=== PATIENT | male | born 1935 | race Caucasian/White ===

== ENCOUNTER 2016-04-15 13:05 | Emergency (ER) | payer MEDICARE ==
[~2016-04-15] VITALS: Ht 193 cm; Wt 97.5 kg
[~2016-04-15 13:05] MED LIST: ALBU8.5H2 INH; AMIO200T2 PO; AMIO400T5 PO; AML5T PO; AMLO10TA4 PO; APIX5TAB PO; APIX5TAB2 PO; ASP325T PO; ASPI-808 PO; ASPI-983 PO; ATEN50TA PO; ATN50T PO; BUDE10.2 IH; BUDE6HFA IH; CARV12.53 PO; CLOP75TA PO; DIGO250T15 PO; DILT120C PO; DILT180C54 PO; DILT240C86 PO; Diltiazem Hcl PO; ECOTRIN PO; EZET10TA5 PO; FENO145T PO; FENO145T20 PO; FLINTSTONE1 TAB.CHE4 PO; FLUT1DIS26 IH; IPR14IN IH; IPR14IN INH; ISM30TCR PO; ISM60TCR PO; ISOS30TA3 PO; KCL20TCR PO; LEVA1.2516 INH; LEVO750T24 PO; LISI10TA2 PO; MNTL10T PO; MONT10TA24 PO; NFAMINITAB PO; NITR0.4T PO; NITR0.4T3 SL; RT-ALBUINH IH; UMEC62.5 IH
--- OUTSIDE RECORDS SUMMARY | 2016-04-15 13:10 | XMS REPORT | Continuity of Care Document ---
Author Author [facility] Organization [facility] Address Unknown Phone Unavailable Care Team Providers Care Insights Analyst Name Role Phone ANNAMARIA RODGERS MD PCP Insurance Providers Payer Name Policy Number Subscriber Name Relationship Wps Medicare [id number] Peak,Reji V 18 Self / Same As Patient Blue Cross Mc[employer] Supp [id number] Peak,Reji V 18 Self / Same As Patient Advance Directives Directive Response Recorded Date/Time Advance Directives No 03/19/16 11:03am Health Care Power of Automatic Lump Making Machine Tender No 03/19/16 11:03am Organ Donor Yes 03/19/16 11:03am Resuscitation Status Full Code 03/19/16 11:03am Chief Complaint and Reason for Visit Chief Complaint Cardiac/General Problems Reason for Visit Labile blood pressure Problems Active Problems Medical Problem Onset Date Status Acute exacerbation of chronic obstructive airways disease Unknown Acute Acute exacerbation of chronic obstructive pulmonary disease (COPD) Unknown Acute Acute on chronic respiratory failure Unknown Acute Acute renal failure syndrome Unknown Acute Atrial fibrillation with RVR Unknown Acute Atrial fibrillation with RVR Unknown Acute Chest pain Unknown Acute Hypertension Unknown Acute Hypoxia Unknown Acute Labile blood pressure Unknown Acute New onset atrial flutter Unknown Acute New onset atrial flutter Unknown Acute Pneumonia Unknown Acute Sepsis Unknown Acute Sinus bradycardia Unknown Acute Medications Current Home Medications Medication Dose Units Route Directions Days/Qty Instructions Start Date Vitamin C/Vitamin E 1 Tab 1 Tab Oral Daily 04/29/13 Multivitamins W-Iron 1 Tab.chew 1 Tab.chew Oral Twice A Day 04/29/13 Lisinopril 10 Mg 10 Mg Oral Twice A Day 02/27/16 Ipratropium [place] 12.9 Gm 1 Puff Inhalation Twice A Day 02/27/16 Montelukast Sodium 10 Mg 10 Mg Oral Bedtime 02/27/16 Ezetimibe 10 Mg 10 Mg Oral Bedtime 02/27/16 Fenofibrate Nanocrystallized 145 Mg 145 Mg Oral Bedtime 02/27/16 Apixaban 5 Mg 5 Mg Oral Twice A Day 02/27/16 Nitroglycerin 0.4 Mg 0.4 Mg Oral As Directed as needed for Chest Pain DISSOLVE 1 TAB UNDER TONGUE EVERY 5 MINUTES NEEDED; NOT TO EXCEED 3 DOSES IN 15 MINUTES 02/27/16 Albuterol Sulfate 8.5 Gm 1 Puff Inhalation Twice A Day 02/27/16 Budesonide/Formoterol Fumarate 10.2 Gm 2 Puff Inhalation Twice A Day 02/27/16 Levalbuterol Hcl 1.25 Mg/3 Ml 1.25 Mg Inhalation Four Times Daily as needed for Dyspnea 100 02/28/16 Isosorbide Mononitrate (Imdur) 60 Mg 60 Mg Oral Daily 30 02/28/16 Carvedilol 12.5 Mg 12.5 Mg Oral Twice A Day 60 02/28/16 Aspirin 81 Mg 0 Mg Oral Daily 90 02/28/16 Amlodipine Besylate 10 Mg 10 Mg Oral Daily 30 02/28/16 Past Home Medications Medication Directions Ordered Status Atenolol 50 Mg Tablet, 50 Mg Oral Bedtime 11/22/07 Discontinued Amlodipine Besylate 5 Mg Tablet, 5 Mg Oral Bedtime 11/22/07 Discontinued Fenofibrate 145 Mg Tablet, 145 Mg Oral Bedtime 11/22/07 Discontinued Ezetimibe 10 Mg Tablet, 10 Mg Oral Bedtime 11/22/07 Discontinued [Ecotrin] , 325 Mg Oral Bedtime 11/22/07 Discontinued Aspirin 325 Mg Tab, 325 Mg Oral Bedtime 10/16/10 Discontinued Isosorbide Mononitrate 30 Mg Tab, 30 Mg Oral Daily@0630 10/16/10 Discontinued Clopidogrel Bisulfate 75 Mg Tablet, 1 Each Oral Daily 10/24/10 Discontinued Lisinopril 10 Mg Tablet, 10 Mg Oral Twice A Day 04/29/13 Discontinued Montelukast Sodium 10 Mg Tablet, 10 Mg Oral Bedtime 04/29/13 Discontinued Albuterol 8.5 Gm Hfa.aer.ad, 1 Puff Inhalation Twice A Day 04/29/13 Discontinued Ipratropium [place] 12.9 Gm Aers, 1 Puff Inhalation Twice A Day 04/29/13 Discontinued Salmeterol Xinafoate/Fluticasone 1 Disk Inhp, 1 Puff Inhalation Twice A Day 03/22/14 Discontinued Apixaban 5 Mg Tablet, 5 Mg Oral Twice A Day 03/22/14 Discontinued Diltiazem Hcl (Cardizem Cd) 120 Mg Cap.sr.24h, 120 Mg Oral Daily 04/15/14 Discontinued Budesonide/Formoterol Fumarate 1 Inhaler Aero, 1 Puff Inhalation Twice A Day 04/15/14 Discontinued Ipratropium [place] 12.9 Gm Aers, 1 Puff Inhalation Twice A Day 04/15/14 Discontinued Apixaban 5 Mg Tablet, 5 Mg Oral Twice A Day 04/15/14 Discontinued [Diltiazem Hcl] 240 Mg Cap, 240 Mg Oral Daily 04/21/14 Discontinued Diltiazem Hcl 240 Mg Cap.er.24h, 240 Mg Oral Daily 05/10/14 Discontinued Digoxin 0.25 Mg Tab, 0.25 Mg Oral Daily 05/21/14 Discontinued Potassium Chloride 20 Meq Tab, 20 Meq Oral Daily@0700 05/21/14 Discontinued Amiodarone Hcl 400 Mg Tablet, 400 Mg Oral Daily 05/21/14 Discontinued Nitroglycerin 0.4 Mg Tab.subl, 0.4 Mg Sublingual As Needed as needed for Chest Pain 09/02/14 Discontinued Isosorbide Mononitrate (Imdur) 30 Mg Tab.sr.24h, 1 Each Oral Daily 10/24/14 Discontinued Umeclidinium [place] 62.5 Mcg Blst.w.dev, 62.5 Mcg Inhalation 08/24/15 Discontinued Umeclidinium [place] 62.5 Mcg Blst.w.dev, 62.5 Mcg Inhalation Daily 02/27/16 Discontinued Isosorbide Mononitrate (Imdur) 30 Mg Tab.er.24h, 30 Mg Oral Daily 02/27/16 Discontinued Aspirin 81 Mg Tablet.dr, 81 Mg Oral Daily 02/27/16 Discontinued Amiodarone Hcl 200 Mg Tablet, 200 Mg Oral Daily 02/27/16 Discontinued Atenolol 50 Mg Tablet, 50 Mg Oral Daily 02/27/16 Discontinued Aspirin 325 Mg Tablet, 325 Mg Oral Bedtime 02/27/16 Discontinued Social History Social History Problem Response Recorded Date/Time Alcohol Use Past History 08/24/2015 3:53pm Recreational Drug Use No 08/24/2015 3:53pm Recent Foreign Travel No 03/19/2016 11:00am Recent Infectious Disease Exposure No 03/19/2016 11:00am Sexually Transmitted Disease No 03/19/2016 11:03am HIV/AIDS No 03/19/2016 11:03am Smoking Status Former Smoker 03/19/2016 11:23am Recent Hopitalizations Y 2 wks ago, chest pain, hypertension 03/19/2016 11: 03am Sexually Transmitted Disease No 03/19/2016 11:03am Query Response Start Date Stop Date Smoking Status Former Smoker 04/08/1983 Hospital Discharge Instructions No hospital discharge instructions. Plan of Care Discharge Date 03/19/16 1:55pm Disposition 01 HOME, SELF-CARE Condition at Discharge Improved Instructions/Education Provided High Blood Pressure in Adults Prescriptions See Medication Section Referrals ANNAMARIA RODGERS MD - Primary Care Physician Additional Instructions/Education All discharge instructions reviewed with patient and/or family. Voiced understanding. Monitor your blood pressure daily or twice daily for the next week and follow up with Dr. Fong next week to discuss your blood pressure control. Change your amlodipine to nighttime dosing only. You may start this tomorrow. Return for chest pain, breathing problems, weakness, vision or balance problems, difficulty with speech or talking or other concerns as needed. Take other medications as directed. Functional Status No functional status results. Allergies, Adverse Reactions, Alerts Allergen Type Severity Reaction Status Last Updated iodine ([id number]) Allergy Unknown Active 11/21/07 Immunizations No immunization records. Vital Signs Acute Vital Signs Vital Response Date/Time Temperature (Fahrenheit) 98.3 degrees F (97.6 - 99.5) 03/19/2016 11:00am Temperature (Calculated Celsius) 36.48654 degrees C (36.4 - 37.5) 03/19/2016 11:00am Temperature Source Tympanic 02/28/2016 4:05pm Pulse Rate (adult) 56 bpm (60 - 90) 03/19/2016 11:00am Respiratory Rate 16 bpm (12 - 24) 03/19/2016 11:00am O2 Sat by Pulse Oximetry 98 % (88 - 100) 02/28/2016 4:05pm Blood Pressure 119/49 mm Hg 03/19/2016 11:00am Blood Pressure Mean 72 mm Hg 03/19/2016 11:00am Pain Numeric Pain Scale 0-No Pain 03/19/2016 11:00am Pain Intensity 0 02/26/2016 8:46pm Height (Feet) 6 feet 03/19/2016 11:00am Height (Inches) 4 inches 03/19/2016 11:00am Height (Calculated Centimeters) 193.004059 cm 03/19/2016 11:00am Weight (Pounds) 215 pounds 03/19/2016 11:00am Weight (Ounces) 0.0 oz 02/26/2016 8:47pm Weight (Calculated Grams) 52439.36 gm 02/26/2016 8:47pm Weight (Calculated Kilograms) 97.601502 kilograms 03/19/2016 11:00am Calculated BMI 26.2 02/26/2016 8:47pm Capillary Refill Capillary Refill Less Than 3 Seconds 03/19/2016 11:00am Results Laboratory Results Test Name Result Units Flags Reference Collection Date/Time Result Date/ Time Comments White Blood Count 2.3 10^3/uL L 4.3-11.0 02/28/2016 4:10am 02/28/2016 4: 52am Red Blood Count 3.44 10^6/uL L 4.35-5.85 02/28/2016 4:10am 02/28/2016 4: 52am Hemoglobin 10.5 G/DL L 13.3-17.7 02/28/2016 4:10am 02/28/2016 4:52am Hematocrit 33 % L 40-54 02/28/2016 4:10am 02/28/2016 4:52am Mean Corpuscular Volume 96 FL 80-99 02/28/2016 4:10am 02/28/2016 4: 52am Mean Corpuscular Hemoglobin 31 PG 25-34 02/28/2016 4:10am 02/28/2016 4: 52am Mean Corpuscular Hemoglobin Concent 32 G/DL 32-36 02/28/2016 4:10am 4:52am Red Cell Distribution Width 13.8 % 10.0-14.5 02/28/2016 4:10am 2015 4:52am Platelet Count 163 10^3/uL 130-400 02/28/2016 4:10am 02/28/2016 4:52am Mean Platelet Volume 10.6 FL H 7.4-10.4 02/28/2016 4:10am 02/28/2016 4: 52am Neutrophils (%) (Auto) 47 % 42-75 02/27/2016 4:05am 02/27/2016 5:06am Lymphocytes (%) (Auto) 24 % 12-44 02/27/2016 4:05am 02/27/2016 5:06am Monocytes (%) (Auto) 24 % H 0-12 02/27/2016 4:05am 02/27/2016 5:06am Eosinophils (%) (Auto) 5 % 0-10 02/27/2016 4:05am 02/27/2016 5:06am Basophils (%) (Auto) 1 % 0-10 02/27/2016 4:05am 02/27/2016 5:06am Neutrophils # (Auto) 1.2 X 10^3 L 1.8-7.8 02/27/2016 4:05am 02/27/2016 5: 06am Lymphocytes # (Auto) 0.6 X 10^3 L 1.0-4.0 02/27/2016 4:05am 02/27/2016 5: 06am Monocytes # (Auto) 0.6 X 10^3 0.0-1.0 02/27/2016 4:05am 02/27/2016 5: 06am Eosinophils # (Auto) 0.1 10^3/uL 0.0-0.3 02/27/2016 4:05am 02/27/2016 5 :06am Basophils # (Auto) 0.0 10^3/uL 0.0-0.1 02/27/2016 4:05am 02/27/2016 5: 06am Neutrophils % (Manual) 58 % 02/26/2016 2:33pm 02/26/2016 3:43pm Lymphocytes % (Manual) 23 % 02/26/2016 2:33pm 02/26/2016 3:43pm Monocytes % (Manual) 16 % 02/26/2016 2:33pm 02/26/2016 3:43pm Eosinophils % (Manual) 3 % 02/26/2016 2:33pm 02/26/2016 3:43pm Blood Morphology Comment NORMAL 02/26/2016 2:33pm 02/26/2016 3: 43pm Prothrombin Time 14.0 SEC 12.2-14.7 02/26/2016 2:33pm 02/26/2016 3: 27pm INR Comment 1.1 0.8-1.4 02/26/2016 2:33pm 02/26/2016 3:27pm INTERPRETIVE DATA SUGGESTED THERAPEUTIC RANGE FOR INR'S: VENOUS THROMBOSIS, PULMONARY EMBOLISM, OR PREVENTION OF SYSTEMIC EMBOLISM (EG. IN ATRIAL FIBRILLATION): 2.0 - 3.0 MECHANICAL PROSTHETIC HEART VALVES: 2.5 - 3.5* *NOTE: INR'S UP TO 4.5 MAY BE NECESSARY IN SELECTED GROUPS OF HIGH RISK PATIENTS. [employer] [place] CONSENSUS CONFERENCE ON ANTITHROMBOTIC THERAPY (2000). Activated Partial Thromboplast Time 28 SEC 24-35 02/26/2016 2:33pm 3:27pm Sodium Level 141 MMOL/L 135-145 02/28/2016 4:10am 02/28/2016 5:09am Potassium Level 4.2 MMOL/L 3.6-5.0 02/28/2016 4:10a02/28/2016 5:09am Chloride Level 102 MMOL/L 98-107 02/28/2016 4:10am 02/28/2016 5:09am Carbon Dioxide Level 30 MMOL/L 21-32 02/28/2016 4:10am 02/28/2016 5: 09am Anion Gap 9 MMOL/L 5-14 02/28/2016 4:10am 02/28/2016 5:09am Blood Urea Nitrogen 27 MG/DL H 7-18 02/28/2016 4:10a02/28/2016 5:09am Creatinine 1.01 MG/DL 0.60-1.30 02/28/2016 4:10am 02/28/2016 5:09am BUN/Creatinine Ratio 27 02/28/2016 4:10am 02/28/2016 5:09am Estimat Glomerular Filtration Rate > 60 02/28/2016 4:10am 2015 5:09am GFR INTERPRETIVE DATA UNITS FOR ESTIMATED GFR (eGFR): mL/min/1.73 M2 REFERENCE RANGE FOR ESTIMATED GFR (eGFR) eGFR NORMAL eGFR >60 MODERATELY DECREASED eGFR 30-59 SEVERLY DECREASED eGFR 15-29 KIDNEY FAILURE <15 (OR DIALYSIS) Glucose Level 81 MG/DL 70-105 02/28/2016 4:02/28/2016 5:09am Calcium Level 9.2 MG/DL 8.5-10.1 02/28/2016 4:02/28/2016 5:09am Magnesium Level 2.2 MG/DL 1.8-2.4 02/26/2016 2:33pm 02/26/2016 3:32pm Total Bilirubin 0.4 MG/DL 0.1-1.0 02/28/2016 4:02/28/2016 5:09am Alkaline Phosphatase 38 U/L L 40-136 02/28/2016 4:02/28/2016 5:09am Aspartate Amino Transf (AST/SGOT) 26 U/L 5-34 02/28/2016 4:2015 5:09am Alanine Aminotransferase (ALT/SGPT) 21 U/L 0-55 02/28/2016 4:02/27 5:09am Troponin I < 0.30 NG/ML <0.30 02/27/2016 4:05am 02/27/2016 5:30am Troponin I < 0.30 NG/ML <0.30 02/26/2016 2:33pm 02/26/2016 3:32pm Myoglobin 45.5 NG/ML 10.0-92.0 02/26/2016 2:33pm 02/26/2016 3:32pm Total Protein 5.4 G/DL L 6.4-8.2 02/28/2016 4:02/28/2016 5:09am Albumin 3.2 G/DL 3.2-4.5 02/28/2016 4:02/28/2016 5:09am Triglycerides Level 121 MG/DL <150 02/28/2016 4:02/28/2016 5:09am Cholesterol Level 146 MG/DL < 200 02/28/2016 4:02/28/2016 5:09am HDL Cholesterol 37 MG/DL L 40-60 02/28/2016 4:02/28/2016 5:09am LDL Cholesterol Direct 84 MG/DL 1-129 02/28/2016 4:02/28/2016 5: 09am VLDL Cholesterol 24 MG/DL 5-40 02/28/2016 4:10am 02/28/2016 5:09am Pending Laboratory Results Test Name Collection Date/Time Procedures Procedure Status Date Provider(s) Tracing only of electrocardiogram Completed 02/26/16 MONIKA MACK MD Color Doppler echocardiography Active 02/27/16 JESSICA FONG MD Tracing only of electrocardiogram Active 03/19/16 MEKHI DASILVA MD Encounters Encounter Location Arrival/Admit Date Discharge/Depart Date Attending Provider Departed Emergency Room [facility] 03/19/16 10:41am 03/23 1:55pm MEKHI DASILVA MD Discharged Inpatient (obs) [facility] 02/26/16 8:07pm 8:33am JALEEL NIEVES MD Recent Diagnosis
--- NOTE | 2016-04-15 14:29 | ED Hip Pain/Injury ---
General Chief Complaint: Hip/Pelvic Problems Stated Complaint: R HIP AND R SHOULDER PAIN Nursing Triage Note: PT C/O R HIP PAIN AND R SHOULDER PAIN. HE DENIES ANY INJURY. HE REPORTS HE HAS BEEN TAKING 1G OF TYLENOL Q6H SINCE SATURDAY AND WAS INITIALLY GETTING RELIEF, BUT IS NOT NOW. Source: patient, family Exam Limitations: no limitations History of Present Illness Time seen by provider: 14:24 Initial Comments This 80-year-old white male presents complaining of severe right hip pain that occurred shortly prior to presentation to emergency department. The patient had no remote or recent trauma to the area. Upon arrival to emergency department patient's right hip pain and essentially spontaneously abated. The pain which was described as sharp in nature was located over the right hip joint. It was made worse with weightbearing. At this time patient has no pain in the right hip and has no difficulty weightbearing. Patient states over the last several days he has felt that he has a flulike illness and has had pain in the right shoulder and right hip. Pertinent past medical history includes cardiac disease, hypertension, and COPD. The patient denies fever, chills, dysuria, frequency, change in his chronic dyspnea, productive cough, or other remarkable complaint. Allergies and Home Medications Allergies Coded Allergies: iodine (Verified Allergy, Unknown, 11/21/07) Home Medications Albuterol Sulfate 8.5 Gm Hfa.aer.ad 1 PUFF IH BID (Reported) Amlodipine Besylate 10 Mg Tablet #30 10 MG PO DAILY Prescribed by: [facility] EUCEDA on 02/28/16 1252 Apixaban 5 Mg Tablet 5 MG PO BID (Reported) Aspirin 81 Mg Tablet.dr #90 0 MG PO DAILY Prescribed by: JALEEL SILVER on 02/28/16 0831 Budesonide/Formoterol Fumarate 10.2 Gm Hfa.aer.ad 2 PUFF IH BID (Reported) Carvedilol 12.5 Mg Tablet #60 12.5 MG PO BID Prescribed by: JALEEL SILVER on 02/28/16 0831 Ezetimibe 10 Mg Tablet 10 MG PO HS (Reported) Fenofibrate Nanocrystallized 145 Mg Tablet 145 MG PO HS (Reported) Ipratropium [place] 12.9 Gm Aers 1 PUFF IH BID (Reported) Isosorbide Mononitrate 60 Mg Tab #30 60 MG PO DAILY Prescribed by: JALEEL SILVER on 02/28/16830 Levalbuterol HCl 1.25 Mg/3 Ml Vial.neb #100 1.25 MG INH QID PRN PRN DYSPNEA Prescribed by: JALEEL SILVER on 02/28/16830 Lisinopril 10 Mg Tablet 10 MG PO BID (Reported) Montelukast Sodium 10 Mg Tablet 10 MG PO HS (Reported) Multivitamins W-Iron 1 Tab.chew Tab.chew 1 TAB.CHEW PO BID (Reported) Nitroglycerin 0.4 Mg Tab.subl 0.4 MG PO UD PRN PRN CHEST PAIN (Reported) DISSOLVE 1 TAB UNDER TONGUE EVERY 5 MINUTES NEEDED; NOT TO EXCEED 3 DOSES IN 15 MINUTES Vitamin C/Vitamin E 1 Tab Tab 1 TAB PO DAILY (Reported) Constitutional: No chills, No fever EENTM: No ear pain, No vision loss Respiratory: No cough, No hemoptysis Cardiovascular: No chest pain, Hx of Intervention Gastrointestinal: No abdominal pain, No diarrhea, No nausea, No vomiting Genitourinary: No dysuria, No frequency Musculoskeletal: joint pain (right hip and right shoulder.) Skin: No rash Psychiatric/Neurological: No Symptoms Reported Past Eaboxoh-Uahmiw-Zvzaqe Hx Patient Social History Alcohol Use: Denies Use Recreational Drug Use: No Smoking Status: Never a Smoker Former Smoker/When Quit: Apr 08, 1983 2nd Hand Smoke Exposure: No Recent Foreign Travel: No Contact w/Someone Who Travel: No Recent Infectious Disease Expo: No Recent Hopitalizations: No Physical Abuse Screen: No Sexual Abuse: No Immunizations Up To Date Tetanus Booster (TDap): Unknown Date of Pneumonia Vaccine: Mar 04, 2013 Date of Influenza Vaccine: Dec 08, 2015 Seasonal Allergies Seasonal Allergies: No Surgeries HX Surgeries: Yes (lap choley, 2 hernia repairs, aortal/femerol bypass) Surgeries: CABG, Coronary Stent, Gallbladder Respiratory Hx Respiratory Disorders: Yes (HOME OXYGEN) Respiratory Disorders: Pneumonia, COPD Cardiovascular Hx Cardiac Disorders: Yes (BYPASS SURGERY, TENZIN WITH CARDIOVERSION) Cardiac Disorders: Coronary Artery Disease, Hypertension Neurological Hx Neurological Disorders: No Reproductive System Hx Reproductive Disorders: No Sexually Transmitted Disease: No HIV/AIDS: No Genitourinary Hx Genitourinary Disorders: No Gastrointestinal Hx Gastrointestinal Disorders: No Musculoskeletal Hx Musculoskeletal Disorders: Yes Musculoskeletal Disorders: Arthritis Endocrine Hx Endocrine Disorders: No HEENT HX ENT Disorders: Yes (dentures) Loss of Vision: Denies Hearing Impairment: Hard of Hearing Cancer Hx Cancer: Yes Cancer: Prostate Psychosocial Hx Psychiatric Problems: No Integumentary HX Skin/Integumentary Disorder: No Blood Transfusions Hx Blood Disorders: No Adverse Reaction to a Blood Tr: No Reviewed Nursing Assessment Reviewed/Agree w Nursing PMH: Yes Family Medical History Significant Family History: Heart Disease, Cancer Family Medial History: Cancer 09 BROTHER 09 BROTHER 09 BROTHER Cancer of colon 09 BROTHER Stroke Physical Exam Vital Signs Vital Sign - Last 12Hours 04/15/16 13:37 Temp 97.1 Pulse 62 Resp 20 B/P 136/63 Pulse Ox 97 O2 Delivery Nasal Cannula O2 Flow Rate 4 Capillary Refill : Less Than 3 Seconds General Appearance: No Apparent Distress WD/WN HEENT: PERRL/EOMI Normal ENT Inspection Neck: Full Range of Motion Normal Inspection Non Tender Supple Cardiovascular: Regular Rate, Rhythm Respiratory: Lungs Clear Gastrointestinal: Normal Bowel Sounds Non Tender Back: Normal Inspection Extremity: Normal Range of Motion Non Tender Neurologic/Psychiatric: Oriented x3 No Motor/Sensory Deficits Skin: Normal Color Warm/Dry Progress/Results/Core Measures Results/Orders Lab Results Laboratory Tests Test 04/15/16 14:40 Range/Units Basophils # (Auto) 0.0 0.0-0.1 10^3/uL Basophils (%) (Auto) 0 0-10 % Eosinophils # (Auto) 0.0 0.0-0.3 10^3/uL Eosinophils (%) (Auto) 1 0-10 % Erythrocyte Sedimentation Rate 33 H 0-30 MM/HR Hematocrit 34 L 40-54 % Hemoglobin 11.2 L 13.3-17.7 G/DL Lymphocytes # (Auto) 0.7 L 1.0-4.0 X 10^3 Lymphocytes (%) (Auto) 11 L 12-44 % Mean Corpuscular Hemoglobin 31 25-34 PG Mean Corpuscular Hemoglobin Concent 33 32-36 G/DL Mean Corpuscular Volume 96 80-99 FL Mean Platelet Volume 10.2 7.4-10.4 FL Monocytes # (Auto) 0.7 0.0-1.0 X 10^3 Monocytes (%) (Auto) 11 0-12 % Neutrophils # (Auto) 5.1 1.8-7.8 X 10^3 Neutrophils (%) (Auto) 78 H 42-75 % Platelet Count 183 130-400 10^3/uL Red Blood Count 3.59 L 4.35-5.85 10^6/uL Red Cell Distribution Width 13.6 10.0-14.5 % White Blood Count 6.6 4.3-11.0 10^3/uL My Orders Orders-MAAME WILSON MD Hip, Right, 2 Views (04/15/16 14:23) Shoulder, Right, 2 Views (04/15/16 14:23) Erythrocyte Sedimentation Rate (04/15/16 14:23) Cbc With Automated Diff (04/15/16 14:23) Vital Signs/I&O Vital Sign - Last 12Hours 04/15/16 13:37 Temp 97.1 Pulse 62 Resp 20 B/P 136/63 Pulse Ox 97 O2 Delivery Nasal Cannula O2 Flow Rate 4 Blood Pressure Mean: 87 Progress Note : Time: 15:52 Progress Note The patient's x-rays demonstrated the degenerative changes of the hip and shoulder. The patient's sedimentation rate was mildly elevated at 33. His CBC was unremarkable. I discussed findings with patient and family. We'll place patient on tramadol on a trial basis for the pain of his degenerative arthritis. I asked that he follow-up with his doctor tomorrow and return if any problems. Departure Impression Impression: Primary Impression: Degenerative arthritis Qualified Code: M16.11 - Unilateral primary osteoarthritis, right hip Disposition: 01 HOME, SELF-CARE Condition: Unchanged Departure-Patient Inst. Decision time for Depature: 15:54 Referrals: JALEEL SILVER MD (PCP/Family) Primary Care Physician Patient Instructions: Hip Pain (DC) Add. Discharge Instructions: Tramadol as prescribed. Close follow-up with Dr. Silver. Return if any problems. All discharge instructions reviewed with patient and/or family. Voiced understanding. MAAME WILSON MD Apr 15, 2016 14:29
[2016-04-15 14:46] LABS: BASOPHILS % (AUTO) 0 % (0-10); EOSINOPHILS % (AUTO) 1 % (0-10); LYMPHOCYTES # (AUTO) 0.7 X 10^3 (1.0-4.0); LYMPHOCYTES % (AUTO) 11 % (12-44); MEAN CORPUSCULAR HEMOGLOBIN 31 PG (25-34); MEAN CORPUSCULAR HGB CONC 33 G/DL (32-36); MEAN CORPUSCULAR VOLUME 96 FL (80-99); MEAN PLATELET VOLUME 10.2 FL (7.4-10.4); MONOCYTES # (AUTO) 0.7 X 10^3 (0.0-1.0); MONOCYTES % (AUTO) 11 % (0-12); NEUTROPHILS # (AUTO) 5.1 X 10^3 (1.8-7.8); NEUTROPHILS % (AUTO) 78 % (42-75); PLATELET COUNT 183 10^3/uL (130-400); RED BLOOD COUNT 3.59 10^6/uL (4.35-5.85); RED CELL DISTRIBUTION WIDTH 13.6 % (10.0-14.5); WHITE BLOOD COUNT 6.6 10^3/uL (4.3-11.0)
[2016-04-15 15:17] LABS: ERYTHROCYTE SEDIMENTATION RATE 33 MM/HR (0-30)
--- NOTE | 2016-04-15 15:22 | Diagnostic Imaging Report ---
INDICATION: Hip pain. COMPARISON: None. EXAMINATION: Two views of the right hip were obtained. FINDINGS: Moderate degenerative joint disease. There is no fracture or dislocation. No osseous lesion. Atherosclerosis is noted. IMPRESSION: Degenerative joint disease. Dictated by: Dictated on workstation # [id number]
--- NOTE | 2016-04-15 15:23 | Diagnostic Imaging Report ---
INDICATION: Right shoulder pain. COMPARISON: None. FINDINGS: Two views of the right shoulder demonstrate mild degenerative change of the AC and glenohumeral joint. There is no fracture or dislocation. No osseous lesion. IMPRESSION: Degenerative joint disease. Dictated by: Dictated on workstation # [id number]
[2016-04-15 16:05] VITALS: BP 136/63
[2016-07-10] MEDS ORDERED: AZIT250T5 PO (15:12)
[2016-08-04] MEDS ORDERED: POTA20TA8 PO (09:18)
[2016-08-04] MEDS ORDERED: FURO40TA4 PO (09:18)
[2016-08-04] MEDS ORDERED: LOSA25TA21 PO (09:18)
== END 2016-04-15 16:05 | disposition home or self-care (01) ==
LOC: EDUNIT# 13:05 → ER 13:06
DX: M16.11 Unilateral primary osteoarthritis, right hip (principal); M19.011 Primary osteoarthritis, right shoulder; I10 Essential (primary) hypertension; J44.9 Chronic obstructive pulmonary disease, unspecified; I25.10 Atherosclerotic heart disease of native coronary artery without angina pectoris; Z79.82 Long term (current) use of aspirin; Z79.899 Other long term (current) drug therapy; Z95.1 Presence of aortocoronary bypass graft; Z95.5 Presence of coronary angioplasty implant and graft
CPT/HCPCS: 36415; 73030; 73502; 85025; 85652

== ENCOUNTER 2016-07-10 09:12 | Inpatient (IN) | payer MEDICARE ==
[~2016-07-10] VITALS: Ht 193 cm; Wt 89.4 kg
[2016-07-10] VITALS (16 sets, daily range): BP systolic 135–182; BP diastolic 60–80
[2016-07-10] MEDS ORDERED: RT-IPRATROPIUM (ATROVENT) 0.5MG/2.5ML AMP IH ONE (09:19)
[2016-07-10] MEDS ORDERED: RT-ALBUTEROL SULF 2.5 MG/3 ML PRE-MIX VIAL ONE (09:19)
[2016-07-10] MEDS ORDERED: RT-ALBUTEROL SULF 2.5 MG/3 ML PRE-MIX VIAL INH STA (09:20)
[2016-07-10] MEDS ORDERED: RT-ALBUTEROL/IPRATROPIUM 3 ML (DUONEB) VIAL INH ONE (09:30)
[2016-07-10 09:37] LABS: BASOPHILS % (AUTO) 1 % (0-10); EOSINOPHILS % (AUTO) 1 % (0-10); LYMPHOCYTES # (AUTO) 0.7 X 10^3 (1.0-4.0); LYMPHOCYTES % (AUTO) 13 % (12-44); MEAN CORPUSCULAR HEMOGLOBIN 31 PG (25-34); MEAN CORPUSCULAR HGB CONC 32 G/DL (32-36); MEAN CORPUSCULAR VOLUME 97 FL (80-99); MONOCYTES # (AUTO) 0.6 X 10^3 (0.0-1.0); MONOCYTES % (AUTO) 12 % (0-12); NEUTROPHILS # (AUTO) 3.9 X 10^3 (1.8-7.8); NEUTROPHILS % (AUTO) 73 % (42-75); PLATELET COUNT 184 10^3/uL (130-400); RED BLOOD COUNT 3.66 10^6/uL (4.35-5.85); WHITE BLOOD COUNT 5.3 10^3/uL (4.3-11.0)
[2016-07-10] MEDS ORDERED: AZIT250T PO (09:46)
[2016-07-10 09:51] LABS: INR 1.2 (0.8-1.4); PROTHROMBIN TIME PATIENT 14.7 SEC (12.2-14.7)
[2016-07-10 09:58] LABS: ABG BASE EXCESS 8.8 MMOL/L (-2.5-2.5); ABG HCO3 34 MMOL/L (23-27); ABG OXYGEN SATURATION 100 % (94-100); ABG PCO2 56 MMHG (35-45); ABG PO2 237 MMHG (79-93); ABG TCO2 35.4 MMOL/L (21.0-31.0)
[2016-07-10 09:59] LABS: ALANINE AMINOTRANSFERASE 11 U/L (0-55); ANION GAP 7 MMOL/L (5-14); ASPARTATE AMINO TRANSFERASE 20 U/L (5-34); BILIRUBIN,TOTAL 0.5 MG/DL (0.1-1.0); BLOOD UREA NITROGEN 27 MG/DL (7-18); BUN/CREATININE RATIO 26; CALCIUM 9.7 MG/DL (8.5-10.1); CARBON DIOXIDE 37 MMOL/L (21-32); CHLORIDE 100 MMOL/L (98-107); CREATININE SERUM 1.04 MG/DL (0.60-1.30); GFR ESTIMATED > 60; GLUCOSE 93 MG/DL (70-105); POTASSIUM 4.3 MMOL/L (3.6-5.0); SODIUM 144 MMOL/L (135-145); TOTAL PROTEIN 6.9 G/DL (6.4-8.2)
[2016-07-10 10:00] LABS: ALLENS TEST POS; PATIENT TEMP 98.6
[2016-07-10 10:05] LABS: TROPONIN I < 0.30 NG/ML (<0.30)
--- NOTE | 2016-07-10 10:10 | Diagnostic Imaging Report ---
INDICATION: Dyspnea 0954 hours Comparison is made to study of 03/19/2016. There is bilateral air trapping. Prominent interstitial markings are seen throughout the lungs. There is mild basilar atelectasis, bilaterally. IMPRESSION: Emphysema and basilar atelectasis. Otherwise, no acute abnormality is detected. Dictated by: Dictated on workstation # [id number]
[2016-07-10] MEDS ORDERED: LORazepam INJ 2 MG/ML (ATIVAN) VIAL IVP ONE (10:15)
[2016-07-10] MEDS ORDERED: methylPREDNISolone 125 MG (Solu-MEDROL) VIAL IV STA (10:16)
--- NOTE | 2016-07-10 10:22 | ED Respiratory ---
General Chief Complaint: Respiratory Problems Stated Complaint: SOA Nursing Triage Note: PT TO ED 5 PER EMS ON CPAP FOR INCREASED SOB ONSET THIS AM. PER EMS, PT REPORTED COUGH X2 DAYS, WORSE THIS AM. REPORTS USING HIS INHALER BUT DENIES IMPROVEMENT Source: patient Exam Limitations: no limitations History of Present Illness Time seen by provider: 09:15 Initial Comments Here with report of increasing shortness of breath this morning. This worsened despite using his inhaler and increased oxygen. His doctor was called who wanted him evaluated in the ER. Family was unable to get him to the car because he was in such respiratory distress and EMS was summoned. Despite 5 L O2 via nasal cannula his oxygen was in the low 80 percent range. CPAP was initiated by EMS which did improve his O2 saturation. He apparently has had cough and shortness of breath for a few days and is currently on azithromycin 5 day pack with 1 dose left. Does have a long history of COPD and heart failure. Denies fevers. Patient unable to give much information due to IPAP currently in place. Timing/Duration: getting worse Severity: moderate, severe Prior Episodes/Possible Cause: occasional episodes Modifying Factors: Improves With Albuterol Inhaler, Improves With Oxygen Associated Symptoms: cough, shortness of breath, wheezing Allergies and Home Medications Allergies Coded Allergies: iodine (Verified Allergy, Unknown, 11/21/07) Home Medications Albuterol Sulfate 8.5 Gm Hfa.aer.ad, 1 PUFF IH BID, (Reported) Amlodipine Besylate 10 Mg Tablet, 10 MG PO DAILY, #30 Ref 5 Prescribed by: KAISER EUCEDA on 02/28/16 1252 Apixaban 5 Mg Tablet, 5 MG PO BID, (Reported) Aspirin 81 Mg Tablet.dr, 0 MG PO DAILY, #90 Ref 6 Prescribed by: JALEEL NIEVES on 02/28/16 0831 Azithromycin 250 Mg Tablet, 250 MG PO DAILY, (Reported) Budesonide/Formoterol Fumarate 10.2 Gm Hfa.aer.ad, 2 PUFF IH BID, (Reported) Carvedilol 12.5 Mg Tablet, 12.5 MG PO BID, #60 Ref 6 Prescribed by: JALEEL NIEVES on 02/28/16 0831 Ezetimibe 10 Mg Tablet, 10 MG PO HS, (Reported) Fenofibrate Nanocrystallized 145 Mg Tablet, 145 MG PO HS, (Reported) Ipratropium Cordova 12.9 Gm Aers, 1 PUFF IH BID, (Reported) Isosorbide Mononitrate 60 Mg Tab, 60 MG PO DAILY, #30 Ref 6 Prescribed by: JALEEL NIEEVS on 02/28/1631 Levalbuterol HCl 1.25 Mg/3 Ml Vial.neb, 1.25 MG INH QID PRN for DYSPNEA, #100 Ref 1 Prescribed by: JALEEL NIEVES on 02/28/1631 Lisinopril 10 Mg Tablet, 10 MG PO BID, (Reported) Montelukast Sodium 10 Mg Tablet, 10 MG PO HS, (Reported) Multivitamins W-Iron 1 Tab.chew Tab.chew, 1 TAB.CHEW PO BID, (Reported) Nitroglycerin 0.4 Mg Tab.subl, 0.4 MG PO UD PRN for CHEST PAIN, (Reported) DISSOLVE 1 TAB UNDER TONGUE EVERY 5 MINUTES NEEDED; NOT TO EXCEED 3 DOSES IN 15 MINUTES Vitamin C/Vitamin E 1 Tab Tab, 1 TAB PO DAILY, (Reported) Constitutional: see HPI, No chills, No fever Respiratory: see HPI, cough, short of breath, wheezing Gastrointestinal: No nausea, No vomiting Psychiatric/Neurological: Anxiety Other Unable to complete review of systems due to clinical condition. All Other Systems Reviewed Negative Unless Noted: No Past Wpiuwgi-Fmyupe-Tiwvkm Hx Patient Social History Alcohol Use: Denies Use Recreational Drug Use: No Smoking Status: Former Smoker Type Used: Cigarettes Former Smoker/When Quit: Apr 08, 1983 2nd Hand Smoke Exposure: No Recent Foreign Travel: No Contact w/Someone Who Travel: No Recent Infectious Disease Expo: No Recent Hopitalizations: No Immunizations Up To Date Tetanus Booster (TDap): Unknown Date of Pneumonia Vaccine: Mar 04, 2013 Date of Influenza Vaccine: Dec 08, 2015 Seasonal Allergies Seasonal Allergies: No Surgeries HX Surgeries: Yes (lap choley, 2 hernia repairs, aortal/femerol bypass) Surgeries: CABG, Coronary Stent, Gallbladder Respiratory Hx Respiratory Disorders: Yes (HOME OXYGEN) Respiratory Disorders: Pneumonia, COPD Cardiovascular Hx Cardiac Disorders: Yes (BYPASS SURGERY, TENZIN WITH CARDIOVERSION) Cardiac Disorders: Coronary Artery Disease, Hypertension Neurological Hx Neurological Disorders: No Reproductive System Hx Reproductive Disorders: No Sexually Transmitted Disease: No HIV/AIDS: No Genitourinary Hx Genitourinary Disorders: No Gastrointestinal Hx Gastrointestinal Disorders: No Musculoskeletal Hx Musculoskeletal Disorders: Yes Musculoskeletal Disorders: Arthritis Endocrine Hx Endocrine Disorders: No HEENT HX ENT Disorders: Yes (dentures) Loss of Vision: Denies Hearing Impairment: Hard of Hearing Cancer Hx Cancer: Yes Cancer: Prostate Psychosocial Hx Psychiatric Problems: No Integumentary HX Skin/Integumentary Disorder: No Blood Transfusions Hx Blood Disorders: No Adverse Reaction to a Blood Tr: No Reviewed Nursing Assessment Reviewed/Agree w Nursing PMH: Yes Family Medical History Significant Family History: Heart Disease, Cancer Family Medial History: Cancer 09 BROTHER 09 BROTHER 09 BROTHER Cancer of colon 09 BROTHER Stroke Physical Exam Vital Signs Vital Sign - Last 12Hours 07/10/16 07/10/16 07/10/16 09:20 09:30 09:31 Temp 98.6 Pulse 74 Resp 19 B/P (MAP) 178/103 Pulse Ox 100 O2 Delivery NIV/CPAP O2 Flow Rate 100.00 FiO2 60 Capillary Refill : Less Than 3 Seconds General Appearance: WD/WN, no apparent distress HEENT: PERRL/EOMI, pharynx normal Neck: full range of motion, supple Respiratory: respiratory distress, decreased breath sounds, accessory muscle use, wheezing, expiration, other (overall decreased with a few trace wheezes) Cardiovascular: regular rate, rhythm, no murmur Gastrointestinal: non tender, soft Extremities: non-tender, normal inspection Neurologic/Psychiatric: alert, oriented x 3 Skin: normal color, warm/dry Focused Exam Lactic Acid Level Laboratory Tests Test 07/10/16 09:25 Lactic Acid Level 0.91 MMOL/L (0.50-2.00) Progress/Results/Core Measures Results/Orders Lab Results Laboratory Tests Test 07/10/16 09:25 07/10/16 09:38 Range/Units White Blood Count 5.3 4.3-11.0 10^3/uL Red Blood Count 3.66 L 4.35-5.85 10^6/uL Hemoglobin 11.4 L 13.3-17.7 G/DL Hematocrit 36 L 40-54 % Mean Corpuscular Volume 97 80-99 FL Mean Corpuscular Hemoglobin 31 25-34 PG Mean Corpuscular Hemoglobin Concent 32 32-36 G/DL Red Cell Distribution Width 13.0 10.0-14.5 % Platelet Count 184 130-400 10^3/uL Mean Platelet Volume 10.0 7.4-10.4 FL Neutrophils (%) (Auto) 73 42-75 % Lymphocytes (%) (Auto) 13 12-44 % Monocytes (%) (Auto) 12 0-12 % Eosinophils (%) (Auto) 1 0-10 % Basophils (%) (Auto) 1 0-10 % Neutrophils # (Auto) 3.9 1.8-7.8 X 10^3 Lymphocytes # (Auto) 0.7 L 1.0-4.0 X 10^3 Monocytes # (Auto) 0.6 0.0-1.0 X 10^3 Eosinophils # (Auto) 0.0 0.0-0.3 10^3/uL Basophils # (Auto) 0.0 0.0-0.1 10^3/uL Prothrombin Time 14.7 12.2-14.7 SEC INR Comment 1.2 0.8-1.4 Activated Partial Thromboplast Time 26 24-35 SEC Sodium Level 144 135-145 MMOL/L Potassium Level 4.3 3.6-5.0 MMOL/L Chloride Level 100 98-107 MMOL/L Carbon Dioxide Level 37 H 21-32 MMOL/L Anion Gap 7 5-14 MMOL/L Blood Urea Nitrogen 27 H 7-18 MG/DL Creatinine 1.04 0.60-1.30 MG/DL Estimat Glomerular Filtration Rate > 60 BUN/Creatinine Ratio 26 Glucose Level 93 70-105 MG/DL Lactic Acid Level 0.91 0.50-2.00 MMOL/L Calcium Level 9.7 8.5-10.1 MG/DL Total Bilirubin 0.5 0.1-1.0 MG/DL Aspartate Amino Transf (AST/SGOT) 20 5-34 U/L Alanine Aminotransferase (ALT/SGPT) 11 0-55 U/L Alkaline Phosphatase 37 L 40-136 U/L Troponin I < 0.30 <0.30 NG/ML B-Type Natriuretic Peptide 393.2 H <100.0 PG/ML Total Protein 6.9 6.4-8.2 G/DL Albumin 4.0 3.2-4.5 G/DL Blood Gas Puncture Site L RADIAL Blood Gas Patient Temperature 98.6 Arterial Blood pH 7.40 7.37-7.43 Arterial Blood Partial Pressure CO2 56 H 35-45 MMHG Arterial Blood Partial Pressure O2 237 H 79-93 MMHG Arterial Blood HCO3 34 H 23-27 MMOL/L Arterial Blood Total CO2 35.4 H 21.0-31.0 MMOL/L Arterial Blood Oxygen Saturation 100 94-100 % Arterial Blood Base Excess 8.8 H -2.5-2.5 MMOL/L Nicholas Test POS Blood Gas Ventilator Setting NO Blood Gas Inspired Oxygen 60% My Orders Orders - MEKHI DASILVA MD Cbc With Automated Diff (07/10/16 09:20) Comprehensive Metabolic Panel (07/10/16:20) Lactic Acid Analyzer (07/10/16:20) Blood Culture (07/10/16:20) Sputum Culture (07/10/16:20) Ua Culture If Indicated (07/10/16:20) Protime With Inr (07/10/16:20) Partial Thromboplastin Time (07/10/16:20) Chest 1 View, Ap/Pa Only (07/10/16:20) O2 (07/10/16:20) Saline Lock/Iv-Start (07/10/16:20) Saline Lock/Iv-Start (07/10/16:20) Ekg Tracing (07/10/16:20) Troponin I (07/10/16 09:20) Vital Signs Adult Sepsis Patie Q1HR (07/10/16 09:20) Remove Rings In Anticipation O (07/10/16 09:20) BNP (07/10/16 09:20) Albuterol Pre-Mix Nebs (Rt) (Proventil P (07/10/16 09:20) Albuterol/Ipra Inhalation Soln (Duoneb I (07/10/16 09:30) Svn Sm Volume Nebulizer Rt-Rfs (07/10/16 09:20) Svn Sm Volume Nebulizer Rt-Rfs (07/10/16 09:20) Ipratropium 0.02% Neb Solution (Atrovent (07/10/16 09:19) Albuterol Pre-Mix Nebs (Rt) (Proventil P (07/10/16 09:19) Arterial Blood Gas (07/10/16 09:39) Lorazepam Injection (Ativan Injection) (07/10/16 10:15) Methylprednisolone Sod Succ (Solu-Medrol (07/10/16 10:16) Medications Given in ED Current Medications Medications Dose Ordered Sig/Lee Route Start Time Stop Time Status Last Admin Dose Admin Ipratropium Cordova 0.5 mg STK-MED ONCE IH 07/10/16 09:19 07/10/16 09:23 DC 07/10/16 09:26 0.5 MG Lorazepam 0.5 mg ONCE ONCE IVP 07/10/16 10:15 07/10/16 10:16 DC 07/10/16 10:12 0.5 MG Vital Signs/I&O Vital Sign - Last 12Hours 07/10/16 07/10/16 07/10/16 09:20 09:30 09:31 Temp 98.6 Pulse 74 82 Resp 19 24 B/P (MAP) 178/103 Pulse Ox 100 100 89 O2 Delivery NIV/CPAP O2 Flow Rate 100.00 FiO2 60 Blood Pressure Mean: 128 Progress Note : Progress Note Seen and evaluated. IV by EMS. Labs, EKG, chest x-ray, blood cultures and lactic acid ordered. Patient converted from CPAP to BiPAP initially at 20/8 here with her percent O2. Initiated DuoNeb and 5 albuterol treatments and continuous hour-long fashion due to severe distress. 1010: Improving overall and O2 titrated down to 21 percent and BiPAP changed to 16/8. 1020: FiO2 increased to 35 percent. Patient given 0.5 mg of Ativan IV due to anxiety. O2 saturations improved to 94 percent. No findings of pneumonia on chest x-ray. This appears to be acute exacerbation of chronic COPD. He is responding to BiPAP and nebulized therapy. I did discuss the case with Dr. Nieves who is out today. She has had a speak with Dr. Flores for admission. 1035: I did discuss the case with Dr. Flores and he accepts patient for admission and agrees with current plan. He did receive Solu-Medrol 125 mg IV and we will continue that. We will continue BiPAP currently. Currently no evidence of pneumonia so we will not pursue that but he does have 1 more dose of antibiotics which I will defer to the primary team to decide if he should take or not. He has had 4 days worth of azithromycin. Admit, inpatient status. Patient and family agree with plan. Patient to go to ICU. ECG Initial ECG Impression Date: Jul 10, 2016 Initial ECG Impression Time: 09:21 Initial ECG Rate: 73 Initial ECG Rhythm: Normal Sinus Comment Sinus rhythm with RBBB and normal axis. No evidence of STEMI. Interpreted by me. Diagnostic Imaging Diagonstic Imaging: Xray Plain Films/CT/US/NM/MRI: chest Comments VIA [facility], [facility]. [place], [place] NAME: DAMARIS PINEDA REC#: [id number] PT STATUS: REG ER : 1935 PHYSICIAN: MEKHI DASILVA MD ADMIT DATE: 07/10/16/ER Draft Date of Exam:07/10/16 CHEST 1 VIEW, AP/PA ONLY INDICATION: Dyspnea 0954 hours Comparison is made to study of 03/19/2016. There is bilateral air trapping. Prominent interstitial markings are seen throughout the lungs. There is mild basilar atelectasis, bilaterally. IMPRESSION: Emphysema and basilar atelectasis. Otherwise, no acute abnormality is detected. Dictated on workstation # [id number] Dict: 07/10/16 1007 Trans: 07/10/16 [facility] [id number] Interpreted by: MO SANZ MD Electronically signed by: Departure Communication Time/Spoke to Admitting Phy: 10:35 Impression Impression: Primary Impression: COPD with acute exacerbation Additional Impression: Hypercapnic respiratory failure Qualified Codes: J96.02 - Acute respiratory failure with hypercapnia Disposition: 09 ADMITTED INPATIENT Condition: Stable Decision to Admit Reason: Admit from ER (General) Decision to Admit/Date: Jul 10, 2016 Time/Decision to Admit Time: 10:35 Departure-Patient Inst. Referrals: JALEEL NIEVES MD (PCP/Family) Primary Care Physician MEKHI DASILVA MD Jul 10, 2016 10:22
[2016-07-10] MEDS ORDERED: NS IV 1000 ML 1,000 ML IV SCH (13:00)
[2016-07-10] MEDS: LORazepam INJ 2 MG/ML (ATIVAN) VIAL IV PRN ×2 (14:08→19:47)
[2016-07-10] MEDS ORDERED: TRAM50TA2 PO (15:12)
[2016-07-10] MEDS ORDERED: AMLO5TAB2 PO (15:12)
[2016-07-10] MEDS ORDERED: ASPI-983 PO (15:12)
[2016-07-10] MEDS ORDERED: CARV12.53 PO (15:12)
[2016-07-10] MEDS ORDERED: CARB15DR91 OU (15:12)
[2016-07-10] MEDS ORDERED: [UNRECOGNIZED DRUG - OTHER] IH (15:12)
[2016-07-10] MEDS ORDERED: VIT1TABL26 PO (15:12)
[2016-07-10] MEDS ORDERED: ISM60TCR PO (15:12)
[2016-07-10] MEDS ORDERED: CETI10TA17 PO (15:12)
[2016-07-10] MEDS ORDERED: AZIT250T5 PO ×2 (15:12)
[2016-07-10] MEDS ORDERED: LEVA1.2516 IH (15:16)
[2016-07-10] MEDS ORDERED: RT-ALBUTEROL/IPRATROPIUM 3 ML (DUONEB) VIAL INH PRN (15:45)
--- NOTE | 2016-07-10 15:48 | History & Physicial ---
History of Present Illness History of Present Illness Reason for visit/HPI Pt is an 80 yo male who went to ER this morning d/t increasing shortness of breath that did not improve despite home oxygen use and home breathing tx and INH. On 5L oxygen via NC pt was running in 80's and pap therapy was initiated and pt currently on this and tolerating. Pt states he started getting congested and had a cold on Saturday and his pcp prescribed him a zpak and he has taken that but today he woke up and was more short of breath. Date of Admission Jul 10, 2016 at 10:50 I consulted on this patient on 07/10/16 15:40 Attending Physician Fermin Flores DO Admitting Physician Frannie Silver MD Consult Allergies and Home Medications Allergies Coded Allergies: iodine (Verified Allergy, Unknown, 11/21/07) Home Medications Albuterol Sulfate 8.5 Gm Hfa.aer.ad, 1 PUFF IH BID, (Reported) Amlodipine Besylate 5 Mg Tablet, 5 MG PO DAILY, (Reported) Apixaban 5 Mg Tablet, 5 MG PO BID, (Reported) Aspirin 81 Mg Tablet.dr, 81 MG PO HS, (Reported) Azithromycin 250 Mg Tablet, 250 MG PO DAILY, (Reported) FILLED 07/06/16 #6 FOR A 5 DAY THERAPY Budesonide/Formoterol Fumarate 10.2 Gm Hfa.aer.ad, 2 PUFF IH BID, (Reported) Carboxymethylcellulose Sodium 15 Ml Drops, 1 DROP OU DAILY PRN PRN for DRY EYES, (Reported) Carvedilol 12.5 Mg Tablet, 12.5 MG PO BID, (Reported) Cetirizine HCl 10 Mg Tablet, 10 MG PO DAILY, (Reported) Ezetimibe 10 Mg Tablet, 10 MG PO HS, (Reported) Fenofibrate Nanocrystallized 145 Mg Tablet, 145 MG PO HS, (Reported) Isosorbide Mononitrate 60 Mg Tab, 60 MG PO DAILY, (Reported) Levalbuterol HCl 1.25 Mg/3 Ml Vial.neb, 1.25 MG IH QID PRN for DYSPNEA, ( Reported) Lisinopril 10 Mg Tablet, 10 MG PO BID, (Reported) Montelukast Sodium 10 Mg Tablet, 10 MG PO HS, (Reported) Multivitamins W-Iron 1 Tab.chew Tab.chew, 1 TAB.CHEW PO BID, (Reported) Nitroglycerin 0.4 Mg Tab.subl, 0.4 MG PO UD PRN for CHEST PAIN, (Reported) DISSOLVE 1 TAB UNDER TONGUE EVERY 5 MINUTES NEEDED; NOT TO EXCEED 3 DOSES IN 15 MINUTES Tramadol HCl 50 Mg Tablet, 50-100 MG PO EVERY 4-6 HOURS PRN for PAIN, (Reported ) Vit A,C & E/Lutein/Minerals 1 Each Tablet, 1 TAB PO DAILY, (Reported) [Duolin 100MCG/20MCG] , 1 PUFF IH DAILY PRN, (Reported) Past Pbucjqz-Hizuyy-Mesvhj Hx Patient Social History Alcohol Use: Denies Use Recreational Drug Use: No Smoking Status: Former Smoker Former smoker/When Quit: Apr 08, 1983 Type Used: Cigarettes 2nd Hand Smoke Exposure: No Recent Foreign Travel: No Contact w/other who traveled: No Recent Hopitalizations: No Recent Infectious Disease Expo: No Immunizations Up To Date Tetanus Booster (TDap): Unknown Date of Pneumonia Vaccine: Mar 04, 2013 Date of Influenza Vaccine: Dec 08, 2015 Seasonal Allergies Seasonal Allergies: No Surgeries HX Surgeries: Yes (lap choley, 2 hernia repairs, aortal/femerol bypass) Surgeries: CABG, Coronary Stent, Gallbladder Respiratory Hx Respiratory Disorders: Yes (HOME OXYGEN) Cardiovascular Hx Cardiovascular Disorders: Yes (BYPASS SURGERY, TENZIN WITH CARDIOVERSION) Cardiac Disorders: Coronary Artery Disease, Hypertension Neurological Hx Neurological Disorders: No Reproductive System Hx Reproductive Disorders: No Sexually Transmitted Disease: No HIV/AIDS: No Genitourinary Hx Genitourinary Disorders: No Gastrointestinal Hx Gastrointestinal Disorders: No Musculoskeletal Hx Musculoskeletal Disorders: Yes Musculoskeletal Disorders: Arthritis Endocrine Hx Endocrine Disorders: No HEENT HX ENT Disorders: Yes (dentures) Loss of Vision: Denies Hearing Impairment: Hard of Hearing Cancer Hx Cancer: Yes Cancer: Prostate Psychosocial Hx Psychiatric Problems: No Integumentary HX Skin/Integumentary Disorder: No Blood Transfusions Hx Blood Disorders: No Adverse Reaction to a Blood Tr: No Reviewed Nursing Assessment Reviewed/Agree w Nursing PMH: Yes Family Medical History Significant Family History: Heart Disease, Cancer Family Hx: Cancer 09 BROTHER 09 BROTHER 09 BROTHER Cancer of colon 09 BROTHER Stroke Constitutional: see HPI EENTM: nose congestion Respiratory: cough, dyspnea on exertion, short of breath, wheezing Cardiovascular: no symptoms reported Gastrointestinal: no symptoms reported Genitourinary: no symptoms reported Musculoskeletal: no symptoms reported Skin: no symptoms reported Psychiatric/Neurological: No Symptoms Reported Physical Exam Vital Signs Vital Sign - Last 12Hours 07/10/16 07/10/16 07/10/16 09:20 09:30 09:31 Temp 98.6 Pulse 74 Resp 19 B/P (MAP) 178/103 Pulse Ox 100 O2 Delivery NIV/CPAP O2 Flow Rate 100.00 FiO2 60 Capillary Refill : Less Than 3 Seconds General Appearance: No Apparent Distress, WD/WN Eyes: Bilateral Eye PERRL HEENT: PERRL/EOMI Neck: Full Range of Motion, Normal Inspection, Non Tender, Supple, JVD Respiratory: Chest Non Tender, No Accessory Muscle Use, No Respiratory Distress , Rhonci Cardiovascular: Regular Rate, Rhythm, No Edema, No Gallop, No Murmur, Normal Peripheral Pulses Gastrointestinal: Normal Bowel Sounds, Non Tender, Soft Back: Normal Inspection Extremity: Normal Capillary Refill, Normal Inspection, Normal Range of Motion, Non Tender, No Calf Tenderness, No Pedal Edema Neurologic/Psychiatric: Alert, Oriented x3, No Motor/Sensory Deficits, 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 Flores. Problems: REYNOLD MENDEZ APRN Jul 10, 2016 15:48
[2016-07-10] MEDS: methylPREDNISolone 125 MG (Solu-MEDROL) VIAL IV SCH (16:24)
[2016-07-10] MEDS ORDERED: RT-ADVAIR HFA 115/21 MCG PER PUFF IH ONE (18:22)
[2016-07-10] MEDS: RT-ALBUTEROL/IPRATROPIUM 3 ML (DUONEB) VIAL INH SCH ×2 (18:31→22:28)
[2016-07-10] MEDS: ASPIRIN E.C. 81 MG (ECOTRIN) TAB PO SCH (19:46)
[2016-07-10] MEDS: MONTELUKAST 10 MG (SINGULAIR) TAB PO SCH (19:46)
[2016-07-10] MEDS: APIXABAN 5 MG (ELIQUIS) TABLET PO SCH (19:46)
[2016-07-10] MEDS: lisINopril 10 MG (PRINIVIL) TAB PO SCH (19:46)
[2016-07-10] MEDS: eZETimibe 10 MG (ZETIA) TABLET PO SCH (19:46)
[2016-07-10] MEDS: CARVEDILOL 12.5 MG (COREG) TABLET PO SCH (19:46)
[2016-07-10] MEDS ORDERED: RT-ADVAIR HFA 115/21 MCG PER PUFF IH SCH (20:00)
[2016-07-11] VITALS (15 sets, daily range): BP systolic 139–177; BP diastolic 54–88
[2016-07-11] MEDS: methylPREDNISolone 125 MG (Solu-MEDROL) VIAL IV SCH ×5 (00:25→21:23)
[2016-07-11] MEDS: RT-ALBUTEROL/IPRATROPIUM 3 ML (DUONEB) VIAL INH SCH ×6 (02:11→21:52)
[2016-07-11 04:05] LABS: BASOPHILS % (AUTO) 0 % (0-10); EOSINOPHILS % (AUTO) 0 % (0-10); LYMPHOCYTES # (AUTO) 0.3 X 10^3 (1.0-4.0); LYMPHOCYTES % (AUTO) 9 % (12-44); MEAN CORPUSCULAR HEMOGLOBIN 31 PG (25-34); MEAN CORPUSCULAR HGB CONC 32 G/DL (32-36); MEAN CORPUSCULAR VOLUME 97 FL (80-99); MEAN PLATELET VOLUME 10.2 FL (7.4-10.4); MONOCYTES # (AUTO) 0.1 X 10^3 (0.0-1.0); MONOCYTES % (AUTO) 3 % (0-12); NEUTROPHILS # (AUTO) 3.2 X 10^3 (1.8-7.8); NEUTROPHILS % (AUTO) 88 % (42-75); PLATELET COUNT 170 10^3/uL (130-400); WHITE BLOOD COUNT 3.6 10^3/uL (4.3-11.0)
[2016-07-11 04:36] LABS: ANION GAP 12 MMOL/L (5-14); BLOOD UREA NITROGEN 36 MG/DL (7-18); BUN/CREATININE RATIO 33; CALCIUM 9.2 MG/DL (8.5-10.1); CARBON DIOXIDE 28 MMOL/L (21-32); CHLORIDE 103 MMOL/L (98-107); CREATININE SERUM 1.09 MG/DL (0.60-1.30); GFR ESTIMATED > 60; GLUCOSE 181 MG/DL (70-105); MAGNESIUM 1.8 MG/DL (1.8-2.4); PHOSPHORUS 2.1 MG/DL (2.3-4.7); POTASSIUM 4.2 MMOL/L (3.6-5.0); SODIUM 143 MMOL/L (135-145)
[2016-07-11 04:46] LABS: ABG BASE EXCESS 9.6 MMOL/L (-2.5-2.5); ABG HCO3 35 MMOL/L (23-27); ABG OXYGEN SATURATION 97 % (94-100); ABG PCO2 56 MMHG (35-45); ABG PH 7.41 (7.37-7.43); ABG PO2 81 MMHG (79-93); ABG TCO2 36.3 MMOL/L (21.0-31.0); ALLENS TEST YES-POS; PATIENT TEMP 98.4
[2016-07-11 04:52] LABS: BAND NEUTROPHILS 0 %; BASOPHILS % (MANUAL) 0 %; EOSINOPHILS % (MANUAL) 1 %; LYMPHOCYTES % (MANUAL) 9 %; NEUTROPHILS % (MANUAL) 88 %
--- NOTE | 2016-07-11 06:26 | Pulmonary Progress Note ---
Subjective Subjective/Events-last exam PT feels improved. No complications noted. Exam Exam Vital Signs Date Time Temp Pulse Resp B/P (MAP) Pulse Ox O2 Delivery O2 Flow Rate FiO2 07/11/16 06:00 73 19 170/81 95 High Flow N/C 8.00 07/11/16 05:37 High Flow N/C 8.00 07/11/16 05:00 62 19 165/87 94 NIV Bilevel 35.00 07/11/16 04:31 62 21 94 35.00 07/11/16 04:00 98.6 NIV Bilevel 35.00 07/11/16 04:00 64 20 150/75 93 NIV Bilevel 35.00 07/11/16 04:00 96 35.00 07/11/16 03:00 68 18 160/74 97 NIV Bilevel 35.00 07/11/16 02:11 67 22 97 35.00 07/11/16 02:00 82 18 177/88 90 NIV Bilevel 35.00 07/11/16 01:00 64 07/11/16 01:00 64 19 154/70 93 NIV Bilevel 35.00 07/11/16 00:05 64 22 95 35.00 07/11/16 00:00 64 19 149/67 95 NIV Bilevel 35.00 07/11/16 00:00 95 35.00 07/11/16 00:00 98.4 NIV Bilevel 35.00 07/10/16 23:58 97.9 NIV Bilevel 35.00 07/10/16 23:00 66 20 145/68 93 NIV Bilevel 35.00 07/10/16 22:33 98.6 07/10/16 22:28 64 21 98 35.00 07/10/16 22:00 64 21 144/64 97 NIV Bilevel 35.00 07/10/16 21:00 65 22 135/62 94 NIV Bilevel 35.00 07/10/16 20:46 66 21 89 35.00 07/10/16 20:00 95 35.00 07/10/16 20:00 75 24 143/60 93 NIV Bilevel 35.00 07/10/16 19:48 98.1 NIV Bilevel 35.00 07/10/16 19:00 84 23 182/70 94 NIV Bilevel 35.00 07/10/16 19:00 84 07/10/16 18:32 98 8.00 07/10/16 18:00 67 16 153/72 97 NIV Bilevel 35.00 07/10/16 17:28 96.7 07/10/16 17:00 65 13 158/78 98 NIV Bilevel 35.00 07/10/16 16:00 66 20 163/72 98 NIV Bilevel 35.00 07/10/16 15:33 69 18 95 35.00 07/10/16 15:30 98 07/10/16 15:00 68 11 154/70 95 NIV Bilevel 35.00 07/10/16 14:00 81 22 175/76 88 NIV Bilevel 35.00 07/10/16 12:45 95 35 07/10/16 12:40 66 07/10/16 12:37 68 19 98 35.00 07/10/16 12:30 97.2 68 15 180/75 98 Room Air 07/10/16 12:30 97.2 68 15 160/75 98 NIV Bilevel 35.00 07/10/16 12:30 63 20 96 5.00 07/10/16 09:31 98.6 82 24 178/103 89 NIV/CPAP 07/10/16 09:30 100 60 07/10/16 09:20 74 19 100 100.00 I & O 07/11/16 07:00 Intake Total 340 ml Output Total 650 ml Balance -310 ml General Appearance: No Apparent Distress, WD/WN HEENT: PERRL/EOMI Neck: Full Range of Motion, Normal Inspection, Non Tender, Supple, JVD Respiratory: Chest Non Tender, No Accessory Muscle Use, No Respiratory Distress , Rhonci Cardiovascular: Regular Rate, Rhythm, No Edema, No Gallop, No Murmur, Normal Peripheral Pulses Capillary Refill: Less Than 3 Seconds Gastrointestinal: non tender, soft Extremity: Normal Capillary Refill, Normal Inspection, Normal Range of Motion, Non Tender, No Calf Tenderness, No Pedal Edema Neurologic/Psychiatric: Alert, Oriented x3, No Motor/Sensory Deficits, 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, 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 Norm as Tested Skin: Normal Color, Warm/Dry Lymphatic: No Adenopathy Results Lab Laboratory Tests 07/10/16 09:25 07/11/16 03:30 Assessment/Plan Assessment/Plan COPDAE -svns -solumedrol 40mg every 6hr -Pt feels improved with noninvasive ventilation -Pt would benefit from home vent to mask -cxr reviewed Volume Overload -Hep lock IVF -daily labs Hypoxemia -oxygen to maintain sats >92% Hypertension -continue home BP meds and monitor Acute on Chronic Resp Distress Clinical Quality Measures DVT/VTE Risk/Contraindication: Risk Factor Score Per Nursin RFS Level Per Nursing on Admit: 3=High NATALIE GALDAMEZ DO Jul 11, 2016 06:26
[2016-07-11] MEDS ORDERED: RT-ADVAIR HFA 115/21 MCG PER PUFF IH ONE (06:34)
[2016-07-11] MEDS: RT-ADVAIR HFA 115/21 MCG PER PUFF IH SCH ×2 (07:29→18:37)
--- NOTE | 2016-07-11 07:53 | Diagnostic Imaging Report ---
INDICATION: COPD exacerbation. TECHNIQUE: Single view chest 500 a.m. CORRELATION STUDY: 07/10/2016 FINDINGS: Poststernotomy changes. Heart size unchanged. Vasculature within normal limits. Lung martino again noted to be hyperinflated with changes of COPD. Fibrotic-type changes noted without evidence for infiltrate. IMPRESSION: 1. COPD. No superimposed infiltrate. Dictated by: Dictated on workstation # [id number]
--- NOTE | 2016-07-11 07:56 | Consultation ---
History of Present Illness History of Present Illness Patient Consulted On(gareth/time) 07/11/16 07:52 Date of Admission 07/10/16 Reason for Visit: DYSPNEA, ACUTE HYPOXIA History of Present Illness PT IS AN 80 Y/O MALE WHO IS A PATIENT IN MY CLINIC. HE WAS ADMITTED YESTERDAY BY DR. GALDAMEZ FOR ACUTE DYSPNEA, NEED FOR BIPAP FOR VENTILATION AND RESPIRATORY REST DUE TO RESPIRATORY FATIGUE FROM SEVERAL DAYS OF INCREASED WORK OF BREATHING. TODAY THE PATIENT STATES THAT HE FEELS CONTINUED SHORTNESS OF BREATH, BUT IT IS IMPROVED FROM ADMISSION. Allergies and Home Medications Allergies Coded Allergies: iodine (Verified Allergy, Unknown, 11/21/07) Home Medications Albuterol Sulfate 8.5 Gm Hfa.aer.ad, 1 PUFF IH BID, (Reported) Amlodipine Besylate 5 Mg Tablet, 5 MG PO DAILY, (Reported) Apixaban 5 Mg Tablet, 5 MG PO BID, (Reported) Aspirin 81 Mg Tablet.dr, 81 MG PO HS, (Reported) Azithromycin 250 Mg Tablet, 250 MG PO DAILY, (Reported) FILLED 07/06/16 #6 FOR A 5 DAY THERAPY Budesonide/Formoterol Fumarate 10.2 Gm Hfa.aer.ad, 2 PUFF IH BID, (Reported) Carboxymethylcellulose Sodium 15 Ml Drops, 1 DROP OU DAILY PRN PRN for DRY EYES, (Reported) Carvedilol 12.5 Mg Tablet, 12.5 MG PO BID, (Reported) Cetirizine HCl 10 Mg Tablet, 10 MG PO DAILY, (Reported) Ezetimibe 10 Mg Tablet, 10 MG PO HS, (Reported) Fenofibrate Nanocrystallized 145 Mg Tablet, 145 MG PO HS, (Reported) Isosorbide Mononitrate 60 Mg Tab, 60 MG PO DAILY, (Reported) Levalbuterol HCl 1.25 Mg/3 Ml Vial.neb, 1.25 MG IH QID PRN for DYSPNEA, ( Reported) Lisinopril 10 Mg Tablet, 10 MG PO BID, (Reported) Montelukast Sodium 10 Mg Tablet, 10 MG PO HS, (Reported) Multivitamins W-Iron 1 Tab.chew Tab.chew, 1 TAB.CHEW PO BID, (Reported) Nitroglycerin 0.4 Mg Tab.subl, 0.4 MG PO UD PRN for CHEST PAIN, (Reported) DISSOLVE 1 TAB UNDER TONGUE EVERY 5 MINUTES NEEDED; NOT TO EXCEED 3 DOSES IN 15 MINUTES Tramadol HCl 50 Mg Tablet, 50-100 MG PO EVERY 4-6 HOURS PRN for PAIN, (Reported ) Vit A,C & E/Lutein/Minerals 1 Each Tablet, 1 TAB PO DAILY, (Reported) [Duolin 100MCG/20MCG] , 1 PUFF IH DAILY PRN, (Reported) Past Qbxhxqe-Epciau-Wilisb Hx Patient Social History Alcohol Use: Denies Use Recreational Drug Use: No Smoking Status: Former Smoker Type Used: Cigarettes Former Smoker/When Quit: Apr 08, 1983 2nd Hand Smoke Exposure: No Recent Foreign Travel: No Contact w/Someone Who Travel: Yes Recent Infectious Disease Expo: No Recent Hopitalizations: No Ebola Symptoms: Denies Symptoms Listed Physical Abuse Screen: No Sexual Abuse: No Immunizations Up To Date Tetanus Booster (TDap): Unknown Date of Pneumonia Vaccine: Mar 04, 2013 Date of Influenza Vaccine: Dec 08, 2015 Seasonal Allergies Seasonal Allergies: No Surgeries HX Surgeries: Yes (lap choley, 2 hernia repairs, aortal/femerol bypass) Surgeries: CABG, Coronary Stent, Gallbladder Respiratory Hx Respiratory Disorders: Yes (HOME OXYGEN) Respiratory Disorders: Pneumonia, COPD Cardiovascular Hx Cardiac Disorders: Yes (BYPASS SURGERY, TENZIN WITH CARDIOVERSION) Cardiac Disorders: Coronary Artery Disease, Hypertension Neurological Hx Neurological Disorders: No Reproductive System Hx Reproductive Disorders: No Sexually Transmitted Disease: No HIV/AIDS: No Genitourinary Hx Genitourinary Disorders: No Gastrointestinal Hx Gastrointestinal Disorders: No Musculoskeletal Hx Musculoskeletal Disorders: Yes Musculoskeletal Disorders: Arthritis Endocrine Hx Endocrine Disorders: No HEENT HX ENT Disorders: Yes (dentures) Loss of Vision: Denies Hearing Impairment: Hard of Hearing Cancer Hx Cancer: Yes Cancer: Prostate Psychosocial Hx Psychiatric Problems: No Integumentary HX Skin/Integumentary Disorder: No Blood Transfusions Hx Blood Disorders: No Adverse Reaction to a Blood Tr: No Reviewed Nursing Assessment Reviewed/Agree w Nursing PMH: Yes Family Medical History Significant Family History: Heart Disease, Cancer Family Medial History: Cancer 09 BROTHER 09 BROTHER 09 BROTHER Cancer of colon 09 BROTHER Stroke Review of Systems-General Constitutional: No chills, No diaphoresis, No fever, malaise, weakness EENTM: No hoarseness, No mouth pain, No throat pain Respiratory: cough, dyspnea on exertion, short of breath, wheezing Gastrointestinal: No abdominal pain, No constipation, No diarrhea Genitourinary: No incontinence Musculoskeletal: No back pain, muscle weakness Skin: No change in color, No lesions Psychiatric/Neurological: Denies Anxiety, Denies Depressed All Other Systems Reviewed Negative Unless Noted: Yes Physical Exam-General Problems Physical Exam Vital Signs Vital Sign - Last 12Hours 07/10/16 07/10/16 07/10/16 09:20 09:30 09:31 Temp 98.6 Pulse 74 Resp 19 B/P (MAP) 178/103 Pulse Ox 100 O2 Delivery NIV/CPAP O2 Flow Rate 100.00 FiO2 60 Capillary Refill : Less Than 3 Seconds General Appearance: WD/WN, moderate distress Eyes: Bilateral Eye EOMI, Bilateral Eye Normal Inspection, Bilateral Eye PERRL HEENT: PERRL/EOMI, pharynx normal Neck: non-tender, supple, normal inspection Respiratory: chest non-tender, decreased breath sounds, No crackles, wheezing Cardiovascular: regular rate, rhythm, no edema Gastrointestinal: normal bowel sounds, non tender, soft, no organomegaly, no pulsatile mass Rectal: deferred Extremities: normal range of motion, non-tender, normal inspection, pedal edema Neurologic/Psychiatric: 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 COPD EXACERBATION - CONTINUE WITH IV STEROIDS, MONITOR SYMPTOMS, WEAN OFF OF BIPAP, DOWN TO HOME OXYGEN USUAL RATE ABLE. AFIB - RATE CONTROLLED - CONTINUE WITH ELIQUIS AND BETA CAITLIN. HTN - ON LISINOPRIL, BETA CAITLIN HYPERLIPIDEMIA - ZETIA RESTARTED Clinical Quality Measures DVT/VTE Risk/Contraindication: Risk Factor Score Per Nursin RFS Level Per Nursing on Admit: 3=High JALEEL NIEVES MD Jul 11, 2016 07:56
[2016-07-11] MEDS: ISOSORBIDE MONONITRATE 60 MG (IMDUR) TAB PO SCH (08:37)
[2016-07-11] MEDS: CARVEDILOL 12.5 MG (COREG) TABLET PO SCH ×2 (08:37→20:37)
[2016-07-11] MEDS: amLODIPine 5 MG (NORVASC) TAB PO SCH (08:37)
[2016-07-11] MEDS: APIXABAN 5 MG (ELIQUIS) TABLET PO SCH ×2 (08:37→20:37)
[2016-07-11] MEDS: lisINopril 10 MG (PRINIVIL) TAB PO SCH ×2 (08:37→20:38)
[2016-07-11] MEDS ORDERED: AZITHROMYCIN 250 MG TAB (ZITHROMAX) PO SCH (09:00)
--- NOTE | 2016-07-11 10:57 | Consultation-Cardiology ---
HPI-Cardiology Cardiology Consultation Date of Consultation 07/11/16 Date of Admission Indication: PAF, DYSPNEA HPI Patient is a very pleasant 80 y/o male with history of CAD, PAF, COPD. Presented to the ER yesterday with complaints of increased dyspnea. Patient reports he was started on a Zpak last week for a cold and became progressively more short of breath over the last week. Was admitted to ICU yesterday and started on MAT protocol. Upon evaluation today, he reports he feels much improved. Denies any dyspnea. Currently on O2 via NC. Denies any CP, palpitations, dizziness or syncope. C/o nonproductive cough and some peripheral edema. No other complaint at this time. Patient is an 80-year-old gentleman with history of paroxysmal atrial fibrillation, coronary artery disease and COPD, started having increasing shortness of breath after having a cold and starting Z-Elías. His dyspnea became worse where he came into the emergency room. Upon my evaluation today was feeling better, still having some wheezing and shortness of breath but reporting overall significant improvement. He denied any chest pain but admitted having some tightness in the upper retrosternal area. Home Medications & Allergies Allergies: Coded Allergies: iodine (Verified Allergy, Unknown, 11/21/07) Home Medication List Reviewed: Yes ZOW-Ytmeiq-Ppkpvx Hx Patient Social History Alcohol Use: Denies Use Recreational Drug Use: No Smoking Status: Former Smoker Former smoker/When Quit: Apr 08, 1983 Type Used: Cigarettes 2nd Hand Smoke Exposure: No Recent Foreign Travel: No Recent Infectious Disease Expo: No Recent Hopitalizations: No Physical Abuse Screen: No Sexual Abuse: No Immunizations Up To Date Tetanus Booster (TDap): Unknown Date of Pneumonia Vaccine: Mar 04, 2013 Date of Influenza Vaccine: Dec 08, 2015 Past Medical History CAD, PAF, COPD, HTN,HLP Family Medical History Significant Family History: Heart Disease, Cancer Family History: Cancer 09 BROTHER 09 BROTHER 09 BROTHER Cancer of colon 09 BROTHER Stroke Constitutional: No chills, No diaphoresis, No dizziness, malaise EENTM: No blurred vision, No double vision, No ear pain, No throat pain, No throat swelling, No vision loss Respiratory: cough, dyspnea on exertion, No orthopnea, short of breath Cardiovascular: No chest pain, No edema, Hx of Intervention, No palpitations, vascular heart diseas Gastrointestinal: No abdominal pain, No constipation, No diarrhea Genitourinary: No decreased output, No dysuria, No frequency, No hematuria Musculoskeletal: No back pain, No joint pain Skin: No lesions, No rash Psychiatric/Neurological: Denies Anxiety, Denies Depressed Reviewed Test Results Reviewed Test Results Lab Laboratory Tests 07/11/16 03:30: White Blood Count 3.6L, Red Blood Count 3.40L, Hemoglobin 10.5L, Hematocrit 33L , Mean Corpuscular Volume 97, Mean Corpuscular Hemoglobin 31, Mean Corpuscular Hemoglobin Concent 32, Red Cell Distribution Width 13.0, Platelet Count 170, Mean Platelet Volume 10.2, Neutrophils (%) (Auto) 88H, Lymphocytes (%) (Auto) 9L , Monocytes (%) (Auto) 3, Eosinophils (%) (Auto) 0, Basophils (%) (Auto) 0, Neutrophils # (Auto) 3.2, Lymphocytes # (Auto) 0.3L, Monocytes # (Auto) 0.1, Eosinophils # (Auto) 0.0, Basophils # (Auto) 0.0, Neutrophils % (Manual) 88, Lymphocytes % (Manual) 9, Monocytes % (Manual) 2, Eosinophils % (Manual) 1, Basophils % (Manual) 0, Band Neutrophils 0, Elliptocytes SLIGHT, Sodium Level 143, Potassium Level 4.2, Chloride Level 103, Carbon Dioxide Level 28, Anion Gap 12, Blood Urea Nitrogen 36H, Creatinine 1.09, Estimat Glomerular Filtration Rate > 60, BUN/Creatinine Ratio 33, Glucose Level 181H, Calcium Level 9.2, Phosphorus Level 2.1L, Magnesium Level 1.8 07/11/16 04:40: Blood Gas Puncture Site L RAD, Blood Gas Patient Temperature 98.4, Arterial Blood pH 7.41, Arterial Blood Partial Pressure CO2 56H, Arterial Blood Partial Pressure O2 81, Arterial Blood HCO3 35H, Arterial Blood Total CO2 36.3H, Arterial Blood Oxygen Saturation 97, Arterial Blood Base Excess 9.6H, Nicholas Test YES-POS, Blood Gas Ventilator Setting NO, Blood Gas Inspired Oxygen 35% BIPAP ECG Impression ECG Initial ECG Rhythm: Normal Sinus Physical Exam Vital Signs Vital Sign - Last 12Hours 07/10/16 07/10/16 07/10/16 09:20 09:30 09:31 Temp 98.6 Pulse 74 Resp 19 B/P (MAP) 178/103 Pulse Ox 100 O2 Delivery NIV/CPAP O2 Flow Rate 100.00 FiO2 60 Capillary Refill : Less Than 3 Seconds General Appearance: No Apparent Distress, WD/WN HEENT: PERRL/EOMI, Normal ENT Inspection Neck: Non Tender, Supple Respiratory: Chest Non Tender, No Accessory Muscle Use, No Respiratory Distress , Wheezing Cardiovascular: Regular Rate, Rhythm, No Edema, No Gallop, No JVD, No Murmur Gastrointestinal: Non Tender, Soft Rectal: Deferred Back: No CVA Tenderness Extremity: Non Tender, No Calf Tenderness, Pedal Edema Neurologic/Psychiatric: Alert, Oriented x3, systems support specialist II-XII Norm as Tested Skin: Normal Color, Warm/Dry Lymphatic: No Adenopathy A/P-Cardiology Admission Diagnosis AE COPD CAD PAF HTN Assessment/Plan AE COPD- started on MAT protocol. Improving. Continue to monitor. Management by Dr. Silver and Dr. Flores Coronary artery disease history of multiple intervention the past, history of CABG 1 done 5 years ago. Most recent stress test and 2D Echo done 2015 revealed no ischemia or infarct with normal EF. EKG reveals SR with no acute changes. Denies any CP, continue to monitor. History of bradycardia,likely secondary to medication. Improved after discontinuing cardizem and amiodarone. Continue to monitor. Paroxysmal atrial fibrillation and atrial flutter alternating with sick sinus syndrome, had multiple electrical cardioversion in the past. Maintained on Eliquis. EKG reveals SR, continue to monitor. Hypertension, mildly elevated, continue to monitor BP/HR. Hyperlipidemia, continue to monitor Pulmonary hypertension- 2D Echo 02/21 revealed PA 50mmHg. Continue to monitor. Peripheral arterial disease, history of aortobifemoral bypass. Continue to monitor. History of tobaccoism in the remote past History of pleural effusion. Followed by primary care physician Thank you for allowing us to participate in the management of Mr. Ortiz. This is Christie Reeder PA-C as a scribe for Dr. Fong. Patient was seen and evaluated with Christie, he is a 80-year-old gentleman with history of COPD, was having increasing shortness of breath, admitted for acute exacerbation of COPD. Started on MAT protocol, reporting improvement, on examination still have some bilateral expiratory wheezing. Still having mild shortness of breath, heart exam showed normal S1 and S2. Patient is known to have history of coronary artery disease, paroxysmal atrial fibrillation, sick sinus syndrome, maintained on oral anticoagulation and he is currently in sinus rhythm. History of hypertension and hyperlipidemia in addition to pulmonary hypertension. I will continue current medication monitor him as described above , I interview the patient myself and performed physical examination, agree with the current scribe, I did minor modification and used Italic Font Clinical Quality Measures DVT/VTE Risk/Contraindication: Risk Factor Score Per Nursin RFS Level Per Nursing on Admit: 3=High CHRISTIE WEST Jul 11, 2016 10:57 JESSICA FONG MD Jul 11, 2016 12:22
--- NOTE | 2016-07-11 14:08 | Physician Query ---
PQ-Further Specificity Admission/Discharge Admission Date: Jul 10, 2016 at 10:50 Discharge Date: The medical record reflects the following clinical scenario: History/Risk Factors: Volume overload and long history of CHF. Clinical Findings: Volume overload, BNP-393.2 Treatment: 40 mg IV Lasix ordered. Question: Can you further specify volume overload per the clinical indicators above? Please document below. 1. Volume overload due to CHF. If CHF,please specify if acute, chronic or acute on chronic If CHF, please specify if systolic,diastolic or combined. 2. Volume overload only. 3. Other, with explanation of the clinical findings. 4. Clinically undetermined, no explanation for the clinical findings. PHYSICIAN RESPONSE Can you specify per above: Other, explanation/clinical finding Explanation/Clinical Findings I have not seen this patient during this admission Please remember a lack of response to the above will prompt a phone page by [facility]I/ coding staff. In responding to this query, please exercise your independent professional judgment. The purpose of this communication is to more accurately reflect the complexity of your patients condition. The fact that a question is asked does not imply that any particular answer is desired or expected. Thank you for your timely response to this clarification. Requestors name: Dipika Yoder [facility] Phone # ext [phone] or [phone] THIS PHYSICIAN QUERY FORM IS A PERMANENT PART OF THE MEDICAL RECORD DIPIKA YODER Jul 11, 2016 14:08 CHINYERE KING MD [facility] Jul 11, 2016 18:16
[2016-07-11] MEDS ORDERED: RT-ALBUTEROL/IPRATROPIUM 3 ML (DUONEB) VIAL INH PRN (15:45)
[2016-07-11] MEDS: BENZONATATE 100 MG (TESSALON) CAPSULE PO PRN (18:37)
[2016-07-11] MEDS: eZETimibe 10 MG (ZETIA) TABLET PO SCH (20:38)
[2016-07-11] MEDS: guaiFENesin/CODEINE (ROBITUSSIN AC) 10ML UDC PO PRN (20:38)
[2016-07-11] MEDS: MONTELUKAST 10 MG (SINGULAIR) TAB PO SCH (20:38)
[2016-07-11] MEDS: ASPIRIN E.C. 81 MG (ECOTRIN) TAB PO SCH (20:38)
[2016-07-12] VITALS: BP 134/64
[2016-07-12] MEDS: RT-ALBUTEROL/IPRATROPIUM 3 ML (DUONEB) VIAL INH SCH ×2 (02:06→06:29)
[2016-07-12] MEDS: CATHETER FLUSH 10 ML SYR IV PRN ×2 (02:59→15:53)
[2016-07-12] MEDS: guaiFENesin/CODEINE (ROBITUSSIN AC) 10ML UDC PO PRN (02:59)
[2016-07-12] MEDS: methylPREDNISolone 125 MG (Solu-MEDROL) VIAL IV SCH ×4 (03:00→21:23)
[2016-07-12 04:00] VITALS: BP 131/83
[2016-07-12 05:04] LABS: BASOPHILS % (AUTO) 0 % (0-10); EOSINOPHILS % (AUTO) 0 % (0-10); LYMPHOCYTES # (AUTO) 0.3 X 10^3 (1.0-4.0); LYMPHOCYTES % (AUTO) 5 % (12-44); MEAN CORPUSCULAR HEMOGLOBIN 31 PG (25-34); MEAN CORPUSCULAR HGB CONC 32 G/DL (32-36); MEAN CORPUSCULAR VOLUME 96 FL (80-99); MEAN PLATELET VOLUME 10.3 FL (7.4-10.4); MONOCYTES # (AUTO) 0.3 X 10^3 (0.0-1.0); MONOCYTES % (AUTO) 5 % (0-12); NEUTROPHILS % (AUTO) 91 % (42-75); PLATELET COUNT 194 10^3/uL (130-400); RED BLOOD COUNT 3.44 10^6/uL (4.35-5.85); RED CELL DISTRIBUTION WIDTH 12.8 % (10.0-14.5); WHITE BLOOD COUNT 6.6 10^3/uL (4.3-11.0)
[2016-07-12 05:26] LABS: ANION GAP 7 MMOL/L (5-14); BLOOD UREA NITROGEN 42 MG/DL (7-18); BUN/CREATININE RATIO 44; CALCIUM 9.5 MG/DL (8.5-10.1); CARBON DIOXIDE 33 MMOL/L (21-32); CHLORIDE 100 MMOL/L (98-107); CREATININE SERUM 0.95 MG/DL (0.60-1.30); GFR ESTIMATED > 60; GLUCOSE 123 MG/DL (70-105); MAGNESIUM 2.2 MG/DL (1.8-2.4); PHOSPHORUS 2.7 MG/DL (2.3-4.7); POTASSIUM 5.1 MMOL/L (3.6-5.0); SODIUM 140 MMOL/L (135-145)
[2016-07-12] MEDS: RT-ADVAIR HFA 115/21 MCG PER PUFF IH SCH ×2 (06:29→18:31)
--- NOTE | 2016-07-12 07:33 | Pulmonary Progress Note ---
Subjective Subjective/Events-last exam PT is feeling more improved. No complications noted. Exam Exam Vital Signs Date Time Temp Pulse Resp B/P (MAP) Pulse Ox O2 Delivery O2 Flow Rate FiO2 07/12/16 06:37 8.00 07/12/16 06:29 96 8.00 07/12/16 04:00 96.7 106 16 131/83 98 High Flow NC 7.50 07/12/16 02:07 98 8.00 07/12/16 00:00 96.8 74 18 134/64 98 High Flow NC 7.50 07/11/16 21:53 93 8.00 07/11/16 20:55 147/64 07/11/16 20:35 High Flow NC 8.00 07/11/16 19:20 97.2 74 21 167/79 97 Nasal Cannula 7.50 07/11/16 18:45 8.00 07/11/16 18:38 88 5.00 07/11/16 16:15 97.5 65 21 139/66 94 Nasal Cannula 5.00 07/11/16 14:55 98 5.00 07/11/16 11:23 93 8.00 07/11/16 08:22 High Flow NC 8.00 07/11/16 08:17 97.5 76 18 145/60 94 High Flow N/C 8.00 I & O 07/12/16 07:00 Intake Total 2590 ml Output Total 1700 ml Balance 890 ml General Appearance: No Apparent Distress, WD/WN HEENT: PERRL/EOMI, Normal ENT Inspection Neck: Non Tender, Supple Respiratory: Chest Non Tender, No Accessory Muscle Use, No Respiratory Distress , Wheezing Cardiovascular: Regular Rate, Rhythm, No Edema, No Gallop, No JVD, No Murmur Capillary Refill: Less Than 3 Seconds Gastrointestinal: normal bowel sounds, non tender, soft, no organomegaly, no pulsatile mass Extremity: Non Tender, No Calf Tenderness, Pedal Edema Neurologic/Psychiatric: Alert, Oriented x3, 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 Norm as Tested Skin: Normal Color, Warm/Dry Lymphatic: No Adenopathy Results Lab Laboratory Tests 07/10/16 09:25 07/11/16 03:30 07/12/16 04:50 Assessment/Plan Assessment/Plan COPDAE -svns -solumedrol 40mg every 6hr -Pt feels improved with noninvasive ventilation -Pt would benefit from home vent to mask -cxr reviewed Volume Overload -Hep lock IVF -daily labs Hypoxemia -oxygen to maintain sats >92% Hypertension -continue home BP meds and monitor Acute on Chronic Resp Distress Clinical Quality Measures DVT/VTE Risk/Contraindication: Risk Factor Score Per Nursin RFS Level Per Nursing on Admit: 3=High NATALIE GALDAMEZ DO Jul 12, 2016 07:33
[2016-07-12 07:43] VITALS: BP 143/80
--- NOTE | 2016-07-12 07:45 | Physician Query ---
PQ-Further Specificity Admission/Discharge Admission Date: Jul 10, 2016 at 10:50 Discharge Date: The medical record reflects the following clinical scenario: History/Risk Factors: Volume overload and long history of heart failure (per ED record). Clinical Findings: Volume overload, BNP 393.2. Treatment: 40 mg IV Lasix ordered. Question: Can you further specify volume overload per the clinical indicators above? Please document below. 1. Volume overload due to CHF. If CHF, please specify if acute, chronic or acute on chronic. If CHF, please specify if systolic,diastolic or combined. 2. Volume overload only. 3. Other, with explanation of the clinical findings. 4. Clinically undetermined, no explanation for the clinical findings. Please remember a lack of response to the above will prompt a phone page by CDI/ coding staff. In responding to this query, please exercise your independent professional judgment. The purpose of this communication is to more accurately reflect the complexity of your patients condition. The fact that a question is asked does not imply that any particular answer is desired or expected. Thank you for your timely response to this clarification. Requestors name: Dipika Yoder [facility] Phone # ext [phone] or [phone] THIS PHYSICIAN QUERY FORM IS A PERMANENT PART OF THE MEDICAL RECORD DIPIKA YODER Jul 12, 2016 07:45
--- NOTE | 2016-07-12 08:12 | Progress Note (SOAP) ---
Subjective Subjective/Events-last exam PT IS AN 80 Y/O MALE WHO IS KNOWN TO ME FROM CLINIC. HE REPORTS THAT HE IS STILL FAIRLY SHORT OF BREATH, BUT DOES FEEL BETTER THAN HE DID YESTERDAY Review of Systems General: Fatigue Pulmonary: Dyspnea, Cough Cardiovascular: Edema, No: Chest Pain, Palpitations Gastrointestinal: No: Abdominal Pain Genitourinary: Frequency Neurological: Weakness, No: Confusion Objective Exam Vital Signs Date Time Temp Pulse Resp B/P (MAP) Pulse Ox O2 Delivery O2 Flow Rate FiO2 07/12/16 07:43 96.9 131 24 143/80 98 Nasal Cannula 7.50 07/12/16 06:37 8.00 07/12/16 06:29 96 8.00 07/12/16 04:00 96.7 106 16 131/83 98 High Flow NC 7.50 07/12/16 02:07 98 8.00 07/12/16 00:00 96.8 74 18 134/64 98 High Flow NC 7.50 07/11/16 21:53 93 8.00 07/11/16 20:55 147/64 07/11/16 20:35 High Flow NC 8.00 07/11/16 19:20 97.2 74 21 167/79 97 Nasal Cannula 7.50 07/11/16 18:45 8.00 07/11/16 18:38 88 5.00 07/11/16 16:15 97.5 65 21 139/66 94 Nasal Cannula 5.00 07/11/16 14:55 98 5.00 07/11/16 11:23 93 8.00 07/11/16 08:22 High Flow NC 8.00 07/11/16 08:17 97.5 76 18 145/60 94 High Flow N/C 8.00 I & O 07/12/16 07:00 Intake Total 2590 ml Output Total 1700 ml Balance 890 ml Capillary Refill : Less Than 3 Seconds General Appearance: No Apparent Distress, WD/WN HEENT: PERRL/EOMI Neck: Supple Respiratory: Decreased Breath Sounds, Wheezing Cardiovascular: Irregularly Irregular Gastrointestinal: normal bowel sounds, non tender, soft, no organomegaly, no pulsatile mass Extremity: Pedal Edema Neurologic/Psychiatric: Alert, Oriented x3, No Motor/Sensory Deficits, 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 Lymphatic: No Adenopathy Results Lab Laboratory Tests 07/12/16 04:50: White Blood Count 6.6, Red Blood Count 3.44L, Hemoglobin 10.6L, Hematocrit 33L, Mean Corpuscular Volume 96, Mean Corpuscular Hemoglobin 31, Mean Corpuscular Hemoglobin Concent 32, Red Cell Distribution Width 12.8, Platelet Count 194, Mean Platelet Volume 10.3, Neutrophils (%) (Auto) 91H, Lymphocytes (%) (Auto) 5L , Monocytes (%) (Auto) 5, Eosinophils (%) (Auto) 0, Basophils (%) (Auto) 0, Neutrophils # (Auto) 6.0, Lymphocytes # (Auto) 0.3L, Monocytes # (Auto) 0.3, Eosinophils # (Auto) 0.0, Basophils # (Auto) 0.0, Sodium Level 140, Potassium Level 5.1H, Chloride Level 100, Carbon Dioxide Level 33H, Anion Gap 7, Blood Urea Nitrogen 42H, Creatinine 0.95, Estimat Glomerular Filtration Rate > 60, BUN /Creatinine Ratio 44, Glucose Level 123H, Calcium Level 9.5, Phosphorus Level 2.7, Magnesium Level 2.2 Microbiology 07/10/16 Blood Culture - Preliminary, Resulted No growth Assessment/Plan Assessment/Plan Assess & Plan/Chief Complaint ACUTE HYPOXIA RESPIRATORY DISTRESS COPD EXACERBATION ATRIAL FIBRILLATION HYPERTENSION HYPERLIPIDEMIA PT ADMITTED TO THE ICU, STARTED ON PNEUMONIA PROTOCOL, MAT PROTOCOL, STEROIDS, AND BIPAP. COPD EXACERBATION - CONTINUE WITH IV STEROIDS, MONITOR SYMPTOMS, WEAN OFF OF BIPAP, DOWN TO HOME OXYGEN USUAL RATE ABLE. AFIB - RATE CONTROLLED - CONTINUE WITH ELIQUIS AND BETA CAITLIN. HTN - ON LISINOPRIL, BETA CAITLIN HYPERLIPIDEMIA - ZETIA RESTARTED Clinical Quality Measures DVT/VTE Risk/Contraindication: Risk Factor Score Per Nursin RFS Level Per Nursing on Admit: 3=High JALEEL NIEVES MD Jul 12, 2016 08:12
[2016-07-12] MEDS ORDERED: RT-LEVALBUTEROL (XOPENEX) 1.25 MG/3 ML NEB NON-FORMULARY IH PRN (08:15)
[2016-07-12] MEDS ORDERED: CARVEDILOL 3.125 MG (COREG) TABLET PO NR (09:45)
[2016-07-12] MEDS: lisINopril 10 MG (PRINIVIL) TAB PO SCH (10:02)
[2016-07-12] MEDS: APIXABAN 5 MG (ELIQUIS) TABLET PO SCH ×2 (10:02→20:28)
[2016-07-12] MEDS: amLODIPine 5 MG (NORVASC) TAB PO SCH (10:02)
[2016-07-12] MEDS: ISOSORBIDE MONONITRATE 60 MG (IMDUR) TAB PO SCH (10:02)
[2016-07-12] MEDS: CARVEDILOL 12.5 MG (COREG) TABLET PO SCH ×2 (10:02→20:27)
[2016-07-12] MEDS: RT-LEVALBUTEROL (XOPENEX) 1.25 MG/3 ML NEB NON-FORMULARY INH SCH ×4 (10:42→22:19)
[2016-07-12 11:40] VITALS: BP 106/58
--- NOTE | 2016-07-12 13:49 | Cardiology Progress Note ---
Subjective Subjective/Events-last exam Patient is in bed. Complains of generalized weakness and increased dyspnea today. Reports had episode of tachycardia last night. Denies any CP. Review of Systems General: No Night Sweats, No Fatigue, No Malaise HEENT: No Visual Changes, No Dysphasia Pulmonary: Dyspnea, Cough Cardiovascular: No: Chest Pain, Palpitations Gastrointestinal: No: Abdominal Pain, Nausea, Vomiting Genitourinary: No Dysuria, No Frequency Musculoskeletal: No: neck pain Neurological: Weakness, No: Change in speech, Confusion, Numbness Objective-Cardiology Exam Last Set of Vital Signs Vital Signs 07/10/16 07/12/16 12:45 11:40 Temp 96.4 Pulse 103 Resp 20 B/P (MAP) 106/58 Pulse Ox 91 O2 Delivery Nasal Cannula O2 Flow Rate 5.00 FiO2 35 Capillary Refill : Less Than 3 Seconds I&O Intake and Output 07/12/16 00:00 Intake Total 1290 ml Output Total 1250 ml Balance 40 ml Intake Oral 1290 ml Output Urine Total 1250 ml # Bowel Movements 1 General: Alert, Oriented X3 HEENT: Atraumatic, PERRLA Lungs: Other (bilat rhonchi and wheezing) Heart: Regular Rate, Normal S1, Normal S2, No Murmurs Abdomen: Normal Bowel Sounds, Soft, No Tenderness Extremities: No Clubbing, No Edema Skin: No Rashes, No Significant Lesion Neuro: Normal Speech, Cranial Nerves 3-12 NL Psych/Mental Status: Mental Status NL, Mood NL Results Lab Laboratory Tests 07/12/16 04:50 A/P-Cardiology Admission Diagnosis AE COPD CAD PAF HTN Assessment/Plan AE COPD- started on MAT protocol. Slowly improving.. Continue to monitor. Management by Dr. Silver and Dr. Flores Coronary artery disease history of multiple intervention the past, history of CABG 1 done 5 years ago. Most recent stress test and 2D Echo done 2015 revealed no ischemia or infarct with normal EF. EKG reveals SR with no acute changes. Denies any CP, continue to monitor. History of bradycardia,likely secondary to medication. Improved after discontinuing cardizem and amiodarone. Continue to monitor. Paroxysmal atrial fibrillation and atrial flutter alternating with sick sinus syndrome, had multiple electrical cardioversion in the past. Maintained on Eliquis. EKG reveals SR, continue to monitor. Hyperkalemia- discontinue lisinopril and continue to monitor. Hypertension, i will discontinue lisinopril and continue to monitor BP/HR. Hyperlipidemia, continue to monitor Pulmonary hypertension- 2D Echo 02/21 revealed PA 50mmHg. Continue to monitor. Peripheral arterial disease, history of aortobifemoral bypass. Continue to monitor. History of tobaccoism in the remote past History of pleural effusion. Followed by primary care physician Clinical Quality Measures DVT/VTE Risk/Contraindication: Risk Factor Score Per Nursin RFS Level Per Nursing on Admit: 3=High [facility] Jul 12, 2016 13:49
[2016-07-12 15:40] VITALS: BP 114/66
--- NOTE | 2016-07-12 15:50 | Cardiology Progress Note ---
Subjective Subjective/Events-last exam patient is sitting up in bed, having multiple episodes of tachycardia, questionable paroxysmal atrial fibrillation. Still having shortness of breath. Review of Systems General: No Chills, No Night Sweats, No Fatigue, No Malaise, No Appetite, No Other HEENT: No Head Aches, No Visual Changes, No Eye Pain, No Ear Pain, No Dysphasia , No Sinus Congestion, No Post Nasal Drip, No Sore Throat, No Other Pulmonary: Dyspnea, Cough, Pleuritic Chest Pain, No Other Cardiovascular: Chest Pain, Edema, No: Lt Headedness, Orthopnea, Other, Palpitations, Paroxysmal Noc. Dyspnea Objective-Cardiology Exam Last Set of Vital Signs Vital Signs 07/10/16 07/12/16 07/12/16 07/12/16 12:45 11:40 13:52 14:54 Temp 96.4 Pulse 103 Resp 20 B/P (MAP) 106/58 Pulse Ox 94 O2 Delivery High Flow NC O2 Flow Rate 8.00 FiO2 35 Capillary Refill : Less Than 3 Seconds I&O Intake and Output 07/12/16 00:00 Intake Total 1290 ml Output Total 1250 ml Balance 40 ml Intake Oral 1290 ml Output Urine Total 1250 ml # Bowel Movements 1 General: Alert, Oriented X3 HEENT: Atraumatic, PERRLA Neck: Supple, No JVD Lungs: Other (bilat rhonchi and wheezing) Heart: Regular Rate, Normal S1, Normal S2, No Murmurs Abdomen: Normal Bowel Sounds, Soft, No Tenderness Extremities: No Clubbing, No Edema Skin: No Rashes, No Significant Lesion Neuro: Normal Speech, Cranial Nerves 3-12 NL Psych/Mental Status: Mental Status NL, Mood NL Results Lab Laboratory Tests 07/12/16 04:50 A/P-Cardiology Admission Diagnosis AE COPD CAD PAF HTN Assessment/Plan AE COPD- started on MAT protocol. still having shortness of breath at this time , managed by Dr. Flores. Paroxysmal atrial fibrillation and atrial flutter alternating with sick sinus syndrome, had multiple cardioversions in the past. Maintained on Eliquis. Appeared to be having multiple episodes at this time, I'll place him back on telemetry with close monitoring and evaluated 12-lead EKG today. Chest pain nonspecific etiology, lower retrosternal pain, could be musculoskeletal due to the significant shortness of breath and cough, underlying cardiac pain cannot be ruled out. I will evaluate EKG. Monitor cardiac enzymes. Coronary artery disease history of multiple intervention the past, history of CABG 1 done 5 years ago. Most recent stress test and 2D Echo done 2015 revealed no ischemia or infarct with normal EF. EKG reveals SR with no acute changes. Denies any CP, continue to monitor. History of bradycardia,likely secondary to medication. Improved after discontinuing cardizem and amiodarone. Continue to monitor. Hyperkalemia- discontinue lisinopril and continue to monitor. Hypertension, I will discontinue lisinopril and continue to monitor BP/HR. Hyperlipidemia, continue to monitor Pulmonary hypertension- 2D Echo 02/21 revealed PA 50mmHg. Continue to monitor. Peripheral arterial disease, history of aortobifemoral bypass. Continue to monitor. History of tobaccoism in the remote past History of pleural effusion. Followed by primary care physician Clinical Quality Measures DVT/VTE Risk/Contraindication: Risk Factor Score Per Nursin RFS Level Per Nursing on Admit: 3=High JESSICA BURRIS MD Jul 12, 2016 15:50
[2016-07-12] MEDS ORDERED: ACETAMINOPHEN 500 MG TAB (TYLENOL) PO PRN (16:00)
[2016-07-12 19:05] VITALS: BP 158/70
[2016-07-12] MEDS: BENZONATATE 100 MG (TESSALON) CAPSULE PO PRN (20:27)
[2016-07-12] MEDS: eZETimibe 10 MG (ZETIA) TABLET PO SCH (20:27)
[2016-07-12] MEDS: MONTELUKAST 10 MG (SINGULAIR) TAB PO SCH (20:27)
[2016-07-12] MEDS: ASPIRIN E.C. 81 MG (ECOTRIN) TAB PO SCH (20:28)
[2016-07-12] MEDS ORDERED: LORazepam INJ 2 MG/ML (ATIVAN) VIAL IVP ONE (20:45)
[2016-07-12] MEDS ORDERED: LORazepam 0.5 MG (ATIVAN) TABLET PO PRN (20:45)
[2016-07-13 00:20] VITALS: BP 164/79
[2016-07-13] MEDS: RT-LEVALBUTEROL (XOPENEX) 1.25 MG/3 ML NEB NON-FORMULARY INH SCH ×2 (02:18→06:57)
[2016-07-13 04:00] VITALS: BP 162/61
[2016-07-13] MEDS: methylPREDNISolone 125 MG (Solu-MEDROL) VIAL IV SCH (05:39)
[2016-07-13 06:40] LABS: BASOPHILS % (AUTO) 0 % (0-10); EOSINOPHILS % (AUTO) 0 % (0-10); LYMPHOCYTES # (AUTO) 0.4 X 10^3 (1.0-4.0); LYMPHOCYTES % (AUTO) 6 % (12-44); MEAN CORPUSCULAR HEMOGLOBIN 31 PG (25-34); MEAN CORPUSCULAR HGB CONC 32 G/DL (32-36); MEAN CORPUSCULAR VOLUME 96 FL (80-99); MEAN PLATELET VOLUME 9.9 FL (7.4-10.4); MONOCYTES # (AUTO) 0.3 X 10^3 (0.0-1.0); MONOCYTES % (AUTO) 5 % (0-12); NEUTROPHILS # (AUTO) 5.5 X 10^3 (1.8-7.8); NEUTROPHILS % (AUTO) 90 % (42-75); PLATELET COUNT 207 10^3/uL (130-400); RED BLOOD COUNT 3.57 10^6/uL (4.35-5.85); RED CELL DISTRIBUTION WIDTH 12.7 % (10.0-14.5); WHITE BLOOD COUNT 6.2 10^3/uL (4.3-11.0)
--- NOTE | 2016-07-13 06:44 | Pulmonary Progress Note ---
Exam Exam Vital Signs Date Time Temp Pulse Resp B/P (MAP) Pulse Ox O2 Delivery O2 Flow Rate FiO2 07/13/16 04:00 97.3 64 18 162/61 95 Nasal Cannula 5.00 07/13/16 02:18 97 5.00 07/13/16 01:00 64 07/13/16 00:20 96.3 64 18 164/79 97 Nasal Cannula 5.00 07/12/16 22:19 97 5.00 07/12/16 19:50 97 Nasal Cannula 5.00 07/12/16 19:05 96.8 75 22 158/70 94 Nasal Cannula 5.00 07/12/16 19:00 79 07/12/16 18:36 5.00 07/12/16 18:31 92 5.00 07/12/16 16:53 96.4 07/12/16 16:09 124 07/12/16 15:40 97.0 108 21 114/66 95 Nasal Cannula 5.00 07/12/16 14:54 High Flow NC 8.00 07/12/16 13:52 94 5.00 07/12/16 11:40 96.4 103 20 106/58 91 Nasal Cannula 5.00 07/12/16 10:44 96 5.00 07/12/16 08:45 98 Nasal Cannula 7.00 07/12/16 08:45 123 98 7.00 07/12/16 07:43 96.9 131 24 143/80 98 Nasal Cannula 7.50 I & O 07/13/16 07:00 Intake Total 1570 ml Output Total 875 ml Balance 695 ml General Appearance: No Apparent Distress, WD/WN HEENT: PERRL/EOMI, Normal ENT Inspection Neck: Non Tender, Supple Respiratory: Chest Non Tender, No Accessory Muscle Use, No Respiratory Distress , Wheezing Cardiovascular: Regular Rate, Rhythm, No Edema, No Gallop, No JVD, No Murmur Capillary Refill: Less Than 3 Seconds Gastrointestinal: normal bowel sounds, non tender, soft, no organomegaly, no pulsatile mass Extremity: Non Tender, No Calf Tenderness, Pedal Edema Neurologic/Psychiatric: Alert, Oriented x3, 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 Norm as Tested Skin: Normal Color, Warm/Dry Lymphatic: No Adenopathy Results Lab Laboratory Tests 07/12/16 04:50 Assessment/Plan Assessment/Plan COPDAE -svns -solumedrol 40mg every 6hr -Pt feels improved with noninvasive ventilation -Pt would benefit from home vent to mask -cxr reviewed Volume Overload -Hep lock IVF -daily labs Hypoxemia -oxygen to maintain sats >92% Hypertension -continue home BP meds and monitor Acute on Chronic Resp Distress Clinical Quality Measures DVT/VTE Risk/Contraindication: Risk Factor Score Per Nursin RFS Level Per Nursing on Admit: 3=High NATALIE GALDAMEZ DO Jul 13, 2016 06:44
[2016-07-13] MEDS: RT-ADVAIR HFA 115/21 MCG PER PUFF IH SCH (06:58)
[2016-07-13 07:11] LABS: ALANINE AMINOTRANSFERASE 16 U/L (0-55); ALBUMIN 3.4 G/DL (3.2-4.5); ANION GAP 5 MMOL/L (5-14); ASPARTATE AMINO TRANSFERASE 19 U/L (5-34); BILIRUBIN,TOTAL 0.4 MG/DL (0.1-1.0); BLOOD UREA NITROGEN 41 MG/DL (7-18); BUN/CREATININE RATIO 41; CALCIUM 9.9 MG/DL (8.5-10.1); CARBON DIOXIDE 37 MMOL/L (21-32); CHLORIDE 97 MMOL/L (98-107); CREATININE SERUM 1.01 MG/DL (0.60-1.30); GFR ESTIMATED > 60; GLUCOSE 112 MG/DL (70-105); MAGNESIUM 2.1 MG/DL (1.8-2.4); PHOSPHORUS 3.2 MG/DL (2.3-4.7); SODIUM 139 MMOL/L (135-145)
[2016-07-13 07:21] LABS: TROPONIN I < 0.30 NG/ML (<0.30)
[2016-07-13 08:00] VITALS: BP 156/72
[2016-07-13] MEDS ORDERED: UMECLIDINIUM BROMIDE (INCRUSE ELLIPTA) 7'S IH SCH (08:00)
[2016-07-13] MEDS: ISOSORBIDE MONONITRATE 60 MG (IMDUR) TAB PO SCH (08:18)
[2016-07-13] MEDS: CARVEDILOL 12.5 MG (COREG) TABLET PO SCH (08:19)
[2016-07-13] MEDS: APIXABAN 5 MG (ELIQUIS) TABLET PO SCH (08:19)
[2016-07-13] MEDS: amLODIPine 5 MG (NORVASC) TAB PO SCH (08:19)
--- NOTE | 2016-07-13 09:13 | Discharge Summary ---
Diagnosis/Chief Complaint Date of Admission Jul 10, 2016 at 10:50 Date of Discharge Admission Diagnosis Admission Diagnosis COPDAE -svns -solumedrol 40mg every 6hr -oxygen/bipap -cxr reviewed Volume Overload -Lasix 40mg IV x 1 -daily labs Hypoxemia -oxygen to maintain sats >92% Hypertension -continue home BP meds and monitor Acute on Chronic Resp Distress -bipap continue and at HS; may take breaks for meal -monitor in ICU Treatment plan discussed with Dr. Flores. Discharge Diagnosis ACUTE HYPOXIA RESPIRATORY DISTRESS COPD EXACERBATION ATRIAL FIBRILLATION HYPERTENSION HYPERLIPIDEMIA GENERALIZED WEAKNESS EDEMA Reason Hospital Visit PT IS AN 80 Y/O MALE WHO IS A PATIENT IN MY CLINIC. HE WAS ADMITTED YESTERDAY BY DR. FLORES FOR ACUTE DYSPNEA, NEED FOR BIPAP FOR VENTILATION AND RESPIRATORY REST DUE TO RESPIRATORY FATIGUE FROM SEVERAL DAYS OF INCREASED WORK OF BREATHING. TODAY THE PATIENT STATES THAT HE FEELS CONTINUED SHORTNESS OF BREATH, BUT IT IS IMPROVED FROM ADMISSION. Discharge Summary Discharge Physical Examination Allergies: Coded Allergies: iodine (Verified Allergy, Unknown, 07/13/16) Vitals & I&Os General Appearance: Alert, Oriented X3 HEENT: Atraumatic, PERRLA Respiratory: Other (bilat rhonchi and wheezing) Cardiovascular: Regular Rate, Normal S1, Normal S2, No Murmurs Abdominal: Normal Bowel Sounds, Soft, No Tenderness Extremities: No Clubbing, No Edema Skin: No Rashes, No Significant Lesion Neuro: Normal Speech, Cranial Nerves 3-12 NL Psych/Mental Status: Mental Status NL, Mood NL Hospital Course ACUTE HYPOXIA RESPIRATORY DISTRESS COPD EXACERBATION ATRIAL FIBRILLATION HYPERTENSION HYPERLIPIDEMIA EDEMA PT ADMITTED TO THE ICU, STARTED ON PNEUMONIA PROTOCOL, MAT PROTOCOL, STEROIDS, AND BIPAP BIPAP WEANED DOWN - BUT PT STILL QUITE SHORT OF BREATH, UNABLE TO MANAGE AT HOME, TRANSFERRED TO 4TH FLOOR AND WILL SWING PATIENT FOR THERAPY AND IV LASIX. COPD EXACERBATION - CONTINUE WITH IV STEROIDS, MONITOR SYMPTOMS, WEAN OFF OF BIPAP, DOWN TO HOME OXYGEN USUAL RATE ABLE. AFIB - RATE CONTROLLED - CONTINUE WITH ELIQUIS AND BETA CAITLIN. HTN - ON LISINOPRIL, BETA CAITLIN HYPERLIPIDEMIA - ZETIA RESTARTED EDEMA - LASIX IV TO BE INITIATED. Pending Labs Discharge Condition at discharge IMPROVING Instructions to patient/family Please see electonic discharge instructions given to patient. Discharge Medications Reviewed and agree with Discharge Medication list on patient's Discharge Instruction sheet Clinical Quality Measures DVT/VTE Risk/Contraindication: Risk Factor Score Per Nursin RFS Level Per Nursing on Admit: 3=High JALEEL NIEVES MD Jul 13, 2016 09:13
--- NOTE | 2016-07-16 08:17 | Physician Query ---
PQ-Further Specificity Admission/Discharge Admission Date: Jul 10, 2016 at 10:50 Discharge Date: Jul 13, 2016 at 09:14 The medical record reflects the following clinical scenario: History/Risk Factors: Volume overload and long history of heart failure (per ED record) Clinical Findings: Volume overload BNP 393.2 Treatment: 40 mg IV Lasix ordered Question: Can you further specify volume overload per the clinical indicators above? Please document below. 1. Volume overload due to CHF If CHF, please specify if acute, chronic or acute on chronic If CHF, please specify if systolic, diastolic or combined 2. Volume overload only 3. Other, with explanation of the clinical findings. 4. Clinically undetermined, no explanation for the clinical findings. Please remember a lack of response to the above will prompt a phone page by CDI/ coding staff. In responding to this query, please exercise your independent professional judgment. The purpose of this communication is to more accurately reflect the complexity of your patients condition. The fact that a question is asked does not imply that any particular answer is desired or expected. Thank you for your timely response to this clarification. Requestors name: Alo THIS PHYSICIAN QUERY FORM IS A PERMANENT PART OF THE MEDICAL RECORD ALO LARSON Jul 16, 2016 08:17
--- NOTE | 2016-07-18 08:40 | Physician Query ---
PQ-Further Specificity Admission/Discharge Admission Date: Jul 10, 2016 at 10:50 Discharge Date: Jul 13, 2016 at 09:14 The medical record reflects the following clinical scenario: History/Risk Factors: Volume overload and long history of heart failure (per ED record) Clinical Findings: Volume overload BNP 393.2 Treatment: 40 mg IV Lasix ordered Question: Can you further specify volume overload per the clinical indicators above? Please document below. 1. Volume overload due to CHF If CHF, please specify if acute, chronic or acute on chronic If CHF, pleae specify if systolic, diastolic or both systolic and diastolic 2. Volume overload only 3. Other, with explanation of the clinical findings. 4. Clinically undetermined, no explanation for the clinical findings. PHYSICIAN RESPONSE Can you specify per above: 2 Please remember a lack of response to the above will prompt a phone page by CDI/ coding staff. In responding to this query, please exercise your independent professional judgment. The purpose of this communication is to more accurately reflect the complexity of your patients condition. The fact that a question is asked does not imply that any particular answer is desired or expected. Thank you for your timely response to this clarification. Requestors name: Alo THIS PHYSICIAN QUERY FORM IS A PERMANENT PART OF THE MEDICAL RECORD ALO LARSON Jul 18, 2016 08:40 JESSICA BURRIS MD Jul 18, 2016 16:09
[2016-08-04] MEDS ORDERED: POTA20TA8 PO (09:18)
[2016-08-04] MEDS ORDERED: LOSA25TA21 PO (09:18)
[2016-08-04] MEDS ORDERED: FURO40TA4 PO (09:18)
== END 2016-07-13 09:14 | disposition swing bed (61) | DRG 192 ==
LOC: EDUNIT# 09:12 → ER 09:13 → ICU 10:50 → 4TH 07-11 09:00 → ENPENDDIS 07-13 09:15
PROVIDERS: ADMIT Internal Medicine Critical Care Medicine; ATTEND Internal Medicine Critical Care Medicine
DX: J44.1 Chronic obstructive pulmonary disease with (acute) exacerbation (principal); I48.0 Paroxysmal atrial fibrillation; I25.10 Atherosclerotic heart disease of native coronary artery without angina pectoris; I27.2 Other secondary pulmonary hypertension; I10 Essential (primary) hypertension; E87.70 Fluid overload, unspecified; R09.02 Hypoxemia; I73.9 Peripheral vascular disease, unspecified; F41.9 Anxiety disorder, unspecified; E78.5 Hyperlipidemia, unspecified; M19.91 Primary osteoarthritis, unspecified site; H91.90 Unspecified hearing loss, unspecified ear; Z99.81 Dependence on supplemental oxygen; Z87.891 Personal history of nicotine dependence; Z95.1 Presence of aortocoronary bypass graft; Z95.5 Presence of coronary angioplasty implant and graft
CPT/HCPCS: 36415; 71010; 80048; 80053; 82805; 83605; 83735; 83880; 84100; 84484; 85007; 85025; 85027; 85610; 85730; 87040; 87077; 93005; 94640; 94644; 94660; 94760; 96374; 96375

== ENCOUNTER 2016-07-13 09:06 | Inpatient (IN) | payer MEDICARE ==
[~2016-07-13] VITALS: Ht 193 cm; Wt 89.4 kg
[~2016-07-13 09:06] MED LIST changes: +AMLO5TAB2 PO; +AZIT250T PO; +AZIT250T5 PO; +CARB15DR91 OU; +CETI10TA17 PO; +LEVA1.2516 IH; +TRAM50TA2 PO; +VIT1TABL26 PO; +[UNRECOGNIZED DRUG - OTHER] IH
[2016-07-13] MEDS ORDERED: methylPREDNISolone 125 MG (Solu-MEDROL) VIAL IV SCH (09:30)
[2016-07-13] MEDS ORDERED: guaiFENesin/CODEINE (ROBITUSSIN AC) 10ML UDC PO PRN (09:30)
[2016-07-13] MEDS ORDERED: ACETAMINOPHEN 500 MG TAB (TYLENOL) PO PRN (09:30)
[2016-07-13] MEDS ORDERED: RT-LEVALBUTEROL (XOPENEX) 1.25 MG/3 ML NEB NON-FORMULARY INH PRN (10:30)
[2016-07-13] MEDS: RT-LEVALBUTEROL (XOPENEX) 1.25 MG/3 ML NEB NON-FORMULARY INH SCH ×4 (10:41→21:05)
[2016-07-13] MEDS: aCETylcysteine 20% (MUCOMYST) 30ML SOLN VIAL INH SCH ×3 (10:41→21:05)
[2016-07-13] MEDS: UMECLIDINIUM BROMIDE (INCRUSE ELLIPTA) 7'S IH SCH (10:42)
[2016-07-13] MEDS: methylPREDNISolone 40 MG/ML (Solu-MEDROL) VIAL IV SCH ×3 (11:35→22:06)
[2016-07-13 12:00] VITALS: BP 137/61
--- NOTE | 2016-07-13 13:27 | Physical Therapy Evaluation ---
PT Evaluation-General Medical Diagnosis Admission Date Jul 13, 2016 at 09:24 Medical Diagnosis: COPD exacerbation Onset Date: Jul 10, 2016 Therapy Diagnosis Therapy Diagnosis: generalized weakness/debiltiy Height/Weight Height (Feet): 6 Height (Inches): 4.00 Weight (Pounds): 197 Weight (Ounces): 0.8 Referral Physician: Nadeem Reason for Referral: Evaluation/Treatment Medical History Pertinent Medical History: CABG, CAD, COPD, HTN, Smoking Additional Medical History ER with SOA; home O2 5L Current History acute resp. distress Reviewed History: Yes Social History Home: Single Level Current Living Status: Spouse Entry Into Home: Level Entry Prior/Core FIM Prior Level of Function Functional [place] Measure 0=Not Assessed/NA 4=Minimal Assistance 1=Total Assistance 5=Supervision or Setup 2=Maximal Assistance 6=Modified [place] 3=Moderate Assistance 7=Complete [place] Bed Mobility: 6 Transfers (B,C,W/C) (FIM): 6 Gait: 6 uses cane PLOF PT Evaluation-Current Subjective Patient agrees to PT. No c/o at this time. Pain Numeric Pain Scale: 0-No Pain Location: No Pain Reported Objective Patient Orientation: Normal For Age Problem Solving: Good Attachments: Oxygen (5L HF) ROM/Strength ROM Lower Extremities bilateral LE WFL Strenght Lower Extremities bilateral LE WFL Integumentary/Posture Integumentary refer to nursing notes Bowel Incontinence: No Bladder Incontinence: No Posture kyphotic Neuromuscular (Tone, Coordination, Reflexes) grossly intact Sensory Vision: Wears Glasses Hearing: Impaired Sensation Right Lower Extremit: Intact Sensation Left Lower Extremity: Intact Transfers Functional [place] Measure 0=Not Assessed/NA 4=Minimal Assistance 1=Total Assistance 5=Supervision or Setup 2=Maximal Assistance 6=Modified [place] 3=Moderate Assistance 7=Complete [place] Transfers (B, C, W/C) (FIM): 6 Scootin Rollin Supine to/from Sit: 6 Sit to/from Stand: 6 Sit to Lying (QC): 6 Lying to Sitting/Side of Bed(Q: 6 Sit to Stand (QC): 6 Gait Does the Patient Walk?: Yes Mode of Locomotion: Walk Anticipated Mode of Locomotion: Walk Gait (FIM): 6 Distance (FIM): 3=150 ft Distance: 350' Walk 50 ft with 2 Turns(QC): 6 Walk 150 ft (QC): 6 Gait Level of Assist: 6 Gait Persons Needed: 1 Gait Assistive Device: FWW Comments/Gait Description Patient is safe and functional with FWW; assist for O2 tank Balance Sitting Static: Normal Sitting Dynamic: Normal Standing Static: Normal Standing Dynamic: Normal Treatment Patient performed functional mobility in room with extended tubing by demonstrating good negotiation with ambulation in room. Balance is Good with all mobility in room independently. Assessment/Needs 80 y.o. male, will benefit from short term skilled PT to address functional mobility to improve current cardiopulmonary function. Patient demonstrates decreased to 88% in SAO2 on 6L O2 NC HF with ambulation with FWW. Rehab Potential: Fair [place] Rehab Potential-Barriers: COPD PT Halfway Goals Mailmaster Goals PT Halfway Goals Time Frame: Jul 20, 2016 Transfers (B,C,W/C) (FIM): 6 Sit to Lying (QC): 6 Lying-Sitting on Side/Bed(QC): 6 Sit to Stand (QC): 6 Rollin Chair/Awk-ev-[place] Xfer(QC): 6 Does the Patient Walk: Yes Gait (FIM): 6 Gait distance (FIM): 3=150 ft Distance: 400' Walk 50ft with 2 Turns (QC): 6 Walk 150 ft (QC): 6 Gait Level of Assist: 6 Gait Assistive Device: FWW, Cane Single Point PT Plan Problem List Problem List: Activity Tolerance Treatment/Plan Treatment Plan: Continue Plan of Care Treatment Plan: Education, Functional Activity Margy, Functional Strength, Gait , Safety, Therapeutic Exercise, Transfers Treatment Duration: Jul 20, 2016 # of days/week 6 Visits Per Week: 6 Minutes/Day (M-F): 15-30 Minutes/Day (Sat/Chaudhari): PRN Pt/Family Agrees w/Plan: Yes Safety Risks/Education Patient Education: Disease Process Teaching Recipient: Patient Teaching Methods: Discussion Response to Teaching: Verbalize Understanding Discharge Recommendations Therapy D/C Recommendations: Home w/ Family Support Time/GCodes Time In: 1300 Time Out: 1325 Total Billed Treatment Time: 25 Total Billed Treatment 1 visit EVLowC 10 min FA 15 min MARISELA AC PT Jul 13, 2016 13:27
--- NOTE | 2016-07-13 14:02 | Occupational Therapy Eval ---
OT Evaluation-General/PLF Medical Diagnosis Admission Date Jul 13, 2016 at 09:24 Medical Diagnosis: COPD exacerbation Onset Date: Jul 10, 2016 Therapy Diagnosis Therapy Diagnosis: debility Height/Weight Height (Feet): 6 Height (Inches): 4.00 Weight (Pounds): 197 Weight (Ounces): 0.8 Referral Physician: Nadeem Medical History Pertinent Medical History: Arthritis, CABG, CAD, COPD, HTN, Smoking Reviewed History: Yes Social History Home: Single Level Current Living Status: Spouse Entry Into Home: Stairs With Railing Steps Into Home: 2 ADL-Prior Level of Function ADL PLOF Comments Pt reports being independent with basic self care. Minimal activity level. Uses cane for mobility. DME/Equipment: Shower, Tall Toilet Drive Self: Yes OT Current Status Subjective Pt sitting EOB, agrees to therapy. Pt has no c/o pain. Mental Status/Objective Patient Orientation: Person, Place, Situation Attachments: Oxygen (5L) Current Glasses/Contacts: Yes Hearing Aids: No Dentures/Partials: Yes Hand Dominance: Right Upper Extremity ROM Grossly WFL Upper Extremity Coordination Intact Upper Extremity Sensation Intact per pt report Upper Extremity Strength Grossly 4/5 ADL-Treatment ADL-Current Pt demonstrates ability to doff/don socks without assistance while seated EOB. Pt already dressed this morning. Pt states he has been completing grooming tasks without assistance while at hospital. Pt performed sit to stand with modified independence. Demonstrated ability to perform transfer with modified independence. Pt sitting EOB with needs met after session. Functional [place] Measure 0=Not Assessed/NA 4=Minimal Assistance 1=Total Assistance 5=Supervision or Setup 2=Maximal Assistance 6=Modified [place] 3=Moderate Assistance 7=Complete IndependenceIRFPAI Quality Coding Scale 6 Independent with activity with or without an assistive device 5 Patient requires set up or clean up by helper. Patient completes activity by themselves 4 Supervision or touching assist (CGA). [place] provide cues , steadying assist 3 The helper provides less than half the effort to complete the activity 2 The helper provides more than half the effort to complete the activity 1 Dependent. The helper does all the effort to complete an activity 7 Patient refused to complete or attempt activity 9 The patient did not perform the activity before the current illness or injury 88 Not attempted due to Medical conditions or safety concerns Eating (FIM): 6 (Pt reports feeding self, cutting food, and managing containers without assistance.) Eating (QC): 6 Grooming (FIM): 6 (Pt reports completing grooming without assistance.) Oral Hygiene (QC): 6 OT Short Term Goals Short Term Goals 1=Demonstrate adherence to instructed precautions during ADL tasks. 2=Patient will verbalize/demonstrate understanding of assistive devices/ modifications for ADL. 3=Patient will improve strength/tolerance for activity to enable patient to perform ADL's. OT Detention Goals Physicians [employer] Surgeons Goals Time Frame: Jul 20, 2016 Bathing(FIM): 6 Upper Body Dressing(FIM): 6 Lower Body Dressing(FIM): 6 Toileting(FIM): 6 Toileting Hygiene (QC): 6 Toilet/Commode Transfer(FIM): 6 Toilet/Commode Transfer (QC): 6 Additional Goals: 3-ImproveStrength/Margy 1=Demonstrate adherence to instructed precautions during ADL tasks. 2=Patient will verbalize/demonstrate understanding of assistive devices/ modifications for ADL. 3=Patient will improve strength/tolerance for activity to enable patient to perform ADL's. OT Education/Plan Problem List/Assessment Assessment: Decreased Activ Tolerance, Decreased UE Strength, Impaired Self- Care Skills Pt to benefit from skilled OT intervention for ADL training, transfers, and strengthening to improve level of function and allow safe return home. Discharge Recommendations Plan/Recommendations: Continue POC Treatment Plan/Plan of Care Treatment,Training & Education: Yes Patient would benefit from OT for education, treatment and training to promote independence in ADL's, mobility, safety and/or upper extremity function for ADL' s. Plan of Care: ADL Retraining, Functional Mobility, UE Funct Exercise/Act Treatment Duration: Jul 20, 2016 # of days/week 5 Visits Per Week: 5 Agreement: Yes Rehab Potential: Fair Time/GCodes Start Time: 13:30 Stop Time: 13:53 Total Time Billed (hr/min): 23 Billed Treatment Time 1 visit, EVL(8minutes), ADL(15minutes) KAILEY JOHNSTON OT Jul 13, 2016 14:02
[2016-07-13 16:30] VITALS: BP 127/67
[2016-07-13] MEDS: RT-ADVAIR HFA 115/21 MCG PER PUFF IH SCH (18:54)
[2016-07-13 19:55] VITALS: BP 151/67
[2016-07-13] MEDS: eZETimibe 10 MG (ZETIA) TABLET PO SCH (20:15)
[2016-07-13] MEDS: CARVEDILOL 12.5 MG (COREG) TABLET PO SCH (20:15)
[2016-07-13] MEDS: ASPIRIN E.C. 81 MG (ECOTRIN) TAB PO SCH (20:15)
[2016-07-13] MEDS: MONTELUKAST 10 MG (SINGULAIR) TAB PO SCH (20:15)
[2016-07-13] MEDS: APIXABAN 5 MG (ELIQUIS) TABLET PO SCH (20:15)
[2016-07-13] MEDS: CATHETER FLUSH 10 ML SYR IV PRN (22:06)
[2016-07-13 23:13] VITALS: BP 147/67
[2016-07-14] MEDS: aCETylcysteine 20% (MUCOMYST) 30ML SOLN VIAL INH SCH ×4 (02:13→22:32)
[2016-07-14] MEDS: RT-LEVALBUTEROL (XOPENEX) 1.25 MG/3 ML NEB NON-FORMULARY INH SCH ×6 (02:13→22:32)
[2016-07-14 04:00] VITALS: BP 161/71
[2016-07-14] MEDS: CATHETER FLUSH 10 ML SYR IV PRN ×2 (04:26→22:13)
[2016-07-14] MEDS: methylPREDNISolone 40 MG/ML (Solu-MEDROL) VIAL IV SCH ×4 (04:26→22:13)
[2016-07-14 04:56] LABS: MEAN PLATELET VOLUME 10.1 FL (7.4-10.4); RED BLOOD COUNT 3.44 10^6/uL (4.35-5.85); RED CELL DISTRIBUTION WIDTH 12.4 % (10.0-14.5); WHITE BLOOD COUNT 4.5 10^3/uL (4.3-11.0)
[2016-07-14 05:19] LABS: ALANINE AMINOTRANSFERASE 20 U/L (0-55); ALBUMIN 3.2 G/DL (3.2-4.5); ANION GAP 8 MMOL/L (5-14); ASPARTATE AMINO TRANSFERASE 20 U/L (5-34); BILIRUBIN,TOTAL 0.4 MG/DL (0.1-1.0); BLOOD UREA NITROGEN 43 MG/DL (7-18); BUN/CREATININE RATIO 46; CALCIUM 9.6 MG/DL (8.5-10.1); CARBON DIOXIDE 35 MMOL/L (21-32); CHLORIDE 98 MMOL/L (98-107); CREATININE SERUM 0.94 MG/DL (0.60-1.30); GFR ESTIMATED > 60; GLUCOSE 124 MG/DL (70-105); POTASSIUM 4.9 MMOL/L (3.6-5.0); SODIUM 141 MMOL/L (135-145); TOTAL PROTEIN 5.8 G/DL (6.4-8.2)
[2016-07-14] MEDS: RT-ADVAIR HFA 115/21 MCG PER PUFF IH SCH ×2 (06:41→18:35)
[2016-07-14 07:59] VITALS: BP 170/70
--- NOTE | 2016-07-14 08:28 | Diagnostic Imaging Report ---
INDICATION: COPD, dyspnea. COMPARISON: 07/11/2016. FINDINGS: 2 views of the chest are obtained. There are stable postoperative changes of the mediastinum. Heart size and pulmonary vasculature appear unremarkable. There is no pneumothorax or mediastinal widening. There are chronic findings of COPD with flattening of the diaphragms and bullous change. There is some chronic blunting of the costophrenic angles and bibasilar scarring similar to the prior study. No new focal pneumonia is suspected. There are mild degenerative changes in the spine. IMPRESSION: Stable chronic findings of COPD. No new or acute abnormality is suspected. Dictated by: Dictated on workstation # [id number]
--- NOTE | 2016-07-14 09:20 | Physical Therapy Daily Note ---
PT Daily Note-Current Subjective Patient agrees to PT. Pain Numeric Pain Scale: 0-No Pain Location: No Pain Reported Mental Status Patient Orientation: Normal For Age Attachments: Oxygen (5L HF) Transfers Functional [place] Measure 0=Not Assessed/NA 4=Minimal Assistance 1=Total Assistance 5=Supervision or Setup 2=Maximal Assistance 6=Modified [place] 3=Moderate Assistance 7=Complete IndependenceIRFPAI Quality Coding Scale 6 Independent with activity with or without an assistive device 5 Patient requires set up or clean up by helper. Patient completes activity by themselves 4 Supervision or touching assist (CGA). [place] provide cues , steadying assist 3 The helper provides less than half the effort to complete the activity 2 The helper provides more than half the effort to complete the activity 1 Dependent. The helper does all the effort to complete an activity 7 Patient refused to complete or attempt activity 9 The patient did not perform the activity before the current illness or injury 88 Not attempted due to Medical conditions or safety concerns Transfers (B, C, W/C) (FIM): 6 Scootin Roll Left to Right (QC): 6 Supine to/from Sit: 6 Sit to/from Stand: 6 Sit to Lying (QC): 6 Sit to Stand (QC): 5 Chair/Fck-az-Blhyo Xfer(QC): 5 Gait Training Does the Patient Walk?: Yes Gait (FIM): 5 Distance (FIM): 3=150 ft Distance: 375' Walk 50 ft with 2 Turns(QC): 5 Walk 150 ft (QC): 5 Gait Level of Assist: 5 Gait Persons Needed: 1 Gait Assistive Device: FWW very slow, steady gait sequence with 2 standing recovery periods due to SOA with O2 6L NC HF in place Assessment Patient performs pursed lip breathing for recovery from SOA. SAO2 remains >90% with activity. PT Usp Goals Control Inspector Goals PT Usp Goals Time Frame: Jul 20, 2016 Transfers (B,C,W/C) (FIM): 6 Sit to Lying (QC): 6 Lying-Sitting on Side/Bed(QC): 6 Sit to Stand (QC): 6 Rollin Chair/[id number] Xfer(QC): 6 Does the Patient Walk: Yes Gait (FIM): 6 Gait distance (FIM): 3=150 ft Distance: 400' Walk 50ft with 2 Turns (QC): 6 Walk 150 ft (QC): 6 Gait Level of Assist: 6 Gait Assistive Device: FWW, Cane Single Point PT Plan Treatment/Plan Treatment Plan: Continue Plan of Care Treatment Plan: Education, Functional Activity Margy, Functional Strength, Gait , Safety, Therapeutic Exercise, Transfers Treatment Duration: Jul 20, 2016 Visits Per Week: 6 Minutes/Day (M-F): 15-30 Minutes/Day (Sat/Chaudhari): PRN Time/GCodes Time In: 901 Time Out: 916 Total Billed Treatment Time: 15 Total Billed Treatment 1 visit FA 15 min MARISELA AC PT Jul 14, 2016 09:20
[2016-07-14] MEDS: CARVEDILOL 12.5 MG (COREG) TABLET PO SCH ×2 (09:37→20:03)
[2016-07-14] MEDS: APIXABAN 5 MG (ELIQUIS) TABLET PO SCH ×2 (09:37→20:02)
[2016-07-14] MEDS: ISOSORBIDE MONONITRATE 60 MG (IMDUR) TAB PO SCH (09:37)
[2016-07-14] MEDS: amLODIPine 5 MG (NORVASC) TAB PO SCH (09:37)
[2016-07-14] MEDS: UMECLIDINIUM BROMIDE (INCRUSE ELLIPTA) 7'S IH SCH (10:25)
[2016-07-14 11:51] VITALS: BP 124/53
[2016-07-14 16:00] VITALS: BP 119/59
[2016-07-14 20:00] VITALS: BP 138/68
[2016-07-14] MEDS: MONTELUKAST 10 MG (SINGULAIR) TAB PO SCH (20:02)
[2016-07-14] MEDS: eZETimibe 10 MG (ZETIA) TABLET PO SCH (20:02)
[2016-07-14] MEDS: ASPIRIN E.C. 81 MG (ECOTRIN) TAB PO SCH (20:03)
[2016-07-15] VITALS: BP 157/66
[2016-07-15] MEDS: RT-LEVALBUTEROL (XOPENEX) 1.25 MG/3 ML NEB NON-FORMULARY INH SCH ×6 (02:07→21:46)
[2016-07-15] MEDS: aCETylcysteine 20% (MUCOMYST) 30ML SOLN VIAL INH SCH ×4 (02:07→21:46)
[2016-07-15] MEDS: CATHETER FLUSH 10 ML SYR IV PRN ×4 (03:56→21:17)
[2016-07-15] MEDS: methylPREDNISolone 40 MG/ML (Solu-MEDROL) VIAL IV SCH ×4 (03:56→21:17)
[2016-07-15 04:00] VITALS: BP 173/73
[2016-07-15] MEDS: UMECLIDINIUM BROMIDE (INCRUSE ELLIPTA) 7'S IH SCH (07:30)
[2016-07-15] MEDS: RT-ADVAIR HFA 115/21 MCG PER PUFF IH SCH ×2 (07:30→19:19)
[2016-07-15] MEDS: ISOSORBIDE MONONITRATE 60 MG (IMDUR) TAB PO SCH (07:55)
[2016-07-15] MEDS: amLODIPine 5 MG (NORVASC) TAB PO SCH (07:55)
[2016-07-15] MEDS: APIXABAN 5 MG (ELIQUIS) TABLET PO SCH ×2 (07:55→20:18)
[2016-07-15] MEDS: CARVEDILOL 12.5 MG (COREG) TABLET PO SCH ×2 (07:55→20:18)
[2016-07-15] MEDS: LORazepam 0.5 MG (ATIVAN) TABLET PO PRN (07:55)
[2016-07-15 08:00] VITALS: BP 161/94
[2016-07-15 12:00] VITALS: BP 143/72
[2016-07-15 16:09] VITALS: BP 145/65
[2016-07-15 20:09] VITALS: BP 159/70
[2016-07-15] MEDS: eZETimibe 10 MG (ZETIA) TABLET PO SCH (20:18)
[2016-07-15] MEDS: ASPIRIN E.C. 81 MG (ECOTRIN) TAB PO SCH (20:18)
[2016-07-15] MEDS: MONTELUKAST 10 MG (SINGULAIR) TAB PO SCH (20:18)
[2016-07-16] VITALS (8 sets, daily range): BP systolic 123–172; BP diastolic 52–78
[2016-07-16] MEDS: RT-LEVALBUTEROL (XOPENEX) 1.25 MG/3 ML NEB NON-FORMULARY INH SCH ×6 (02:10→22:16)
[2016-07-16 05:24] LABS: RED BLOOD COUNT 3.47 10^6/uL (4.35-5.85); RED CELL DISTRIBUTION WIDTH 12.3 % (10.0-14.5); WHITE BLOOD COUNT 7.3 10^3/uL (4.3-11.0)
[2016-07-16] MEDS: methylPREDNISolone 40 MG/ML (Solu-MEDROL) VIAL IV SCH ×4 (05:36→23:21)
[2016-07-16 05:51] LABS: ALANINE AMINOTRANSFERASE 26 U/L (0-55); ANION GAP 7 MMOL/L (5-14); ASPARTATE AMINO TRANSFERASE 25 U/L (5-34); BILIRUBIN,TOTAL 0.5 MG/DL (0.1-1.0); BLOOD UREA NITROGEN 49 MG/DL (7-18); BUN/CREATININE RATIO 53; CALCIUM 9.7 MG/DL (8.5-10.1); CARBON DIOXIDE 36 MMOL/L (21-32); CHLORIDE 100 MMOL/L (98-107); CREATININE SERUM 0.93 MG/DL (0.60-1.30); GFR ESTIMATED > 60; GLUCOSE 119 MG/DL (70-105); SODIUM 143 MMOL/L (135-145); TOTAL PROTEIN 5.6 G/DL (6.4-8.2)
[2016-07-16] MEDS: RT-ADVAIR HFA 115/21 MCG PER PUFF IH SCH ×2 (07:22→19:33)
[2016-07-16] MEDS: UMECLIDINIUM BROMIDE (INCRUSE ELLIPTA) 7'S IH SCH (07:22)
--- NOTE | 2016-07-16 07:56 | Progress Note (SOAP) ---
Subjective Subjective/Events-last exam pt reports persistent shortness of breath. he reports cough, congestion, rattles in his chest. he denies any other concerns today Review of Systems General: Fatigue, Malaise HEENT: No Head Aches Pulmonary: Dyspnea, Cough Cardiovascular: Edema, No: Chest Pain, Palpitations Gastrointestinal: No: Abdominal Pain, Nausea Neurological: Weakness, No: Confusion Objective Exam Vital Signs Date Time Temp Pulse Resp B/P (MAP) Pulse Ox O2 Delivery O2 Flow Rate FiO2 07/16/16 07:20 98 8.00 07/16/16 04:00 98.6 69 22 172/78 95 Nasal Cannula 7.00 07/16/16 02:10 94 8.00 07/16/16 01:00 70 07/16/16 00:00 98.9 81 22 159/64 97 Nasal Cannula 7.00 07/15/16 21:47 95 8.00 07/15/16 21:10 Nasal Cannula 7.00 07/15/16 20:09 98.7 77 24 159/70 93 Nasal Cannula 7.00 07/15/16 19:26 95 8.00 07/15/16 19:19 90 7.00 07/15/16 19:00 85 07/15/16 16:09 97.5 77 22 145/65 93 Nasal Cannula 7.00 07/15/16 15:19 87 7.00 07/15/16 13:00 67 07/15/16 12:00 97.8 73 21 143/72 95 Nasal Cannula 7.00 07/15/16 11:23 5.00 07/15/16 08:00 98 Nasal Cannula 5.00 07/15/16 08:00 97.6 84 24 161/94 92 Nasal Cannula 7.00 I & O 07/16/16 07:00 Intake Total 1920 ml Output Total 800 ml Balance 1120 ml Capillary Refill : General Appearance: WD/WN, Chronically ill, Mild Distress HEENT: PERRL/EOMI Neck: Full Range of Motion, Supple Respiratory: Decreased Breath Sounds Cardiovascular: Irregularly Irregular Gastrointestinal: normal bowel sounds, non tender, soft, no organomegaly Extremity: Pedal Edema Neurologic/Psychiatric: Alert, Oriented x3, No Motor/Sensory Deficits, 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 Skin: Warm/Dry Lymphatic: No Adenopathy Results Lab Laboratory Tests 07/16/16 04:16: White Blood Count 7.3, Red Blood Count 3.47L, Hemoglobin 10.5L, Hematocrit 34L, Mean Corpuscular Volume 97, Mean Corpuscular Hemoglobin 30, Mean Corpuscular Hemoglobin Concent 31L, Red Cell Distribution Width 12.3, Platelet Count 220, Mean Platelet Volume 10.0, Sodium Level 143, Potassium Level 5.0, Chloride Level 100, Carbon Dioxide Level 36H, Anion Gap 7, Blood Urea Nitrogen 49H, Creatinine 0.93, Estimat Glomerular Filtration Rate > 60, BUN/Creatinine Ratio 53, Glucose Level 119H, Calcium Level 9.7, Total Bilirubin 0.5, Aspartate Amino Transf (AST/SGOT) 25, Alanine Aminotransferase (ALT/SGPT) 26, Alkaline Phosphatase 30L, Total Protein 5.6L, Albumin 3.0L Assessment/Plan Assessment/Plan Assess & Plan/Chief Complaint ACUTE HYPOXIA RESPIRATORY DISTRESS COPD EXACERBATION ATRIAL FIBRILLATION HYPERTENSION HYPERLIPIDEMIA PT ADMITTED TO THE ICU, STARTED ON PNEUMONIA PROTOCOL, MAT PROTOCOL, STEROIDS, AND BIPAP. COPD EXACERBATION - CONTINUE WITH IV STEROIDS, MONITOR SYMPTOMS, WEAN OFF OF BIPAP, DOWN TO HOME OXYGEN USUAL RATE ABLE. AFIB - RATE CONTROLLED - CONTINUE WITH ELIQUIS AND BETA CAITLIN. HTN - ON LISINOPRIL, BETA CAITLIN HYPERLIPIDEMIA - ZETIA RESTARTED JALEEL NIEVES MD Jul 16, 2016 07:56
[2016-07-16] MEDS: ISOSORBIDE MONONITRATE 60 MG (IMDUR) TAB PO SCH (08:14)
[2016-07-16] MEDS: APIXABAN 5 MG (ELIQUIS) TABLET PO SCH ×2 (08:14→20:07)
[2016-07-16] MEDS: amLODIPine 10 MG (NORVASC) TAB PO SCH (08:14)
[2016-07-16] MEDS: CARVEDILOL 12.5 MG (COREG) TABLET PO SCH ×2 (08:14→20:08)
--- NOTE | 2016-07-16 09:25 | Diagnostic Imaging Report ---
EXAMINATION: PA and lateral views of the chest. INDICATION: Tightness in the lower chest. COMPARISON: 07/14/2016. FINDINGS: Again seen is pulmonary hyperinflation with mild fibrotic interstitial change, mainly in the mid and lower lungs. There is also pleural thickening on the right side. The heart size is normal. No active congestion or edema. There is no effusion or pneumothorax. Sternotomy wires and surgical clips in the medial upper right chest are seen. IMPRESSION: COPD. No acute process. Dictated by: Dictated on workstation # [id number]
[2016-07-16] MEDS: LORazepam 0.5 MG (ATIVAN) TABLET PO SCH ×3 (10:05→20:08)
[2016-07-16] MEDS: aCETylcysteine 20% (MUCOMYST) 30ML SOLN VIAL INH SCH ×2 (10:58→15:11)
--- NOTE | 2016-07-16 14:24 | Occupational Ther Daily Note ---
OT Current Status-Daily Note Subjective No pain reported. Appearance Pt. sitting on side of bed. Reports that he has already showered and dressed, that it just took him a long time. Agrees to work with OT. Mental Status/Objective Patient Orientation: Person, Place, Time, Situation Functional [place] Measure 0=Not Assessed/NA 4=Minimal Assistance 1=Total Assistance 5=Supervision or Setup 2=Maximal Assistance 6=Modified [place] 3=Moderate Assistance 7=Complete [place] ADL-Treatment Functional [place] Measure 0=Not Assessed/NA 4=Minimal Assistance 1=Total Assistance 5=Supervision or Setup 2=Maximal Assistance 6=Modified [place] 3=Moderate Assistance 7=Complete IndependenceIRFPAI Quality Coding Scale 6 Independent with activity with or without an assistive device 5 Patient requires set up or clean up by helper. Patient completes activity by themselves 4 Supervision or touching assist (CGA). [place] provide cues , steadying assist 3 The helper provides less than half the effort to complete the activity 2 The helper provides more than half the effort to complete the activity 1 Dependent. The helper does all the effort to complete an activity 7 Patient refused to complete or attempt activity 9 The patient did not perform the activity before the current illness or injury 88 Not attempted due to Medical conditions or safety concerns Lower Body Dressing (FIM): 5 (To doff and don socks using adaptive equipment. SBA only.) Other Treatment Pt. does indicate that he becomes very short of breath when he has to bend over to doff or don socks. OT brought in adaptive equipment. Educated pt. on use of it. Pt. able to practice doffing and donning socks with dressing stick, poultry boner, and sock aide without bending over. Agrees that this is helpful. No shortness of breath noted with this task with AE. All needs met in room. Education OT Patient Education: Correct positioning, Modified ADL techniques, Progress toward Goal/Update tx plan, Purpose of tx/functional activities, Reviewed precautions, Rehab process Teaching Recipient: Patient Teaching Methods: Demonstration, Discussion Response to Teaching: Verbalize Understanding, Return Demonstration OT Short Term Goals Short Term Goals 1=Demonstrate adherence to instructed precautions during ADL tasks. 2=Patient will verbalize/demonstrate understanding of assistive devices/ modifications for ADL. 3=Patient will improve strength/tolerance for activity to enable patient to perform ADL's. OT [facility] Goals Vac Press Operator Goals Time Frame: Jul 20, 2016 Bathing(FIM): 6 Upper Body Dressing(FIM): 6 Lower Body Dressing(FIM): 6 Toileting(FIM): 6 Toileting Hygiene (QC): 6 Toilet/Commode Transfer(FIM): 6 Toilet/Commode Transfer (QC): 6 Additional Goals: 3-ImproveStrength/Margy 1=Demonstrate adherence to instructed precautions during ADL tasks. 2=Patient will verbalize/demonstrate understanding of assistive devices/ modifications for ADL. 3=Patient will improve strength/tolerance for activity to enable patient to perform ADL's. OT Education/Plan Problem List/Assessment Assessment: Decreased Activ Tolerance, Impaired I ADL's, Impaired Self-Care Skills Pt to benefit from skilled OT intervention for ADL training, transfers, and strengthening to improve level of function and allow safe return home. Discharge Recommendations Plan/Recommendations: Continue POC Therapy D/C Recommendations: Home w/ Family Support, Occupational Therapy Home Care, Scheduled Assistance Barriers to Progress Shortness of breath with exertion. Treatment Plan/Plan of Care Treatment,Training & Education: Yes Patient would benefit from OT for education, treatment and training to promote independence in ADL's, mobility, safety and/or upper extremity function for ADL' s. Plan of Care: ADL Retraining, Functional Mobility, UE Funct Exercise/Act Treatment Duration: Jul 20, 2016 Visits Per Week: 5 Agreement: Yes Rehab Potential: Fair Time/GCodes Start Time: 13:55 Stop Time: 14:10 Total Time Billed (hr/min): 15 Billed Treatment Time 1, ADL DAWSON UGILLORY OT Jul 16, 2016 14:24
--- NOTE | 2016-07-16 15:11 | Physical Therapy Daily Note ---
PT Daily Note-Current Subjective Patient agrees to PT. Patient is currently on 7L O2 HF. Pain Numeric Pain Scale: 0-No Pain Location: No Pain Reported Mental Status Patient Orientation: Normal For Age Attachments: Oxygen (7L O2 HF) Transfers Functional [place] Measure 0=Not Assessed/NA 4=Minimal Assistance 1=Total Assistance 5=Supervision or Setup 2=Maximal Assistance 6=Modified [place] 3=Moderate Assistance 7=Complete IndependenceIRFPAI Quality Coding Scale 6 Independent with activity with or without an assistive device 5 Patient requires set up or clean up by helper. Patient completes activity by themselves 4 Supervision or touching assist (CGA). [place] provide cues , steadying assist 3 The helper provides less than half the effort to complete the activity 2 The helper provides more than half the effort to complete the activity 1 Dependent. The helper does all the effort to complete an activity 7 Patient refused to complete or attempt activity 9 The patient did not perform the activity before the current illness or injury 88 Not attempted due to Medical conditions or safety concerns Transfers (B, C, W/C) (FIM): 6 Scootin Roll Left to Right (QC): 5 Supine to/from Sit: 6 Sit to/from Stand: 6 Sit to Lying (QC): 5 Sit to Stand (QC): 5 Gait Training Does the Patient Walk?: Yes Gait (FIM): 5 Distance (FIM): 3=150 ft Distance: 500' Walk 50 ft with 2 Turns(QC): 5 Walk 150 ft (QC): 5 Gait Level of Assist: 5 Gait Persons Needed: 1 Gait Assistive Device: FWW 1 episode LOB with self correction; slow, steady gait sequence; requires time to complete all functional tasks. Assessment Patient tolerated treatment well and returned to room sitting EOB with family present. Patient remains on 7L O2 HF NC in place continuously. PT Local Owner Operator Truck Driver Goals Skilled Nursing Goals PT Local Owner Operator Truck Driver Goals Time Frame: Jul 20, 2016 Transfers (B,C,W/C) (FIM): 6 Sit to Lying (QC): 6 Lying-Sitting on Side/Bed(QC): 6 Sit to Stand (QC): 6 Rollin Chair/[id number]-Fvizb Xfer(QC): 6 Does the Patient Walk: Yes Gait (FIM): 6 Gait distance (FIM): 3=150 ft Distance: 400' Walk 50ft with 2 Turns (QC): 6 Walk 150 ft (QC): 6 Gait Level of Assist: 6 Gait Assistive Device: FWW, Cane Single Point PT Plan Treatment/Plan Treatment Plan: Continue Plan of Care Treatment Plan: Education, Functional Activity Margy, Functional Strength, Gait , Safety, Therapeutic Exercise, Transfers Treatment Duration: Jul 20, 2016 Visits Per Week: 6 Minutes/Day (M-F): 15-30 Minutes/Day (Sat/Chaudhari): PRN Time/GCodes Time In: 1425 Time Out: 1440 Total Billed Treatment Time: 15 Total Billed Treatment 1 visit FA 15 min MARISELA AC PT Jul 16, 2016 15:11
[2016-07-16] MEDS: eZETimibe 10 MG (ZETIA) TABLET PO SCH (20:08)
[2016-07-16] MEDS: MONTELUKAST 10 MG (SINGULAIR) TAB PO SCH (20:08)
[2016-07-16] MEDS: ASPIRIN E.C. 81 MG (ECOTRIN) TAB PO SCH (20:08)
[2016-07-17] MEDS: RT-LEVALBUTEROL (XOPENEX) 1.25 MG/3 ML NEB NON-FORMULARY INH SCH ×6 (02:37→22:01)
[2016-07-17 04:00] VITALS: BP 155/68
[2016-07-17] MEDS: CATHETER FLUSH 10 ML SYR IV PRN ×3 (04:25→21:31)
[2016-07-17] MEDS: methylPREDNISolone 40 MG/ML (Solu-MEDROL) VIAL IV SCH ×4 (04:25→21:31)
[2016-07-17] MEDS: aCETylcysteine 20% (MUCOMYST) 30ML SOLN VIAL INH SCH ×3 (06:57→18:39)
[2016-07-17] MEDS: UMECLIDINIUM BROMIDE (INCRUSE ELLIPTA) 7'S IH SCH (07:43)
[2016-07-17] MEDS: RT-ADVAIR HFA 115/21 MCG PER PUFF IH SCH ×2 (07:43→18:39)
[2016-07-17 08:00] VITALS: BP 160/64
[2016-07-17] MEDS: LORazepam 0.5 MG (ATIVAN) TABLET PO SCH ×4 (08:22→21:00)
[2016-07-17] MEDS: APIXABAN 5 MG (ELIQUIS) TABLET PO SCH ×2 (08:22→20:16)
[2016-07-17] MEDS: amLODIPine 10 MG (NORVASC) TAB PO SCH (08:22)
[2016-07-17] MEDS: ISOSORBIDE MONONITRATE 60 MG (IMDUR) TAB PO SCH (08:22)
[2016-07-17] MEDS: CARVEDILOL 12.5 MG (COREG) TABLET PO SCH ×2 (08:22→20:16)
--- NOTE | 2016-07-17 11:01 | Physical Therapy Daily Note ---
PT Daily Note-Current Subjective Patient in bed and agrees to PT. Pain Numeric Pain Scale: 0-No Pain Location: No Pain Reported Mental Status Patient Orientation: Normal For Age Attachments: Oxygen (7L HF) Transfers Functional [place] Measure 0=Not Assessed/NA 4=Minimal Assistance 1=Total Assistance 5=Supervision or Setup 2=Maximal Assistance 6=Modified [place] 3=Moderate Assistance 7=Complete IndependenceIRFPAI Quality Coding Scale 6 Independent with activity with or without an assistive device 5 Patient requires set up or clean up by helper. Patient completes activity by themselves 4 Supervision or touching assist (CGA). [place] provide cues , steadying assist 3 The helper provides less than half the effort to complete the activity 2 The helper provides more than half the effort to complete the activity 1 Dependent. The helper does all the effort to complete an activity 7 Patient refused to complete or attempt activity 9 The patient did not perform the activity before the current illness or injury 88 Not attempted due to Medical conditions or safety concerns Transfers (B, C, W/C) (FIM): 6 Scootin Roll Left to Right (QC): 6 Supine to/from Sit: 6 Sit to/from Stand: 6 Sit to Lying (QC): 6 Sit to Stand (QC): 6 Gait Training Does the Patient Walk?: Yes Gait (FIM): 5 Distance (FIM): 3=150 ft Distance: 300' x 2 Walk 50 ft with 2 Turns(QC): 5 Walk 150 ft (QC): 5 Gait Level of Assist: 5 Gait Persons Needed: 1 Gait Assistive Device: FWW very slow, methodical gait sequence due to increase SOA with activity. O2 8L NC HF during activity Assessment Patient returned to room, sitting EOB with family present. Noted increase SOA with exertion. PT to continue to address pulmonary functional with mobility. PT Design Engineer Goals [facility] Goals PT [facility] Goals Time Frame: Jul 20, 2016 Transfers (B,C,W/C) (FIM): 6 Sit to Lying (QC): 6 Lying-Sitting on Side/Bed(QC): 6 Sit to Stand (QC): 6 Rollin Chair/[id number]-[id number] Xfer(QC): 6 Does the Patient Walk: Yes Gait (FIM): 6 Gait distance (FIM): 3=150 ft Distance: 400' Walk 50ft with 2 Turns (QC): 6 Walk 150 ft (QC): 6 Gait Level of Assist: 6 Gait Assistive Device: FWW, Cane Single Point PT Plan Treatment/Plan Treatment Plan: Continue Plan of Care Treatment Plan: Education, Functional Activity Margy, Functional Strength, Gait , Safety, Therapeutic Exercise, Transfers Treatment Duration: Jul 20, 2016 Visits Per Week: 6 Minutes/Day (M-F): 15-30 Minutes/Day (Sat/Chaudhari): PRN Time/GCodes Time In: 1024 Time Out: 1040 Total Billed Treatment Time: 16 Total Billed Treatment 1 visit FA 16 min MARISELA AC PT Jul 17, 2016 11:01
[2016-07-17 12:00] VITALS: BP 154/69
[2016-07-17] MEDS ORDERED: FUROSEMIDE 40 MG/4 ML INJ (LASIX) ONE (13:31)
[2016-07-17] MEDS ORDERED: FUROSEMIDE 40 MG/4 ML INJ (LASIX) IVP ONE (13:45)
--- NOTE | 2016-07-17 14:58 | Occupational Ther Daily Note ---
OT Current Status-Daily Note Subjective Pt seen in room, up in recliner, agreeable to OT. No pain mentioned Appearance Alert, cooperative Mental Status/Objective Functional [place] Measure 0=Not Assessed/NA 4=Minimal Assistance 1=Total Assistance 5=Supervision or Setup 2=Maximal Assistance 6=Modified [place] 3=Moderate Assistance 7=Complete [place] ADL-Treatment Pt had just finished shower by himself (setup from nursing). He reported that he takes himself to the bathroom and had just dressed himself except for socks. Pt education use of soft sock aid, with skilled physical cues for technique. Pt still needed min assist to get socks on, due in part to feet being slightly damp from shower. He said that his daughter has ordered one for him and it should be here on Saturday. He believes that he is continuing to be able to do more for himself every day. Pt left up in recliner, all needs met. O2 in place. Pt practiced pacing himself and demonstrated pursed lip breathing to manage oxygen levels. Functional [place] Measure 0=Not Assessed/NA 4=Minimal Assistance 1=Total Assistance 5=Supervision or Setup 2=Maximal Assistance 6=Modified [place] 3=Moderate Assistance 7=Complete IndependenceIRFPAI Quality Coding Scale 6 Independent with activity with or without an assistive device 5 Patient requires set up or clean up by helper. Patient completes activity by themselves 4 Supervision or touching assist (CGA). [place] provide cues , steadying assist 3 The helper provides less than half the effort to complete the activity 2 The helper provides more than half the effort to complete the activity 1 Dependent. The helper does all the effort to complete an activity 7 Patient refused to complete or attempt activity 9 The patient did not perform the activity before the current illness or injury 88 Not attempted due to Medical conditions or safety concerns Education OT Patient Education: Modified ADL techniques, Purpose of tx/functional activities, Use of adapted equipment Teaching Recipient: Patient Teaching Methods: Demonstration, Discussion Response to Teaching: Verbalize Understanding, Return Demonstration, Reinforcement Needed OT Short Term Goals Short Term Goals 1=Demonstrate adherence to instructed precautions during ADL tasks. 2=Patient will verbalize/demonstrate understanding of assistive devices/ modifications for ADL. 3=Patient will improve strength/tolerance for activity to enable patient to perform ADL's. OT Press Operator [place] Goals Press Operator [place] Goals Time Frame: Jul 20, 2016 Bathing(FIM): 6 Upper Body Dressing(FIM): 6 Lower Body Dressing(FIM): 6 Toileting(FIM): 6 Toileting Hygiene (QC): 6 Toilet/Commode Transfer(FIM): 6 Toilet/Commode Transfer (QC): 6 Additional Goals: 3-ImproveStrength/Margy 1=Demonstrate adherence to instructed precautions during ADL tasks. 2=Patient will verbalize/demonstrate understanding of assistive devices/ modifications for ADL. 3=Patient will improve strength/tolerance for activity to enable patient to perform ADL's. OT Education/Plan Problem List/Assessment Pt to benefit from skilled OT intervention for ADL training, transfers, and strengthening to improve level of function and allow safe return home. Discharge Recommendations Plan/Recommendations: Continue POC Treatment Plan/Plan of Care Patient would benefit from OT for education, treatment and training to promote independence in ADL's, mobility, safety and/or upper extremity function for ADL' s. Plan of Care: ADL Retraining, Functional Mobility, UE Funct Exercise/Act Treatment Duration: Jul 20, 2016 Visits Per Week: 5 Agreement: Yes Rehab Potential: Fair Time/GCodes Start Time: 14:37 Stop Time: 14:52 Total Time Billed (hr/min): 15 Billed Treatment Time visit, 15 minutes ADL TRAY FLEMING OT Jul 17, 2016 14:58
[2016-07-17 16:00] VITALS: BP 128/65
--- NOTE | 2016-07-17 16:16 | Progress Note (SOAP) ---
Subjective Subjective/Events-last exam PT REPORTS THAT HE IS FEELING SHORT OF BREATH STILL, HAS COUGH, CONGESTION - TROUBLE CLEARING THE MUCUS. Review of Systems General: Fatigue, Malaise HEENT: No Head Aches Pulmonary: Dyspnea, Cough Cardiovascular: No: Chest Pain Gastrointestinal: No: Abdominal Pain, Nausea Neurological: Weakness, No: Confusion Objective Exam Vital Signs Date Time Temp Pulse Resp B/P (MAP) Pulse Ox O2 Delivery O2 Flow Rate FiO2 07/17/16 15:02 95 8.00 07/17/16 13:00 69 07/17/16 12:00 97.6 66 20 154/69 96 Nasal Cannula 7.50 07/17/16 11:15 98 8.00 07/17/16 09:00 98 Nasal Cannula 7.50 07/17/16 08:00 97.0 71 20 160/64 98 Nasal Cannula 7.50 07/17/16 07:45 98 8.00 07/17/16 07:44 98 8.00 07/17/16 07:43 98 8.00 07/17/16 07:00 72 07/17/16 04:00 97.8 65 20 155/68 95 Nasal Cannula 7.50 07/17/16 02:38 96 8.00 07/17/16 01:00 68 07/16/16 23:17 96.4 69 24 123/54 98 Nasal Cannula 7.00 07/16/16 22:16 95 8.00 07/16/16 21:00 Nasal Cannula 8.00 07/16/16 20:04 97.5 75 22 137/67 95 Nasal Cannula 7.00 07/16/16 19:28 92 8.00 07/16/16 19:00 86 I & O 07/17/16 07:00 Intake Total 2390 ml Output Total 1350 ml Balance 1040 ml Capillary Refill : Less Than 3 Seconds General Appearance: WD/WN, Chronically ill, Mild Distress (WITH TALKING - PT SHORT OF BREATH) HEENT: PERRL/EOMI, Pharynx Normal Neck: Full Range of Motion Respiratory: Chest Non Tender, Decreased Breath Sounds, Wheezing (FAINT) Cardiovascular: Irregularly Irregular Gastrointestinal: normal bowel sounds, non tender, soft, no organomegaly, no pulsatile mass Extremity: Pedal Edema Neurologic/Psychiatric: Alert, Oriented x3, 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 Assessment/Plan Assessment/Plan Assess & Plan/Chief Complaint ACUTE HYPOXIA RESPIRATORY DISTRESS COPD EXACERBATION ATRIAL FIBRILLATION HYPERTENSION HYPERLIPIDEMIA PT ADMITTED TO THE ICU - PT NOW ON 4TH FLOOR IN SWING BED STATUS, STARTED ON PNEUMONIA PROTOCOL, MAT PROTOCOL, STEROIDS, AND BIPAP, WEANED OFF OF BIPAP AND WEANED DOWN TO 5L OF OXYGEN CONTINUOUSLY. PT STARTED ON PD&C. COPD EXACERBATION - CONTINUE WITH IV STEROIDS, MONITOR SYMPTOMS, WEAN OFF OF BIPAP, DOWN TO HOME OXYGEN USUAL RATE ABLE. AFIB - RATE CONTROLLED - CONTINUE WITH ELIQUIS AND BETA CAITLIN. HTN - ON LISINOPRIL, BETA CAITLIN HYPERLIPIDEMIA - ZETIA RESTARTED JALEEL NIEVES MD Jul 17, 2016 16:16
[2016-07-17 20:12] VITALS: BP 132/63
[2016-07-17] MEDS: eZETimibe 10 MG (ZETIA) TABLET PO SCH (20:15)
[2016-07-17] MEDS: ASPIRIN E.C. 81 MG (ECOTRIN) TAB PO SCH (20:16)
[2016-07-17] MEDS: MONTELUKAST 10 MG (SINGULAIR) TAB PO SCH (20:18)
[2016-07-17] MEDS: FAMOTIDINE 20 MG (PEPCID) TABLET PO PRN (20:33)
[2016-07-18 00:35] VITALS: BP 127/56
[2016-07-18] MEDS: aCETylcysteine 20% (MUCOMYST) 30ML SOLN VIAL INH SCH ×4 (02:18→22:28)
[2016-07-18] MEDS: RT-LEVALBUTEROL (XOPENEX) 1.25 MG/3 ML NEB NON-FORMULARY INH SCH ×6 (02:18→22:28)
[2016-07-18 04:07] VITALS: BP 144/67
[2016-07-18] MEDS: methylPREDNISolone 40 MG/ML (Solu-MEDROL) VIAL IV SCH ×4 (04:15→21:07)
[2016-07-18] MEDS: CATHETER FLUSH 10 ML SYR IV PRN (04:16)
[2016-07-18] MEDS: RT-ADVAIR HFA 115/21 MCG PER PUFF IH SCH ×2 (07:18→19:17)
[2016-07-18] MEDS: UMECLIDINIUM BROMIDE (INCRUSE ELLIPTA) 7'S IH SCH (07:18)
[2016-07-18 07:43] VITALS: BP 152/68
[2016-07-18] MEDS: APIXABAN 5 MG (ELIQUIS) TABLET PO SCH ×2 (08:03→20:14)
[2016-07-18] MEDS: BENZONATATE 100 MG (TESSALON) CAPSULE PO PRN ×2 (08:03→21:07)
[2016-07-18] MEDS: FAMOTIDINE 20 MG (PEPCID) TABLET PO PRN ×2 (08:03→22:38)
[2016-07-18] MEDS: amLODIPine 10 MG (NORVASC) TAB PO SCH (08:03)
[2016-07-18] MEDS: CARVEDILOL 12.5 MG (COREG) TABLET PO SCH ×2 (08:04→20:14)
[2016-07-18] MEDS: LORazepam 0.5 MG (ATIVAN) TABLET PO SCH ×3 (08:04→20:14)
[2016-07-18] MEDS: ISOSORBIDE MONONITRATE 60 MG (IMDUR) TAB PO SCH (08:05)
--- NOTE | 2016-07-18 08:54 | Pulmonary Progress Note ---
Subjective Subjective/Events-last exam PT is still SOB. CXR reviewed. Exam Exam Vital Signs Date Time Temp Pulse Resp B/P (MAP) Pulse Ox O2 Delivery O2 Flow Rate FiO2 07/18/16 07:43 96.3 68 20 152/68 97 Nasal Cannula 6.00 07/18/16 07:13 97 8.00 07/18/16 04:07 97.8 70 12 144/67 99 Nasal Cannula 7.50 07/18/16 02:19 98 8.00 07/18/16 01:00 70 07/18/16 00:35 98.6 74 16 127/56 93 Nasal Cannula 7.50 07/17/16 22:02 96 8.00 07/17/16 21:20 93 Nasal Cannula 7.50 07/17/16 20:12 96.4 86 24 132/63 98 Nasal Cannula 7.50 07/17/16 19:00 71 07/17/16 18:46 8.00 07/17/16 18:41 98 8.00 07/17/16 16:00 96.1 62 22 128/65 98 Nasal Cannula 7.50 07/17/16 15:02 95 8.00 07/17/16 13:00 69 07/17/16 12:00 97.6 66 20 154/69 96 Nasal Cannula 7.50 07/17/16 11:15 98 8.00 07/17/16 09:00 98 Nasal Cannula 7.50 I & O 07/18/16 07:00 Intake Total 2900 ml Output Total 1300 ml Balance 1600 ml General Appearance: No Apparent Distress, Anxious HEENT: Normal ENT Inspection, Pharynx Normal Neck: Full Range of Motion, Non Tender, Supple Respiratory: Normal Breath Sounds, No Accessory Muscle Use, No Respiratory Distress, Decreased Breath Sounds Gastrointestinal: normal bowel sounds, non tender, soft, no organomegaly, no pulsatile mass Neurologic/Psychiatric: Alert, Oriented x3 Skin: Normal Color, Warm/Dry Assessment/Plan Assessment/Plan COPDAE -svns, advair -solumedrol 40mg every 6hr -Pt feels improved with noninvasive ventilation -Pt would benefit from home vent to mask -cxr reviewed Volume Overload -Hep lock IVF -daily labs Hypoxemia -oxygen to maintain sats >92% Hypertension -continue home BP meds and monitor Acute on Chronic Resp Distress NATALIE GALDAMEZ DO Jul 18, 2016 08:54
--- NOTE | 2016-07-18 08:59 | Physical Therapy Daily Note ---
PT Daily Note-Current Subjective Patient in bed pre tx, agrees to PT, no complaints of pain. Patient has to use the restroom. Appearance Patient sitting EOB post tx with nurse call, phone, tray, all needs met. Mental Status Patient Orientation: Normal For Age Attachments: Oxygen Transfers Functional [place] Measure 0=Not Assessed/NA 4=Minimal Assistance 1=Total Assistance 5=Supervision or Setup 2=Maximal Assistance 6=Modified [place] 3=Moderate Assistance 7=Complete IndependenceIRFPAI Quality Coding Scale 6 Independent with activity with or without an assistive device 5 Patient requires set up or clean up by helper. Patient completes activity by themselves 4 Supervision or touching assist (CGA). [place] provide cues , steadying assist 3 The helper provides less than half the effort to complete the activity 2 The helper provides more than half the effort to complete the activity 1 Dependent. The helper does all the effort to complete an activity 7 Patient refused to complete or attempt activity 9 The patient did not perform the activity before the current illness or injury 88 Not attempted due to Medical conditions or safety concerns Transfers (B, C, W/C) (FIM): 6 Scootin Supine to/from Sit: 6 Sit to/from Stand: 6 no LOB, appropriate use of hands Gait Training Gait (FIM): 5 Distance: 350' Gait Level of Assist: 5 Gait Persons Needed: 1 Gait Assistive Device: FWW very slow ambulation but no LOB or unsteadiness Exercises Seated Therapy Exercises: Ankle pumps, Long arc quads Seated Reps: 20 Treatments bed mobility and transfers, ambulation, functional strengthening, patient was toileted Assessment Current Status: Fair Progress improving ambulation, endurance PT Assistant Counsel Goals Fdc Goals PT Fdc Goals Time Frame: Jul 20, 2016 Transfers (B,C,W/C) (FIM): 6 Sit to Lying (QC): 6 Lying-Sitting on Side/Bed(QC): 6 Sit to Stand (QC): 6 Rollin Chair/Xmy-io-Ihmmo Xfer(QC): 6 Does the Patient Walk: Yes Gait (FIM): 6 Gait distance (FIM): 3=150 ft Distance: 400' Walk 50ft with 2 Turns (QC): 6 Walk 150 ft (QC): 6 Gait Level of Assist: 6 Gait Assistive Device: FWW, Cane Single Point PT Plan Problem List Problem List: Activity Tolerance, Functional Strength, Safety, Balance, Gait, Transfer Treatment/Plan Treatment Plan: Continue Plan of Care Treatment Plan: Education, Functional Activity Margy, Functional Strength, Gait , Safety, Therapeutic Exercise, Transfers Treatment Duration: Jul 20, 2016 Visits Per Week: 6 Minutes/Day (M-F): 15-30 Minutes/Day (Sat/Chaudhari): PRN Safety Risks/Education Patient Education: Gait Training, Transfer Techniques, Safety Issues Teaching Recipient: Patient Teaching Methods: Demonstration, Discussion Response to Teaching: Reinforcement Needed Time/GCodes Time In: 840 Time Out: 856 Total Billed Treatment Time: 16 Total Billed Treatment 1 visit GT 16 min CODIE ESQUIVEL PT Jul 18, 2016 08:59
[2016-07-18 09:20] LABS: ABG BASE EXCESS 11.2 MMOL/L (-2.5-2.5); ABG HCO3 37 MMOL/L (23-27); ABG OXYGEN SATURATION 99 % (94-100); ABG PCO2 64 MMHG (35-45); ABG PH 7.37 (7.37-7.43); ABG PO2 96 MMHG (79-93); ABG TCO2 39.1 MMOL/L (21.0-31.0)
[2016-07-18 09:24] LABS: PATIENT TEMP 96.7
--- NOTE | 2016-07-18 11:06 | Occupational Ther Daily Note ---
OT Current Status-Daily Note Subjective Pt has no c/o pain, states he is fatigued this morning. Mental Status/Objective Functional [place] Measure 0=Not Assessed/NA 4=Minimal Assistance 1=Total Assistance 5=Supervision or Setup 2=Maximal Assistance 6=Modified [place] 3=Moderate Assistance 7=Complete [place] Attachments: Oxygen ADL-Treatment Pt in restroom when therapist arrives. Pt able to complete toileting hygiene and clothing management with modified independence. Sit to stand from toilet with modified independence using grab bars. Pt stood at sink to wash hands with modified independence. Gait to EOB without LOB, able to manage oxygen tubing. Transfer to bed with modified independence. Pt states he has been practicing use of sock aid and has no questions regarding use. Pt states daughter has ordered sock aid for him to use at home. Pt declined shower or further ADLs at this time secondary to fatigue, states he will complete later. Pt sitting EOB with needs met after session. Functional [place] Measure 0=Not Assessed/NA 4=Minimal Assistance 1=Total Assistance 5=Supervision or Setup 2=Maximal Assistance 6=Modified [place] 3=Moderate Assistance 7=Complete IndependenceIRFPAI Quality Coding Scale 6 Independent with activity with or without an assistive device 5 Patient requires set up or clean up by helper. Patient completes activity by themselves 4 Supervision or touching assist (CGA). [place] provide cues , steadying assist 3 The helper provides less than half the effort to complete the activity 2 The helper provides more than half the effort to complete the activity 1 Dependent. The helper does all the effort to complete an activity 7 Patient refused to complete or attempt activity 9 The patient did not perform the activity before the current illness or injury 88 Not attempted due to Medical conditions or safety concerns Toileting (FIM): 6 Toileting Hygiene (QC): 6 Toilet/Commode Transfer (FIM): 6 Toilet Transfer (QC): 6 OT Short Term Goals Short Term Goals 1=Demonstrate adherence to instructed precautions during ADL tasks. 2=Patient will verbalize/demonstrate understanding of assistive devices/ modifications for ADL. 3=Patient will improve strength/tolerance for activity to enable patient to perform ADL's. OT Snf Goals Scudding Inspector Goals Time Frame: Jul 20, 2016 Bathing(FIM): 6 Upper Body Dressing(FIM): 6 Lower Body Dressing(FIM): 6 Toileting(FIM): 6 (met 07/18/16) Toileting Hygiene (QC): 6 (met 07/18/16) Toilet/Commode Transfer(FIM): 6 (met 07/18/16) Toilet/Commode Transfer (QC): 6 (met 07/18/16) Additional Goals: 3-ImproveStrength/Margy 1=Demonstrate adherence to instructed precautions during ADL tasks. 2=Patient will verbalize/demonstrate understanding of assistive devices/ modifications for ADL. 3=Patient will improve strength/tolerance for activity to enable patient to perform ADL's. OT Education/Plan Problem List/Assessment Pt to benefit from skilled OT intervention for ADL training, transfers, and strengthening to improve level of function and allow safe return home. Discharge Recommendations Plan/Recommendations: Continue POC Treatment Plan/Plan of Care Patient would benefit from OT for education, treatment and training to promote independence in ADL's, mobility, safety and/or upper extremity function for ADL' s. Plan of Care: ADL Retraining, Functional Mobility, UE Funct Exercise/Act Treatment Duration: Jul 20, 2016 Visits Per Week: 5 Agreement: Yes Rehab Potential: Fair Time/GCodes Start Time: 10:05 Stop Time: 10:22 Total Time Billed (hr/min): 17 Billed Treatment Time 1 visit, ADL(17minutes) KAILEY JOHNSTON OT Jul 18, 2016 11:06
[2016-07-18 11:58] VITALS: BP 138/62
[2016-07-18] MEDS ORDERED: aCETylcysteine 20% (MUCOMYST) 30ML SOLN VIAL INH SCH ×2 (14:13→14:30)
--- NOTE | 2016-07-18 16:28 | Diagnostic Imaging Report ---
PROCEDURE: CT chest without contrast. TECHNIQUE: Multiple contiguous axial images were obtained through the chest without the use of intravenous contrast. INDICATION: COPD exacerbation. FINDINGS: There is a tiny right pleural effusion. This has improved compared to 06/20/2015. There are scattered calcified granulomas in the lungs. Upper lobe predominant emphysematous changes are seen. There is a 6 mm nodule in the minor fissure, similar to the 06/20/2015 exam. This is also stable from May 2014, suggestive of scarring. Mild scarring in the left lower lobe is also seen. The heart size is normal. 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 There is no mediastinal mass or significantly enlarged lymph node. Sections of the upper abdomen demonstrate calcified granulomas in the liver and spleen. Degenerative changes in the thoracic spine are noted. Sternotomy wires are seen with a healed sternotomy noted. IMPRESSION: 1. Emphysema. 2. Calcified granulomas and foci of scarring seen along the minor fissure and left lower lobe, similar to prior exams. 3. Tiny right pleural effusion. Dictated by: Dictated on workstation # [id number]
[2016-07-18 16:51] VITALS: BP 164/68
[2016-07-18] MEDS: eZETimibe 10 MG (ZETIA) TABLET PO SCH (20:14)
[2016-07-18] MEDS: MONTELUKAST 10 MG (SINGULAIR) TAB PO SCH (20:14)
[2016-07-18] MEDS: ASPIRIN E.C. 81 MG (ECOTRIN) TAB PO SCH (20:14)
[2016-07-18 20:23] VITALS: BP 144/66
[2016-07-19 00:33] VITALS: BP 138/70
[2016-07-19] MEDS: RT-LEVALBUTEROL (XOPENEX) 1.25 MG/3 ML NEB NON-FORMULARY INH SCH ×6 (03:17→22:04)
[2016-07-19] MEDS: methylPREDNISolone 40 MG/ML (Solu-MEDROL) VIAL IV SCH ×4 (03:34→22:11)
[2016-07-19 04:02] VITALS: BP 145/64
[2016-07-19] MEDS: aCETylcysteine 20% (MUCOMYST) 30ML SOLN VIAL INH SCH ×3 (06:50→22:04)
[2016-07-19 08:00] VITALS: BP 153/66
--- NOTE | 2016-07-19 08:26 | Pulmonary Progress Note ---
Subjective Subjective/Events-last exam no complications Exam Exam Vital Signs Date Time Temp Pulse Resp B/P (MAP) Pulse Ox O2 Delivery O2 Flow Rate FiO2 07/19/16 08:00 96.2 78 20 153/66 97 Nasal Cannula 5.00 07/19/16 04:02 97.2 75 20 145/64 97 Nasal Cannula 6.00 07/19/16 03:17 97 6.00 07/19/16 01:00 69 07/19/16 00:33 98.2 75 20 138/70 98 Nasal Cannula 6.00 07/18/16 22:28 96 6.00 07/18/16 21:00 93 Nasal Cannula 7.50 07/18/16 20:23 97.1 72 18 144/66 97 Nasal Cannula 6.00 07/18/16 19:24 98 6.00 07/18/16 19:17 96 6.00 07/18/16 19:00 75 07/18/16 16:51 97.3 66 20 164/68 96 Nasal Cannula 6.00 07/18/16 14:17 98 6.00 07/18/16 13:00 68 07/18/16 11:58 96.3 65 20 138/62 98 Nasal Cannula 6.00 07/18/16 09:00 Nasal Cannula 6.00 I & O 07/19/16 07:00 Intake Total 2040 ml Output Total 1100 ml Balance 940 ml General Appearance: No Apparent Distress, Anxious HEENT: Normal ENT Inspection, Pharynx Normal Neck: Full Range of Motion, Non Tender, Supple Respiratory: Normal Breath Sounds, No Accessory Muscle Use, No Respiratory Distress, Decreased Breath Sounds Gastrointestinal: normal bowel sounds, non tender, soft, no organomegaly, no pulsatile mass Neurologic/Psychiatric: Alert, Oriented x3 Skin: Normal Color, Warm/Dry Assessment/Plan Assessment/Plan COPDAE-- with acute on chronic respiratory failure -svns, advair -solumedrol 40mg every 6hr -Pt feels improved with noninvasive ventilation -Pt would benefit from home vent to mask -- will arrange -CT reviewed - PT has no acute change Volume Overload -Hep lock IVF -daily labs Hypoxemia -oxygen to maintain sats >92% Hypertension -continue home BP meds and monitor Acute on Chronic Resp Distress NATALIE GALDAMEZ DO Jul 19, 2016 08:26
[2016-07-19] MEDS: APIXABAN 5 MG (ELIQUIS) TABLET PO SCH ×2 (09:44→20:14)
[2016-07-19] MEDS: ISOSORBIDE MONONITRATE 60 MG (IMDUR) TAB PO SCH (09:44)
[2016-07-19] MEDS: CARVEDILOL 12.5 MG (COREG) TABLET PO SCH ×2 (09:44→20:14)
[2016-07-19] MEDS: amLODIPine 10 MG (NORVASC) TAB PO SCH (09:44)
[2016-07-19] MEDS: LORazepam 0.5 MG (ATIVAN) TABLET PO SCH ×3 (09:45→20:14)
[2016-07-19] MEDS: UMECLIDINIUM BROMIDE (INCRUSE ELLIPTA) 7'S IH SCH (10:46)
[2016-07-19] MEDS: RT-ADVAIR HFA 115/21 MCG PER PUFF IH SCH ×2 (10:46→18:59)
[2016-07-19 12:00] VITALS: BP 128/55
--- NOTE | 2016-07-19 12:48 | Physical Therapy Daily Note ---
PT Daily Note-Current Subjective Patient agrees to PT. No c/o at this time. Plans to dismiss to home tomorrow. Pain Numeric Pain Scale: 0-No Pain Location: No Pain Reported Mental Status Patient Orientation: Normal For Age Attachments: Oxygen (7L HF) Transfers Functional [place] Measure 0=Not Assessed/NA 4=Minimal Assistance 1=Total Assistance 5=Supervision or Setup 2=Maximal Assistance 6=Modified [place] 3=Moderate Assistance 7=Complete IndependenceIRFPAI Quality Coding Scale 6 Independent with activity with or without an assistive device 5 Patient requires set up or clean up by helper. Patient completes activity by themselves 4 Supervision or touching assist (CGA). [place] provide cues , steadying assist 3 The helper provides less than half the effort to complete the activity 2 The helper provides more than half the effort to complete the activity 1 Dependent. The helper does all the effort to complete an activity 7 Patient refused to complete or attempt activity 9 The patient did not perform the activity before the current illness or injury 88 Not attempted due to Medical conditions or safety concerns Transfers (B, C, W/C) (FIM): 6 Scootin Roll Left to Right (QC): 6 Supine to/from Sit: 6 Sit to/from Stand: 6 Sit to Lying (QC): 6 Sit to Stand (QC): 6 Gait Training Does the Patient Walk?: Yes Gait (FIM): 6 Distance (FIM): 3=150 ft Distance: 500' Walk 50 ft with 2 Turns(QC): 6 Walk 150 ft (QC): 6 Gait Level of Assist: 6 Gait Assistive Device: FWW extended UE's with FWW; slow, steady gait sequence Assessment Patient tolerated treatment well and is sitting EOB with needs met. Patient continues to have increase SOA with activity, however, he reports this is normal for him. Plan dismissal tomorrow to home with spouse. PT Nursing Home Goals Career Development Facilitator Goals PT Nursing Home Goals Time Frame: Jul 20, 2016 Transfers (B,C,W/C) (FIM): 6 Sit to Lying (QC): 6 Lying-Sitting on Side/Bed(QC): 6 Sit to Stand (QC): 6 Rollin Chair/Jxy-pz-Gbhrk Xfer(QC): 6 Does the Patient Walk: Yes Gait (FIM): 6 Gait distance (FIM): 3=150 ft Distance: 400' Walk 50ft with 2 Turns (QC): 6 Walk 150 ft (QC): 6 Gait Level of Assist: 6 Gait Assistive Device: FWW, Cane Single Point PT Plan Treatment/Plan Treatment Plan: Continue Plan of Care Treatment Plan: Education, Functional Activity Margy, Functional Strength, Gait , Safety, Therapeutic Exercise, Transfers Treatment Duration: Jul 20, 2016 Visits Per Week: 6 Minutes/Day (M-F): 15-30 Minutes/Day (Sat/Chaudhari): PRN Time/GCodes Time In: 1150 Time Out: 1205 Total Billed Treatment Time: 15 Total Billed Treatment 1 visit FA 15 min MARISELA AC PT Jul 19, 2016 12:48
--- NOTE | 2016-07-19 15:22 | Occ Therapy Progress Note ---
Therapy Progress Note Pt. in bed. Already showered and dressed by himself per pt. Pt. demonstrated mod I yesterday to OT with toileting and transfers. States that today he is waiting on a breathing treatment, and hopes to leave soon. No further OT needs indicated at this time, as pt. has demonstrated Mod I with adaptive equipment. All needs met. 1, visit 1405 DAWSON GUILLORY OT Jul 19, 2016 15:22
--- NOTE | 2016-07-19 15:27 | Therapy Team Discharge Summary ---
Therapy Discharge Summary Discharge Recommendations Date of Discharge Therapy D/C Recommendations: Home w/ Family Support, Scheduled Assistance Occupational Therapy Pt. has been seen in this setting to increase overall strength and independence with daily tasks. Pt. is able to demonstrate ability to complete bathing/ dressing with Mod I. Pt. plans to leave soon. No further OT indicated at this facility. Pt. would benefit from hip kit. Pt's daughter is ordering pt. sock aide, etc.... all needs met in room. PT Custodial Goals Custodial Goals PT Offset Plate Maker Goals Time Frame: Jul 20, 2016 Transfers (B,C,W/C) (FIM): 6 Sit to Lying (QC): 6 Lying-Sitting on Side/Bed(QC): 6 Sit to Stand (QC): 6 Rollin Chair/Zjm-dk-Wvmdz Xfer(QC): 6 Does the Patient Walk: Yes Gait (FIM): 6 Gait distance (FIM): 3=150 ft Distance: 400' Walk 50ft with 2 Turns (QC): 6 Walk 150 ft (QC): 6 Gait Level of Assist: 6 Gait Assistive Device: FWW, Cane Single Point OT Custodial Goals Custodial Goals Time Frame: Jul 20, 2016 Bathing(FIM): 6 (met per pt.) Upper Body Dressing(FIM): 6 (met) Lower Body Dressing(FIM): 6 (met with AE) Toileting(FIM): 6 (met 07/18/16) Toileting Hygiene (QC): 6 (met 07/18/16) Toilet/Commode Transfer(FIM): 6 (met 07/18/16) Toilet/Commode Transfer (QC): 6 (met 07/18/16) Additional Goals: 3-ImproveStrength/Margy 1=Demonstrate adherence to instructed precautions during ADL tasks. 2=Patient will verbalize/demonstrate understanding of assistive devices/ modifications for ADL. 3=Patient will improve strength/tolerance for activity to enable patient to perform ADL's. DAWSON GUILLORY OT Jul 19, 2016 15:27
[2016-07-19 15:45] VITALS: BP 148/68
[2016-07-19 20:05] VITALS: BP 121/58
[2016-07-19] MEDS: eZETimibe 10 MG (ZETIA) TABLET PO SCH (20:14)
[2016-07-19] MEDS: MONTELUKAST 10 MG (SINGULAIR) TAB PO SCH (20:14)
[2016-07-19] MEDS: ASPIRIN E.C. 81 MG (ECOTRIN) TAB PO SCH (20:15)
[2016-07-19] MEDS: FAMOTIDINE 20 MG (PEPCID) TABLET PO PRN (20:19)
[2016-07-20 00:24] VITALS: BP 132/62
[2016-07-20] MEDS: RT-LEVALBUTEROL (XOPENEX) 1.25 MG/3 ML NEB NON-FORMULARY INH SCH ×6 (02:57→22:24)
[2016-07-20] MEDS: methylPREDNISolone 40 MG/ML (Solu-MEDROL) VIAL IV SCH ×4 (03:53→22:36)
[2016-07-20 04:05] VITALS: BP 141/58
[2016-07-20] MEDS: aCETylcysteine 20% (MUCOMYST) 30ML SOLN VIAL INH SCH ×2 (07:00→22:24)
--- NOTE | 2016-07-20 07:08 | Pulmonary Progress Note ---
Subjective Subjective/Events-last exam no complications noted. Exam Exam Vital Signs Date Time Temp Pulse Resp B/P (MAP) Pulse Ox O2 Delivery O2 Flow Rate FiO2 07/20/16 04:05 96.7 65 18 141/58 92 Nasal Cannula 5.00 07/20/16 02:57 94 5.00 07/20/16 00:24 97.2 70 20 132/62 98 Nasal Cannula 5.00 07/19/16 22:05 95 5.00 07/19/16 20:05 97.3 76 23 121/58 97 Nasal Cannula 5.00 07/19/16 20:00 Nasal Cannula 6.00 07/19/16 19:05 99 5.00 07/19/16 18:59 97 5.00 07/19/16 15:45 96.3 71 21 148/68 94 Nasal Cannula 5.00 07/19/16 14:06 5.00 07/19/16 13:00 Nasal Cannula 6.00 07/19/16 12:00 96.9 70 20 128/55 96 Nasal Cannula 5.00 07/19/16 10:45 98 6.00 07/19/16 09:30 Nasal Cannula 6.00 07/19/16 08:00 96.2 78 20 153/66 97 Nasal Cannula 5.00 I & O 07/20/16 07:00 Intake Total 1790 ml Output Total 1425 ml Balance 365 ml General Appearance: No Apparent Distress, Anxious HEENT: Normal ENT Inspection, Pharynx Normal Neck: Full Range of Motion, Non Tender, Supple Respiratory: Normal Breath Sounds, No Accessory Muscle Use, No Respiratory Distress, Decreased Breath Sounds Gastrointestinal: normal bowel sounds, non tender, soft, no organomegaly, no pulsatile mass Neurologic/Psychiatric: Alert, Oriented x3 Skin: Normal Color, Warm/Dry Assessment/Plan Assessment/Plan COPDAE- with acute on chronic respiratory failure -svns, advair -solumedrol 40mg every 6hr -Pt feels improved with noninvasive ventilation -Pt would benefit from home vent to mask -- will arrange -- [facility] is arranging -CT reviewed - PT has no acute change Volume Overload -Hep lock IVF -daily labs Hypoxemia -oxygen to maintain sats >92% Hypertension -continue home BP meds and monitor Acute on Chronic Resp Distress NATALIE GALDAMEZ DO Jul 20, 2016 07:08
[2016-07-20] MEDS: RT-ADVAIR HFA 115/21 MCG PER PUFF IH SCH ×2 (07:11→18:48)
[2016-07-20 08:00] VITALS: BP 138/67
[2016-07-20] MEDS: LORazepam 0.5 MG (ATIVAN) TABLET PO SCH ×3 (08:05→20:15)
[2016-07-20] MEDS: amLODIPine 10 MG (NORVASC) TAB PO SCH (08:05)
[2016-07-20] MEDS: CARVEDILOL 12.5 MG (COREG) TABLET PO SCH ×2 (08:05→20:15)
[2016-07-20] MEDS: APIXABAN 5 MG (ELIQUIS) TABLET PO SCH ×2 (08:05→20:14)
[2016-07-20] MEDS: ISOSORBIDE MONONITRATE 60 MG (IMDUR) TAB PO SCH (08:05)
[2016-07-20] MEDS: UMECLIDINIUM BROMIDE (INCRUSE ELLIPTA) 7'S IH SCH (10:27)
[2016-07-20] MEDS ORDERED: FUROSEMIDE 40 MG/4 ML INJ (LASIX) IVP NR (11:00)
[2016-07-20] MEDS ORDERED: guaiFENesin (MUCINEX) 600 MG TAB PO NR (11:00)
--- NOTE | 2016-07-20 11:07 | Progress Note (SOAP) ---
Subjective Subjective/Events-last exam PT REPORTS THAT HE IS FEELING SHORT OF BREATH, STILL WEAKENED, STILL HAVING TROUBLE TALKING DUE TO HIS SHORTNESS OF BREATH. Review of Systems General: Fatigue HEENT: No Head Aches Pulmonary: Dyspnea, Cough Cardiovascular: Edema, No: Chest Pain Gastrointestinal: No: Nausea Neurological: Weakness Objective Exam Vital Signs Date Time Temp Pulse Resp B/P (MAP) Pulse Ox O2 Delivery O2 Flow Rate FiO2 07/20/16 08:00 96.5 68 22 138/67 99 Nasal Cannula 5.00 07/20/16 07:56 Nasal Cannula 5.00 07/20/16 07:08 73 07/20/16 07:00 98 6.00 07/20/16 04:05 96.7 65 18 141/58 92 Nasal Cannula 5.00 07/20/16 02:57 94 5.00 07/20/16 01:21 71 07/20/16 00:24 97.2 70 20 132/62 98 Nasal Cannula 5.00 07/19/16 22:05 95 5.00 07/19/16 20:05 97.3 76 23 121/58 97 Nasal Cannula 5.00 07/19/16 20:00 Nasal Cannula 6.00 07/19/16 19:07 77 07/19/16 19:05 99 5.00 07/19/16 18:59 97 5.00 07/19/16 15:45 96.3 71 21 148/68 94 Nasal Cannula 5.00 07/19/16 14:06 5.00 07/19/16 13:00 Nasal Cannula 6.00 07/19/16 12:00 96.9 70 20 128/55 96 Nasal Cannula 5.00 I & O 07/20/16 07:00 Intake Total 1790 ml Output Total 1425 ml Balance 365 ml Capillary Refill : Less Than 3 Seconds General Appearance: WD/WN, Chronically ill Neck: Full Range of Motion, Supple Respiratory: Chest Non Tender, Decreased Breath Sounds Cardiovascular: Irregularly Irregular Gastrointestinal: normal bowel sounds, non tender, soft, no organomegaly, no pulsatile mass Extremity: Pedal Edema Neurologic/Psychiatric: Alert, Oriented x3, No Motor/Sensory Deficits, 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 Skin: Warm/Dry Assessment/Plan Assessment/Plan Assess & Plan/Chief Complaint ACUTE HYPOXIA RESPIRATORY DISTRESS COPD EXACERBATION ATRIAL FIBRILLATION HYPERTENSION HYPERLIPIDEMIA PT ADMITTED TO THE ICU - PT NOW ON 4TH FLOOR IN SWING BED STATUS, STARTED ON PNEUMONIA PROTOCOL, MAT PROTOCOL, STEROIDS, AND BIPAP, WEANED OFF OF BIPAP AND WEANED DOWN TO 5L OF OXYGEN CONTINUOUSLY. PT STARTED ON PD&C - THIS HAS BEEN HELPING PT TO CLEAR SOME OF HIS SECRETIONS. PT STILL SHORT OF BREATH, STILL ON STEROIDS, DECREASE DOSE TODAY - PT'S IS ILL AT HOME, WITH HIS TENUOUS BREATHING STATUS, AND SIGNIFICANT EDEMA, I WILL KEEP PT TODAY, GIVE LASIX, AND MONITOR HIS SYMPTOMS ON LOWER DOSE OF STEROIDS. COPD EXACERBATION - CONTINUE WITH IV STEROIDS - WEAN DOSE - MONITOR SYMPTOMS. AFIB - RATE CONTROLLED - CONTINUE WITH ELIQUIS AND BETA CAITLIN. HTN - ON LISINOPRIL, BETA CAITLIN HYPERLIPIDEMIA - ZETIA RESTARTED JALEEL NIEVES MD Jul 20, 2016 11:07
--- NOTE | 2016-07-20 11:27 | Physical Therapy Daily Note ---
PT Daily Note-Current Subjective Patient sitting EOB and agrees to therapy. Pain Numeric Pain Scale: 0-No Pain Location: No Pain Reported Mental Status Patient Orientation: Normal For Age Attachments: Oxygen (5L HF) Transfers Functional [place] Measure 0=Not Assessed/NA 4=Minimal Assistance 1=Total Assistance 5=Supervision or Setup 2=Maximal Assistance 6=Modified [place] 3=Moderate Assistance 7=Complete IndependenceIRFPAI Quality Coding Scale 6 Independent with activity with or without an assistive device 5 Patient requires set up or clean up by helper. Patient completes activity by themselves 4 Supervision or touching assist (CGA). [place] provide cues , steadying assist 3 The helper provides less than half the effort to complete the activity 2 The helper provides more than half the effort to complete the activity 1 Dependent. The helper does all the effort to complete an activity 7 Patient refused to complete or attempt activity 9 The patient did not perform the activity before the current illness or injury 88 Not attempted due to Medical conditions or safety concerns Transfers (B, C, W/C) (FIM): 6 Scootin Sit to/from Stand: 6 Sit to Stand (QC): 6 Chair/Ksf-vq-Wwowu Xfer(QC): 6 Gait Training Does the Patient Walk?: Yes Gait (FIM): 6 Distance (FIM): 3=150 ft Distance: 350' x 2 Walk 50 ft with 2 Turns(QC): 6 Walk 150 ft (QC): 6 Gait Level of Assist: 6 Gait Persons Needed: 1 Gait Assistive Device: FWW very slow, slightly unsteady gait sequence Assessment Patient requires 1 standing recovery period due to SOA with quick recovery. PT to continue with POC to address pulmonary functional and functional mobility. PT Agricultural Commodities Grader Goals Agricultural Commodities Grader Goals PT Agricultural Commodities Grader Goals Time Frame: Jul 20, 2016 Transfers (B,C,W/C) (FIM): 6 Sit to Lying (QC): 6 Lying-Sitting on Side/Bed(QC): 6 Sit to Stand (QC): 6 Rollin Chair/Ggd-dr-Srobw Xfer(QC): 6 Does the Patient Walk: Yes Gait (FIM): 6 Gait distance (FIM): 3=150 ft Distance: 400' Walk 50ft with 2 Turns (QC): 6 Walk 150 ft (QC): 6 Gait Level of Assist: 6 Gait Assistive Device: FWW, Cane Single Point PT Plan Treatment/Plan Treatment Plan: Continue Plan of Care Treatment Plan: Education, Functional Activity Margy, Functional Strength, Gait , Safety, Therapeutic Exercise, Transfers Treatment Duration: Jul 20, 2016 Visits Per Week: 6 Minutes/Day (M-F): 15-30 Minutes/Day (Sat/Chaudhari): PRN Time/GCodes Time In: 1100 Time Out: 1115 Total Billed Treatment Time: 15 Total Billed Treatment 1 visit FA 15 min MARISELA AC PT Jul 20, 2016 11:27
[2016-07-20 12:00] VITALS: BP 145/66
[2016-07-20] MEDS: LORazepam 0.5 MG (ATIVAN) TABLET PO PRN (14:50)
[2016-07-20 15:20] VITALS: BP 130/61
[2016-07-20] MEDS: FUROSEMIDE 40 MG/4 ML INJ (LASIX) IVP SCH (16:40)
[2016-07-20 20:10] VITALS: BP 152/55
[2016-07-20] MEDS: eZETimibe 10 MG (ZETIA) TABLET PO SCH (20:14)
[2016-07-20] MEDS: MONTELUKAST 10 MG (SINGULAIR) TAB PO SCH (20:14)
[2016-07-20] MEDS: ASPIRIN E.C. 81 MG (ECOTRIN) TAB PO SCH (20:15)
[2016-07-20] MEDS: guaiFENesin (MUCINEX) 600 MG TAB PO SCH (20:15)
[2016-07-21] MEDS: RT-LEVALBUTEROL (XOPENEX) 1.25 MG/3 ML NEB NON-FORMULARY INH SCH ×6 (02:16→22:25)
[2016-07-21 05:28] LABS: RED BLOOD COUNT 3.4 10^6/uL (4.35-5.85); RED CELL DISTRIBUTION WIDTH 12.2 % (10.0-14.5); WHITE BLOOD COUNT 10.1 10^3/uL (4.3-11.0)
[2016-07-21 05:46] LABS: ALANINE AMINOTRANSFERASE 29 U/L (0-55); ALBUMIN 2.8 G/DL (3.2-4.5); ANION GAP 7 MMOL/L (5-14); ASPARTATE AMINO TRANSFERASE 14 U/L (5-34); BILIRUBIN,TOTAL 0.6 MG/DL (0.1-1.0); BLOOD UREA NITROGEN 39 MG/DL (7-18); BUN/CREATININE RATIO 51; CALCIUM 9.2 MG/DL (8.5-10.1); CARBON DIOXIDE 39 MMOL/L (21-32); CHLORIDE 96 MMOL/L (98-107); CREATININE SERUM 0.77 MG/DL (0.60-1.30); GFR ESTIMATED > 60; GLUCOSE 127 MG/DL (70-105); POTASSIUM 4.4 MMOL/L (3.6-5.0); SODIUM 142 MMOL/L (135-145); TOTAL PROTEIN 4.9 G/DL (6.4-8.2)
[2016-07-21 06:00] VITALS: BP 155/73
[2016-07-21] MEDS: methylPREDNISolone 40 MG/ML (Solu-MEDROL) VIAL IV SCH ×3 (06:04→22:01)
[2016-07-21] MEDS: FUROSEMIDE 40 MG/4 ML INJ (LASIX) IVP SCH ×2 (06:05→17:21)
[2016-07-21] MEDS: aCETylcysteine 20% (MUCOMYST) 30ML SOLN VIAL INH SCH ×4 (07:11→22:25)
[2016-07-21] MEDS: RT-ADVAIR HFA 115/21 MCG PER PUFF IH SCH ×2 (07:40→18:28)
[2016-07-21] MEDS: UMECLIDINIUM BROMIDE (INCRUSE ELLIPTA) 7'S IH SCH (07:43)
--- NOTE | 2016-07-21 09:08 | Progress Note (SOAP) ---
Subjective Subjective/Events-last exam swing bed. COPD with acute exacerbation. Weakness. Hypertension history. Hyperlipidemia. Atrial fibrillation. Patient able to talk today. Patient stable coughing and having wheezing. Patient states he doesn't feel much better Objective Exam Vital Signs Date Time Temp Pulse Resp B/P (MAP) Pulse Ox O2 Delivery O2 Flow Rate FiO2 07/21/16 07:44 96 5.00 07/21/16 07:43 96 5.00 07/21/16 06:00 97.8 71 20 155/73 96 Nasal Cannula 5.00 07/21/16 02:18 97 5.00 07/20/16 22:25 95 5.00 07/20/16 20:10 Nasal Cannula 5.00 07/20/16 20:10 98.5 82 20 152/55 99 Nasal Cannula 5.00 07/20/16 18:54 5.00 07/20/16 18:49 97 5.00 07/20/16 15:20 97.8 72 21 130/61 98 Nasal Cannula 5.00 07/20/16 14:15 96 5.00 07/20/16 12:00 97.7 70 20 145/66 98 Nasal Cannula 5.00 07/20/16 10:54 96 5.00 I & O 07/21/16 07:00 Intake Total 1830 ml Output Total 1750 ml Balance 80 ml Capillary Refill : Less Than 3 Seconds General Appearance: No Apparent Distress, WD/WN HEENT: Normal ENT Inspection Neck: Normal Inspection Respiratory: Decreased Breath Sounds Cardiovascular: Irregularly Irregular Results Lab Laboratory Tests 07/21/16 04:59: White Blood Count 10.1, Red Blood Count 3.40L, Hemoglobin 10.4L, Hematocrit 33L , Mean Corpuscular Volume 97, Mean Corpuscular Hemoglobin 31, Mean Corpuscular Hemoglobin Concent 32, Red Cell Distribution Width 12.2, Platelet Count 217, Mean Platelet Volume 10.0, Sodium Level 142, Potassium Level 4.4, Chloride Level 96L, Carbon Dioxide Level 39H, Anion Gap 7, Blood Urea Nitrogen 39H, Creatinine 0.77, Estimat Glomerular Filtration Rate > 60, BUN/Creatinine Ratio 51, Glucose Level 127H, Calcium Level 9.2, Total Bilirubin 0.6, Aspartate Amino Transf (AST/SGOT) 14, Alanine Aminotransferase (ALT/SGPT) 29, Alkaline Phosphatase 34L, Total Protein 4.9L, Albumin 2.8L Assessment/Plan Assessment/Plan Assess & Plan/Chief Complaint COPD with acute exacerbation. Acute hypoxia. Atrial fibrillation. Hypertension. Hyperlipidemia. Patient a work in progress TEQUILA SUAZO DO Jul 21, 2016 09:08
[2016-07-21] MEDS: APIXABAN 5 MG (ELIQUIS) TABLET PO SCH ×2 (09:16→20:16)
[2016-07-21] MEDS: amLODIPine 10 MG (NORVASC) TAB PO SCH (09:16)
[2016-07-21] MEDS: ISOSORBIDE MONONITRATE 60 MG (IMDUR) TAB PO SCH (09:16)
[2016-07-21] MEDS: guaiFENesin (MUCINEX) 600 MG TAB PO SCH ×2 (09:16→20:17)
[2016-07-21] MEDS: CARVEDILOL 12.5 MG (COREG) TABLET PO SCH ×2 (09:16→20:17)
[2016-07-21] MEDS: LORazepam 0.5 MG (ATIVAN) TABLET PO SCH ×3 (09:18→20:17)
--- NOTE | 2016-07-21 11:50 | Physical Therapy Daily Note ---
PT Daily Note-Current Subjective Pt reports he is feeling ok today. No pain just short of breath. Mental Status Patient Orientation: Normal For Age Attachments: Oxygen Transfers Functional Arthur Measure 0=Not Assessed/NA 4=Minimal Assistance 1=Total Assistance 5=Supervision or Setup 2=Maximal Assistance 6=Modified Arthur 3=Moderate Assistance 7=Complete IndependenceIRFPAI Quality Coding Scale 6 Independent with activity with or without an assistive device 5 Patient requires set up or clean up by helper. Patient completes activity by themselves 4 Supervision or touching assist (CGA). [place] provide cues , steadying assist 3 The helper provides less than half the effort to complete the activity 2 The helper provides more than half the effort to complete the activity 1 Dependent. The helper does all the effort to complete an activity 7 Patient refused to complete or attempt activity 9 The patient did not perform the activity before the current illness or injury 88 Not attempted due to Medical conditions or safety concerns Gait Training Gait (FIM): 5 Distance (FIM): 3=150 ft Distance: 600 Gait Persons Needed: 1 Gait Assistive Device: FWW Slow pace, stopped intermittently to stand fully upright and to catch his breath. Notes that he normally uses a cane to walk. Pt educated to stand upright and not lean on walker. Assessment Current Status: Good Progress Pt is making improvement with gait stability and his activity tolerance is improving. Pt will benefit from continued therapy to promote return to home. PT Skid Strapper Goals Correction Goals PT Skid Strapper Goals Time Frame: Jul 20, 2016 Transfers (B,C,W/C) (FIM): 6 Sit to Lying (QC): 6 Lying-Sitting on Side/Bed(QC): 6 Sit to Stand (QC): 6 Rollin Chair/Cbd-sx-[place]x Xfer(QC): 6 Does the Patient Walk: Yes Gait (FIM): 6 Gait distance (FIM): 3=150 ft Distance: 400' Walk 50ft with 2 Turns (QC): 6 Walk 150 ft (QC): 6 Gait Level of Assist: 6 Gait Assistive Device: FWW, Cane Single Point PT Plan Problem List Problem List: Activity Tolerance, Balance, Gait Treatment/Plan Treatment Plan: Continue Plan of Care Treatment Plan: Education, Functional Activity Margy, Functional Strength, Gait , Safety, Therapeutic Exercise, Transfers Treatment Duration: Jul 20, 2016 Visits Per Week: 6 Minutes/Day (M-F): 15-30 Minutes/Day (Sat/Chaudhari): PRN Time/GCodes Time In: 820 Time Out: 840 Total Billed Treatment Time: 20 Total Billed Treatment visit, gait 20 min PATTIE RAHMAN PT Jul 21, 2016 11:50
[2016-07-21] MEDS: BENZONATATE 100 MG (TESSALON) CAPSULE PO PRN (14:03)
[2016-07-21] MEDS: CATHETER FLUSH 10 ML SYR IV PRN (17:21)
[2016-07-21 18:22] VITALS: BP 134/69
[2016-07-21] MEDS: MONTELUKAST 10 MG (SINGULAIR) TAB PO SCH (20:17)
[2016-07-21] MEDS: eZETimibe 10 MG (ZETIA) TABLET PO SCH (20:17)
[2016-07-21] MEDS: ASPIRIN E.C. 81 MG (ECOTRIN) TAB PO SCH (20:17)
[2016-07-22] MEDS: RT-LEVALBUTEROL (XOPENEX) 1.25 MG/3 ML NEB NON-FORMULARY INH SCH ×6 (02:17→22:05)
[2016-07-22 06:00] VITALS: BP 141/65
[2016-07-22] MEDS: FUROSEMIDE 40 MG/4 ML INJ (LASIX) IVP SCH (06:03)
[2016-07-22] MEDS: methylPREDNISolone 40 MG/ML (Solu-MEDROL) VIAL IV SCH ×3 (06:03→13:57)
[2016-07-22] MEDS: aCETylcysteine 20% (MUCOMYST) 30ML SOLN VIAL INH SCH ×3 (06:50→22:05)
[2016-07-22] MEDS: RT-ADVAIR HFA 115/21 MCG PER PUFF IH SCH ×2 (06:50→19:01)
[2016-07-22] MEDS: LORazepam 0.5 MG (ATIVAN) TABLET PO SCH ×3 (08:57→20:18)
[2016-07-22] MEDS: ISOSORBIDE MONONITRATE 60 MG (IMDUR) TAB PO SCH (08:57)
[2016-07-22] MEDS: guaiFENesin (MUCINEX) 600 MG TAB PO SCH ×2 (08:58→20:18)
[2016-07-22] MEDS: APIXABAN 5 MG (ELIQUIS) TABLET PO SCH ×2 (08:58→20:18)
[2016-07-22] MEDS: amLODIPine 10 MG (NORVASC) TAB PO SCH (08:58)
[2016-07-22] MEDS: CARVEDILOL 12.5 MG (COREG) TABLET PO SCH ×2 (08:58→20:18)
[2016-07-22] MEDS: UMECLIDINIUM BROMIDE (INCRUSE ELLIPTA) 7'S IH SCH (10:25)
--- NOTE | 2016-07-22 12:01 | Progress Note (SOAP) ---
Subjective Subjective/Events-last exam COPD. Swing bed. COPD with exacerbation. Weakness. Patient feeling better today. Chest x-ray not read yet. CO2 39 increased Objective Exam Vital Signs Date Time Temp Pulse Resp B/P (MAP) Pulse Ox O2 Delivery O2 Flow Rate FiO2 07/22/16 10:32 5.00 07/22/16 10:26 95 5.00 07/22/16 07:02 5.00 07/22/16 06:50 96 5.00 07/22/16 06:00 97.6 84 18 141/65 92 Nasal Cannula 5.00 07/22/16 02:19 97 5.00 07/21/16 22:25 97 5.00 07/21/16 19:55 97 Nasal Cannula 5.00 07/21/16 18:34 5.00 07/21/16 18:29 97 5.00 07/21/16 18:22 97.2 76 20 134/69 92 Nasal Cannula 5.00 07/21/16 15:13 92 5.00 I & O 07/22/16 07:00 Intake Total 2350 ml Output Total 1900 ml Balance 450 ml Capillary Refill : Less Than 3 Seconds General Appearance: No Apparent Distress, WD/WN HEENT: Normal ENT Inspection Neck: Normal Inspection Respiratory: Decreased Breath Sounds, Other (sounds 1 breathes) Cardiovascular: No Murmur Gastrointestinal: non tender, soft Assessment/Plan Assessment/Plan Assess & Plan/Chief Complaint COPD with acute exacerbation. Acute hypoxia. Atrial fibrillation. Hypertension. Hyperlipidemia. Patient a work in progress. . 07/22/16. COPD with acute exacerbation. UA hypoxia. Atrial fibrillation. Hypertension. Hyperlipidemia area Patient improving TEQUILA SUAZO DO Jul 22, 2016 12:01
--- NOTE | 2016-07-22 13:16 | Diagnostic Imaging Report ---
EXAM: CHEST PA/LAT (2 VIEW) INDICATION: COPD. Dyspnea. COMPARISON: Chest CT without contrast 07/18/2016. FINDINGS: Normal heart size and pulmonary vascularity. Hyperinflation and scattered scarring. Focal lucency in the right lung base corresponds to focal emphysematous change on the prior CT. No pneumothorax or pleural effusion. Sternotomy. Calcified aorta. IMPRESSION: Chronic emphysematous changes. No acute cardiopulmonary findings. Dictated by: Dictated on workstation # [id number]
[2016-07-22 17:30] VITALS: BP 133/56
[2016-07-22] MEDS: FUROSEMIDE 20 MG (LASIX) TAB PO SCH (17:52)
[2016-07-22] MEDS: eZETimibe 10 MG (ZETIA) TABLET PO SCH (20:18)
[2016-07-22] MEDS: ASPIRIN E.C. 81 MG (ECOTRIN) TAB PO SCH (20:18)
[2016-07-22] MEDS: MONTELUKAST 10 MG (SINGULAIR) TAB PO SCH (20:18)
[2016-07-22] MEDS: FAMOTIDINE 20 MG (PEPCID) TABLET PO PRN (23:41)
[2016-07-22] MEDS: LORazepam 0.5 MG (ATIVAN) TABLET PO PRN (23:42)
[2016-07-23] MEDS: RT-LEVALBUTEROL (XOPENEX) 1.25 MG/3 ML NEB NON-FORMULARY INH SCH ×3 (02:45→11:32)
[2016-07-23] MEDS: FUROSEMIDE 20 MG (LASIX) TAB PO SCH (06:08)
[2016-07-23 06:19] VITALS: BP 130/61
[2016-07-23 06:23] LABS: ANION GAP 5 MMOL/L (5-14); BLOOD UREA NITROGEN 39 MG/DL (7-18); BUN/CREATININE RATIO 51; CALCIUM 8.6 MG/DL (8.5-10.1); CARBON DIOXIDE 40 MMOL/L (21-32); CHLORIDE 95 MMOL/L (98-107); CREATININE SERUM 0.76 MG/DL (0.60-1.30); GFR ESTIMATED > 60; GLUCOSE 84 MG/DL (70-105); SODIUM 140 MMOL/L (135-145)
[2016-07-23] MEDS ORDERED: predniSONE 20 MG TAB PO SCH (07:00)
[2016-07-23] MEDS: aCETylcysteine 20% (MUCOMYST) 30ML SOLN VIAL INH SCH (07:47)
[2016-07-23] MEDS: UMECLIDINIUM BROMIDE (INCRUSE ELLIPTA) 7'S IH SCH (07:55)
[2016-07-23] MEDS: RT-ADVAIR HFA 115/21 MCG PER PUFF IH SCH (07:55)
--- NOTE | 2016-07-23 08:01 | Pulmonary Progress Note ---
Subjective Subjective/Events-last exam NO complications noted. Pt feels improved. Exam Exam Vital Signs Date Time Temp Pulse Resp B/P (MAP) Pulse Ox O2 Delivery O2 Flow Rate FiO2 07/23/16 06:19 97.8 72 21 130/61 98 Nasal Cannula 5.00 07/23/16 02:45 98 5.00 07/22/16 22:05 97 5.00 07/22/16 19:45 Nasal Cannula 5.00 07/22/16 19:01 98 5.00 07/22/16 19:01 5.00 07/22/16 17:30 97.0 79 22 133/56 97 Nasal Cannula 5.00 07/22/16 14:42 95 5.00 07/22/16 10:32 5.00 07/22/16 10:26 95 5.00 I & O 07/23/16 07:00 Intake Total 2320 ml Output Total 1200 ml Balance 1120 ml General Appearance: No Apparent Distress, Anxious HEENT: Normal ENT Inspection, Pharynx Normal Neck: Full Range of Motion, Non Tender, Supple Respiratory: Normal Breath Sounds, No Accessory Muscle Use, No Respiratory Distress, Decreased Breath Sounds Cardiovascular: No Murmur Gastrointestinal: normal bowel sounds, non tender, soft, no organomegaly, no pulsatile mass Extremity: Pedal Edema Neurologic/Psychiatric: Alert, Oriented x3 Skin: Normal Color, Warm/Dry Lymphatic: No Adenopathy Results Lab Laboratory Tests 07/23/16 05:39 Assessment/Plan Assessment/Plan COPDAE- with acute on chronic respiratory failure -svns, advair -Prednisone taper -Pt feels improved with noninvasive ventilation -Pt would benefit from home vent to mask -- will arrange -- [facility] is arranging -CT reviewed - PT has no acute change Volume Overload -Hep lock IVF -daily labs Hypoxemia -oxygen to maintain sats >92% Hypertension -continue home BP meds and monitor Acute on Chronic Resp Distress NATALIE GALDAMEZ DO Jul 23, 2016 08:01
[2016-07-23] MEDS: amLODIPine 10 MG (NORVASC) TAB PO SCH (08:15)
[2016-07-23] MEDS: ISOSORBIDE MONONITRATE 60 MG (IMDUR) TAB PO SCH (08:16)
[2016-07-23] MEDS: APIXABAN 5 MG (ELIQUIS) TABLET PO SCH (08:16)
[2016-07-23] MEDS: guaiFENesin (MUCINEX) 600 MG TAB PO SCH (08:16)
[2016-07-23] MEDS: LORazepam 0.5 MG (ATIVAN) TABLET PO SCH (08:16)
[2016-07-23] MEDS: CARVEDILOL 12.5 MG (COREG) TABLET PO SCH (08:16)
--- NOTE | 2016-07-23 09:21 | Therapy Team Discharge Summary ---
Therapy Discharge Summary Discharge Recommendations Date of Discharge Therapy D/C Recommendations: Home w/ Family Support, Scheduled Assistance Physical Therapy Patient to dismiss to home with family support and home health intervention. Patient is currently at modified independent to independent LOF with all gross motor skills. Patient continues to have decreased pulmonary functional and remains on 5L O2 HF NC continuous. Patient had O2 PLOF at home. Patient upon evaluation required SBA with functional mobility. Goals attained. PT Cdl Instructor Goals Nursing Home Goals PT Nursing Home Goals Time Frame: Jul 20, 2016 Transfers (B,C,W/C) (FIM): 6 (met 07/20/16) Sit to Lying (QC): 6 (met 07/20/16) Lying-Sitting on Side/Bed(QC): 6 (met 07/20/16) Sit to Stand (QC): 6 (met 07/20/16) Rollin (met 07/20/16) Chair/Fml-cx-Xppvg Xfer(QC): 6 (met 07/20/16) Does the Patient Walk: Yes Gait (FIM): 6 (met 07/20/16) Gait distance (FIM): 3=150 ft Distance: 400' Walk 50ft with 2 Turns (QC): 6 (met 07/20/16) Walk 150 ft (QC): 6 (met 07/20/16) Gait Level of Assist: 6 (met 07/20/16) Gait Assistive Device: FWW, Cane Single Point OT Nursing Home Goals Cdl Instructor Goals Time Frame: Jul 20, 2016 Bathing(FIM): 6 Upper Body Dressing(FIM): 6 Lower Body Dressing(FIM): 6 Toileting(FIM): 6 (met 07/18/16) Toileting Hygiene (QC): 6 (met 07/18/16) Toilet/Commode Transfer(FIM): 6 (met 07/18/16) Toilet/Commode Transfer (QC): 6 (met 07/18/16) Additional Goals: 3-ImproveStrength/Margy 1=Demonstrate adherence to instructed precautions during ADL tasks. 2=Patient will verbalize/demonstrate understanding of assistive devices/ modifications for ADL. 3=Patient will improve strength/tolerance for activity to enable patient to perform ADL's. MARISELA AC PT Jul 23, 2016 09:21
[2016-07-23] MEDS ORDERED: PRD20T PO (09:30)
[2016-07-23] MEDS ORDERED: GUAI600T43 PO (09:30)
[2016-07-23] MEDS ORDERED: FURO20TA4 PO (09:30)
[2016-07-23] MEDS ORDERED: BENZ100C23 PO (09:30)
[2016-07-23] MEDS ORDERED: AMLO10TA2 PO (09:30)
[2016-07-23] MEDS ORDERED: FAMO20TA5 PO (09:30)
[2016-07-23] MEDS ORDERED: LORA0.5T PO (09:30)
--- NOTE | 2016-07-23 09:32 | Discharge Inst-Complex ---
[facility] Med Rec & Follow Up Appt. New Medications: Amlodipine Besylate (Amlodipine Besylate) 10 Mg Tablet 10 MG PO DAILY for 90 Days, #90 TAB 3 Refills Benzonatate (Benzonatate) 100 Mg Capsule 200 MG PO TID PRN for COUGH-1ST LINE for 30 Days, #60 CAP Famotidine (Famotidine) 20 Mg Tablet 20 MG PO BID PRN for INDIGESTION for 30 Days, #60 TAB Furosemide (Furosemide) 20 Mg Tablet 20 MG PO BID@07,17 for 30 Days, #60 TAB 3 Refills Guaifenesin (Mucinex) 600 Mg Tab.er.12h 600 MG PO BID for 30 Days, #60 TAB Lorazepam (Lorazepam) 0.5 Mg Tablet 0.25 MG PO TID for 30 Days, #90 TAB 2 Refills Prednisone (Prednisone) 20 Mg Tab 40 MG PO DAILY@0700 for 30 Days, #30 TAB 2 Refills 40mg daily x 2weeks then decrease to 30mg daily x 2weeks, then 20mg daily x 2weeks, taper down to 10mg daily if able Continued Medications: Albuterol Sulfate (Proair Hfa) 8.5 Gm Hfa.aer.ad 1 PUFF IH BID Apixaban (Eliquis) 5 Mg Tablet 5 MG PO BID Aspirin (Aspirin EC) 81 Mg Tablet.dr 81 MG PO HS, TAB Budesonide/Formoterol Fumarate (Symbicort 160-4.5 Mcg Inhaler) 10.2 Gm Hfa.aer.ad 2 PUFF IH BID Carboxymethylcellulose Sodium (Lubricant Eye) 15 Ml Drops 1 DROP OU DAILY PRN PRN for DRY EYES, DROPS Carvedilol (Carvedilol) 12.5 Mg Tablet 12.5 MG PO BID, TAB Cetirizine HCl (Cetirizine HCl) 10 Mg Tablet 10 MG PO DAILY, TAB Ezetimibe (Zetia) 10 Mg Tablet 10 MG PO HS Fenofibrate Nanocrystallized (Fenofibrate) 145 Mg Tablet 145 MG PO HS Isosorbide Mononitrate (Isosorbide Mononitrate ER) 60 Mg Tab 60 MG PO DAILY, TAB Levalbuterol HCl (Levalbuterol HCl) 1.25 Mg/3 Ml Vial.neb 1.25 MG IH QID PRN for DYSPNEA, INHALER Montelukast Sodium (Montelukast Sodium) 10 Mg Tablet 10 MG PO HS Multivitamins W-Iron (Flintstones With Iron) 1 Tab.chew Tab.chew 1 TAB.CHEW PO BID, TAB.CHEW Nitroglycerin (Nitrostat) 0.4 Mg Tab.subl 0.4 MG PO UD PRN for CHEST PAIN DISSOLVE 1 TAB UNDER TONGUE EVERY 5 MINUTES NEEDED; NOT TO EXCEED 3 DOSES IN 15 MINUTES Tramadol HCl (Tramadol HCl) 50 Mg Tablet 50-100 MG PO EVERY 4-6 HOURS PRN for PAIN Vit A,C & E/Lutein/Minerals (Ocuvite with Lutein Tablet) 1 Each Tablet 1 TAB PO DAILY, TAB [Duolin 100MCG/20MCG] () 1 PUFF IH DAILY PRN Discontinued Medications: Amlodipine Besylate (Amlodipine Besylate) 5 Mg Tablet 5 MG PO DAILY Azithromycin (Azithromycin) 250 Mg Tablet 250 MG PO DAILY FILLED 07/06/16 #6 FOR A 5 DAY THERAPY Lisinopril (Lisinopril) 10 Mg Tablet 10 MG PO BID, TAB Prescription: Transmitted to Pharmacy Activity, Diet and PDI Resume Normal Activity: Yes Discharge Diet: Regular Diet Drink 6-8 Glasses of Fluid/Day: Yes Driving Instructions: No Driving for 1 Week Symptoms to Reoprt to DrJose: Appetite Changes, Fever Over 101 Degrees F, Pain/ Pressure in Chest, Shortness of Breath For Problems or Questions: Contact Your Physician, Go to Emergency Room JALEEL NIEVES MD Jul 23, 2016 09:32
--- NOTE | 2016-07-23 09:32 | Discharge Summary ---
Diagnosis/Chief Complaint Date of Admission Jul 13, 2016 at 09:24 Date of Discharge Discharge Date: Jul 23, 2016 Discharge Time: 1030 Admission Diagnosis Admission Diagnosis ACUTE HYPOXIA RESPIRATORY DISTRESS COPD EXACERBATION ATRIAL FIBRILLATION HYPERTENSION HYPERLIPIDEMIA Discharge Diagnosis ACUTE HYPOXIA RESPIRATORY DISTRESS COPD EXACERBATION ATRIAL FIBRILLATION HYPERTENSION HYPERLIPIDEMIA Reason Hospital Visit PT WAS ADMITTED TO THE HOSPITAL WITH ACUTE SHORTNESS OF BREATH - RESPIRATORY DISTRESS, WEAKNESS. Discharge Summary Discharge Physical Examination Allergies: Coded Allergies: iodine (Verified Allergy, Unknown, 07/13/16) Vitals & I&Os General Appearance: Alert, Oriented X3, Cooperative HEENT: Atraumatic, PERRLA Respiratory: Other (DECREASED AIR MOVEMENT THROUGHOUT) Cardiovascular: Regular Rate Abdominal: Normal Bowel Sounds, Soft, No Tenderness Extremities: No Clubbing, Other (2+ PITTING EDEMA) Skin: No Rashes Neuro: Cranial Nerves 3-12 NL Psych/Mental Status: Mental Status NL, Mood NL Hospital Course ACUTE HYPOXIA RESPIRATORY DISTRESS COPD EXACERBATION ATRIAL FIBRILLATION HYPERTENSION HYPERLIPIDEMIA PT ADMITTED TO THE ICU - PT NOW ON 4TH FLOOR IN SWING BED STATUS, STARTED ON PNEUMONIA PROTOCOL, MAT PROTOCOL, STEROIDS, AND BIPAP, WEANED OFF OF BIPAP AND WEANED DOWN TO 5L OF OXYGEN CONTINUOUSLY. PT STARTED ON PD&C - THIS HAS BEEN HELPING PT TO CLEAR SOME OF HIS SECRETIONS. PT STILL SHORT OF BREATH, STILL ON STEROIDS, DECREASE DOSE TODAY - PT'S IS ILL AT HOME, WITH HIS TENUOUS BREATHING STATUS, AND SIGNIFICANT EDEMA,LOWER DOSE OF STEROIDS, CONTINUE WITH SUPPORTIVE CARE AT HOME. COPD EXACERBATION - CONTINUE WITH IV STEROIDS - WEAN DOSE - MONITOR SYMPTOMS. AFIB - RATE CONTROLLED - CONTINUE WITH ELIQUIS AND BETA CAITLIN. HTN - ON LISINOPRIL, BETA CAITLIN HYPERLIPIDEMIA - ZETIA RESTARTED Pending Labs Discharge Condition at discharge IMPROVED Instructions to patient/family Please see electonic discharge instructions given to patient. Discharge Medications Reviewed and agree with Discharge Medication list on patient's Discharge Instruction sheet JALEEL NIEVES MD Jul 23, 2016 09:32
[2016-07-23 11:20] VITALS: BP 130/61
[2016-08-04] MEDS ORDERED: FURO40TA4 PO (09:18)
[2016-08-04] MEDS ORDERED: POTA20TA8 PO (09:18)
[2016-08-04] MEDS ORDERED: LOSA25TA21 PO (09:18)
== END 2016-07-23 12:45 | disposition home health service (06) | DRG 191 ==
LOC: 4TH 09:24 → ENPENDDIS 07-23 10:30
PROVIDERS: ADMIT Family Medicine; ATTEND Family Medicine
DX: J44.1 Chronic obstructive pulmonary disease with (acute) exacerbation (principal); J96.10 Chronic respiratory failure, unspecified whether with hypoxia or hypercapnia; I48.0 Paroxysmal atrial fibrillation; I25.10 Atherosclerotic heart disease of native coronary artery without angina pectoris; I27.2 Other secondary pulmonary hypertension; I11.0 Hypertensive heart disease with heart failure; I50.9 Heart failure, unspecified; R09.02 Hypoxemia; I73.9 Peripheral vascular disease, unspecified; F41.9 Anxiety disorder, unspecified; E78.5 Hyperlipidemia, unspecified; M19.91 Primary osteoarthritis, unspecified site; H91.90 Unspecified hearing loss, unspecified ear; Z99.81 Dependence on supplemental oxygen; Z87.891 Personal history of nicotine dependence; Z95.1 Presence of aortocoronary bypass graft; Z95.5 Presence of coronary angioplasty implant and graft
CPT/HCPCS: 36415; 71020; 71250; 80048; 80053; 82805; 85027; 94640; 94668; 94760

== ENCOUNTER 2016-07-30 08:41 | Inpatient (IN) | payer MEDICARE ==
[~2016-07-30] VITALS: Ht 193 cm; Wt 94.3 kg
[2016-07-30] VITALS (11 sets, daily range): BP systolic 109–135; BP diastolic 67–89
[~2016-07-30 08:41] MED LIST changes: +AMLO10TA2 PO; +BENZ100C23 PO; +FAMO20TA5 PO; +FURO20TA4 PO; +GUAI600T43 PO; +LORA0.5T PO; +PRD20T PO
[2016-07-30 09:04] LABS: BASOPHILS % (AUTO) 0 % (0-10); EOSINOPHILS % (AUTO) 0 % (0-10); LYMPHOCYTES % (AUTO) 9 % (12-44); MEAN CORPUSCULAR HEMOGLOBIN 31 PG (25-34); MEAN CORPUSCULAR HGB CONC 31 G/DL (32-36); MEAN CORPUSCULAR VOLUME 98 FL (80-99); MEAN PLATELET VOLUME 9.6 FL (7.4-10.4); MONOCYTES # (AUTO) 0.7 X 10^3 (0.0-1.0); MONOCYTES % (AUTO) 7 % (0-12); NEUTROPHILS # (AUTO) 8.5 X 10^3 (1.8-7.8); NEUTROPHILS % (AUTO) 84 % (42-75); PLATELET COUNT 120 10^3/uL (130-400); RED BLOOD COUNT 3.21 10^6/uL (4.35-5.85); RED CELL DISTRIBUTION WIDTH 13.3 % (10.0-14.5); WHITE BLOOD COUNT 10.1 10^3/uL (4.3-11.0)
[2016-07-30 09:22] LABS: INR 1.3 (0.8-1.4); PROTHROMBIN TIME PATIENT 15.9 SEC (12.2-14.7)
[2016-07-30 09:23] LABS: ALANINE AMINOTRANSFERASE 25 U/L (0-55); ALBUMIN 3.1 G/DL (3.2-4.5); ANION GAP 10 MMOL/L (5-14); ASPARTATE AMINO TRANSFERASE 15 U/L (5-34); BILIRUBIN,TOTAL 0.5 MG/DL (0.1-1.0); BLOOD UREA NITROGEN 42 MG/DL (7-18); BUN/CREATININE RATIO 39; CARBON DIOXIDE 31 MMOL/L (21-32); CHLORIDE 101 MMOL/L (98-107); CREATININE SERUM 1.08 MG/DL (0.60-1.30); GFR ESTIMATED > 60; GLUCOSE 140 MG/DL (70-105); POTASSIUM 4.3 MMOL/L (3.6-5.0); SODIUM 142 MMOL/L (135-145); TOTAL PROTEIN 5.9 G/DL (6.4-8.2)
--- NOTE | 2016-07-30 09:29 | Diagnostic Imaging Report ---
EXAMINATION: Portable upright radiograph of the chest. INDICATION: Lower extremity swelling. FINDINGS: The heart size is mildly enlarged. There is pulmonary vascular congestion and small right pleural effusion or pleural thickening similar to 07/22/16. There is a new mild medial right lower lobe infiltrate. The mediastinum and bahman appear unremarkable. Sternotomy wires are seen. IMPRESSION: Cardiomegaly with pulmonary vascular congestion. Mild medial right lower lobe infiltrate. Dictated by: Dictated on workstation # [id number]
--- NOTE | 2016-07-30 09:44 | ED General ---
General Chief Complaint: Cardiac/General Problems Stated Complaint: RETAINING FLUID Nursing Triage Note: PT CO OF LOWER EXT SWELLING, INABLILITY TO MOVE LEGS D/T EDEMA, AND SOA Nursing Sepsis Screen: No Definite Risk Source of Information: Patient, Family, Old Records Exam Limitations: No Limitations History of Present Illness Time Seen by Provider: 08:45 Initial Comments This 80-year-old gentleman presents to the emergency room with complaints of tachycardia and worsening edema. Patient was recently admitted for treatment COPD exacerbation. He had a fairly long hospital stay with a swing bed admission. Patient denies any fever but he has had cough since discharge from the hospital. He has history of significant COPD and cardiac issues including valvular disease and pulmonary hypertension. Edema of the lower extremities has worsened and there are now weeping. Patient reports heart rate last night was in the 130s and is in the 130s again. He has a history of atrial fibrillation and is anticoagulated with Eliquis. He reports being recently started on CPAP at home. He normally uses his oxygen at about 5 L/m on his home concentrator. Allergies and Home Medications Allergies Coded Allergies: iodine (Verified Allergy, Unknown, 07/13/16) Home Medications Albuterol Sulfate 8.5 Gm Hfa.aer.ad, 1 PUFF IH BID, (Reported) Amlodipine Besylate 10 Mg Tablet, 10 MG PO DAILY for 90 Days, #90 Ref 3 Prescribed by: JALEEL SILVER on 07/23/16 0930 Apixaban 5 Mg Tablet, 5 MG PO BID, (Reported) Aspirin 81 Mg Tablet.dr, 81 MG PO HS, (Reported) Benzonatate 100 Mg Capsule, 200 MG PO TID PRN for COUGH-1ST LINE for 30 Days, # 60 Prescribed by: JALEEL SILVER on 07/23/16 0930 Budesonide/Formoterol Fumarate 10.2 Gm Hfa.aer.ad, 2 PUFF IH BID, (Reported) Carboxymethylcellulose Sodium 15 Ml Drops, 1 DROP OU DAILY PRN PRN for DRY EYES, (Reported) Carvedilol 12.5 Mg Tablet, 12.5 MG PO BID, (Reported) Cetirizine HCl 10 Mg Tablet, 10 MG PO DAILY, (Reported) Ezetimibe 10 Mg Tablet, 10 MG PO HS, (Reported) Famotidine 20 Mg Tablet, 20 MG PO BID PRN for INDIGESTION for 30 Days, #60 Prescribed by: JALEEL SILVER on 07/23/16 0930 Fenofibrate Nanocrystallized 145 Mg Tablet, 145 MG PO HS, (Reported) Furosemide 20 Mg Tablet, 20 MG PO BID@,17 for 30 Days, #60 Ref 3 Prescribed by: JALEEL SILVER on 07/23/1630 Guaifenesin 600 Mg Tab.er.12h, 600 MG PO BID for 30 Days, #60 Prescribed by: JALEEL SILVER on 07/23/16 0930 Isosorbide Mononitrate 60 Mg Tab, 60 MG PO DAILY, (Reported) Levalbuterol HCl 1.25 Mg/3 Ml Vial.neb, 1.25 MG IH QID PRN for DYSPNEA, ( Reported) Lorazepam 0.5 Mg Tablet, 0.25 MG PO TID for 30 Days, #90 Ref 2 Prescribed by: JALEEL SILVER on 07/23/1630 Montelukast Sodium 10 Mg Tablet, 10 MG PO HS, (Reported) Multivitamins W-Iron 1 Tab.chew Tab.chew, 1 TAB.CHEW PO BID, (Reported) Nitroglycerin 0.4 Mg Tab.subl, 0.4 MG PO UD PRN for CHEST PAIN, (Reported) DISSOLVE 1 TAB UNDER TONGUE EVERY 5 MINUTES NEEDED; NOT TO EXCEED 3 DOSES IN 15 MINUTES Prednisone 20 Mg Tab, 40 MG PO DAILY@0700 for 30 Days, #30 Ref 2 40mg daily x 2weeks then decrease to 30mg daily x 2weeks, then 20mg daily x 2weeks, taper down to 10mg daily if able Prescribed by: JALEEL SILVER on 07/23/1630 Tramadol HCl 50 Mg Tablet, 50-100 MG PO EVERY 4-6 HOURS PRN for PAIN, (Reported ) Vit A,C & E/Lutein/Minerals 1 Each Tablet, 1 TAB PO DAILY, (Reported) [Duolin 100MCG/20MCG] , 1 PUFF IH DAILY PRN, (Reported) Constitutional: no symptoms reported EENTM: see HPI Respiratory: see HPI, short of breath Cardiovascular: see HPI Gastrointestinal: no symptoms reported Genitourinary: no symptoms reported Musculoskeletal: no symptoms reported Skin: see HPI Psychiatric/Neurological: No Symptoms Reported Hematologic/Lymphatic: No Symptoms Reported Past Xxvrmwz-Bvuohp-Idrazy Hx Patient Social History Alcohol Use: Denies Use Recreational Drug Use: No Smoking Status: Former Smoker Type Used: Cigarettes Former Smoker/When Quit: Apr 08, 1983 2nd Hand Smoke Exposure: No Recent Foreign Travel: No Contact w/Someone Who Travel: No Recent Infectious Disease Expo: No Recent Hopitalizations: Yes Immunizations Up To Date Tetanus Booster (TDap): Unknown Date of Pneumonia Vaccine: Mar 04, 2013 Date of Influenza Vaccine: Dec 08, 2015 Seasonal Allergies Seasonal Allergies: No Surgeries HX Surgeries: Yes (lap ifeoma, 2 hernia repairs, aortal/femerol bypass) Surgeries: Abdominal, CABG, Coronary Stent, Gallbladder, Vascular Surgery Respiratory Hx Respiratory Disorders: Yes (HOME OXYGEN) Respiratory Disorders: Pneumonia, COPD Cardiovascular Hx Cardiac Disorders: Yes (BYPASS SURGERY, TENZIN WITH CARDIOVERSION, pulmonary hypertension) Cardiac Disorders: Coronary Artery Disease, Hypertension Neurological Hx Neurological Disorders: No Reproductive System Hx Reproductive Disorders: No Sexually Transmitted Disease: No HIV/AIDS: No Genitourinary Hx Genitourinary Disorders: No Gastrointestinal Hx Gastrointestinal Disorders: No Musculoskeletal Hx Musculoskeletal Disorders: Yes Musculoskeletal Disorders: Arthritis Endocrine Hx Endocrine Disorders: No HEENT HX ENT Disorders: Yes (dentures) Loss of Vision: Denies Hearing Impairment: Hard of Hearing Cancer Hx Cancer: Yes Cancer: Prostate Psychosocial Hx Psychiatric Problems: No Integumentary HX Skin/Integumentary Disorder: No Blood Transfusions Hx Blood Disorders: No Adverse Reaction to a Blood Tr: No Family Medical History Significant Family History: Heart Disease, Cancer Family Medial History: Cancer 09 BROTHER 09 BROTHER 09 BROTHER Cancer of colon 09 BROTHER Stroke Physical Exam-Suspected Sepsis Physical Exam Vital Signs Vital Sign - Last 12Hours 07/30/16 08:41 Temp 97.9 Pulse 136 Resp 20 B/P (MAP) 128/80 Pulse Ox 95 O2 Delivery Nasal Cannula O2 Flow Rate 4.00 Capillary Refill : Less Than 3 Seconds Blood Pressure Mean: 96 General Appearance: No Apparent Distress, WD/WN HEENT: PERRL/EOMI, Normal ENT Inspection Neck: Normal Inspection Respiratory: Lungs Clear, Normal Breath Sounds, No Accessory Muscle Use, No Respiratory Distress Cardiovascular: No Edema, Systolic Murmur, Tachycardia (Cassie) Gastrointestinal: Normal Bowel Sounds, Non Tender, Soft Extremity: Swelling, Other (Marked pitting edema of the lower extremities bilaterally with areas of weeping) Neurologic/Psychiatric: Alert, Oriented x3, No Motor/Sensory Deficits, 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, 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 Norm as Tested Skin: pallor, other (See above) Focused Exam Lactic Acid Level Progress/Results/Core Measures Suspected Sepsis Recent Fever Within 48 Hours: No Infection Criteria Present: None New/Unexplained Altered Menta: No Sepsis Screen: No Definite Risk Sepsis Diagnosis: SIRS Temperature:97.9 Pulse: 136 Respiratory Rate: 20 Laboratory Tests 07/30/16 08:55: White Blood Count 10.1 Blood Pressure 128 /80 Mean: 96 Laboratory Tests 07/30/16 08:55: Creatinine 1.08, INR Comment 1.3, Platelet Count 120L, Total Bilirubin 0.5 Results/Orders Lab Results Laboratory Tests Test 07/30/16 08:55 07/30/16 09:23 07/30/16 09:50 Range/Units White Blood Count 10.1 4.3-11.0 10^3/uL Red Blood Count 3.21 L 4.35-5.85 10^6/uL Hemoglobin 9.8 L 13.3-17.7 G/DL Hematocrit 32 L 40-54 % Mean Corpuscular Volume 98 80-99 FL Mean Corpuscular Hemoglobin 31 25-34 PG Mean Corpuscular Hemoglobin Concent 31 L 32-36 G/DL Red Cell Distribution Width 13.3 10.0-14.5 % Platelet Count 120 L 130-400 10^3/uL Mean Platelet Volume 9.6 7.4-10.4 FL Neutrophils (%) (Auto) 84 H 42-75 % Lymphocytes (%) (Auto) 9 L 12-44 % Monocytes (%) (Auto) 7 0-12 % Eosinophils (%) (Auto) 0 0-10 % Basophils (%) (Auto) 0 0-10 % Neutrophils # (Auto) 8.5 H 1.8-7.8 X 10^3 Lymphocytes # (Auto) 1.0 1.0-4.0 X 10^3 Monocytes # (Auto) 0.7 0.0-1.0 X 10^3 Eosinophils # (Auto) 0.0 0.0-0.3 10^3/uL Basophils # (Auto) 0.0 0.0-0.1 10^3/uL Prothrombin Time 15.9 H 12.2-14.7 SEC INR Comment 1.3 0.8-1.4 Activated Partial Thromboplast Time 27 24-35 SEC Sodium Level 142 135-145 MMOL/L Potassium Level 4.3 3.6-5.0 MMOL/L Chloride Level 101 98-107 MMOL/L Carbon Dioxide Level 31 21-32 MMOL/L Anion Gap 10 5-14 MMOL/L Blood Urea Nitrogen 42 H 7-18 MG/DL Creatinine 1.08 0.60-1.30 MG/DL Estimat Glomerular Filtration Rate > 60 BUN/Creatinine Ratio 39 Glucose Level 140 H 70-105 MG/DL Calcium Level 9.0 8.5-10.1 MG/DL Total Bilirubin 0.5 0.1-1.0 MG/DL Aspartate Amino Transf (AST/SGOT) 15 5-34 U/L Alanine Aminotransferase (ALT/SGPT) 25 0-55 U/L Alkaline Phosphatase 43 40-136 U/L C-Reactive Protein High Sensitivity 2.29 H 0.00-0.50 MG/DL B-Type Natriuretic Peptide 687.1 H <100.0 PG/ML Total Protein 5.9 L 6.4-8.2 G/DL Albumin 3.1 L 3.2-4.5 G/DL Lactic Acid Level 1.54 0.50-2.00 MMOL/L Urine Color YELLOW Urine Clarity CLEAR Urine pH 5 5-9 Urine Specific Kiana 1.015 L 1.016-1.022 Urine Protein 1+ H NEGATIVE Urine Glucose (UA) NEGATIVE NEGATIVE Urine Ketones NEGATIVE NEGATIVE Urine Nitrite NEGATIVE NEGATIVE Urine Bilirubin NEGATIVE NEGATIVE Urine Urobilinogen 1 NORMAL MG/DL Urine Leukocyte Esterase NEGATIVE NEGATIVE Urine RBC (Auto) NEGATIVE NEGATIVE Urine RBC NONE /HPF Urine WBC NONE /HPF Urine Squamous Epithelial Cells NONE /HPF Urine Crystals PRESENT H /LPF Urine Amorphous Sediment RARE HIEN URATES H /LPF Urine Bacteria TRACE /HPF Urine Casts PRESENT /LPF Urine Hyaline Casts 2-5 H /LPF Urine Mucus NEGATIVE /LPF Urine Culture Indicated NO Micro Results Microbiology 07/30/16 Influenza Types A,B Antigen (ERIKA) - Final, Complete My Orders Orders - MONIKA MACK MD BNP (07/30/16 08:45) Cbc With Automated Diff (07/30/16 08:45) Comprehensive Metabolic Panel (07/30/16 08:45) Saline Lock/Iv-Start (07/30/16 08:45) Chest 1 View, Ap/Pa Only (07/30/16 08:45) Ekg Tracing (07/30/16 08:59) Monitor-Rhythm Ecg Trace Only (07/30/16 08:59) Lactic Acid Analyzer (07/30/16 09:11) Blood Culture (07/30/16 09:11) Sputum Culture (07/30/16 09:11) Ua Culture If Indicated (07/30/16 09:11) Protime With Inr (07/30/16 09:11) Partial Thromboplastin Time (07/30/16 09:11) O2 (07/30/16 09:11) Remove Rings In Anticipation O (07/30/16 09:11) Influenza A And B Antigens (07/30/16 09:38) Hs C Reactive Protein (07/30/16 09:45) Piperacillin Sodium/Tazobactam (Zosyn Vi (07/30/16 10:45) Levalbuterol (Non-Formulary) (Xopenex (N (07/30/16 11:45) Adenosine Injection (Adenocard Injection (07/30/16 11:53) Diltiazem Injection (Cardizem Injection) (07/30/16 12:15) Sodium Chloride (Ad... W/Diltiazem Drip (07/30/16 12:15) Adenosine Injection (Adenocard Injection (07/30/16 12:15) Medications Given in ED Current Medications Medications Dose Ordered Sig/Lee Route Start Time Stop Time Status Last Admin Dose Admin Piperacillin Sod/ Tazobactam Sod 4.5 gm/Sodium Chloride 100 ml @ 200 mls/hr ONCE ONCE IV 07/30/16 10:45 07/30/16 11:14 DC 07/30/16 11:09 200 MLS/HR Vital Signs/I&O Vital Sign - Last 12Hours 07/30/16 07/30/16 07/30/16 07/30/16 08:41 08:45 11:47 12:09 Temp 97.9 97.9 Pulse 136 136 Resp 20 20 B/P (MAP) 128/80 128/80 Pulse Ox 95 95 97 97 O2 Delivery Nasal Cannula Nasal Cannula O2 Flow Rate 4.00 5.00 3.00 3.00 07/30/16 07/30/16 07/30/1617 12:31 13:29 13:30 13:30 Temp 96.9 Pulse 134 134 Resp 16 B/P (MAP) Pulse Ox 96 O2 Delivery Nasal Cannula O2 Flow Rate 5.00 5.00 5.00 07/30/16 07/30/16 07/30/16 07/30/16 14:00 14:24 14:40 15:00 Pulse 134 134 134 Resp 23 8 B/P (MAP) 128/82 121/84 121/75 Pulse Ox 100 100 100 O2 Delivery Nasal Cannula Nasal Cannula O2 Flow Rate 5.00 3.00 5.00 07/30/16 07/30/16 07/30/16 07/30/16 16:00 16:00 16:00 17:00 Temp 97.9 Pulse 134 117 Resp 18 16 B/P (MAP) 123/73 124/72 Pulse Ox 100 100 100 O2 Delivery Nasal Cannula Nasal Cannula Nasal Cannula O2 Flow Rate 3.00 5.00 3.00 3.00 07/30/16 07/30/16 18:00 19:00 Temp 98.0 Pulse 90 135 Resp 18 21 B/P (MAP) 135/71 130/78 Pulse Ox 98 94 O2 Delivery Nasal Cannula Room Air O2 Flow Rate 3.00 3.00 Capillary Refill : Less Than 3 Seconds Blood Pressure Mean: 96 Progress Note : Time: 12:04 Progress Note Patient was presumed to have sinus tachycardia based on EKG. Fluids were not administered due to the total body fluid overload evident on exam and chest x- ray. He was given Zosyn due to presence of infiltrate of the right lower lung. However, Dr. Fong came to the emergency room to evaluate him and became suspicious of atrial flutter with 2:1 conduction. A dose of an adenosine was administered which unmasked the atrial flutter. Patient will now be started on a Cardizem drip and admitted to the ICU. ECG Initial ECG Impression Date: Jul 30, 2016 Initial ECG Impression Time: 09:00 Initial ECG Rate: 132 Initial ECG Rhythm: S.Tach, A Fib/Flutter (Atrial flutter with 2:1 induction) Comment Atrial flutter with 2:1 conduction and right bundle branch block. Right bundle branch block is chronic. No acute ST elevation or depression. Diagnostic Imaging Diagonstic Imaging: Xray Plain Films/CT/US/NM/MRI: chest Comments Chest x-ray viewed by me and compared with prior. Report reviewed. See report below: NAME: DAMARIS PINEDA [facility] REC#: [id number] PT STATUS: REG ER : 1935 PHYSICIAN: MONIKA MACK MD ADMIT DATE: 07/30/16/ER Draft Date of Exam:07/30/16 CHEST 1 VIEW, AP/PA ONLY EXAMINATION: Portable upright radiograph of the chest. INDICATION: Lower extremity swelling. FINDINGS: The heart size is mildly enlarged. There is pulmonary vascular congestion and small right pleural effusion or pleural thickening similar to 07/22/16. There is a new mild medial right lower lobe infiltrate. The mediastinum and bahman appear unremarkable. Sternotomy wires are seen. IMPRESSION: Cardiomegaly with pulmonary vascular congestion. Mild medial right lower lobe infiltrate. Dictated on workstation # [id number] Dict: 07/30/16 09 Trans: 07/30/16 0929 [facility] [id number] Interpreted by: JORGE ALVES MD Departure Communication Time/Spoke to Admitting Phy: 11:25 Communication Case reviewed with Dr. Silver who is agreeable to admission with cardiology consultation. She agrees with initiating antibiotics because of the infiltrate on the chest x-ray. Time/Spoke to Consulting Physi: 11:10 Communication/Consulting Case reviewed with Dr. Fong. He agrees with admission for further evaluation of sinus tachycardia. He requested no further orders from a cardiac perspective until his case can be reviewed further. Impression Impression: Primary Impression: Atrial flutter Qualified Codes: I48.92 - Unspecified atrial flutter Additional Impressions: Right lower lobe pneumonia Qualified Codes: J18.1 - Lobar pneumonia, unspecified organism Fluid overload Qualified Codes: E87.70 - Fluid overload, unspecified Disposition: ADMITTED INPATIENT Condition: Against Medical Advice Decision to Admit Reason: Admit from ER (General) Decision to Admit/Date: Jul 30, 2016 Time/Decision to Admit Time: 11:00 Departure-Patient Inst. Referrals: JALEEL SILVER MD (PCP/Family) Primary Care Physician MONIKA MACK MD Jul 30, 2016 09:44
[2016-07-30 10:07] LABS: BILIRUBIN,URINE NEGATIVE (NEGATIVE); KETONES,URINE NEGATIVE (NEGATIVE); LEUKOCYTE ESTERASE ,URINE NEGATIVE (NEGATIVE); NITRITE,URINE NEGATIVE (NEGATIVE); PH,URINE 5 (5-9); PROTEIN,URINE 1+ (NEGATIVE); UROBILINOGEN,URINE 1 MG/DL (NORMAL)
[2016-07-30] MEDS ORDERED: PIPERACILLIN SODIUM/TAZOBACTAM 4.5 GM in NS (IVPB) 100 ML IV ONE (10:45)
[2016-07-30] MEDS ORDERED: RT-LEVALBUTEROL (XOPENEX) 1.25 MG/3 ML NEB NON-FORMULARY INH ONE (11:45)
[2016-07-30] MEDS ORDERED: ADENOSINE 6 MG/2 ML (ADENOCARD) VIAL IV ONE ×2 (11:53→12:15)
[2016-07-30] MEDS ORDERED: DILTIAZEM 100 MG/VIAL (CARDIZEM) ADD-VANTAGE IV ONE (11:59)
[2016-07-30] MEDS ORDERED: DILTIAZEM 25 MG/5 ML INJ (CARDIZEM) VIAL ONE (11:59)
[2016-07-30] MEDS ORDERED: SODIUM CHLORIDE (ADD-VANTAGE) 100 ML IV ONE (12:01)
[2016-07-30] MEDS ORDERED: DILTIAZEM 25 MG/5 ML INJ (CARDIZEM) VIAL IVP ONE (12:15)
[2016-07-30] MEDS ORDERED: DILTIAZEM DRIP 100 MG in SODIUM CHLORIDE (ADD-VANTAGE) 100 ML IV SCH (12:15)
[2016-07-30] MEDS ORDERED: LEVOFLOXACIN 750 MG TAB (LEVAQUIN) PO SCH (14:00)
[2016-07-30] MEDS ORDERED: RT-LEVALBUTEROL (XOPENEX) 1.25 MG/3 ML NEB NON-FORMULARY INH PRN (14:00)
[2016-07-30] MEDS ORDERED: CATHETER FLUSH 10 ML SYR IV PRN (14:00)
[2016-07-30] MEDS: RT-LEVALBUTEROL (XOPENEX) 1.25 MG/3 ML NEB NON-FORMULARY INH SCH ×2 (14:24→21:15)
[2016-07-30] MEDS: LEVOFLOXACIN IV 750 MG/150 ML (LEVAQUIN) BAG IV SCH (14:40)
[2016-07-30] MEDS: DILTIAZEM DRIP 100 MG/NS 100 ML IV SCH ×4 (14:40→23:13)
[2016-07-30] MEDS ORDERED: VANCOMYCIN 1,750 MG/NS 500 ML IVPB IV NR ×2 (15:00)
--- NOTE | 2016-07-30 16:21 | Consultation-Cardiology ---
HPI-Cardiology Cardiology Consultation Date of Consultation 07/30/16 Date of Admission Indication: tachycardia, generalized fatigue HPI 80 years old gentleman with history of paroxysmal atrial fibrillation, was discharged from the hospital recently, return for increasing shortness of breath , fatigue and loss of energy in addition to peripheral edema. He was noted in the emergency room to have a heart rate 130, I proceeded with adenosine injection which showed atrial flutter with 2-1 conduction. He denied any chest pain, denied any syncope or near syncopal episode denied any claudications. Home Medications & Allergies Allergies: Coded Allergies: iodine (Verified Allergy, Unknown, 07/13/16) Home Medication List Reviewed: Yes DLI-Bubxmy-Bhfche Hx Patient Social History Alcohol Use: Denies Use Recreational Drug Use: No Smoking Status: Former Smoker Former smoker/When Quit: Apr 08, 1983 Type Used: Cigarettes 2nd Hand Smoke Exposure: No Recent Foreign Travel: No Recent Infectious Disease Expo: No Recent Hopitalizations: Yes Physical Abuse Screen: No Sexual Abuse: No Immunizations Up To Date Tetanus Booster (TDap): Unknown Date of Pneumonia Vaccine: Mar 04, 2013 Date of Influenza Vaccine: Dec 08, 2015 Past Medical History Past medical history as discussed below Family Medical History Significant Family History: Heart Disease, Cancer Family History: Cancer 09 BROTHER 09 BROTHER 09 BROTHER Cancer of colon 09 BROTHER Stroke Constitutional: see HPI, malaise, weakness, weight gain EENTM: no symptoms reported, see HPI Respiratory: see HPI, dyspnea on exertion, orthopnea, short of breath Cardiovascular: see HPI, edema, palpitations Gastrointestinal: no symptoms reported, see HPI Genitourinary: no symptoms reported, see HPI Musculoskeletal: see HPI, joint swelling, muscle stiffness Skin: no symptoms reported, see HPI Psychiatric/Neurological: No Symptoms Reported, See HPI Reviewed Test Results Reviewed Test Results Lab Laboratory Tests Test 07/30/16 08:55 07/30/16 09:23 07/30/16 09:50 Range/Units White Blood Count 10.1 4.3-11.0 10^3/uL Red Blood Count 3.21 L 4.35-5.85 10^6/uL Hemoglobin 9.8 L 13.3-17.7 G/DL Hematocrit 32 L 40-54 % Mean Corpuscular Volume 98 80-99 FL Mean Corpuscular Hemoglobin 31 25-34 PG Mean Corpuscular Hemoglobin Concent 31 L 32-36 G/DL Red Cell Distribution Width 13.3 10.0-14.5 % Platelet Count 120 L 130-400 10^3/uL Mean Platelet Volume 9.6 7.4-10.4 FL Neutrophils (%) (Auto) 84 H 42-75 % Lymphocytes (%) (Auto) 9 L 12-44 % Monocytes (%) (Auto) 7 0-12 % Eosinophils (%) (Auto) 0 0-10 % Basophils (%) (Auto) 0 0-10 % Neutrophils # (Auto) 8.5 H 1.8-7.8 X 10^3 Lymphocytes # (Auto) 1.0 1.0-4.0 X 10^3 Monocytes # (Auto) 0.7 0.0-1.0 X 10^3 Eosinophils # (Auto) 0.0 0.0-0.3 10^3/uL Basophils # (Auto) 0.0 0.0-0.1 10^3/uL Prothrombin Time 15.9 H 12.2-14.7 SEC INR Comment 1.3 0.8-1.4 Activated Partial Thromboplast Time 27 24-35 SEC Sodium Level 142 135-145 MMOL/L Potassium Level 4.3 3.6-5.0 MMOL/L Chloride Level 101 98-107 MMOL/L Carbon Dioxide Level 31 21-32 MMOL/L Anion Gap 10 5-14 MMOL/L Blood Urea Nitrogen 42 H 7-18 MG/DL Creatinine 1.08 0.60-1.30 MG/DL Estimat Glomerular Filtration Rate > 60 BUN/Creatinine Ratio 39 Glucose Level 140 H 70-105 MG/DL Calcium Level 9.0 8.5-10.1 MG/DL Total Bilirubin 0.5 0.1-1.0 MG/DL Aspartate Amino Transf (AST/SGOT) 15 5-34 U/L Alanine Aminotransferase (ALT/SGPT) 25 0-55 U/L Alkaline Phosphatase 43 40-136 U/L C-Reactive Protein High Sensitivity 2.29 H 0.00-0.50 MG/DL B-Type Natriuretic Peptide 687.1 H <100.0 PG/ML Total Protein 5.9 L 6.4-8.2 G/DL Albumin 3.1 L 3.2-4.5 G/DL Lactic Acid Level 1.54 0.50-2.00 MMOL/L Urine Color YELLOW Urine Clarity CLEAR Urine pH 5 5-9 Urine Specific Vest 1.015 L 1.016-1.022 Urine Protein 1+ H NEGATIVE Urine Glucose (UA) NEGATIVE NEGATIVE Urine Ketones NEGATIVE NEGATIVE Urine Nitrite NEGATIVE NEGATIVE Urine Bilirubin NEGATIVE NEGATIVE Urine Urobilinogen 1 NORMAL MG/DL Urine Leukocyte Esterase NEGATIVE NEGATIVE Urine RBC (Auto) NEGATIVE NEGATIVE Urine RBC NONE /HPF Urine WBC NONE /HPF Urine Squamous Epithelial Cells NONE /HPF Urine Crystals PRESENT H /LPF Urine Amorphous Sediment RARE HIEN URATES H /LPF Urine Bacteria TRACE /HPF Urine Casts PRESENT /LPF Urine Hyaline Casts 2-5 H /LPF Urine Mucus NEGATIVE /LPF Urine Culture Indicated NO Physical Exam Vital Signs Vital Sign - Last 12Hours 07/30/16 08:41 Temp 97.9 Pulse 136 Resp 20 B/P (MAP) 128/80 Pulse Ox 95 O2 Delivery Nasal Cannula O2 Flow Rate 4.00 Capillary Refill : Less Than 3 Seconds General Appearance: WD/WN, Mild Distress Eyes: Bilateral Eye EOMI, Bilateral Eye Normal Inspection, Bilateral Eye PERRL HEENT: PERRL/EOMI, TMs Normal, Normal ENT Inspection, Pharynx Normal Neck: Full Range of Motion, Normal Inspection, Non Tender, Supple, Carotid Bruit Respiratory: Chest Non Tender, Lungs Clear, Normal Breath Sounds, No Accessory Muscle Use, No Respiratory Distress Cardiovascular: No Edema, No Gallop, No JVD, Normal Peripheral Pulses, Systolic Murmur, Tachycardia Gastrointestinal: Normal Bowel Sounds, No Organomegaly, No Pulsatile Mass, Non Tender, Soft Back: Normal Inspection, No CVA Tenderness, No Vertebral Tenderness Extremity: Normal Capillary Refill, Normal Inspection, Normal Range of Motion, Non Tender, No Calf Tenderness, Pedal Edema (extensive edema) Neurologic/Psychiatric: Alert, Oriented x3, No Motor/Sensory Deficits, 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 Skin: Normal Color, Warm/Dry Lymphatic: No Adenopathy A/P-Cardiology Admission Diagnosis Generalized weakness Paroxysmal atrial flutter Tachycardia Coronary artery disease Peripheral arterial disease Assessment/Plan Paroxysmal atrial fibrillation and flutter, alternating with sinus rhythm, has underlying sick sinus syndrome, multiple cardioversion in the past, maintained on Eliquis. Patient is currently tachycardic, given a [place] in the emergency room which showed atrial flutter with rapid response, patient is admitted to the ICU and started on Cardizem drip. Continue to monitor heart rate and blood pressure response. Questionable pneumonia, there is mild infiltrate with elevated CRP, no leukocytosis, patient started on antibiotic empirically, managed by primary care physician on Dr. Flores. COPD, multiple exacerbation, generalized weakness and debility. Cor pulmonale. Normal LV function. Extensive edema, anasarca, probably secondary to cor pulmonale with right-sided heart failure. Start with aggressive diuretics and monitor her tolerance and response. Chest pain nonspecific etiology, reporting improvement, no further episodes were reported at this time. Continue to monitor Coronary artery disease history of multiple intervention the past, history of CABG 1 done 5 years ago. Most recent stress test and 2D Echo done 2015 revealed no ischemia or infarct with normal EF. EKG reveals SR with no acute changes. Denies any CP, continue to monitor. History of bradycardia,likely secondary to medication. Improved after discontinuing cardizem and amiodarone. Continue to monitor. Hyperlipidemia, continue to monitor Pulmonary hypertension- 2D Echo 02/21 revealed PA 50, planning to reevaluate 2- D echocardiogram Peripheral arterial disease, history of aortobifemoral bypass. Continue to monitor. History of tobaccoism in the remote past History of pleural effusion. Followed by primary care physician Clinical Quality Measures DVT/VTE Risk/Contraindication: Risk Factor Score Per Nursin RFS Level Per Nursing on Admit: 3=High JESSICA BURRIS MD Jul 30, 2016 16:21
[2016-07-30] MEDS: PIPERACILLIN/TAZOBACTAM 4.5 GM/NS 100 ML IVPB IV SCH ×2 (17:19)
[2016-07-30] MEDS: FUROSEMIDE 40 MG/4 ML INJ (LASIX) IVP SCH (17:20)
[2016-07-30] MEDS: CATHETER FLUSH 10 ML SYR IV SCH ×2 (17:21→20:41)
--- NOTE | 2016-07-30 18:38 | History & Physicial ---
History of Present Illness History of Present Illness Reason for visit/HPI PT IS AN 80 Y/O MALE WHO IS KNOWN TO ME FROM CLINIC. HE PRESENTED TO THE HOSPITAL AFTER 2-3 DAYS OF FEELING POORLY. HE REPORTS THAT HE NOTICED THAT HIS HEART RATE WAS ELEVATED ON SATURDAY, SATURDAY, AND SATURDAY. HE REPORTS THAT HE THINKS HE REMEMBERS HIS HEART RATE BEING IN THE 130'S ALL THREE DAYS. HE STATES THAT HE HAD STARTED FEELING SO POORLY TODAY THAT HE JUST COULD NO LONGER MANAGE AT HOME. Date of Admission Jul 30, 2016 at 11:17 I consulted on this patient on 07/30/16 18:32 Attending Physician Jaleel Silver MD Admitting Physician Jaleel Silver MD Consult JESSICA BURRIS MD Allergies and Home Medications Allergies Coded Allergies: iodine (Verified Allergy, Unknown, 07/13/16) Home Medications Albuterol Sulfate 8.5 Gm Hfa.aer.ad, 1 PUFF IH BID, (Reported) Amlodipine Besylate 10 Mg Tablet, 10 MG PO DAILY for 90 Days, #90 Ref 3 Prescribed by: JALEEL SILVER on 07/23/16929 Apixaban 5 Mg Tablet, 5 MG PO BID, (Reported) Aspirin 81 Mg Tablet.dr, 81 MG PO HS, (Reported) Benzonatate 100 Mg Capsule, 200 MG PO TID PRN for COUGH-1ST LINE for 30 Days, # 60 Prescribed by: JALEEL SILVER on 07/23/1630 Budesonide/Formoterol Fumarate 10.2 Gm Hfa.aer.ad, 2 PUFF IH BID, (Reported) Carboxymethylcellulose Sodium 15 Ml Drops, 1 DROP OU DAILY PRN PRN for DRY EYES, (Reported) Carvedilol 12.5 Mg Tablet, 12.5 MG PO BID, (Reported) Cetirizine HCl 10 Mg Tablet, 10 MG PO DAILY, (Reported) Ezetimibe 10 Mg Tablet, 10 MG PO HS, (Reported) Famotidine 20 Mg Tablet, 20 MG PO BID PRN for INDIGESTION for 30 Days, #60 Prescribed by: JALEEL SILVER on 07/23/1630 Fenofibrate Nanocrystallized 145 Mg Tablet, 145 MG PO HS, (Reported) Furosemide 20 Mg Tablet, 20 MG PO BID@ for 30 Days, #60 Ref 3 Prescribed by: JALEEL SILVER on 07/23/16929 Guaifenesin 600 Mg Tab.er.12h, 600 MG PO BID for 30 Days, #60 Prescribed by: JALEEL SILVER on 07/23/16929 Isosorbide Mononitrate 60 Mg Tab, 60 MG PO DAILY, (Reported) Levalbuterol HCl 1.25 Mg/3 Ml Vial.neb, 1.25 MG IH QID PRN for DYSPNEA, ( Reported) Lorazepam 0.5 Mg Tablet, 0.25 MG PO TID for 30 Days, #90 Ref 2 Prescribed by: JALEEL SILVER on 07/23/16929 Montelukast Sodium 10 Mg Tablet, 10 MG PO HS, (Reported) Multivitamins W-Iron 1 Tab.chew Tab.chew, 1 TAB.CHEW PO BID, (Reported) Nitroglycerin 0.4 Mg Tab.subl, 0.4 MG PO UD PRN for CHEST PAIN, (Reported) DISSOLVE 1 TAB UNDER TONGUE EVERY 5 MINUTES NEEDED; NOT TO EXCEED 3 DOSES IN 15 MINUTES Prednisone 20 Mg Tab, 40 MG PO DAILY@0700 for 30 Days, #30 Ref 2 40mg daily x 2weeks then decrease to 30mg daily x 2weeks, then 20mg daily x 2weeks, taper down to 10mg daily if able Prescribed by: JALEEL SILVER on 07/23/16929 Tramadol HCl 50 Mg Tablet, 50-100 MG PO EVERY 4-6 HOURS PRN for PAIN, (Reported ) Vit A,C & E/Lutein/Minerals 1 Each Tablet, 1 TAB PO DAILY, (Reported) [Duolin 100MCG/20MCG] , 1 PUFF IH DAILY PRN, (Reported) Past [id number] Hx Patient Social History Marrital Status: Living Status: LIVES AT HOME WITH Employed/Student: retired (LIVES AT HOME WITH ) Alcohol Use: Denies Use Recreational Drug Use: No Smoking Status: Former Smoker Former smoker/When Quit: Apr 08, 1983 Type Used: Cigarettes 2nd Hand Smoke Exposure: No Physical Abuse Screen: No Sexual Abuse: No Recent Foreign Travel: No Contact w/other who traveled: No Recent Hopitalizations: Yes Recent Infectious Disease Expo: No Immunizations Up To Date Tetanus Booster (TDap): Unknown Date of Pneumonia Vaccine: Mar 04, 2013 Date of Influenza Vaccine: Dec 08, 2015 Seasonal Allergies Seasonal Allergies: No Surgeries HX Surgeries: Yes (lap choley, 2 hernia repairs, aortal/femerol bypass) Surgeries: CABG, Coronary Stent, Gallbladder Respiratory Hx Respiratory Disorders: Yes (HOME OXYGEN) Respiratory Disorders: COPD, Emphysema Cardiovascular Hx Cardiovascular Disorders: Yes (BYPASS SURGERY, TENZIN WITH CARDIOVERSION) Cardiac Disorders: Coronary Artery Disease, Hypertension Neurological Hx Neurological Disorders: No Reproductive System Hx Reproductive Disorders: No Sexually Transmitted Disease: No HIV/AIDS: No Genitourinary Hx Genitourinary Disorders: No Gastrointestinal Hx Gastrointestinal Disorders: No Musculoskeletal Hx Musculoskeletal Disorders: Yes Musculoskeletal Disorders: Arthritis Endocrine Hx Endocrine Disorders: No HEENT HX ENT Disorders: Yes (dentures) HEENT Disorders: Macular Degeneration Loss of Vision: Denies Hearing Impairment: Denies Cancer Hx Cancer: Yes Cancer: Prostate, Skin Psychosocial Hx Psychiatric Problems: No Integumentary HX Skin/Integumentary Disorder: No Blood Transfusions Hx Blood Disorders: No Adverse Reaction to a Blood Tr: No Reviewed Nursing Assessment Reviewed/Agree w Nursing PMH: Yes Family Medical History Significant Family History: Heart Disease, Cancer, Hypertension, Stroke Family Hx: Cancer 09 BROTHER 09 BROTHER 09 BROTHER Cancer of colon 09 BROTHER Stroke Constitutional: No chills, No diaphoresis, No fever, malaise, weakness, weight gain (OVER 27 POUNDS) EENTM: No hoarseness, No throat pain, No throat swelling Respiratory: cough, dyspnea on exertion, short of breath Cardiovascular: No chest pain, edema, palpitations Gastrointestinal: No abdominal pain, No constipation, No diarrhea, No nausea Genitourinary: no symptoms reported Musculoskeletal: No back pain Skin: no symptoms reported Psychiatric/Neurological: Anxiety, Denies Depressed All Other Systems Reviewed Negative Unless Noted: Yes Physical Exam Vital Signs Vital Sign - Last 12Hours 07/30/16 08:41 Temp 97.9 Pulse 136 Resp 20 B/P (MAP) 128/80 Pulse Ox 95 O2 Delivery Nasal Cannula O2 Flow Rate 4.00 Capillary Refill : Less Than 3 Seconds General Appearance: WD/WN, Moderate Distress (DUE TO INCREASED WORK OF BREATHING) Eyes: Bilateral Eye EOMI, Bilateral Eye Normal Inspection, Bilateral Eye PERRL HEENT: PERRL/EOMI, Pharynx Normal Neck: Full Range of Motion, Supple Respiratory: Chest Non Tender, Crackles (IN BASES BILATERALLY), Decreased Breath Sounds Cardiovascular: Irregularly Irregular, Tachycardia Gastrointestinal: Normal Bowel Sounds, Non Tender, Soft Rectal: Deferred Extremity: Pedal Edema (3-4 + PITTING OF LOWER LEGS, POSTERIOR THIGHS AND 1+ OF LOWER ABDOMEN) Neurologic/Psychiatric: Alert, Oriented x3, No Motor/Sensory Deficits, 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, relief mate II-XII Norm as Tested Skin: Warm/Dry Lymphatic: No Adenopathy Assessment/Plan Assessment and Plan PERIPHERAL EDEMA ANASARCA ATRIAL FIBRILLATION/FLUTTER PNEUMONIA TACHYCARDIA DYSPNEA ON EXERTION COPD EXACERBATION ANXIETY HYPERTENSION WEAKNESS AFIB/FLUTTER - MANAGED BY DR. BURRIS- PT CURRENTLY ON CARDIZEM DRIP, CONTINUE ELIQUIS, MONITOR SYMPTOM RESPONSE. PERIPHERAL EDEMA WITH MILD ANASARCA - PT ON LASIX IV, WILL MONITOR OUTPUT, AND CONTINUE WITH DIURESIS FROM IV LASIX FOR THE NEXT FEW DAYS - SERIAL WEIGHTS, STRICT I/O. PT SHOULD SHOW EVEN MORE IMPROVEMENT WHEN THE PATIENT HAS CONTROL OF HEART RATE. PNEUMONIA - ON IV ANTIBIOTICS, CONTINUE WITH SERIAL CHEST XRAYS, BREATHING TREATMENTS. ANXIETY - RESTART ATIVAN ORALLY. HTN - STABLE. WEAKNESS - WILL NEED TO START PHYSICAL THERAPY ONCE PT IS OFF OF CARDIZEM DRIP. Problems: Admission Diagnosis PERIPHERAL EDEMA ANASARCA ATRIAL FIBRILLATION/FLUTTER PNEUMONIA TACHYCARDIA DYSPNEA ON EXERTION COPD EXACERBATION ANXIETY HYPERTENSION WEAKNESS Clinical Quality Measures DVT/VTE Risk/Contraindication: Risk Factor Score Per Nursin RFS Level Per Nursing on Admit: 3=High JALEEL SILVER MD Jul 30, 2016 18:38
[2016-07-30] MEDS: APIXABAN 5 MG (ELIQUIS) TABLET PO SCH (20:41)
[2016-07-30] MEDS: ASPIRIN E.C. 81 MG (ECOTRIN) TAB PO SCH (20:41)
[2016-07-30] MEDS: CARVEDILOL 12.5 MG (COREG) TABLET PO SCH (20:41)
[2016-07-30] MEDS: eZETimibe 10 MG (ZETIA) TABLET PO SCH (20:41)
[2016-07-31] VITALS (24 sets, daily range): BP systolic 101–144; BP diastolic 47–100
[2016-07-31] MEDS: PIPERACILLIN/TAZOBACTAM 4.5 GM/NS 100 ML IVPB IV SCH ×6 (00:42→18:00)
[2016-07-31] MEDS: VANCOMYCIN 1250 MG/NS 250 ML IVPB IV SCH ×4 (03:02→16:49)
[2016-07-31 04:38] LABS: BASOPHILS % (AUTO) 0 % (0-10); EOSINOPHILS % (AUTO) 0 % (0-10); LYMPHOCYTES # (AUTO) 0.7 X 10^3 (1.0-4.0); LYMPHOCYTES % (AUTO) 8 % (12-44); MEAN CORPUSCULAR HEMOGLOBIN 30 PG (25-34); MEAN CORPUSCULAR HGB CONC 31 G/DL (32-36); MEAN CORPUSCULAR VOLUME 97 FL (80-99); MEAN PLATELET VOLUME 10.1 FL (7.4-10.4); MONOCYTES # (AUTO) 0.5 X 10^3 (0.0-1.0); MONOCYTES % (AUTO) 6 % (0-12); NEUTROPHILS % (AUTO) 86 % (42-75); PLATELET COUNT 98 10^3/uL (130-400); RED BLOOD COUNT 3.09 10^6/uL (4.35-5.85); RED CELL DISTRIBUTION WIDTH 13.2 % (10.0-14.5); WHITE BLOOD COUNT 8.1 10^3/uL (4.3-11.0)
[2016-07-31 05:12] LABS: ALANINE AMINOTRANSFERASE 23 U/L (0-55); ALBUMIN 2.7 G/DL (3.2-4.5); ANION GAP 9 MMOL/L (5-14); ASPARTATE AMINO TRANSFERASE 13 U/L (5-34); BILIRUBIN,TOTAL 0.5 MG/DL (0.1-1.0); BLOOD UREA NITROGEN 40 MG/DL (7-18); BUN/CREATININE RATIO 39; CALCIUM 8.6 MG/DL (8.5-10.1); CARBON DIOXIDE 32 MMOL/L (21-32); CHLORIDE 100 MMOL/L (98-107); CREATININE SERUM 1.03 MG/DL (0.60-1.30); GFR ESTIMATED > 60; GLUCOSE 90 MG/DL (70-105); MAGNESIUM 1.8 MG/DL (1.8-2.4); PHOSPHORUS 3.3 MG/DL (2.3-4.7); POTASSIUM 3.9 MMOL/L (3.6-5.0); SODIUM 141 MMOL/L (135-145); TOTAL PROTEIN 5.1 G/DL (6.4-8.2)
[2016-07-31] MEDS: POTASSIUM CL 10MEQ/50ML IVPB 50 ML IV SCH (06:00)
[2016-07-31] MEDS: KCL 20 MEQ TAB (K-DUR) PO SCH (06:00)
[2016-07-31] MEDS: MAGNESIUM 1 GM/100 ML IVPB 100 ML IV SCH ×3 (06:00→22:20)
[2016-07-31] MEDS: CATHETER FLUSH 10 ML SYR IV SCH ×3 (06:03→22:21)
[2016-07-31] MEDS: FUROSEMIDE 40 MG/4 ML INJ (LASIX) IVP SCH ×2 (06:03→18:00)
[2016-07-31] MEDS: APIXABAN 5 MG (ELIQUIS) TABLET PO SCH ×2 (07:58→20:57)
[2016-07-31] MEDS: CARVEDILOL 12.5 MG (COREG) TABLET PO SCH ×2 (07:58→20:57)
[2016-07-31] MEDS: DILTIAZEM DRIP 100 MG/NS 100 ML IV SCH ×4 (07:58→15:53)
--- NOTE | 2016-07-31 08:07 | Diagnostic Imaging Report ---
INDICATION: Respiratory distress EXAMINATION: Frontal chest 07/31/16 COMPARISON: 07/30/16 FINDINGS: The heart is enlarged. Pulmonary vasculature is prominent but stable. Lungs are hyperinflated. Densities in both lungs likely old granulomatous disease. There are no new infiltrates or effusions. There is no pneumothorax. There is mild infiltrate or atelectasis right lung base also unchanged. IMPRESSION: Stable chest. Dictated by: Dictated on workstation # [id number]
--- NOTE | 2016-07-31 08:16 | Cardiology Progress Note ---
Subjective Subjective/Events-last exam patient is laying down in bed, feeling better, still having significant edema but excellent urine output. Heart rate is borderline control but still in atrial flutter. Review of Systems General: No Chills, No Night Sweats, No Fatigue, No Malaise, No Appetite, No Other HEENT: No Head Aches, No Visual Changes, No Eye Pain, No Ear Pain, No Dysphasia , No Sinus Congestion, No Post Nasal Drip, No Sore Throat, No Other Pulmonary: Dyspnea, No Cough, No Pleuritic Chest Pain, No Other Cardiovascular: Edema, No: Chest Pain, Lt Headedness, Orthopnea, Other, Palpitations, Paroxysmal Noc. Dyspnea Objective-Cardiology Exam Last Set of Vital Signs Vital Signs 07/31/16 07/31/16 07/31/16 04:00 06:00 07:58 Temp 97.5 Pulse 106 Resp 12 B/P (MAP) 112/82 Pulse Ox 97 O2 Delivery Nasal Cannula O2 Flow Rate 3.00 Capillary Refill : Less Than 3 Seconds I&O Bad tableGeneral: Alert, Oriented X3, Cooperative, Mild Distress HEENT: Atraumatic, PERRLA Neck: Supple, No JVD, No Thyromegaly Lungs: Clear to Auscultation, Normal Air Movement Heart: Normal S1, Normal S2, No Murmurs, Other (atrial fibrillation with rapid ventricular response, +3 edema) Abdomen: Normal Bowel Sounds, Soft, No Tenderness, No Hepatosplenomegaly, No Masses Extremities: No Clubbing, No Cyanosis, Normal Pulses, No Tenderness/Swelling Skin: No Rashes Neuro: Normal Speech, Normal Tone, Sensation Intact Psych/Mental Status: Mental Status NL, Mood NL Results Lab Laboratory Tests 07/30/16 08:55 07/31/16 04:18 A/P-Cardiology Admission Diagnosis Generalized weakness Paroxysmal atrial flutter Tachycardia Coronary artery disease Peripheral arterial disease Assessment/Plan Paroxysmal atrial fibrillation and flutter, alternating with sinus rhythm, has underlying sick sinus syndrome, multiple cardioversion in the past, maintained on Eliquis. heart rate is better controlled but still in atrial flutter, has been maintained on Eliquis, planning to proceed with electrical cardioversion today. patient will need ablation, Questionable pneumonia, there is mild infiltrate with elevated CRP, no leukocytosis, patient started on antibiotic empirically, managed by primary care physician COPD, multiple exacerbation, generalized weakness and debility. Cor pulmonale. Normal LV function. Extensive edema, anasarca, probably secondary to cor pulmonale with right-sided heart failure, responding to aggressive diuretics, I will reevaluate 2-D echocardiogram. Chest pain nonspecific etiology, reporting improvement, no further episodes were reported at this time. Continue to monitor Coronary artery disease history of multiple intervention the past, history of CABG 1 done 5 years ago. Most recent stress test and 2D Echo done 2015 revealed no ischemia or infarct with normal EF. EKG reveals SR with no acute changes. Denies any CP, I will reevaluate 2-D echocardiogram. History of bradycardia, likely secondary to medication. Improved after discontinuing cardizem and amiodarone, patient may require ablation. Hyperlipidemia, continue to monitor Pulmonary hypertension- 2D Echo 02/21 revealed PA 50, planning to reevaluate 2- D echocardiogram Peripheral arterial disease, history of aortobifemoral bypass. Continue to monitor. History of tobaccoism in the remote past History of pleural effusion. Followed by primary care physician Clinical Quality Measures DVT/VTE Risk/Contraindication: Risk Factor Score Per Nursin RFS Level Per Nursing on Admit: 3=High JESSICA BURRIS MD Jul 31, 2016 08:15
--- NOTE | 2016-07-31 08:31 | Progress Note (SOAP) ---
Subjective Subjective/Events-last exam PT REPORTS THAT HE IS FEELING BETTER TODAY - HE STATES THAT HIS SHORTNESS OF BREATH IS UNCHANGED, HE IS FEELING A LITTLE ANXIOUS, WOULD LIKE HIS ATIVAN RESTARTED. HE NOTES FEELING LIKE HIS LEGS ARE LESS TIGHT TODAY. 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), No: Abdominal Pain, Nausea Neurological: Weakness, No: Confusion Objective Exam Vital Signs Date Time Temp Pulse Resp B/P (MAP) Pulse Ox O2 Delivery O2 Flow Rate FiO2 07/31/16 07:58 106 112/82 97 07/31/16 07:00 89 07/31/16 06:00 107 12 142/90 97 Nasal Cannula 3.00 07/31/16 05:00 98 16 134/88 96 Nasal Cannula 3.00 07/31/16 04:05 97 3.00 07/31/16 04:00 97.5 101 14 126/79 97 Nasal Cannula 3.00 07/31/16 03:56 98 3.00 07/31/16 03:00 87 16 133/78 96 Nasal Cannula 3.00 07/31/16 02:00 89 14 144/86 98 Nasal Cannula 3.00 07/31/16 01:09 77 07/31/16 01:00 89 10 125/85 98 Nasal Cannula 3.00 07/31/16 00:20 97 3.00 07/31/16 00:00 97.8 88 16 118/85 97 Nasal Cannula 3.00 07/30/16 23:13 89 22 109/67 97 3.00 07/30/16 23:00 97.8 89 22 109/67 97 Nasal Cannula 3.00 07/30/16 22:00 78 18 112/77 97 Nasal Cannula 3.00 07/30/16 21:15 97 3.00 07/30/16 21:00 93 21 109/82 97 Nasal Cannula 3.00 07/30/16 20:45 118 16 124/89 97 Nasal Cannula 3.00 07/30/16 20:00 95 3.00 07/30/16 20:00 135 20 113/67 95 Nasal Cannula 3.00 07/30/16 19:00 98.0 135 21 130/78 94 Nasal Cannula 3.00 07/30/16 19:00 135 07/30/16 18:00 90 18 135/71 98 Nasal Cannula 3.00 07/30/16 17:00 117 16 124/72 100 Nasal Cannula 3.00 07/30/16 16:00 97.9 Nasal Cannula 3.00 07/30/16 16:00 134 18 123/73 100 Nasal Cannula 5.00 07/30/16 16:00 100 3.00 07/30/16 15:00 134 8 121/75 100 Nasal Cannula 5.00 07/30/16 14:40 134 121/84 07/30/16 14:24 100 3.00 07/30/16 14:00 134 23 128/82 100 Nasal Cannula 5.00 07/30/16 13:30 5.00 07/30/16 13:30 96.9 Nasal Cannula 5.00 07/30/16 13:29 134 07/30/16 12:31 134 16 96 5.00 07/30/16 12:09 97.9 136 20 128/80 97 3.00 07/30/16 11:47 97 3.00 07/30/16 08:45 95 Nasal Cannula 5.00 07/30/16 08:41 97.9 136 20 128/80 95 Nasal Cannula 4.00 I & O 07/31/16 07:00 Intake Total 1402.5 ml Output Total 4840 ml Balance -3437.5 ml Capillary Refill : Less Than 3 Seconds General Appearance: WD/WN, Mild Distress (WITH BREATHING) HEENT: PERRL/EOMI, Pharynx Normal Neck: Supple Respiratory: Chest Non Tender, Crackles, Decreased Breath Sounds Cardiovascular: Irregularly Irregular Gastrointestinal: normal bowel sounds, non tender, soft, no pulsatile mass Extremity: Pedal Edema (3+ OF LOWER LEGS TO POSTERIOR THIGHS) Neurologic/Psychiatric: Alert, Oriented x3, 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, 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 Skin: Warm/Dry Lymphatic: No Adenopathy Results Lab Laboratory Tests 07/30/16 08:55: White Blood Count 10.1, Red Blood Count 3.21L, Hemoglobin 9.8L, Hematocrit 32L, Mean Corpuscular Volume 98, Mean Corpuscular Hemoglobin 31, Mean Corpuscular Hemoglobin Concent 31L, Red Cell Distribution Width 13.3, Platelet Count 120L, Mean Platelet Volume 9.6, Neutrophils (%) (Auto) 84H, Lymphocytes (%) (Auto) 9L , Monocytes (%) (Auto) 7, Eosinophils (%) (Auto) 0, Basophils (%) (Auto) 0, Neutrophils # (Auto) 8.5H, Lymphocytes # (Auto) 1.0, Monocytes # (Auto) 0.7, Eosinophils # (Auto) 0.0, Basophils # (Auto) 0.0, Prothrombin Time 15.9H, INR Comment 1.3, Activated Partial Thromboplast Time 27, Sodium Level 142, Potassium Level 4.3, Chloride Level 101, Carbon Dioxide Level 31, Anion Gap 10, Blood Urea Nitrogen 42H, Creatinine 1.08, Estimat Glomerular Filtration Rate > 60, BUN/Creatinine Ratio 39, Glucose Level 140H, Calcium Level 9.0, Total Bilirubin 0.5, Aspartate Amino Transf (AST/SGOT) 15, Alanine Aminotransferase ( ALT/SGPT) 25, Alkaline Phosphatase 43, C-Reactive Protein High Sensitivity 2.29H , B-Type Natriuretic Peptide 687.1H, Total Protein 5.9L, Albumin 3.1L 07/30/16 09:23: Lactic Acid Level 1.54 07/30/16 09:50: Urine Color YELLOW, Urine Clarity CLEAR, Urine pH 5, Urine Specific Talent 1.015L, Urine Protein 1+H, Urine Glucose (UA) NEGATIVE, Urine Ketones NEGATIVE, Urine Nitrite NEGATIVE, Urine Bilirubin NEGATIVE, Urine Urobilinogen 1, Urine Leukocyte Esterase NEGATIVE, Urine RBC (Auto) NEGATIVE, Urine RBC NONE, Urine WBC NONE, Urine Squamous Epithelial Cells NONE, Urine Crystals PRESENTH, Urine Amorphous Sediment RARE HIEN URATESH, Urine Bacteria TRACE, Urine Casts PRESENT , Urine Hyaline Casts 2-5H, Urine Mucus NEGATIVE, Urine Culture Indicated NO 07/31/16 04:18: White Blood Count 8.1, Red Blood Count 3.09L, Hemoglobin 9.4L, Hematocrit 30L, Mean Corpuscular Volume 97, Mean Corpuscular Hemoglobin 30, Mean Corpuscular Hemoglobin Concent 31L, Red Cell Distribution Width 13.2, Platelet Count 98L, Mean Platelet Volume 10.1, Neutrophils (%) (Auto) 86H, Lymphocytes (%) (Auto) 8L , Monocytes (%) (Auto) 6, Eosinophils (%) (Auto) 0, Basophils (%) (Auto) 0, Neutrophils # (Auto) 7.0, Lymphocytes # (Auto) 0.7L, Monocytes # (Auto) 0.5, Eosinophils # (Auto) 0.0, Basophils # (Auto) 0.0, Sodium Level 141, Potassium Level 3.9, Chloride Level 100, Carbon Dioxide Level 32, Anion Gap 9, Blood Urea Nitrogen 40H, Creatinine 1.03, Estimat Glomerular Filtration Rate > 60, BUN/ Creatinine Ratio 39, Glucose Level 90, Calcium Level 8.6, Total Bilirubin 0.5, Aspartate Amino Transf (AST/SGOT) 13, Alanine Aminotransferase (ALT/SGPT) 23, Alkaline Phosphatase 36L, B-Type Natriuretic Peptide 568.6H, Total Protein 5.1L , Albumin 2.7L, Phosphorus Level 3.3, Magnesium Level 1.8 Microbiology 07/30/16 Influenza Types A,B Antigen (ERIKA) - Final, Complete Assessment/Plan Assessment/Plan Assess & Plan/Chief Complaint PERIPHERAL EDEMA ANASARCA ATRIAL FIBRILLATION/FLUTTER PNEUMONIA TACHYCARDIA DYSPNEA ON EXERTION COPD EXACERBATION ANXIETY HYPERTENSION WEAKNESS AFIB/FLUTTER - MANAGED BY DR. BURRIS- PT CURRENTLY ON CARDIZEM DRIP, CONTINUE ELIQUIS, MONITOR SYMPTOM RESPONSE. - DR. BURRIS HAS TALKED TO DR. SAGASTUME - DEPENDING ON HIS EVAL OF THE PATIENT, DR. BURRIS MAY TRANSFER THE PT TO [facility] FOR ELECTROPHYSIOLOGY MANAGEMENT OF THE PATIENT. PERIPHERAL EDEMA WITH MILD ANASARCA - PT ON LASIX IV, WILL MONITOR OUTPUT - OVER 5 LITERS DOWN OVER THE PAST 24 HOURS, AND CONTINUE WITH DIURESIS FROM IV LASIX FOR THE NEXT FEW DAYS - SERIAL WEIGHTS, STRICT I/O. PT SHOULD SHOW EVEN MORE IMPROVEMENT WHEN THE PATIENT HAS CONTROL OF HEART RATE. PNEUMONIA - ? OF ACCURACY OF THE CHEST XRAY - TODAY STILL STATES THAT PT HAS A "MILD INFILTRATE" - CONTINUE WITH PT ON IV ANTIBIOTICS, CONTINUE WITH SERIAL CHEST XRAYS, BREATHING TREATMENTS. ANXIETY - RESTART ATIVAN ORALLY TODAY. HTN - STABLE. WEAKNESS - WILL NEED TO START PHYSICAL THERAPY ONCE PT IS OFF OF CARDIZEM DRIP. Clinical Quality Measures DVT/VTE Risk/Contraindication: Risk Factor Score Per Nursin RFS Level Per Nursing on Admit: 3=High JALEEL NIEVES MD Jul 31, 2016 08:31
[2016-07-31] MEDS: LORazepam 0.5 MG (ATIVAN) TABLET PO SCH ×3 (08:48→20:57)
[2016-07-31] MEDS: RT-LEVALBUTEROL (XOPENEX) 1.25 MG/3 ML NEB NON-FORMULARY INH SCH ×3 (09:58→21:20)
[2016-07-31] MEDS ORDERED: TROUGH ORDER-PHARMACY XX NR (14:00)
[2016-07-31] MEDS: LEVOFLOXACIN IV 750 MG/150 ML (LEVAQUIN) BAG IV SCH (14:12)
[2016-07-31] MEDS ORDERED: proPOfol 200 MG/20 ML (DIPRIVAN) VIAL IV ONE (14:43)
[2016-07-31] MEDS ORDERED: MIDAZOLAM 5 MG/5 ML (VERSED) VIAL ONE (14:43)
[2016-07-31] MEDS ORDERED: NS IV 500 ML 500 ML ONE (14:47)
--- NOTE | 2016-07-31 15:11 | Electrophysiology Consultation ---
HPI-Cardiology Cardiology Consultation: Date of Consultation 07/31/16 Date of Admission Attending Physician Jaleel Silver MD Admitting Physician Jaleel Silver MD Consulting Physician Libertad CHRISTENSEN MD HPI: Chief Complaint: paroxysmal atrial flutter this is a 80-year-old gentleman who is a patient of Dr. Fong and Dr. Silver. He presents with complains of shortness of breath which has been worsening for the last few days, mild orthopnea. He has a home oximeter which gives oxygen saturation as well as pulse Rate. Yesterday he noted his pulse to be above 130 BPM. Therefore, he came to the emergency department for worsening shortness of breath and rapid heart beating. The patient denies any other cardiac symptoms including chest pain, syncope, near-syncope. the patient has extensive cardiac history which includes history of CABG, aortobifemoral bypass, paroxysmal atrial fibrillation previously on amiodarone. Echocardiogram done in February showed normal ejection fraction and borderline normal left atrial diameter. Preliminary echocardiogram done today shows LVEF of 30 percent which could be secondary to tachycardia. he had a nuclear stress test which did not show any evidence of ischemia. He has previous history of cardioversions. He has been on Eliquis regularly for at least the last one month. Review of Systems-Cardiology Review of Systems Constitutional: No As described under HPI, No no symptoms reported, No chills, No fever, No lightheadedness, No malaise, No tiredness, No weight loss, No weight gain, No other Eyes: No As described under HPI, No no symptoms reported, No blindness, No blurred vision, No contact lenses, No drainage, No decreased acuity, No foreign body sensation, No glasses, No inflammation, No pain, No photophobia, No previous injury, No shadows, No tunnel vision, No other, No vision change Ears/Nose/Throat: No As described under HPI, No no symptoms reported, No chronic hearing loss, No epistaxis, No ear discharge, No ear pain, No loose teeth, No mouth pain, No mouth swelling, No nasal drainage, No nose pain, No recent hearing loss, No throat pain, No throat swelling, No ulcerations, No other Respiratory: orthopnea, shortness of breath Cardiovascular: No no symptoms reported, No As described under HPI, No chest pain, No edema, irregular heart rate, No lightheadedness, No palpitations, No syncope, No other Gastrointestinal: No no symptoms reported, No As described under HPI, No abdomen distended, No abdominal pain, No blood streaked bowels, No constipation , No diarrhea, No difficulty swallowing, No nausea, No poor appetite, No poor fluid intake, No rectal bleeding, No vomiting, No other, No nausea/vomiting/ diarrhea, No stool coloration changes Genitourinary: No no symptoms reported, No As described under HPI, No burning, No dysuria, No discharge, No frequency, No flank pain, No hematuria, No incontinence, No pain, No urgency, No other, No urine frequency changes, No urine coloration changes Musculoskeletal: No no symptoms reported, No As describe under HPI, No back pain, No gout, No joint pain, No joint swelling, No muscle pain, No muscle stiffness, No neck pain, No other Skin: No no symptoms reported, No As described under HPI, No change in color, No change in hair/nails, No dryness, No lesions, No lumps, No rash, No other, No skin related problems, No ulcerations, No rash on exposed areas, No ulcerations on exposed areas Psychiatric/Neurological: No As described under HPI, No anxiety, No depression , No emotional problems, No focal weakness, No headache, No no symptoms reported , No numbness, No other, No pre-existing deficit, No seizure, No syncope, No tingling, No tremors, No weakness All Other Systems Reviewed Negative Unless Noted: Yes DHW-Euhaci-Juffow Hx Patient Social History Marrital Status: Living Status: LIVES AT HOME WITH Employed/Student: retired (LIVES AT HOME WITH ) Alcohol Use: Denies Use Recreational Drug Use: No Smoking Status: Former Smoker Former smoker/When Quit: Apr 08, 1983 Type Used: Cigarettes 2nd Hand Smoke Exposure: No Recent Foreign Travel: No Recent Infectious Disease Expo: No Hospitalization with Isolation: Denies Physical Abuse Screen: No Sexual Abuse: No Immunizations Up To Date Tetanus Booster (TDap): Unknown Date of Pneumonia Vaccine: Mar 04, 2013 Date of Influenza Vaccine: Dec 08, 2015 Past Medical History PMH As described under Assessment. Family Medical History Family History: Cancer 09 BROTHER 09 BROTHER 09 BROTHER Cancer of colon 09 BROTHER Stroke Allergies and Home Medications Allergies Coded Allergies: iodine (Verified Allergy, Unknown, 07/13/16) Home Medications Albuterol Sulfate 8.5 Gm Hfa.aer.ad, 1 PUFF IH BID, (Reported) Amlodipine Besylate 10 Mg Tablet, 10 MG PO DAILY for 90 Days, #90 Ref 3 Prescribed by: JALEEL SILVER on 07/23/16929 Apixaban 5 Mg Tablet, 5 MG PO BID, (Reported) Aspirin 81 Mg Tablet.dr, 81 MG PO HS, (Reported) Benzonatate 100 Mg Capsule, 200 MG PO TID PRN for COUGH-1ST LINE for 30 Days, # 60 Prescribed by: JALEEL SILVER on 07/23/1630 Budesonide/Formoterol Fumarate 10.2 Gm Hfa.aer.ad, 2 PUFF IH BID, (Reported) Carboxymethylcellulose Sodium 15 Ml Drops, 1 DROP OU DAILY PRN PRN for DRY EYES, (Reported) Carvedilol 12.5 Mg Tablet, 12.5 MG PO BID, (Reported) Cetirizine HCl 10 Mg Tablet, 10 MG PO DAILY, (Reported) Ezetimibe 10 Mg Tablet, 10 MG PO HS, (Reported) Famotidine 20 Mg Tablet, 20 MG PO BID PRN for INDIGESTION for 30 Days, #60 Prescribed by: JALEEL SILVER on 07/23/1630 Fenofibrate Nanocrystallized 145 Mg Tablet, 145 MG PO HS, (Reported) Furosemide 20 Mg Tablet, 20 MG PO BID@ for 30 Days, #60 Ref 3 Prescribed by: JALEEL SILVER on 07/23/1630 Guaifenesin 600 Mg Tab.er.12h, 600 MG PO BID for 30 Days, #60 Prescribed by: JALEEL SILVER on 07/23/1630 Isosorbide Mononitrate 60 Mg Tab, 60 MG PO DAILY, (Reported) Levalbuterol HCl 1.25 Mg/3 Ml Vial.neb, 1.25 MG IH QID PRN for DYSPNEA, ( Reported) Lorazepam 0.5 Mg Tablet, 0.25 MG PO TID for 30 Days, #90 Ref 2 Prescribed by: JALEEL SILVER on 07/23/1630 Montelukast Sodium 10 Mg Tablet, 10 MG PO HS, (Reported) Multivitamins W-Iron 1 Tab.chew Tab.chew, 1 TAB.CHEW PO BID, (Reported) Nitroglycerin 0.4 Mg Tab.subl, 0.4 MG PO UD PRN for CHEST PAIN, (Reported) DISSOLVE 1 TAB UNDER TONGUE EVERY 5 MINUTES NEEDED; NOT TO EXCEED 3 DOSES IN 15 MINUTES Prednisone 20 Mg Tab, 40 MG PO DAILY@0700 for 30 Days, #30 Ref 2 40mg daily x 2weeks then decrease to 30mg daily x 2weeks, then 20mg daily x 2weeks, taper down to 10mg daily if able Prescribed by: JALEEL SILVER on 07/23/16 0930 Tramadol HCl 50 Mg Tablet, 50-100 MG PO EVERY 4-6 HOURS PRN for PAIN, (Reported ) Vit A,C & E/Lutein/Minerals 1 Each Tablet, 1 TAB PO DAILY, (Reported) [Duolin 100MCG/20MCG] , 1 PUFF IH DAILY PRN, (Reported) Physical Exam-Cardiology Physical Exam Vital Signs/I&O Vital Sign - Last 12Hours 07/31/16 07/31/16 07/31/16 07/31/16 03:56 04:00 04:05 05:00 Temp 97.5 Pulse 101 98 Resp 14 16 B/P (MAP) 126/79 134/88 Pulse Ox 98 97 97 96 O2 Delivery Nasal Cannula Nasal Cannula O2 Flow Rate 3.00 3.00 3.00 3.00 07/31/16 07/31/16 07/31/16 07/31/16 06:00 07:00 07:00 07:58 Pulse 107 89 105 106 Resp 12 13 B/P (MAP) 142/90 115/100 112/82 Pulse Ox 97 98 97 O2 Delivery Nasal Cannula Nasal Cannula O2 Flow Rate 3.00 3.00 07/31/16 07/31/16 07/31/16 07/31/16 08:00 08:00 09:58 12:04 Temp 98.2 97.7 B/P (MAP) Pulse Ox 97 96 O2 Delivery Nasal Cannula Nasal Cannula O2 Flow Rate 3.00 3.00 3.00 3.00 Intake and Output 07/31/16 00:00 Intake Total 790 ml Output Total 3400 ml Balance -2610 ml Capillary Refill : Less Than 3 Seconds Constitutional: No appears stated age, No AAO x 3, No apparent distress, No PERRL, No well-developed, No well-nourished, No other HEENT: No PERRL, No normal ENT inspection, No TMs normal, No pharynx normal, No scleral icterus (R), No scleral icterus (L), No pale conjunctivae (R), No pale conjunctivae (L), No photophobia, No TM abnormal (R), No TM abnormal (L), No pharyngeal erythema, No tonsillar exudate, No other, No discharge, No EOMI, No hearing is well preserved, No hard of hearing, No oral hygience is good, No ulceration, No xanthelasmas are seen Neck: non-tender, supple, carotid pulses are 2 + bilaterally Respiratory: chest expansion is symmetric, chest is bilaterally symmetric, other (poor air entry bilaterally) Cardiovascular: irregularly irregular, S1 and S2, other (no murmur.) Gastrointestinal: No tender, No soft, No round, No distended, No pulsatile mass , No organomegaly, No guarding, No rebound, No tenderness, No hernia, No mass, No audible bowel sounds, No abnormal bowel sounds, No abdominal bruits, No spleenomegaly, No other Rectal: deferred Extremities: No normal range of motion, No non-tender, No normal inspection, No pedal edema, No calf tenderness, No normal capillary refill, No pelvis stable , No calf tenderness, No inflammation, No pedal edema, No slow capillary refill , No swelling, No other, No abrasion, No clubbing, No cyanosis, No ecchymosis, No laceration, No no lower extremity edema bilateral, No significant edema, No tenderness, No wound Neurologic/Psychiatric: No plant director II-XII nml as tested, No no motor/sensory deficits, No alert, No normal mood/affect, No oriented x 3, No abnormal cerebellar tests, No abnormal plant director II-XII, No abnormal gait, No aphasia, No EOM palsy, No facial droop, No motor weakness, No sensory deficit, No depressed affect, No disoriented x 3, No other, No grossly intact, No power is 5/5 both on sides Skin: No normal color, No warm/dry, No cyanosis, No cool, No diaphoresis, No damp, No ecchymosis, No jaundice, No mottled, pallor, No rash, No tattoos/ piercings, No ulcerations, No rash on exposed areas, No ulcerations on exposed areas, other (See above) Data Review Labs Laboratory Tests 07/31/16 04:18: White Blood Count 8.1, Red Blood Count 3.09L, Hemoglobin 9.4L, Hematocrit 30L, Mean Corpuscular Volume 97, Mean Corpuscular Hemoglobin 30, Mean Corpuscular Hemoglobin Concent 31L, Red Cell Distribution Width 13.2, Platelet Count 98L, Mean Platelet Volume 10.1, Neutrophils (%) (Auto) 86H, Lymphocytes (%) (Auto) 8L , Monocytes (%) (Auto) 6, Eosinophils (%) (Auto) 0, Basophils (%) (Auto) 0, Neutrophils # (Auto) 7.0, Lymphocytes # (Auto) 0.7L, Monocytes # (Auto) 0.5, Eosinophils # (Auto) 0.0, Basophils # (Auto) 0.0, Sodium Level 141, Potassium Level 3.9, Chloride Level 100, Carbon Dioxide Level 32, Anion Gap 9, Blood Urea Nitrogen 40H, Creatinine 1.03, Estimat Glomerular Filtration Rate > 60, BUN/ Creatinine Ratio 39, Glucose Level 90, Calcium Level 8.6, Phosphorus Level 3.3, Magnesium Level 1.8, Total Bilirubin 0.5, Aspartate Amino Transf (AST/SGOT) 13, Alanine Aminotransferase (ALT/SGPT) 23, Alkaline Phosphatase 36L, B-Type Natriuretic Peptide 568.6H, Total Protein 5.1L, Albumin 2.7L 07/31/16 09:03: Troponin I < 0.30 07/31/16 14:40: Vancomycin Level Trough 20.9H Microbiology 07/30/16 Influenza Types A,B Antigen (ERIKA) - Final, Complete ECG Impression ECG Comment atrial flutter with variable rate. Right bundle branch block. Prolonged QTC interval A/P-Cardiology Assessment/Admission Diagnosis pneumonia, sepsis, Coronary artery disease, status post CABG, PAD, status post aortobifemoral bypass. mild systolic congestive heart failure, atrial fibrillation/ atrial flutter with rapid ventricular rate Plan pneumonia, sepsis: on IV antibiotics, deferred to Dr. Silver. Coronary artery disease, status post CABG: deferred to Dr. Fong PAD, status post aortobifemoral bypass: deferred to Dr. Fong mild systolic congestive heart failure: deferred to Dr. Fong atrial fibrillation/ atrial flutter with rapid ventricular rate: Discussed at length with the patient and family. The patient has history of significant coronary artery disease and new diagnosed systolic dysfunction with an EF of 30 percent. His initial EKG shows rapid atrial flutter, with adenosine IV the flutter waves were more prominent. QTC interval is prolonged during atrial flutter. QTC was 497 ms. Patient's creatinine clearance is normal with a GFR > 60 mL per minute. he is not on any significant CYP 450 inhibitors. He has been taking uninterrupted Eliquis for at least the last one month. He was previously on amiodarone which was discontinued due to bradycardia. He is tolerating carvedilol and IV Cardizem. I therefore discussed with Dr. Fong and the patient and family and decided to perform direct electrical cardioversion. All the risks and benefits were explained in detail including the risk of stroke. Once the patient accepted all the risks and benefits we'll proceed with electrical cardioversion. successful cardioversion with synchronized 200 J shock. Post cardioversion EKG shows sinus rhythm at 55 bpm with right bundle branch block and QTC of 429 ms. I have discussed with our pharmacy staff and we will start dofetilide 500 g twice a day based on the criteria. EKG will be performed 2 hours post cardioversion for measuring QTc interval. We will also check magnesium levels. Careful and supervised telemetry is also emphasized. He will need to be hospitalized for another 72 hours. I also briefly discussed atrial flutter ablation with them which we may consider as an outpatient. It took me over 60 minutes to take care of the patient in the critical care unit. Thank you for your consultation. Please call me if you have any questions. Samantha Christensen MD, RS, CCDS Cardiac Electrophysiology Clinical Quality Measures DVT/VTE Risk/Contraindication: Risk Factor Score Per Nursin RFS Level Per Nursing on Admit: 3=High Libertad CHRISTENSEN MD Jul 31, 2016 3:11 pm
--- NOTE | 2016-07-31 15:15 | Progress Note-Standard ---
Standard Progress Note Progress Notes/Assess & Plan Progress/Assessment & Plan consent for cardioversion. start time 1450. end 1500. 2mg versed . 20mg diprivan given. pt tolerated procedure well. DOUGLAS LIN MANDARIN CHINESE TEACHER Jul 31, 2016 15:15
[2016-07-31] MEDS: VANCOMYCIN 1 GM/NS 250 ML IVPB IV SCH ×2 (15:57)
[2016-07-31] MEDS ORDERED: DOFETILIDE 125 MCG PO SCH (19:00)
[2016-07-31 19:37] LABS: CALCIUM 8.7 MG/DL (8.5-10.1); CREATININE SERUM 1.23 MG/DL (0.60-1.30); MAGNESIUM 1.7 MG/DL (1.8-2.4); POTASSIUM 3.8 MMOL/L (3.6-5.0)
[2016-07-31] MEDS: eZETimibe 10 MG (ZETIA) TABLET PO SCH (20:56)
[2016-07-31] MEDS: ASPIRIN E.C. 81 MG (ECOTRIN) TAB PO SCH (20:57)
[2016-08-01] VITALS (23 sets, daily range): BP systolic 111–170; BP diastolic 47–105
[2016-08-01] MEDS: PIPERACILLIN/TAZOBACTAM 4.5 GM/NS 100 ML IVPB IV SCH ×6 (01:17→16:52)
[2016-08-01] MEDS: RT-LEVALBUTEROL (XOPENEX) 1.25 MG/3 ML NEB NON-FORMULARY INH SCH ×4 (03:01→19:25)
[2016-08-01] MEDS: VANCOMYCIN 1 GM/NS 250 ML IVPB IV SCH ×4 (04:57→15:49)
[2016-08-01 05:24] LABS: BASOPHILS % (AUTO) 0 % (0-10); EOSINOPHILS # (AUTO) 0.1 10^3/uL (0.0-0.3); EOSINOPHILS % (AUTO) 1 % (0-10); LYMPHOCYTES # (AUTO) 0.7 X 10^3 (1.0-4.0); LYMPHOCYTES % (AUTO) 10 % (12-44); MEAN CORPUSCULAR HEMOGLOBIN 31 PG (25-34); MEAN CORPUSCULAR HGB CONC 31 G/DL (32-36); MEAN CORPUSCULAR VOLUME 98 FL (80-99); MEAN PLATELET VOLUME 9.9 FL (7.4-10.4); MONOCYTES # (AUTO) 0.4 X 10^3 (0.0-1.0); MONOCYTES % (AUTO) 6 % (0-12); NEUTROPHILS # (AUTO) 5.9 X 10^3 (1.8-7.8); NEUTROPHILS % (AUTO) 83 % (42-75); PLATELET COUNT 92 10^3/uL (130-400); RED BLOOD COUNT 3.21 10^6/uL (4.35-5.85); RED CELL DISTRIBUTION WIDTH 13.5 % (10.0-14.5); WHITE BLOOD COUNT 7.1 10^3/uL (4.3-11.0)
[2016-08-01 05:38] LABS: CALCIUM 8.7 MG/DL (8.5-10.1); CREATININE SERUM 1.19 MG/DL (0.60-1.30); MAGNESIUM 1.9 MG/DL (1.8-2.4); PHOSPHORUS 3.5 MG/DL (2.3-4.7); POTASSIUM 3.7 MMOL/L (3.6-5.0)
[2016-08-01] MEDS: POTASSIUM CL 10MEQ/50ML IVPB 50 ML IV SCH (06:00)
[2016-08-01] MEDS: MAGNESIUM 1 GM/100 ML IVPB 100 ML IV SCH (06:00)
[2016-08-01] MEDS: KCL 20 MEQ TAB (K-DUR) PO SCH (06:00)
[2016-08-01] MEDS: CATHETER FLUSH 10 ML SYR IV SCH ×3 (06:20→22:15)
[2016-08-01] MEDS: FUROSEMIDE 40 MG/4 ML INJ (LASIX) IVP SCH ×2 (07:00→16:52)
[2016-08-01] MEDS ORDERED: DOFETILIDE 125 MCG PO SCH (07:06)
[2016-08-01] MEDS ORDERED: KCL 20 MEQ TAB (K-DUR) PO NR (07:45)
--- NOTE | 2016-08-01 07:57 | Cardiology Progress Note ---
Subjective Subjective/Events-last exam patient is sitting in bed, comfortably, reporting improvement, still having some pedal edema, no chest pain or shortness of breath. Review of Systems General: No Chills, No Night Sweats, No Fatigue, No Malaise, No Appetite, No Other HEENT: No Head Aches, No Visual Changes, No Eye Pain, No Ear Pain, No Dysphasia , No Sinus Congestion, No Post Nasal Drip, No Sore Throat, No Other Pulmonary: No Dyspnea, No Cough, No Pleuritic Chest Pain, No Other Cardiovascular: Edema, No: Chest Pain, Lt Headedness, Orthopnea, Other, Palpitations, Paroxysmal Noc. Dyspnea Objective-Cardiology Exam Last Set of Vital Signs Vital Signs 08/01/16 06:00 Pulse 62 Resp 14 B/P (MAP) 138/66 Pulse Ox 96 O2 Delivery Nasal Cannula O2 Flow Rate 3.00 Capillary Refill : Less Than 3 Seconds I&O Intake and Output 08/01/16 00:00 Intake Total 989.5 ml Output Total 7490 ml Balance -6500.5 ml Intake Oral 250 ml IV Total 739.5 ml Output Urine Total 7490 ml # Bowel Movements 1 General: Alert, Oriented X3, Cooperative, Mild Distress HEENT: Atraumatic, PERRLA Neck: Supple, No JVD, No Thyromegaly Lungs: Clear to Auscultation, Normal Air Movement Heart: Regular Rate, Normal S1, Normal S2, No Murmurs, Other Abdomen: Normal Bowel Sounds, Soft, No Tenderness, No Hepatosplenomegaly, No Masses Extremities: No Clubbing, No Cyanosis, Normal Pulses, No Tenderness/Swelling, Other ( +2 pedal edema) Skin: No Rashes Neuro: Normal Speech, Normal Tone, Sensation Intact Psych/Mental Status: Mental Status NL, Mood NL Results Lab Laboratory Tests 07/31/16 19:12 08/01/16 04:45 A/P-Cardiology Admission Diagnosis Generalized weakness Paroxysmal atrial flutter Tachycardia Coronary artery disease Peripheral arterial disease Assessment/Plan Paroxysmal atrial fibrillation and flutter, alternating with sinus rhythm, has underlying sick sinus syndrome, multiple cardioversion in the past, maintained on Eliquis, underwent electrical cardioversion yesterday, currently in sinus rhythm, started on Tikosyn, appreciated Dr. Christensen input, continue to monitor daily EKG. Questionable pneumonia, chest x-ray is better, no leukocytosis, still receiving antibiotics, managed by Dr. Silver. COPD, multiple exacerbation, generalized weakness and debility. Cor pulmonale. Normal LV function. Extensive edema, anasarca, congestive heart failure, acute left ventricular systolic dysfunction, ejection fraction 30 percent, probably tachycardia induced. Continue to monitor at this time, continue diuretics. Chest pain nonspecific etiology, reporting improvement, no further episodes were reported at this time. Continue to monitor Coronary artery disease history of multiple intervention the past, history of CABG 1 done 5 years ago. Most recent stress test and 2D Echo done 2015 revealed no ischemia or infarct with normal EF, repeat echocardiogram on this admission showed ejection fraction 30 percent. History of bradycardia, likely secondary to medication. Improved after discontinuing Cardizem and amiodarone, patient may require ablation. Hyperlipidemia, continue to monitor Pulmonary hypertension, continue to monitor Peripheral arterial disease, history of aortobifemoral bypass. Continue to monitor. History of tobaccoism in the remote past History of pleural effusion. Followed by primary care physician Clinical Quality Measures DVT/VTE Risk/Contraindication: Risk Factor Score Per Nursin RFS Level Per Nursing on Admit: 3=High JESSICA BURRIS MD Aug 01, 2016 07:57
[2016-08-01] MEDS: DOFETILIDE 250 MCG CAP (TIKOSYN) NON-FORMLUARY PO SCH ×2 (07:59→18:25)
[2016-08-01] MEDS: APIXABAN 5 MG (ELIQUIS) TABLET PO SCH ×2 (07:59→21:28)
[2016-08-01] MEDS: CARVEDILOL 12.5 MG (COREG) TABLET PO SCH ×2 (07:59→21:28)
[2016-08-01] MEDS: MAGNESIUM 1 GM/D5W 100 ML IVPB IV SCH ×2 (07:59→08:04)
[2016-08-01] MEDS: LORazepam 0.5 MG (ATIVAN) TABLET PO SCH ×3 (08:04→21:29)
--- NOTE | 2016-08-01 08:05 | Diagnostic Imaging Report ---
EXAMINATION: Portable upright radiograph of the chest. INDICATION: Respiratory distress. FINDINGS: There is mild atelectasis suggested in the right lung base with low density opacities around the heart suggestive of pericardial fat pad. There is pulmonary hyperinflation and borderline cardiac size. Post sternotomy changes are seen. There is right sided pleural thickening similar to prior exams. The mediastinum and bahman appear unremarkable. IMPRESSION: Minimal right basilar atelectasis. Right pleural thickening. Dictated by: Dictated on workstation # [id number]
--- NOTE | 2016-08-01 08:47 | Progress Note (SOAP) ---
Subjective Subjective/Events-last exam THE PATIENT IS AN 80 Y/O MALE WHO IS KNOWN TO ME FROM CLINIC. HE WAS ADMITTED WITH PNEUMONIA AND AFLUTTER- DR. SAGASTUME PERFORMED A SUCCESSFUL CARDIOVERSION ON THE PATIENT YESTERDAY. HIS NOTES INDICATE THE NEED TO HAVE THE PT HOSPITALIZED FOR ANOTHER 72 HOURS POST CARDIOVERSION. TODAY THE PATIENT STATES THAT HE FEELS... Review of Systems General: Fatigue HEENT: No Head Aches Pulmonary: Dyspnea, Cough Cardiovascular: No: Chest Pain Gastrointestinal: No: Abdominal Pain, Nausea Neurological: Weakness, No: Confusion Objective Exam Vital Signs Date Time Temp Pulse Resp B/P (MAP) Pulse Ox O2 Delivery O2 Flow Rate FiO2 08/01/16 07:00 68 08/01/16 06:00 62 14 138/66 96 Nasal Cannula 3.00 08/01/16 05:00 58 15 144/61 95 Nasal Cannula 3.00 08/01/16 04:00 96.8 91 12 140/78 98 Nasal Cannula 2.00 08/01/16 04:00 96 2.00 08/01/16 03:01 98 3.00 08/01/16 03:00 95 15 141/78 97 Nasal Cannula 3.00 08/01/16 02:00 59 15 116/65 97 Nasal Cannula 3.00 08/01/16 01:07 58 08/01/16 01:00 56 15 134/73 97 Nasal Cannula 3.00 08/01/16 00:00 96.8 56 16 113/55 96 Nasal Cannula 3.00 08/01/16 00:00 96 3.00 07/31/16 23:00 53 17 123/56 95 Nasal Cannula 3.00 07/31/16 22:00 54 17 118/58 96 Nasal Cannula 3.00 07/31/16 21:20 96 3.00 07/31/16 21:00 63 34 115/47 96 Nasal Cannula 3.00 07/31/16 20:00 98.2 64 12 120/57 95 Nasal Cannula 3.00 07/31/16 20:00 98 3.00 07/31/16 19:00 72 07/31/16 19:00 71 16 143/65 96 Nasal Cannula 3.00 07/31/16 18:00 69 17 125/74 96 Nasal Cannula 3.00 07/31/16 17:00 69 24 114/53 94 Nasal Cannula 3.00 07/31/16 16:00 98 3.00 07/31/16 16:00 70 31 127/67 100 Nasal Cannula 3.00 07/31/16 15:55 97 3.00 07/31/16 15:53 135/69 07/31/16 15:00 57 16 135/69 95 Nasal Cannula 3.00 07/31/16 14:00 115 21 118/95 95 Nasal Cannula 3.00 07/31/16 13:00 128 20 115/78 96 Nasal Cannula 3.00 07/31/16 13:00 103 07/31/16 12:20 98 3.00 07/31/16 12:04 97.7 Nasal Cannula 3.00 07/31/16 12:00 112 17 126/88 96 Nasal Cannula 3.00 07/31/16 11:00 105 29 101/79 95 Nasal Cannula 3.00 07/31/16 10:00 107 32 115/74 94 Nasal Cannula 3.00 07/31/16 09:58 96 3.00 07/31/16 09:00 112 17 110/78 96 Nasal Cannula 3.00 I & O 08/01/16 07:00 Intake Total 962 ml Output Total 7650 ml Balance -6688 ml Capillary Refill : Less Than 3 Seconds General Appearance: No Apparent Distress, WD/WN HEENT: PERRL/EOMI, Pharynx Normal Neck: Full Range of Motion, Supple Respiratory: Chest Non Tender, Decreased Breath Sounds Cardiovascular: Irregularly Irregular Gastrointestinal: normal bowel sounds, non tender, soft, no organomegaly, no pulsatile mass Extremity: Pedal Edema (IMPROVED EDEMA) Neurologic/Psychiatric: Alert, Oriented x3, No Motor/Sensory Deficits, 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 Skin: Warm/Dry Lymphatic: No Adenopathy Results Lab Laboratory Tests 07/31/16 09:03: Troponin I < 0.30 07/31/16 14:40: Vancomycin Level Trough 20.9H 07/31/16 19:12: Sodium Level 141, Potassium Level 3.8, Chloride Level 98, Carbon Dioxide Level 31, Anion Gap 12, Blood Urea Nitrogen 38H, Creatinine 1.23, Estimat Glomerular Filtration Rate 56, BUN/Creatinine Ratio 31, Glucose Level 116H, Calcium Level 8.7, Magnesium Level 1.7L 08/01/16 04:45: Sodium Level 140, Potassium Level 3.7, Chloride Level 96L, Carbon Dioxide Level 32, Anion Gap 12, Blood Urea Nitrogen 37H, Creatinine 1.19, Estimat Glomerular Filtration Rate 59, BUN/Creatinine Ratio 31, Glucose Level 79, Calcium Level 8.7 , Magnesium Level 1.9, White Blood Count 7.1, Red Blood Count 3.21L, Hemoglobin 9.9L, Hematocrit 32L, Mean Corpuscular Volume 98, Mean Corpuscular Hemoglobin 31 , Mean Corpuscular Hemoglobin Concent 31L, Red Cell Distribution Width 13.5, Platelet Count 92L, Mean Platelet Volume 9.9, Neutrophils (%) (Auto) 83H, Lymphocytes (%) (Auto) 10L, Monocytes (%) (Auto) 6, Eosinophils (%) (Auto) 1, Basophils (%) (Auto) 0, Neutrophils # (Auto) 5.9, Lymphocytes # (Auto) 0.7L, Monocytes # (Auto) 0.4, Eosinophils # (Auto) 0.1, Basophils # (Auto) 0.0, Phosphorus Level 3.5 Microbiology 07/30/16 Blood Culture - Preliminary, Resulted No growth 07/30/16 Influenza Types A,B Antigen (ERIKA) - Final, Complete Assessment/Plan Assessment/Plan Assess & Plan/Chief Complaint PERIPHERAL EDEMA ANASARCA ATRIAL FIBRILLATION/FLUTTER PNEUMONIA TACHYCARDIA DYSPNEA ON EXERTION COPD EXACERBATION ANXIETY HYPERTENSION WEAKNESS AFIB/FLUTTER - MANAGED BY DR. BURRIS- AND DR. SAGASTUME - THE PT UNDERWENT SUCCESSFUL CARDIOVERSION BY . PT ON TIKOSYN - DOSING TO BE ADJUSTED - THE CONSULTATION NOTE INDICATES THE NEED FOR MR. PINEDA TO REMAIN IN THE HOSPITAL FOR ANOTHER 72 HOURS POST CARDIOVERSION. PERIPHERAL EDEMA WITH MILD ANASARCA - PT ON LASIX IV, WILL MONITOR OUTPUT -PT IS DOWN OVER 20 POUNDS OF FLUID WE WILL CONTINUE WITH DIURESIS FROM IV LASIX FOR THE NEXT FEW DAYS - SERIAL WEIGHTS, STRICT I/O. PT SHOULD SHOW EVEN MORE IMPROVEMENT WHEN THE PATIENT HAS CONTROL OF HEART RATE. PNEUMONIA - ? OF ACCURACY OF THE CHEST XRAY - CHEST XRAY CLEAR - WHITE COUNT OKAY - AT THIS TIME - WILL STOP IV ANTIBIOTICS. ANXIETY - RESTARTED ATIVAN ORALLY TODAY. HTN - STABLE. WEAKNESS - START PHYSICAL THERAPY TODAY Clinical Quality Measures DVT/VTE Risk/Contraindication: Risk Factor Score Per Nursin RFS Level Per Nursing on Admit: 3=High JALEEL NIEVES MD Aug 01, 2016 08:47
--- NOTE | 2016-08-01 10:39 | OPERATIVE REPORT ---
DATE OF SERVICE: 07/31/2016 PROCEDURE: Direct electrical cardioversion PERFORMING PHYSICIAN: Kiera Christensen MD REFERRING PHYSICIAN: Dao Fong MD FAMILY PHYSICIAN: Frannie Silver MD INDICATION: Atrial fibrillation/atrial flutter with rapid ventricular rate. PREOPERATIVE DIAGNOSIS: Atrial fibrillation/atrial flutter with rapid ventricular rate. POSTOPERATIVE DIAGNOSIS: Successful external direct cardioversion. PROCEDURE DETAILS: After informed consent, all the risks and complications were explained in detail, especially the risk of stroke. The patient presented with atrial fibrillation/atrial flutter with rapid ventricular rate refractory to medical therapy. After informed consent was taken with anesthesia on board, IV propofol was given. Direct electrical cardioversion was performed with synchronized 200 joule shock which converted the patient to sinus rhythm with PACs. Post cardioversion, EKG showed sinus rhythm at 555 BPM with right bundle branch block and QTc interval of 429 msec. Frequent neurological evaluation will be performed post cardioversion. There were no immediate complications. The patient tolerated the procedure well. IMPRESSION AND CONCLUSION: 1. Successful direct electrical cardioversion with single 200 joule synchronized shock which converted atrial fibrillation with rapid ventricular rate to sinus rhythm. 2. Continue Eliquis for stroke prevention. 3. Continue neurological evaluation in the ICU. 4. Continue ICU care as per the primary team. Job ID: [id number] DocumentID: [id number] Dictated Date: 07/31/2016 15:31:58 Gift Shop Clerk Date: 08/01/2016 08:27:48 Dictated By: KIERA CHRISTENSEN MD
--- NOTE | 2016-08-01 10:42 | ECHOCARDIOGRAPHY REPORT ---
DATE OF SERVICE: 07/30/2016 PROCEDURE: 2D Echocardiogram. REFERRING PHYSICIAN: Dr. Silver. INDICATION: Atrial tachycardia/atrial flutter. MEASUREMENT: LVID end diastolic 4.3, IVS thickness 1.1, LVPW thickness 1, left atrial diameter 4.1, ejection fraction 35%. FINDINGS: 1. Technically suboptimal study. 2. The left ventricle is slightly prominent, diffuse left ventricular hypokinesia with dyskinesia of the septum, probably secondary to tachycardia, ejection fraction is reduced. Estimated ejection fraction 35%. 3. The left atrium is mildly dilated. No clot or thrombus was seen within the left atrium. 4. The right atrium and right ventricle are normal in size. No cloth or thrombus were seen within the right side. 5. The mitral valve is calcified with moderate mitral regurgitation noted by color Doppler flow. No mitral valve prolapse. No mitral valve stenosis. 6. The aortic valve is trileaflet with normal opening and closing pattern. No significant aortic valve stenosis or regurgitation was seen. 7. Tricuspid valve was normal in morphology with mild tricuspid regurgitation noted by color Doppler flow. Tricuspid valve estimated pulmonary artery pressure of 37 plus right atrial pressure. 8. Pulmonic valve is functioning normally. 9. No pericardial effusion. CONCLUSION: 1. Mild left ventricular hypertrophy, diffuse left ventricular hypokinesia, dyskinesia of the septum, the patient is tachycardic, ejection fraction estimated to be 35%. 2. Mildly dilated left atrium. 3. Moderate mitral regurgitation. Mild tricuspid regurgitation. 4. Estimated pulmonary artery pressure of 45 mmHg. Job ID: [id number] DocumentID: [id number] Dictated Date: 07/31/2016 14:52:42 I O Psychologist Date: 08/01/2016 06:40:18 Dictated By: JESSICA BURRIS MD
--- NOTE | 2016-08-01 13:45 | Cardiology Progress Note ---
Cardiology SOAP Progress Note Subjective: Significant improvement. Objective: I&O/Vital Signs Vital Sign - Last 12Hours 08/01/16 08/01/16 08/01/16 08/01/16 02:00 03:00 03:01 04:00 Pulse 59 95 Resp 15 15 B/P (MAP) 116/65 141/78 Pulse Ox 97 97 98 96 O2 Delivery Nasal Cannula Nasal Cannula O2 Flow Rate 3.00 3.00 3.00 2.00 08/01/16 08/01/16 08/01/16 08/01/16 04:00 05:00 06:00 07:00 Temp 96.8 Pulse 91 58 62 68 Resp 12 15 14 B/P (MAP) 140/78 144/61 138/66 Pulse Ox 98 95 96 O2 Delivery Nasal Cannula Nasal Cannula Nasal Cannula O2 Flow Rate 2.00 3.00 3.00 08/01/16 08/01/16 08/01/16 08/01/16 08:00 08:04 09:26 12:30 Temp 97.8 B/P (MAP) Pulse Ox 96 92 98 O2 Flow Rate 3.00 3.00 2.00 3.00 08/01/16 12:30 Temp 96.6 B/P (MAP) O2 Delivery Nasal Cannula O2 Flow Rate 3.00 Intake and Output 07/31/16 23:59 Intake Total 377 ml Output Total 2700 ml Balance -2323 ml Weight (Pounds): 212 Weight (Ounces): 6.4 Weight (Calculated Kilograms): [id number] Constitutional: No appears stated age, No AAO x 3, No apparent distress, No PERRL, No well-developed, No well-nourished, No other Respiratory: chest expansion is symmetric, chest is bilaterally symmetric, other (poor air entry bilaterally) Cardiovascular: regular rate-rhythm, S1 and S2, other (no murmur.) Gastrointestional: No tender, No soft, No round, No distended, No pulsatile mass, No organomegaly, No guarding, No rebound, No tenderness, No hernia, No mass, No audible bowel sounds, No abnormal bowel sounds, No abdominal bruits, No spleenomegaly, No other Extremities: No normal range of motion, No non-tender, No normal inspection, No pedal edema, No calf tenderness, No normal capillary refill, No pelvis stable , No calf tenderness, No inflammation, No pedal edema, No slow capillary refill , No swelling, No other, No abrasion, No clubbing, No cyanosis, No ecchymosis, No laceration, No no lower extremity edema bilateral, No significant edema, No tenderness, No wound Neurologic/Psychiatric: No dinkey engine mechanic II-XII nml as tested, No no motor/sensory deficits, No alert, No normal mood/affect, No oriented x 3, No abnormal cerebellar tests, No abnormal dinkey engine mechanic II-XII, No abnormal gait, No aphasia, No EOM palsy, No facial droop, No motor weakness, No sensory deficit, No depressed affect, No disoriented x 3, No other, No grossly intact, No power is 5/5 both on sides Skin: No normal color, No warm/dry, No cyanosis, No cool, No diaphoresis, No damp, No ecchymosis, No jaundice, No mottled, pallor, No rash, No tattoos/ piercings, No ulcerations, No rash on exposed areas, No ulcerations on exposed areas, other (See above) Results/Procedures: Labs Laboratory Tests 07/31/16 14:40: Vancomycin Level Trough 20.9H 07/31/16 19:12: Sodium Level 141, Potassium Level 3.8, Chloride Level 98, Carbon Dioxide Level 31, Anion Gap 12, Blood Urea Nitrogen 38H, Creatinine 1.23, Estimat Glomerular Filtration Rate 56, BUN/Creatinine Ratio 31, Glucose Level 116H, Calcium Level 8.7, Magnesium Level 1.7L 08/01/16 04:45: Sodium Level 140, Potassium Level 3.7, Chloride Level 96L, Carbon Dioxide Level 32, Anion Gap 12, Blood Urea Nitrogen 37H, Creatinine 1.19, Estimat Glomerular Filtration Rate 59, BUN/Creatinine Ratio 31, Glucose Level 79, Calcium Level 8.7 , Magnesium Level 1.9, White Blood Count 7.1, Red Blood Count 3.21L, Hemoglobin 9.9L, Hematocrit 32L, Mean Corpuscular Volume 98, Mean Corpuscular Hemoglobin 31 , Mean Corpuscular Hemoglobin Concent 31L, Red Cell Distribution Width 13.5, Platelet Count 92L, Mean Platelet Volume 9.9, Neutrophils (%) (Auto) 83H, Lymphocytes (%) (Auto) 10L, Monocytes (%) (Auto) 6, Eosinophils (%) (Auto) 1, Basophils (%) (Auto) 0, Neutrophils # (Auto) 5.9, Lymphocytes # (Auto) 0.7L, Monocytes # (Auto) 0.4, Eosinophils # (Auto) 0.1, Basophils # (Auto) 0.0, Phosphorus Level 3.5 Microbiology 07/30/16 Blood Culture - Preliminary, Resulted No growth 07/30/16 Influenza Types A,B Antigen (ERIKA) - Final, Complete A/P: Assessment/Dx: pneumonia, sepsis, Coronary artery disease, status post CABG, PAD, status post aortobifemoral bypass. mild systolic congestive heart failure, atrial fibrillation/ atrial flutter with rapid ventricular rate Plan: pneumonia, sepsis: on IV antibiotics, deferred to Dr. Silver. Coronary artery disease, status post CABG: deferred to Dr. Fong PAD, status post aortobifemoral bypass: deferred to Dr. Fong mild systolic congestive heart failure: deferred to Dr. Fong atrial fibrillation/ atrial flutter with rapid ventricular rate: Electrical cardioversion to sinus rhythm yesterday. Started on dofetilide. Latest QTc interval on EKG is 488 ms. His currently on dofetilide 250 g twice a day. We' ll continue to monitor. EKGs before each dose and 2 hour after dose for QTc interval measurements. Continuous telemetry for at least 72 hours after the first dose. Aggressive repletion of potassium and magnesium is recommended. Thank you for your consultation. Please call me if you have any questions. Samantha Christensen MD, [facility], CCD[facility] Cardiac Electrophysiology [place] CHRISTENSEN MD Aug 01, 2016 1:45 pm
[2016-08-01] MEDS ORDERED: TROUGH ORDER-PHARMACY XX ONE (15:00)
--- NOTE | 2016-08-01 16:12 | Physical Therapy Evaluation ---
PT Evaluation-General Medical Diagnosis Admission Date Jul 30, 2016 at 11:17 Medical Diagnosis: a-fib, weakness Onset Date: Jul 30, 2016 Therapy Diagnosis Therapy Diagnosis: impaired mobility, debility, decreased endurance Height/Weight Height (Feet): 6 Height (Inches): 4.00 Weight (Pounds): 212 Weight (Ounces): 6.4 Precautions Precautions/Isolations: Fall Prevention, Standard Precautions Referral Physician: Fermin TOTH Reason for Referral: Evaluation/Treatment Medical History Pertinent Medical History: Arthritis, CABG, CAD, COPD, HTN, Smoking Additional Medical History home O2, emphysema, macular degeneration, prostate CA, coronary stent, gallbladder surg, 2 hernia repairs, lap choly Current History Patient went to the hospital after 2-3 days of feeling poorly -> pneumonia, a- flutter Reviewed History: Yes Social History Home: Single Level Current Living Status: Significant Other Entry Into Home: Stairs With Railing PT Steps Into Home: 1 Prior/Core FIM Prior Level of Function Functional [place] Measure 0=Not Assessed/NA 4=Minimal Assistance 1=Total Assistance 5=Supervision or Setup 2=Maximal Assistance 6=Modified [place] 3=Moderate Assistance 7=Complete [place] Bed Mobility: 6 Transfers (B,C,W/C) (FIM): 6 Gait: 6 Patient used a single point cane PT Evaluation-Current Subjective Patient in bed pre tx, agrees to PT, no complaints of pain, he will need a portable telemetry to ambulate. Pt/Family Goals to be independent at home Objective Patient Orientation: Normal For Age Attachments: Oxygen, Desouza Catheter ROM/Strength ROM Lower Extremities WNL Strenght Lower Extremities 4/5 gross bilateral lower extremities Integumentary/Posture Integumentary significant edema both lower extremities, family states it has gone down a lot Bladder Incontinence: Desouza Cath Neuromuscular (Tone, Coordination, Reflexes) WNL Sensory Vision: Functional Hearing: Functional Sensation Right Lower Extremit: Intact Sensation Left Lower Extremity: Intact Transfers Functional [place] Measure 0=Not Assessed/NA 4=Minimal Assistance 1=Total Assistance 5=Supervision or Setup 2=Maximal Assistance 6=Modified [place] 3=Moderate Assistance 7=Complete [place] Transfers (B, C, W/C) (FIM): 4 Scootin Rollin Supine to/from Sit: 4 Sit to/from Stand: 4 CGA, needs min assist only for supine to sit Gait Mode of Locomotion: Walk Anticipated Mode of Locomotion: Walk Gait (FIM): 2 Distance: 100' Gait Level of Assist: 4 Gait Persons Needed: 1 Gait Assistive Device: FWW Comments/Gait Description Patient ambulated 100' with CGA using a rolling walker, instructed to purse lip breathe, O2 was 83% when we got back to his room but came up after resting shortly. 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 Residential Goals PT Residential Goals Time Frame: August 08, 2016 Transfers (B,C,W/C) (FIM): 5 Gait (FIM): 5 Distance: 150' Gait Level of Assist: 5 Gait Assistive Device: FWW PT Plan Problem List Problem List: Activity Tolerance, Functional Strength, Safety, Balance, Gait, Transfer, Bed Mobility Treatment/Plan Treatment Plan: Continue Plan of Care Treatment Plan: Bed Mobility, Education, Functional Activity Margy, Functional Strength, Gait, Safety, Therapeutic Exercise, Transfers Treatment Duration: August 08, 2016 # of days/week 5-6 Visits Per Week: 5-6 Minutes/Day (M-F): 15-30 Minutes/Day (Sat/Chaudhari): 15-30 Pt/Family Agrees w/Plan: Yes Safety Risks/Education Patient Education: Gait Training, Transfer Techniques, Correct Positioning, Safety Issues Teaching Recipient: Patient Teaching Methods: Demonstration, Discussion Response to Teaching: Reinforcement Needed Discharge Recommendations Plan Patient will perform bed mobility and transfer training, balance and endurance training, functional strengthening, stair training, gait training, and education to improve functional mobility and independence at home. Therapy D/C Recommendations: Home w/ Family Support Time/GCodes Time In: 1545 Time Out: 1603 Total Billed Treatment Time: 18 Total Billed Treatment 1 visit SEN 18' CODIE ESQUIVEL PT Aug 01, 2016 16:12
[2016-08-01] MEDS: ASPIRIN E.C. 81 MG (ECOTRIN) TAB PO SCH (21:28)
[2016-08-01] MEDS: eZETimibe 10 MG (ZETIA) TABLET PO SCH (21:28)
[2016-08-02] VITALS (23 sets, daily range): BP systolic 115–148; BP diastolic 42–92
[2016-08-02] MEDS: PIPERACILLIN/TAZOBACTAM 4.5 GM/NS 100 ML IVPB IV SCH ×2 (01:22)
[2016-08-02] MEDS: DILTIAZEM DRIP 100 MG/NS 100 ML IV SCH ×4 (02:00→23:56)
[2016-08-02] MEDS: RT-LEVALBUTEROL (XOPENEX) 1.25 MG/3 ML NEB NON-FORMULARY INH SCH ×4 (02:24→20:01)
[2016-08-02 04:24] LABS: BASOPHILS % (AUTO) 0 % (0-10); EOSINOPHILS # (AUTO) 0.1 10^3/uL (0.0-0.3); EOSINOPHILS % (AUTO) 2 % (0-10); LYMPHOCYTES # (AUTO) 0.6 X 10^3 (1.0-4.0); LYMPHOCYTES % (AUTO) 12 % (12-44); MEAN CORPUSCULAR HEMOGLOBIN 30 PG (25-34); MEAN CORPUSCULAR HGB CONC 31 G/DL (32-36); MEAN CORPUSCULAR VOLUME 99 FL (80-99); MEAN PLATELET VOLUME 10.1 FL (7.4-10.4); MONOCYTES # (AUTO) 0.4 X 10^3 (0.0-1.0); MONOCYTES % (AUTO) 9 % (0-12); NEUTROPHILS # (AUTO) 3.7 X 10^3 (1.8-7.8); NEUTROPHILS % (AUTO) 77 % (42-75); PLATELET COUNT 113 10^3/uL (130-400); RED BLOOD COUNT 3.16 10^6/uL (4.35-5.85); RED CELL DISTRIBUTION WIDTH 13.4 % (10.0-14.5); WHITE BLOOD COUNT 4.8 10^3/uL (4.3-11.0)
[2016-08-02 04:46] LABS: CALCIUM 8.6 MG/DL (8.5-10.1); CREATININE SERUM 1.2 MG/DL (0.60-1.30); MAGNESIUM 1.9 MG/DL (1.8-2.4); PHOSPHORUS 3.5 MG/DL (2.3-4.7); POTASSIUM 3.6 MMOL/L (3.6-5.0)
[2016-08-02] MEDS ORDERED: KCL 20 MEQ TAB (K-DUR) PO ONE (05:45)
[2016-08-02] MEDS: KCL 20 MEQ TAB (K-DUR) PO SCH (06:00)
[2016-08-02] MEDS: MAGNESIUM 1 GM/100 ML IVPB 100 ML IV SCH (06:00)
[2016-08-02] MEDS: POTASSIUM CL 10MEQ/50ML IVPB 50 ML IV SCH (06:00)
[2016-08-02] MEDS: CATHETER FLUSH 10 ML SYR IV SCH ×3 (06:33→22:00)
[2016-08-02] MEDS: FUROSEMIDE 40 MG/4 ML INJ (LASIX) IVP SCH (06:50)
--- NOTE | 2016-08-02 07:03 | Cardiology Progress Note ---
Subjective Subjective/Events-last exam patient is laying down in bed, eating breakfast, feeling better, heart rate is controlled, QT interval is 482 Review of Systems General: No Chills, No Night Sweats, No Fatigue, No Malaise, No Appetite, No Other HEENT: No Head Aches, No Visual Changes, No Eye Pain, No Ear Pain, No Dysphasia , No Sinus Congestion, No Post Nasal Drip, No Sore Throat, No Other Pulmonary: No Dyspnea, No Cough, No Pleuritic Chest Pain, No Other Cardiovascular: No: Chest Pain, Edema, Lt Headedness, Orthopnea, Other, Palpitations, Paroxysmal Noc. Dyspnea Objective-Cardiology Exam Last Set of Vital Signs Vital Signs 08/02/16 06:00 Pulse 68 Resp 13 B/P (MAP) 148/65 Pulse Ox 98 O2 Delivery Nasal Cannula O2 Flow Rate 3.00 Capillary Refill : Less Than 3 Seconds I&O Intake and Output 08/02/16 00:00 Intake Total 1580 ml Output Total 5850 ml Balance -4270 ml Intake Oral 850 ml IV Total 730 ml Output Urine Total 5850 ml General: Alert, Oriented X3, Cooperative, Mild Distress HEENT: Atraumatic, PERRLA Neck: Supple, No JVD, No Thyromegaly Lungs: Clear to Auscultation, Normal Air Movement Heart: Regular Rate, Normal S1, Normal S2, No Murmurs, Other Abdomen: Normal Bowel Sounds, Soft, No Tenderness, No Hepatosplenomegaly, No Masses Extremities: No Clubbing, No Cyanosis, Normal Pulses, No Tenderness/Swelling, Other ( +2 pedal edema) Skin: No Rashes Neuro: Normal Speech, Normal Tone, Sensation Intact Psych/Mental Status: Mental Status NL, Mood NL Results Lab Laboratory Tests 08/02/16 03:30 A/P-Cardiology Admission Diagnosis Generalized weakness Paroxysmal atrial flutter Tachycardia Coronary artery disease Peripheral arterial disease Assessment/Plan Paroxysmal atrial fibrillation and flutter, alternating with sinus rhythm, has underlying sick sinus syndrome, multiple cardioversion in the past, maintained on Eliquis, underwent electrical cardioversion on July 31, 2016, currently in sinus rhythm, started on Tikosyn, appreciated Dr. Christensen input, continue to monitor daily EKG, okay for discharge tomorrow Questionable pneumonia, no leukocytosis, still receiving antibiotics, managed by Dr. Nadeem. COPD, multiple exacerbation, generalized weakness and debility. Cor pulmonale. Normal LV function. Extensive edema, anasarca, congestive heart failure, acute left ventricular systolic dysfunction, ejection fraction 30 percent, probably tachycardia induced , fluid balance is -13 L, I will change Lasix to oral Chest pain nonspecific etiology, reporting improvement, no further episodes were reported at this time. Continue to monitor Coronary artery disease history of multiple intervention the past, history of CABG 1 done 5 years ago. Most recent stress test and 2D Echo done 2015 revealed no ischemia or infarct with normal EF, repeat echocardiogram on this admission showed ejection fraction 30 percent, planning to monitor LV function closely, I will repeat echocardiogram in a month. History of bradycardia, likely secondary to medication. Improved after discontinuing Cardizem and amiodarone, patient may require ablation. Hyperlipidemia, continue to monitor Pulmonary hypertension, continue to monitor Peripheral arterial disease, history of aortobifemoral bypass. Continue to monitor. History of tobaccoism in the remote past History of pleural effusion. Followed by primary care physician Clinical Quality Measures DVT/VTE Risk/Contraindication: Risk Factor Score Per Nursin RFS Level Per Nursing on Admit: 3=High JESSICA BURRIS MD Aug 02, 2016 07:03
--- NOTE | 2016-08-02 07:57 | Diagnostic Imaging Report ---
Clinical indication: Patient with respiratory distress, pneumonia, and sinus tachycardia. Exam: Portable chest x-ray upright view. Comparisons: Chest x-ray dated 08/01/2016. Findings: Lungs/pleura: There is minimal left basilar atelectasis. Otherwise, lungs are clear. There is no pneumothorax. There is no pleural effusion. Mediastinum: Unremarkable. Pulmonary vasculature: Unremarkable. Heart: Cardiac silhouettes within normal limits for portable projection. Stable postop changes to the chest with sternotomy wires and mediastinal clips. Bones/extrathoracic soft tissue: Again seen degenerative disease of both shoulders. Impression: Mild left lung base atelectasis. Interval radiographic evidence of acute cardiopulmonary process. Dictated by: Dictated on workstation # [id number]
[2016-08-02] MEDS: LORazepam 0.5 MG (ATIVAN) TABLET PO SCH ×3 (08:39→21:35)
[2016-08-02] MEDS: APIXABAN 5 MG (ELIQUIS) TABLET PO SCH ×2 (08:39→21:35)
[2016-08-02] MEDS: CARVEDILOL 12.5 MG (COREG) TABLET PO SCH ×2 (08:39→21:35)
--- NOTE | 2016-08-02 09:22 | Progress Note (SOAP) ---
Subjective Subjective/Events-last exam PT REPORTS THAT HE IS FEELING MUCH BETTER TODAY - HE REPORTS THAT HE IS STILL SHORT OF BREATH, BUT HE NOTES THAT HIS SWELLING IS BETTER, HIS WEAKNESS IS IMPROVED. HE DENIES ANY CHEST PAIN. Review of Systems General: Fatigue HEENT: No Head Aches, No Dysphasia Pulmonary: Dyspnea, Cough Cardiovascular: Edema, No: Chest Pain Gastrointestinal: No: Constipation, Diarrhea, Nausea Genitourinary: No Dysuria Neurological: Weakness, No: Confusion Objective Exam Vital Signs Date Time Temp Pulse Resp B/P (MAP) Pulse Ox O2 Delivery O2 Flow Rate FiO2 08/02/16 06:00 68 13 148/65 98 Nasal Cannula 3.00 08/02/16 05:00 66 13 135/92 97 Nasal Cannula 3.00 08/02/16 04:00 97.8 65 13 125/56 93 Nasal Cannula 3.00 08/02/16 04:00 98 3.00 08/02/16 03:00 63 25 120/54 95 Nasal Cannula 3.00 08/02/16 02:25 95 3.00 08/02/16 02:00 69 15 122/55 95 Nasal Cannula 3.00 08/02/16 01:00 66 08/02/16 01:00 66 18 122/71 95 Nasal Cannula 3.00 08/02/16 00:00 97.9 69 16 116/60 97 Nasal Cannula 3.00 08/02/16 00:00 98 3.00 08/01/16 23:00 68 14 118/54 98 Nasal Cannula 3.00 08/01/16 22:00 73 14 136/53 95 Nasal Cannula 3.00 08/01/16 21:00 65 16 124/53 93 Nasal Cannula 3.00 08/01/16 20:00 98 3.00 08/01/16 20:00 97.3 64 13 138/48 98 Nasal Cannula 3.00 08/01/16 19:25 97 3.00 08/01/16 19:00 68 08/01/16 19:00 68 17 131/49 95 Nasal Cannula 3.00 08/01/16 18:00 71 142/64 95 Nasal Cannula 3.00 08/01/16 17:00 77 129/58 96 Nasal Cannula 3.00 08/01/16 16:00 84 131/55 Nasal Cannula 3.00 08/01/16 16:00 98 3.00 08/01/16 15:00 71 23 133/60 94 Nasal Cannula 3.00 08/01/16 14:00 61 19 127/57 98 Nasal Cannula 3.00 08/01/16 13:30 66 25 125/59 98 Nasal Cannula 3.00 08/01/16 13:00 63 08/01/16 12:30 96.6 Nasal Cannula 3.00 08/01/16 12:30 98 3.00 08/01/16 11:00 70 17 125/47 Nasal Cannula 3.00 08/01/16 10:00 65 20 120/64 96 Nasal Cannula 3.00 08/01/16 09:26 92 2.00 I & O 08/02/16 07:00 Intake Total 1415 ml Output Total 5150 ml Balance -3735 ml Capillary Refill : Less Than 3 Seconds General Appearance: No Apparent Distress, WD/WN HEENT: PERRL/EOMI, Pharynx Normal Neck: Full Range of Motion, Supple Respiratory: Chest Non Tender, Decreased Breath Sounds Cardiovascular: Regular Rate, Rhythm Gastrointestinal: normal bowel sounds, non tender, soft, no organomegaly, no pulsatile mass Extremity: Pedal Edema (IMPROVED SIGNIFICANTLY - DOWN TO 1+ TO 2+ PITTING) Neurologic/Psychiatric: Alert, Oriented x3, No Motor/Sensory Deficits, 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 Skin: Normal Color, Warm/Dry Lymphatic: No Adenopathy Results Lab Laboratory Tests 08/01/16 15:00: Vancomycin Level Trough 25.8*H 08/02/16 03:30: Vancomycin Level Trough 16.6, White Blood Count 4.8, Red Blood Count 3.16L, Hemoglobin 9.6L, Hematocrit 31L, Mean Corpuscular Volume 99, Mean Corpuscular Hemoglobin 30, Mean Corpuscular Hemoglobin Concent 31L, Red Cell Distribution Width 13.4, Platelet Count 113L, Mean Platelet Volume 10.1, Neutrophils (%) ( Auto) 77H, Lymphocytes (%) (Auto) 12, Monocytes (%) (Auto) 9, Eosinophils (%) ( Auto) 2, Basophils (%) (Auto) 0, Neutrophils # (Auto) 3.7, Lymphocytes # (Auto) 0.6L, Monocytes # (Auto) 0.4, Eosinophils # (Auto) 0.1, Basophils # (Auto) 0.0, Sodium Level 143, Potassium Level 3.6, Chloride Level 95L, Carbon Dioxide Level 38H, Anion Gap 10, Blood Urea Nitrogen 32H, Creatinine 1.20, Estimat Glomerular Filtration Rate 58, BUN/Creatinine Ratio 27, Glucose Level 122H, Calcium Level 8.6, Phosphorus Level 3.5, Magnesium Level 1.9 Microbiology 07/30/16 Blood Culture - Preliminary, Resulted No growth 07/30/16 Influenza Types A,B Antigen (ERIKA) - Final, Complete Assessment/Plan Assessment/Plan Assess & Plan/Chief Complaint PERIPHERAL EDEMA ANASARCA ATRIAL FIBRILLATION/FLUTTER PNEUMONIA TACHYCARDIA DYSPNEA ON EXERTION COPD EXACERBATION ANXIETY HYPERTENSION WEAKNESS AFIB/FLUTTER - MANAGED BY DR. BURRIS- AND DR. SAGASTUME - THE PT UNDERWENT SUCCESSFUL CARDIOVERSION BY . PT ON TIKOSYN - DOSING TO BE ADJUSTED - THE CONSULTATION NOTE INDICATES THE NEED FOR MR. PINEDA TO REMAIN IN THE HOSPITAL FOR ANOTHER 72 HOURS POST CARDIOVERSION. PERIPHERAL EDEMA WITH MILD ANASARCA - PT ON LASIX IV, WILL MONITOR OUTPUT -PT IS DOWN OVER 20 POUNDS OF FLUID WE WILL CONTINUE WITH DIURESIS FROM IV LASIX FOR THE NEXT FEW DAYS - SERIAL WEIGHTS, STRICT I/O. PT SHOULD SHOW EVEN MORE IMPROVEMENT WHEN THE PATIENT HAS CONTROL OF HEART RATE. PNEUMONIA - ? OF ACCURACY OF THE CHEST XRAY - CHEST XRAY CLEAR - WHITE COUNT OKAY - AT THIS TIME - WILL STOP IV ANTIBIOTICS. ANXIETY - RESTARTED ATIVAN ORALLY TODAY. HTN - STABLE. WEAKNESS - START PHYSICAL THERAPY TODAY Clinical Quality Measures DVT/VTE Risk/Contraindication: Risk Factor Score Per Nursin RFS Level Per Nursing on Admit: 3=High JALEEL NIEVES MD Aug 02, 2016 09:22
[2016-08-02] MEDS ORDERED: TROUGH ORDER-PHARMACY XX NR (10:00)
[2016-08-02] MEDS: DOFETILIDE 125 MCG PO SCH ×2 (11:24→23:12)
--- NOTE | 2016-08-02 11:26 | Physical Therapy Daily Note ---
PT Daily Note-Current Subjective Patient is in bed and states he is feeling much better today. Agrees to PT. Pain Numeric Pain Scale: 0-No Pain Location: No Pain Reported Mental Status Patient Orientation: Normal For Age Attachments: Oxygen (3L) Transfers Functional [place] Measure 0=Not Assessed/NA 4=Minimal Assistance 1=Total Assistance 5=Supervision or Setup 2=Maximal Assistance 6=Modified [place] 3=Moderate Assistance 7=Complete IndependenceIRFPAI Quality Coding Scale 6 Independent with activity with or without an assistive device 5 Patient requires set up or clean up by helper. Patient completes activity by themselves 4 Supervision or touching assist (CGA). [place] provide cues , steadying assist 3 The helper provides less than half the effort to complete the activity 2 The helper provides more than half the effort to complete the activity 1 Dependent. The helper does all the effort to complete an activity 7 Patient refused to complete or attempt activity 9 The patient did not perform the activity before the current illness or injury 88 Not attempted due to Medical conditions or safety concerns Transfers (B, C, W/C) (FIM): 6 Scootin Rollin Supine to/from Sit: 6 Sit to/from Stand: 6 Gait Training Gait (FIM): 5 Distance (FIM): 3=150 ft Distance: 300' Gait Level of Assist: 5 Gait Assistive Device: FWW slow, steady gait sequence; O2 3L NC in place and SAO2 maintained 94% with activity Assessment Patient requires time to complete all functional tasks. Patient tolerated treatment very well and is sitting EOB with needs met PT Care Home Goals X Ray Technologist Goals PT X Ray Technologist Goals Time Frame: August 08, 2016 Transfers (B,C,W/C) (FIM): 5 Gait (FIM): 5 Distance: 150' Gait Level of Assist: 5 Gait Assistive Device: FWW PT Plan Treatment/Plan Treatment Plan: Continue Plan of Care Treatment Plan: Bed Mobility, Education, Functional Activity Margy, Functional Strength, Gait, Safety, Therapeutic Exercise, Transfers Treatment Duration: August 08, 2016 Visits Per Week: 5-6 Minutes/Day (M-F): 15-30 Minutes/Day (Sat/Chaudhari): 15-30 Time/GCodes Time In: 1045 Time Out: 1110 Total Billed Treatment Time: 25 Total Billed Treatment 1 visit FA x 2 25 min MARISELA AC PT Aug 02, 2016 11:26
--- NOTE | 2016-08-02 12:42 | Cardiology Progress Note ---
Cardiology SOAP Progress Note Subjective: improved significantly Objective: I&O/Vital Signs Vital Sign - Last 12Hours 08/02/16 08/02/16 08/02/16 08/02/16 01:00 01:00 02:00 02:25 Pulse 66 66 69 Resp 18 15 B/P (MAP) 122/71 122/55 Pulse Ox 95 95 95 O2 Delivery Nasal Cannula Nasal Cannula O2 Flow Rate 3.00 3.00 3.00 08/02/16 08/02/16 08/02/16 08/02/16 03:00 04:00 04:00 05:00 Temp 97.8 Pulse 63 65 66 Resp 25 13 13 B/P (MAP) 120/54 125/56 135/92 Pulse Ox 95 98 93 97 O2 Delivery Nasal Cannula Nasal Cannula Nasal Cannula O2 Flow Rate 3.00 3.00 3.00 3.00 08/02/16 08/02/16 08/02/16 08/02/16 06:00 08:00 08:57 09:02 Pulse 68 77 Resp 13 B/P (MAP) 148/65 Pulse Ox 98 98 97 O2 Delivery Nasal Cannula O2 Flow Rate 3.00 3.00 3.00 08/02/16 11:41 Pulse Ox 98 O2 Flow Rate 3.00 Intake and Output 08/02/16 00:00 Intake Total 545 ml Output Total 2600 ml Balance -2055 ml Weight (Pounds): 211 Weight (Ounces): 9.6 Weight (Calculated Kilograms): [id number] Constitutional: No appears stated age, No AAO x 3, No apparent distress, No PERRL, No well-developed, No well-nourished, No other Respiratory: chest expansion is symmetric, chest is bilaterally symmetric, other (poor air entry bilaterally) Cardiovascular: regular rate-rhythm, S1 and S2, other (no murmur.) Gastrointestional: No tender, No soft, No round, No distended, No pulsatile mass, No organomegaly, No guarding, No rebound, No tenderness, No hernia, No mass, No audible bowel sounds, No abnormal bowel sounds, No abdominal bruits, No spleenomegaly, No other Extremities: No normal range of motion, No non-tender, No normal inspection, No pedal edema, No calf tenderness, No normal capillary refill, No pelvis stable , No calf tenderness, No inflammation, No pedal edema, No slow capillary refill , No swelling, No other, No abrasion, No clubbing, No cyanosis, No ecchymosis, No laceration, No no lower extremity edema bilateral, No significant edema, No tenderness, No wound Neurologic/Psychiatric: No barn and property manager II-XII nml as tested, No no motor/sensory deficits, No alert, No normal mood/affect, No oriented x 3, No abnormal cerebellar tests, No abnormal barn and property manager II-XII, No abnormal gait, No aphasia, No EOM palsy, No facial droop, No motor weakness, No sensory deficit, No depressed affect, No disoriented x 3, No other, No grossly intact, No power is 5/5 both on sides Skin: No normal color, No warm/dry, No cyanosis, No cool, No diaphoresis, No damp, No ecchymosis, No jaundice, No mottled, pallor, No rash, No tattoos/ piercings, No ulcerations, No rash on exposed areas, No ulcerations on exposed areas, other (See above) Results/Procedures: Labs Laboratory Tests 08/01/16 15:00: Vancomycin Level Trough 25.8*H 08/02/16 03:30: Vancomycin Level Trough 16.6, White Blood Count 4.8, Red Blood Count 3.16L, Hemoglobin 9.6L, Hematocrit 31L, Mean Corpuscular Volume 99, Mean Corpuscular Hemoglobin 30, Mean Corpuscular Hemoglobin Concent 31L, Red Cell Distribution Width 13.4, Platelet Count 113L, Mean Platelet Volume 10.1, Neutrophils (%) ( Auto) 77H, Lymphocytes (%) (Auto) 12, Monocytes (%) (Auto) 9, Eosinophils (%) ( Auto) 2, Basophils (%) (Auto) 0, Neutrophils # (Auto) 3.7, Lymphocytes # (Auto) 0.6L, Monocytes # (Auto) 0.4, Eosinophils # (Auto) 0.1, Basophils # (Auto) 0.0, Sodium Level 143, Potassium Level 3.6, Chloride Level 95L, Carbon Dioxide Level 38H, Anion Gap 10, Blood Urea Nitrogen 32H, Creatinine 1.20, Estimat Glomerular Filtration Rate 58, BUN/Creatinine Ratio 27, Glucose Level 122H, Calcium Level 8.6, Phosphorus Level 3.5, Magnesium Level 1.9 Microbiology 07/30/16 Blood Culture - Preliminary, Resulted No growth 07/30/16 Influenza Types A,B Antigen (ERIKA) - Final, Complete A/P: Assessment/Dx: pneumonia, sepsis, Coronary artery disease, status post CABG, PAD, status post aortobifemoral bypass. mild systolic congestive heart failure, atrial fibrillation/ atrial flutter with rapid ventricular rate Plan: pneumonia, sepsis: on IV antibiotics, deferred to Dr. Silver. Coronary artery disease, status post CABG: deferred to Dr. Fong PAD, status post aortobifemoral bypass: deferred to Dr. Fong mild systolic congestive heart failure: deferred to Dr. Fong atrial fibrillation/ atrial flutter with rapid ventricular rate: Electrical cardioversion to sinus rhythm yesterday. Started on dofetilide. Latest QTc interval on EKG is 488 ms. he was given dofetilide 250 g 2 dosages yesterday. The EKG after the evening dose showed a QTc interval of 503 ms. We will therefore decrease the dose to 125 g twice a day from today. We'll continue to monitor. EKGs before each dose and 2 hour after dose for QTc interval measurements. If QTc interval stays stable and below 500 ms on dofetilide 125 g twice a day then he may be able to be discharged on Saturday. Continuous telemetry for at least 72 hours after the first dose. Aggressive repletion of potassium and magnesium is recommended. I will speak to Dr. Fong and recommend decreasing the dose of by mouth Lasix to 40 mg a day. Thank you for your consultation. Please call me if you have any questions. Samantha Christensen MD, FACP, FACC, FSCAI, FHRS, CCDS Interventional Cardiology Cardiac Electrophysiology Vascular Medicine and Endovascular Interventions [place] CHRISTENSEN MD Aug 02, 2016 12:42 pm
[2016-08-02] MEDS ORDERED: VANCOMYCIN 1250 MG/NS 250 ML IVPB IV SCH ×2 (16:00)
[2016-08-02] MEDS: FUROSEMIDE 40 MG (LASIX) TAB PO SCH (16:52)
[2016-08-02] MEDS: eZETimibe 10 MG (ZETIA) TABLET PO SCH (21:35)
[2016-08-02] MEDS: ASPIRIN E.C. 81 MG (ECOTRIN) TAB PO SCH (21:35)
[2016-08-03] VITALS (23 sets, daily range): BP systolic 114–157; BP diastolic 53–120
[2016-08-03] MEDS: RT-LEVALBUTEROL (XOPENEX) 1.25 MG/3 ML NEB NON-FORMULARY INH SCH ×4 (02:17→20:13)
[2016-08-03 04:17] LABS: BASOPHILS % (AUTO) 0 % (0-10); EOSINOPHILS # (AUTO) 0.1 10^3/uL (0.0-0.3); EOSINOPHILS % (AUTO) 3 % (0-10); LYMPHOCYTES # (AUTO) 0.7 X 10^3 (1.0-4.0); LYMPHOCYTES % (AUTO) 14 % (12-44); MEAN CORPUSCULAR HEMOGLOBIN 30 PG (25-34); MEAN CORPUSCULAR HGB CONC 31 G/DL (32-36); MEAN CORPUSCULAR VOLUME 99 FL (80-99); MEAN PLATELET VOLUME 9.9 FL (7.4-10.4); MONOCYTES # (AUTO) 0.4 X 10^3 (0.0-1.0); MONOCYTES % (AUTO) 10 % (0-12); NEUTROPHILS # (AUTO) 3.4 X 10^3 (1.8-7.8); NEUTROPHILS % (AUTO) 73 % (42-75); PLATELET COUNT 138 10^3/uL (130-400); RED BLOOD COUNT 3.37 10^6/uL (4.35-5.85); RED CELL DISTRIBUTION WIDTH 13.1 % (10.0-14.5); WHITE BLOOD COUNT 4.6 10^3/uL (4.3-11.0)
[2016-08-03 04:45] LABS: ANION GAP 6 MMOL/L (5-14); BLOOD UREA NITROGEN 29 MG/DL (7-18); BUN/CREATININE RATIO 32; CALCIUM 8.8 MG/DL (8.5-10.1); CARBON DIOXIDE 43 MMOL/L (21-32); CHLORIDE 94 MMOL/L (98-107); GFR ESTIMATED > 60; GLUCOSE 81 MG/DL (70-105); MAGNESIUM 1.5 MG/DL (1.8-2.4); PHOSPHORUS 2.4 MG/DL (2.3-4.7); POTASSIUM 3.8 MMOL/L (3.6-5.0); SODIUM 143 MMOL/L (135-145)
[2016-08-03] MEDS: POTASSIUM CL 10MEQ/50ML IVPB 50 ML IV SCH (05:05)
[2016-08-03] MEDS: MAGNESIUM 1 GM/100 ML IVPB 100 ML IV SCH ×3 (05:06→05:57)
[2016-08-03] MEDS: KCL 20 MEQ TAB (K-DUR) PO SCH (05:06)
[2016-08-03] MEDS: CATHETER FLUSH 10 ML SYR IV SCH ×2 (06:28→14:09)
[2016-08-03] MEDS: FUROSEMIDE 40 MG (LASIX) TAB PO SCH ×2 (06:42→17:19)
--- NOTE | 2016-08-03 07:09 | Cardiology Progress Note ---
Subjective Subjective/Events-last exam patient is laying down in bed, feeling better, denied any chest pain or shortness of breath. No palpitation. Still complaining of mild dry cough Review of Systems General: No Chills, No Night Sweats, No Fatigue, No Malaise, No Appetite, No Other HEENT: No Head Aches, No Visual Changes, No Eye Pain, No Ear Pain, No Dysphasia , No Sinus Congestion, No Post Nasal Drip, No Sore Throat, No Other Pulmonary: No Dyspnea, Cough, No Pleuritic Chest Pain, No Other Cardiovascular: No: Chest Pain, Edema, Lt Headedness, Orthopnea, Other, Palpitations, Paroxysmal Noc. Dyspnea Objective-Cardiology Exam Last Set of Vital Signs Vital Signs 08/03/16 06:00 Pulse 66 Resp 20 B/P (MAP) 157/63 Pulse Ox 98 O2 Delivery Nasal Cannula O2 Flow Rate 3.00 Capillary Refill : Less Than 3 Seconds I&O Intake and Output 08/03/16 00:00 Intake Total 1680 ml Output Total 3650 ml Balance -1970 ml Intake Oral 1585 ml IV Total 95 ml Output Urine Total 3650 ml # Bowel Movements 1 General: Alert, Oriented X3, Cooperative, Mild Distress HEENT: Atraumatic, PERRLA Neck: Supple, No JVD, No Thyromegaly Lungs: Clear to Auscultation, Normal Air Movement Heart: Regular Rate, Normal S1, Normal S2, No Murmurs, Other Abdomen: Normal Bowel Sounds, Soft, No Tenderness, No Hepatosplenomegaly, No Masses Extremities: No Clubbing, No Cyanosis, Normal Pulses, No Tenderness/Swelling, Other ( +2 pedal edema) Skin: No Rashes Neuro: Normal Speech, Normal Tone, Sensation Intact Psych/Mental Status: Mental Status NL, Mood NL Results Lab Laboratory Tests 08/03/16 03:50 A/P-Cardiology Admission Diagnosis Generalized weakness Paroxysmal atrial flutter Tachycardia Coronary artery disease Peripheral arterial disease Assessment/Plan Paroxysmal atrial fibrillation and flutter, alternating with sinus rhythm, has underlying sick sinus syndrome, multiple cardioversion in the past, maintained on Eliquis, underwent electrical cardioversion on July 31, 2016, currently in sinus rhythm, started on Tikosyn, appreciated Dr. Christensen input, continue to monitor daily EKG, QT interval is less than 500. Possible discharge in the morning Questionable pneumonia, no leukocytosis, still complaining of dry cough, followed and managed by Dr. Silver COPD, multiple exacerbation, generalized weakness and debility. Cor pulmonale. Normal LV function. Extensive edema, anasarca, congestive heart failure, acute left ventricular systolic dysfunction, ejection fraction 30 percent, probably tachycardia induced , I will add losartan to his medication and monitor his tolerance and response. Continue on beta blockers and diuretics Chest pain nonspecific etiology, reporting improvement, no further episodes were reported at this time. Continue to monitor Coronary artery disease history of multiple intervention the past, history of CABG 1 done 5 years ago. Most recent stress test and 2D Echo done 2015 revealed no ischemia or infarct with normal EF, repeat echocardiogram on this admission showed ejection fraction 30 percent, planning to monitor LV function closely, I will repeat echocardiogram in a month. History of bradycardia, likely secondary to medication. Improved after discontinuing Cardizem and amiodarone, patient may require ablation. Hyperlipidemia, continue to monitor Pulmonary hypertension, continue to monitor Peripheral arterial disease, history of aortobifemoral bypass. Continue to monitor. History of tobaccoism in the remote past History of pleural effusion. Followed by primary care physician Clinical Quality Measures DVT/VTE Risk/Contraindication: Risk Factor Score Per Nursin RFS Level Per Nursing on Admit: 3=High JESSICA BURRIS MD Aug 03, 2016 07:09
[2016-08-03] MEDS ORDERED: KCL 20 MEQ TAB (K-DUR) PO NR (07:30)
--- NOTE | 2016-08-03 07:39 | Diagnostic Imaging Report ---
Portable upright radiograph of the chest. INDICATION: Respiratory distress. FINDINGS: The heart size is mildly enlarged. Mild opacities in the lung bases are likely related to prominent pericardial fat pad with no definite infiltrate. There is a tiny right pleural effusion. The heart size is moderately enlarged. No pneumothorax. Sternotomy wires are seen. IMPRESSION: Cardiomegaly. Small right pleural effusion. Dictated by: Dictated on workstation # [id number]
--- NOTE | 2016-08-03 08:17 | Progress Note (SOAP) ---
Subjective Subjective/Events-last exam PT REPORTS THAT HE CONTINUES TO FEEL BETTER. HE REPORTS THAT HE HIT HIS ELBOW THIS MORNING AND HAD A SKIN TEAR OF HIS ELBOW. HE STATES THAT HE HAS A COUGH, BUT IT IS HIS USUAL COUGH. HE DENIES ANY INCREASE IN SHORTNESS OF BREATH. Review of Systems General: No Chills, Fatigue HEENT: No Head Aches Pulmonary: Cough Cardiovascular: Edema, No: Chest Pain Gastrointestinal: No: Abdominal Pain, Nausea Genitourinary: No Dysuria, Frequency Neurological: Weakness, No: Confusion Objective Exam Vital Signs Date Time Temp Pulse Resp B/P (MAP) Pulse Ox O2 Delivery O2 Flow Rate FiO2 08/03/16 07:41 98 3.00 08/03/16 06:00 66 20 157/63 98 Nasal Cannula 3.00 08/03/16 05:00 68 19 154/67 96 Nasal Cannula 3.00 08/03/16 04:00 67 18 138/58 94 Nasal Cannula 3.00 08/03/16 04:00 97.6 08/03/16 04:00 98 3.00 08/03/16 03:00 66 13 141/67 96 Nasal Cannula 3.00 08/03/16 02:17 94 3.00 08/03/16 02:00 69 16 134/59 94 Nasal Cannula 3.00 08/03/16 01:00 67 08/03/16 01:00 67 11 131/53 94 Nasal Cannula 3.00 08/03/16 00:00 98.0 08/03/16 00:00 71 16 124/71 94 Nasal Cannula 3.00 08/03/16 00:00 98 3.00 08/02/16 23:00 79 21 142/57 94 Nasal Cannula 3.00 08/02/16 22:00 79 18 130/53 94 Nasal Cannula 3.00 08/02/16 21:00 76 18 131/51 94 Nasal Cannula 3.00 08/02/16 20:01 3.00 08/02/16 20:00 86 19 126/62 93 Nasal Cannula 3.00 08/02/16 20:00 98.6 08/02/16 20:00 98 3.00 08/02/16 19:00 82 08/02/16 19:00 82 29 115/42 92 Nasal Cannula 3.00 08/02/16 18:00 85 37 124/65 93 Nasal Cannula 3.00 08/02/16 17:00 78 24 123/79 93 Nasal Cannula 3.00 08/02/16 16:00 98.2 72 17 131/51 95 Nasal Cannula 3.00 08/02/16 15:16 98 3.00 08/02/16 15:00 76 10 124/49 96 Nasal Cannula 3.00 08/02/16 14:18 3.00 08/02/16 13:20 69 08/02/16 13:00 66 22 129/61 99 Nasal Cannula 3.00 08/02/16 12:00 69 22 128/65 95 Nasal Cannula 3.00 08/02/16 11:41 98 3.00 08/02/16 11:00 69 22 128/65 95 Nasal Cannula 3.00 08/02/16 10:00 70 16 119/61 95 Nasal Cannula 3.00 08/02/16 09:02 77 08/02/16 09:00 71 17 139/63 100 Nasal Cannula 3.00 08/02/16 08:57 97 3.00 I & O 08/03/16 07:00 Intake Total 1660 ml Output Total 3400 ml Balance -1740 ml Capillary Refill : Less Than 3 Seconds General Appearance: No Apparent Distress, WD/WN HEENT: PERRL/EOMI, Pharynx Normal Neck: Full Range of Motion, Supple Respiratory: Chest Non Tender, Decreased Breath Sounds Cardiovascular: Regular Rate, Rhythm Gastrointestinal: normal bowel sounds, non tender, soft Extremity: Pedal Edema (2+ AT FEET/ANKLES - IMPROVED EDEMA OF LEGS FROM CALVES TO THIGHS) Neurologic/Psychiatric: Alert, Oriented x3, No Motor/Sensory Deficits, 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 Skin: Warm/Dry, Other (ABRASION OF ELBOW ON LEFT, VESSICLES ON LOWER LEG) Lymphatic: No Adenopathy Results Lab Laboratory Tests 08/03/16 03:50: White Blood Count 4.6, Red Blood Count 3.37L, Hemoglobin 10.2L, Hematocrit 33L, Mean Corpuscular Volume 99, Mean Corpuscular Hemoglobin 30, Mean Corpuscular Hemoglobin Concent 31L, Red Cell Distribution Width 13.1, Platelet Count 138, Mean Platelet Volume 9.9, Neutrophils (%) (Auto) 73, Lymphocytes (%) (Auto) 14, Monocytes (%) (Auto) 10, Eosinophils (%) (Auto) 3, Basophils (%) (Auto) 0, Neutrophils # (Auto) 3.4, Lymphocytes # (Auto) 0.7L, Monocytes # (Auto) 0.4, Eosinophils # (Auto) 0.1, Basophils # (Auto) 0.0, Sodium Level 143, Potassium Level 3.8, Chloride Level 94L, Carbon Dioxide Level 43H, Anion Gap 6, Blood Urea Nitrogen 29H, Creatinine 0.90, Estimat Glomerular Filtration Rate > 60, BUN /Creatinine Ratio 32, Glucose Level 81, Calcium Level 8.8, Phosphorus Level 2.4 , Magnesium Level 1.5L Microbiology 07/30/16 Blood Culture - Preliminary, Resulted No growth 07/30/16 Influenza Types A,B Antigen (ERIKA) - Final, Complete Assessment/Plan Assessment/Plan Assess & Plan/Chief Complaint PERIPHERAL EDEMA ANASARCA ATRIAL FIBRILLATION/FLUTTER PNEUMONIA TACHYCARDIA DYSPNEA ON EXERTION COPD EXACERBATION ANXIETY HYPERTENSION WEAKNESS AFIB/FLUTTER - MANAGED BY DR. BURRIS- AND DR. SAGASTUME - THE PT UNDERWENT SUCCESSFUL CARDIOVERSION BY . PT ON TIKOSYN - DOSING HAS BEEN ADJUSTED - PT ON STABLE DOSE, WILL CONTINUE TO MONITOR AFTER DOSE TODAY - AND IF PT TOLERATES DOSE WITHOUT SIGNIFICANT CHANGE IN QTc INTERVAL, WILL DISCHARGE TO HOME TOMORROW. PERIPHERAL EDEMA WITH MILD ANASARCA - PT ON LASIX IV, WILL MONITOR OUTPUT -PT IS DOWN OVER 25 POUNDS OF FLUID WE WILL CONTINUE WITH DIURESIS FROM IV LASIX FOR THE NEXT FEW DAYS - SERIAL WEIGHTS, STRICT I/O. PNEUMONIA - RESOLVED - ANTIBIOTICS HAVE BEEN DISCONTINUED. ANXIETY - RESTARTED ATIVAN ORALLY. HTN - STABLE. WEAKNESS - START PHYSICAL THERAPY. DEENA DUVALL TODAY COPD - GIVE DOSE OF STEROID TODAY - RESTART SYMBICORT. Clinical Quality Measures DVT/VTE Risk/Contraindication: Risk Factor Score Per Nursin RFS Level Per Nursing on Admit: 3=High JALEEL NIEVES MD Aug 03, 2016 08:17
[2016-08-03] MEDS ORDERED: methylPREDNISolone 125 MG (Solu-MEDROL) VIAL IM NR (08:30)
[2016-08-03] MEDS ORDERED: DOFE125C PO (08:42)
[2016-08-03] MEDS: CARVEDILOL 12.5 MG (COREG) TABLET PO SCH ×2 (08:46→21:37)
[2016-08-03] MEDS: LOSARTAN 25 MG (COZAAR) TAB PO SCH (08:46)
[2016-08-03] MEDS: APIXABAN 5 MG (ELIQUIS) TABLET PO SCH ×2 (08:46→21:37)
[2016-08-03] MEDS: LORazepam 0.5 MG (ATIVAN) TABLET PO SCH ×3 (08:46→21:37)
[2016-08-03] MEDS: DOFETILIDE 125 MCG PO SCH ×2 (08:47→21:37)
[2016-08-03] MEDS: RT-ADVAIR HFA 115/21 MCG PER PUFF IH SCH ×2 (09:09→20:13)
--- NOTE | 2016-08-03 10:15 | Physical Therapy Daily Note ---
PT Daily Note-Current Subjective Patient in recliner pre tx, agrees to PT, has no complaints of pain, just got urinary catheter out and has urinated. Appearance Patient in recliner post tx with nurse call, phone, tray, family in the room. Patient's O2 sensor is not working, he was 96% pre tx, and the sensor would not work after ambulation, nurse notified. Mental Status Patient Orientation: Normal For Age Attachments: Oxygen 3L O2 nasal canula Transfers Functional [place] Measure 0=Not Assessed/NA 4=Minimal Assistance 1=Total Assistance 5=Supervision or Setup 2=Maximal Assistance 6=Modified [place] 3=Moderate Assistance 7=Complete IndependenceIRFPAI Quality Coding Scale 6 Independent with activity with or without an assistive device 5 Patient requires set up or clean up by helper. Patient completes activity by themselves 4 Supervision or touching assist (CGA). [place] provide cues , steadying assist 3 The helper provides less than half the effort to complete the activity 2 The helper provides more than half the effort to complete the activity 1 Dependent. The helper does all the effort to complete an activity 7 Patient refused to complete or attempt activity 9 The patient did not perform the activity before the current illness or injury 88 Not attempted due to Medical conditions or safety concerns Transfers (B, C, W/C) (FIM): 6 Sit to/from Stand: 6 Gait Training Gait (FIM): 5 Distance: 300' Gait Level of Assist: 5 Gait Persons Needed: 1 Gait Assistive Device: FWW slow ambulation but steady, no LOB, patient ambulated with a portable telemetry on Treatments transfers, ambulation Assessment Current Status: Fair Progress improving endurance PT Electrical Instrument Repairer Goals Group Home Goals PT Group Home Goals Time Frame: August 08, 2016 Transfers (B,C,W/C) (FIM): 5 Gait (FIM): 5 Distance: 150' Gait Level of Assist: 5 Gait Assistive Device: FWW PT Plan Problem List Problem List: Activity Tolerance, Functional Strength, Safety, Balance, Gait, Transfer, Bed Mobility Treatment/Plan Treatment Plan: Continue Plan of Care Treatment Plan: Bed Mobility, Education, Functional Activity Margy, Functional Strength, Gait, Safety, Therapeutic Exercise, Transfers Treatment Duration: August 08, 2016 Visits Per Week: 5-6 Minutes/Day (M-F): 15-30 Minutes/Day (Sat/Chaudhari): 15-30 Safety Risks/Education Patient Education: Gait Training, Transfer Techniques, Correct Positioning, Safety Issues Teaching Recipient: Patient Teaching Methods: Demonstration, Discussion Response to Teaching: Reinforcement Needed Time/GCodes Time In: 945 Time Out: 1005 Total Billed Treatment Time: 20 Total Billed Treatment 1 visit GT 20' CODIE ESQUIVEL PT Aug 03, 2016 10:15
[2016-08-03] MEDS: DILTIAZEM DRIP 100 MG/NS 100 ML IV SCH ×2 (14:10)
[2016-08-03] MEDS: methylPREDNISolone 40 MG/ML (Solu-MEDROL) VIAL IV SCH ×2 (14:14→17:19)
[2016-08-03] MEDS: eZETimibe 10 MG (ZETIA) TABLET PO SCH (21:37)
[2016-08-03] MEDS: ASPIRIN E.C. 81 MG (ECOTRIN) TAB PO SCH (21:37)
[2016-08-04] VITALS (13 sets, daily range): BP systolic 128–166; BP diastolic 58–121
[2016-08-04] MEDS: CATHETER FLUSH 10 ML SYR IV SCH ×2 (00:43→07:03)
[2016-08-04] MEDS: methylPREDNISolone 40 MG/ML (Solu-MEDROL) VIAL IV SCH ×3 (00:43→13:41)
[2016-08-04] MEDS: RT-LEVALBUTEROL (XOPENEX) 1.25 MG/3 ML NEB NON-FORMULARY INH SCH ×2 (02:10→06:39)
[2016-08-04 04:19] LABS: BASOPHILS % (AUTO) 0 % (0-10); EOSINOPHILS % (AUTO) 0 % (0-10); LYMPHOCYTES # (AUTO) 0.3 X 10^3 (1.0-4.0); LYMPHOCYTES % (AUTO) 6 % (12-44); MEAN CORPUSCULAR HEMOGLOBIN 31 PG (25-34); MEAN CORPUSCULAR HGB CONC 31 G/DL (32-36); MEAN CORPUSCULAR VOLUME 98 FL (80-99); MEAN PLATELET VOLUME 9.9 FL (7.4-10.4); MONOCYTES # (AUTO) 0.2 X 10^3 (0.0-1.0); MONOCYTES % (AUTO) 3 % (0-12); NEUTROPHILS # (AUTO) 4.4 X 10^3 (1.8-7.8); NEUTROPHILS % (AUTO) 91 % (42-75); PLATELET COUNT 187 10^3/uL (130-400); RED BLOOD COUNT 3.39 10^6/uL (4.35-5.85); RED CELL DISTRIBUTION WIDTH 12.7 % (10.0-14.5); WHITE BLOOD COUNT 4.8 10^3/uL (4.3-11.0)
[2016-08-04 04:39] LABS: ANION GAP 10 MMOL/L (5-14); BLOOD UREA NITROGEN 24 MG/DL (7-18); BUN/CREATININE RATIO 28; CARBON DIOXIDE 40 MMOL/L (21-32); CHLORIDE 92 MMOL/L (98-107); CREATININE SERUM 0.85 MG/DL (0.60-1.30); GFR ESTIMATED > 60; GLUCOSE 247 MG/DL (70-105); MAGNESIUM 1.9 MG/DL (1.8-2.4); PHOSPHORUS 1.9 MG/DL (2.3-4.7); POTASSIUM 3.8 MMOL/L (3.6-5.0); SODIUM 142 MMOL/L (135-145)
[2016-08-04 05:04] LABS: BAND NEUTROPHILS 2 %; BASOPHILS % (MANUAL) 0 %; EOSINOPHILS % (MANUAL) 0 %; LYMPHOCYTES % (MANUAL) 4 %; NEUTROPHILS % (MANUAL) 90 %
[2016-08-04 05:05] LABS: REACTIVE LYMPHOCYTES 2 %
[2016-08-04] MEDS: KCL 20 MEQ TAB (K-DUR) PO SCH (05:31)
[2016-08-04] MEDS: MAGNESIUM 1 GM/100 ML IVPB 100 ML IV SCH (05:31)
[2016-08-04] MEDS: POTASSIUM CL 10MEQ/50ML IVPB 50 ML IV SCH (05:32)
[2016-08-04] MEDS: RT-ADVAIR HFA 115/21 MCG PER PUFF IH SCH (06:39)
[2016-08-04] MEDS ORDERED: KCL 20 MEQ TAB (K-DUR) PO SCH (07:00)
[2016-08-04] MEDS: FUROSEMIDE 40 MG (LASIX) TAB PO SCH (07:04)
[2016-08-04] MEDS: DOFETILIDE 125 MCG PO SCH (08:59)
[2016-08-04] MEDS: APIXABAN 5 MG (ELIQUIS) TABLET PO SCH (08:59)
[2016-08-04] MEDS: LOSARTAN 25 MG (COZAAR) TAB PO SCH (08:59)
[2016-08-04] MEDS: CARVEDILOL 12.5 MG (COREG) TABLET PO SCH (08:59)
[2016-08-04] MEDS: LORazepam 0.5 MG (ATIVAN) TABLET PO SCH (08:59)
[2016-08-04] MEDS ORDERED: FURO40TA4 PO (09:18)
[2016-08-04] MEDS ORDERED: POTA20TA8 PO (09:18)
[2016-08-04] MEDS ORDERED: LOSA25TA21 PO (09:18)
--- NOTE | 2016-08-04 09:20 | Discharge Inst-Complex ---
[facility] Med Rec & Follow Up Appt. New Medications: Dofetilide (Tikosyn) 125 Mcg Capsule 125 MCG PO BID, #60 CAP Furosemide (Furosemide) 40 Mg Tablet 40 MG PO DAILY@07,17 for 30 Days, #60 TAB 1 Refill Losartan Potassium (Losartan Potassium) 25 Mg Tablet 25 MG PO DAILY for 30 Days, #30 TAB 3 Refills Potassium Chloride (Klor-Con M20) 20 Meq Tab.er.prt 20 MEQ PO DAILY@0700 for 30 Days, #30 TAB 6 Refills Continued Medications: Albuterol Sulfate (Proair Hfa) 8.5 Gm Hfa.aer.ad 1 PUFF IH BID Apixaban (Eliquis) 5 Mg Tablet 5 MG PO BID Aspirin (Aspirin EC) 81 Mg Tablet.dr 81 MG PO HS, TAB Benzonatate (Benzonatate) 100 Mg Capsule 200 MG PO TID PRN for COUGH-1ST LINE for 30 Days, #60 CAP Budesonide/Formoterol Fumarate (Symbicort 160-4.5 Mcg Inhaler) 10.2 Gm Hfa.aer.ad 2 PUFF IH BID Carboxymethylcellulose Sodium (Lubricant Eye) 15 Ml Drops 1 DROP OU DAILY PRN PRN for DRY EYES, DROPS Carvedilol (Carvedilol) 12.5 Mg Tablet 12.5 MG PO BID, TAB Cetirizine HCl (Cetirizine HCl) 10 Mg Tablet 10 MG PO DAILY, TAB Ezetimibe (Zetia) 10 Mg Tablet 10 MG PO HS Famotidine (Famotidine) 20 Mg Tablet 20 MG PO BID PRN for INDIGESTION for 30 Days, #60 TAB Fenofibrate Nanocrystallized (Fenofibrate) 145 Mg Tablet 145 MG PO HS Guaifenesin (Mucinex) 600 Mg Tab.er.12h 600 MG PO BID for 30 Days, #60 TAB Levalbuterol HCl (Levalbuterol HCl) 1.25 Mg/3 Ml Vial.neb 1.25 MG IH QID PRN for DYSPNEA, INHALER Lorazepam (Lorazepam) 0.5 Mg Tablet 0.25 MG PO TID for 30 Days, #90 TAB 2 Refills Montelukast Sodium (Montelukast Sodium) 10 Mg Tablet 10 MG PO HS Multivitamins W-Iron (Flintstones With Iron) 1 Tab.chew Tab.chew 1 TAB.CHEW PO BID, TAB.CHEW Nitroglycerin (Nitrostat) 0.4 Mg Tab.subl 0.4 MG PO UD PRN for CHEST PAIN DISSOLVE 1 TAB UNDER TONGUE EVERY 5 MINUTES NEEDED; NOT TO EXCEED 3 DOSES IN 15 MINUTES Prednisone (Prednisone) 20 Mg Tab 40 MG PO DAILY@0700 for 30 Days, #30 TAB 2 Refills 40mg daily x 2weeks then decrease to 30mg daily x 2weeks, then 20mg daily x 2weeks, taper down to 10mg daily if able Tramadol HCl (Tramadol HCl) 50 Mg Tablet 50-100 MG PO EVERY 4-6 HOURS PRN for PAIN Vit A,C & E/Lutein/Minerals (Ocuvite with Lutein Tablet) 1 Each Tablet 1 TAB PO DAILY, TAB [Duolin 100MCG/20MCG] () 1 PUFF IH DAILY PRN Discontinued Medications: Amlodipine Besylate (Amlodipine Besylate) 10 Mg Tablet 10 MG PO DAILY for 90 Days, #90 TAB 3 Refills Furosemide (Furosemide) 20 Mg Tablet 20 MG PO BID@07,17 for 30 Days, #60 TAB 3 Refills Isosorbide Mononitrate (Isosorbide Mononitrate ER) 60 Mg Tab 60 MG PO DAILY, TAB Prescription: Transmitted to Pharmacy ([facility], [facility] FOR TIKOSYN RX) Activity, Diet and PDI Resume Normal Activity: Yes Discharge Diet: Low Sodium Diet Drink 6-8 Glasses of Fluid/Day: Yes Driving Instructions: No Driving for 1 Week Return to The Hospital For: ANY CONCERN FOR WORSENING EDEMA (SWELLING IN LEGS), WORSENING SHORTNESS OF BREATH, IRREGULAR HEART BEAT, VERY FAST HEART BEAT, OR CONCERN FOR LIFETHREATENING ILLNESS OR INJURY Symptoms to Reoprt to : Swelling Increased, Bleeding Excessive, Fever Over 101 Degrees F, Pain/Pressure in Chest, Heart Beat Irreg/Pounding, Pain/Pressure in Jaw For Problems or Questions: Contact Your Physician, Go to Emergency Room JALEEL NIEVES MD Aug 04, 2016 09:20
--- NOTE | 2016-08-04 09:22 | Discharge Summary ---
Diagnosis/Chief Complaint Date of Admission Jul 30, 2016 at 11:17 Date of Discharge Discharge Date: Aug 04, 2016 Discharge Time: 1300 Admission Diagnosis Admission Diagnosis PERIPHERAL EDEMA ANASARCA ATRIAL FIBRILLATION/FLUTTER PNEUMONIA TACHYCARDIA DYSPNEA ON EXERTION COPD EXACERBATION ANXIETY HYPERTENSION WEAKNESS Reason Hospital Visit PT IS AN 80 Y/O MALE WHO IS KNOWN TO ME FROM CLINIC. HE PRESENTED TO THE HOSPITAL AFTER 2-3 DAYS OF FEELING POORLY. HE REPORTS THAT HE NOTICED THAT HIS HEART RATE WAS ELEVATED ON SATURDAY, SATURDAY, AND SATURDAY. HE REPORTS THAT HE THINKS HE REMEMBERS HIS HEART RATE BEING IN THE 130'S ALL THREE DAYS. HE STATES THAT HE HAD STARTED FEELING SO POORLY TODAY THAT HE JUST COULD NO LONGER MANAGE AT HOME. Discharge Summary Discharge Physical Examination Allergies: Coded Allergies: iodine (Verified Allergy, Unknown, 07/13/16) Vitals & I&Os Vital Signs Date Time Temp Pulse Resp B/P (MAP) Pulse Ox O2 Delivery O2 Flow Rate FiO2 08/04/16 07:31 97.0 08/04/16 07:00 80 08/04/16 06:41 100 3.00 08/04/16 06:00 13 146/74 08/03/16 10:00 Nasal Cannula General Appearance: Alert, Oriented X3, Cooperative, Mild Distress HEENT: Atraumatic, PERRLA Respiratory: Clear to Auscultation, Normal Air Movement Cardiovascular: Regular Rate, Normal S1, Normal S2, No Murmurs, Other Abdominal: Normal Bowel Sounds, Soft, No Tenderness, No Hepatosplenomegaly, No Masses Extremities: No Clubbing, No Cyanosis, Normal Pulses, No Tenderness/Swelling, Other ( +2 pedal edema) Skin: No Rashes Neuro: Normal Speech, Normal Tone, Sensation Intact Psych/Mental Status: Mental Status NL, Mood NL Hospital Course Pending Labs Laboratory Tests 08/04/16 03:59: White Blood Count 4.8, Red Blood Count 3.39, Hemoglobin 10.4, Hematocrit 33, Mean Corpuscular Volume 98, Mean Corpuscular Hemoglobin 31, Mean Corpuscular Hemoglobin Concent 31, Red Cell Distribution Width 12.7, Platelet Count 187, Mean Platelet Volume 9.9, Neutrophils (%) (Auto) 91, Lymphocytes (%) (Auto) 6, Monocytes (%) (Auto) 3, Eosinophils (%) (Auto) 0, Basophils (%) (Auto) 0, Neutrophils # (Auto) 4.4, Lymphocytes # (Auto) 0.3, Monocytes # (Auto) 0.2, Eosinophils # (Auto) 0.0, Basophils # (Auto) 0.0, Neutrophils % (Manual) 90, Lymphocytes % (Manual) 4, Monocytes % (Manual) 2, Eosinophils % (Manual) 0, Basophils % (Manual) 0, Band Neutrophils 2, Reactive Lymphocytes 2, Elliptocytes SLIGHT, Sodium Level 142, Potassium Level 3.8, Chloride Level 92, Carbon Dioxide Level 40, Anion Gap 10, Blood Urea Nitrogen 24, Creatinine 0.85, Estimat Glomerular Filtration Rate > 60, BUN/Creatinine Ratio 28, Glucose Level 247, Calcium Level 9.0, Phosphorus Level 1.9, Magnesium Level 1.9 Discharge Instructions to patient/family Please see electonic discharge instructions given to patient. Discharge Medications Reviewed and agree with Discharge Medication list on patient's Discharge Instruction sheet Clinical Quality Measures DVT/VTE Risk/Contraindication: Risk Factor Score Per Nursin RFS Level Per Nursing on Admit: 3=High JALEEL NIEVES MD Aug 04, 2016 09:21
--- NOTE | 2016-08-04 10:55 | Physical Therapy Daily Note ---
PT Daily Note-Current Subjective Pt. up in chair and agreeable to rx. Nurse consulted and nurse switched pts telemetry to portable for walking. Pt. requests urinal while standing but wasnt able to go, urge only Pain Numeric Pain Scale: 0-No Pain Mental Status Patient Orientation: Normal For Age Transfers Functional [place] Measure 0=Not Assessed/NA 4=Minimal Assistance 1=Total Assistance 5=Supervision or Setup 2=Maximal Assistance 6=Modified [place] 3=Moderate Assistance 7=Complete IndependenceIRFPAI Quality Coding Scale 6 Independent with activity with or without an assistive device 5 Patient requires set up or clean up by helper. Patient completes activity by themselves 4 Supervision or touching assist (CGA). [place] provide cues , steadying assist 3 The helper provides less than half the effort to complete the activity 2 The helper provides more than half the effort to complete the activity 1 Dependent. The helper does all the effort to complete an activity 7 Patient refused to complete or attempt activity 9 The patient did not perform the activity before the current illness or injury 88 Not attempted due to Medical conditions or safety concerns Transfers (B, C, W/C) (FIM): 5 Scootin Sit to/from Stand: 5 Gait Training Gait (FIM): 5 Distance (FIM): 3=150 ft (250) Gait Level of Assist: 5 Gait Persons Needed: 1 Gait Assistive Device: FWW SBA and assist O2 3 L Exercises Seated Therapy Exercises: Ankle pumps, Long arc quads, Hip flexion, Hip abd/add Seated Reps: 10 Assessment Current Status: Good Progress PT Halfway Goals Rf Microwave Engineer Goals PT Rf Microwave Engineer Goals Time Frame: August 08, 2016 Transfers (B,C,W/C) (FIM): 5 Gait (FIM): 5 Distance: 150' Gait Level of Assist: 5 Gait Assistive Device: FWW PT Plan Treatment/Plan Treatment Plan: Continue Plan of Care Treatment Plan: Bed Mobility, Education, Functional Activity Margy, Functional Strength, Gait, Safety, Therapeutic Exercise, Transfers Treatment Duration: August 08, 2016 Visits Per Week: 5-6 Minutes/Day (M-F): 15-30 Minutes/Day (Sat/Chaudhari): 15-30 Safety Risks/Education Patient Education: Gait Training, Transfer Techniques Teaching Recipient: Patient Teaching Methods: Demonstration, Discussion Response to Teaching: Verbalize Understanding, Return Demonstration pt. typically uses cane at home and did need some educ re: safe FWW use Time/GCodes Time In: 1025 Time Out: 1050 Total Billed Treatment Time: 25 Total Billed Treatment 1,GT25m G Codes Necessary: ZOYA Walls [employer] Aug 04, 2016 10:55
--- NOTE | 2016-08-04 12:15 | Cardiology Progress Note ---
Subjective Subjective/Events-last exam patient is sitting in a chair, feeling well. Denied any chest pain or shortness of breath. No palpitation. Review of Systems General: No Chills, No Night Sweats, No Fatigue, No Malaise, No Appetite, No Other HEENT: No Head Aches, No Visual Changes, No Eye Pain, No Ear Pain, No Dysphasia , No Sinus Congestion, No Post Nasal Drip, No Sore Throat, No Other Pulmonary: No Dyspnea, No Cough, No Pleuritic Chest Pain, No Other Cardiovascular: No: Chest Pain, Edema, Lt Headedness, Orthopnea, Other, Palpitations, Paroxysmal Noc. Dyspnea Objective-Cardiology Exam Last Set of Vital Signs Vital Signs 08/03/16 08/04/16 08/04/16 08/04/16 08/04/16 10:00 06:00 07:00 07:31 08:59 Temp 97.0 Pulse 80 Resp 13 B/P (MAP) 146/74 Pulse Ox 98 O2 Delivery Nasal Cannula O2 Flow Rate 3.00 Capillary Refill : Less Than 3 Seconds I&O Intake and Output 08/04/16 00:00 Intake Total 2750 ml Output Total 3825 ml Balance -1075 ml Intake Oral 2650 ml IV Total 100 ml Output Urine Total 3825 ml General: Alert, Oriented X3, Cooperative, Mild Distress HEENT: Atraumatic, PERRLA Neck: Supple, No JVD, No Thyromegaly Lungs: Clear to Auscultation, Normal Air Movement Heart: Regular Rate, Normal S1, Normal S2, No Murmurs, Other Abdomen: Normal Bowel Sounds, Soft, No Tenderness, No Hepatosplenomegaly, No Masses Extremities: No Clubbing, No Cyanosis, Normal Pulses, No Tenderness/Swelling, Other ( +2 pedal edema) Skin: No Rashes Neuro: Normal Speech, Normal Tone, Sensation Intact Psych/Mental Status: Mental Status NL, Mood NL Results Lab Laboratory Tests 08/04/16 03:59 A/P-Cardiology Admission Diagnosis Generalized weakness Paroxysmal atrial flutter Tachycardia Coronary artery disease Peripheral arterial disease Assessment/Plan Paroxysmal atrial fibrillation and flutter, alternating with sinus rhythm, has underlying sick sinus syndrome, multiple cardioversion in the past, maintained on Eliquis, underwent electrical cardioversion on July 31, 2016, currently in sinus rhythm, started on Tikosyn, appreciated Dr. Christensen input, continue to monitor daily EKG, QT interval is less than 500. DC today and follow as an outpatient Questionable pneumonia, no leukocytosis, still complaining of dry cough, followed and managed by Dr. Silver COPD, multiple exacerbation, generalized weakness and debility. Cor pulmonale. Normal LV function. Extensive edema, anasarca, congestive heart failure, acute left ventricular systolic dysfunction, ejection fraction 30 percent, probably tachycardia induced , I will add losartan to his medication and monitor his tolerance and response. Continue on beta blockers and diuretics Chest pain nonspecific etiology, reporting improvement, no further episodes were reported at this time. Continue to monitor Coronary artery disease history of multiple intervention the past, history of CABG 1 done 5 years ago. Most recent stress test and 2D Echo done 2015 revealed no ischemia or infarct with normal EF, repeat echocardiogram on this admission showed ejection fraction 30 percent, planning to monitor LV function closely, I will repeat echocardiogram in a month. History of bradycardia, likely secondary to medication. Improved after discontinuing Cardizem and amiodarone, patient may require ablation. Hyperlipidemia, continue to monitor Pulmonary hypertension, continue to monitor Peripheral arterial disease, history of aortobifemoral bypass. Continue to monitor. History of tobaccoism in the remote past History of pleural effusion. Followed by primary care physician Clinical Quality Measures DVT/VTE Risk/Contraindication: Risk Factor Score Per Nursin RFS Level Per Nursing on Admit: 3=High JESSICA BURRIS MD Aug 04, 2016 12:15
== END 2016-08-04 14:30 | disposition home health service (06) | DRG 308 ==
LOC: EDUNIT# 08:41 → ER 08:42 → ICU 11:17 → ENPENDDIS 08-04 13:00
PROVIDERS: ADMIT Family Medicine; ATTEND Family Medicine
PROC: 5A2204Z Restoration of Cardiac Rhythm, Single (ICD-10-PCS; principal; 2016-07-31)
DX: I48.92 Unspecified atrial flutter (principal); I48.0 Paroxysmal atrial fibrillation; I49.5 Sick sinus syndrome; I11.0 Hypertensive heart disease with heart failure; I50.21 Acute systolic (congestive) heart failure; J44.0 Chronic obstructive pulmonary disease with (acute) lower respiratory infection; J18.9 Pneumonia, unspecified organism; J44.1 Chronic obstructive pulmonary disease with (acute) exacerbation; I27.81 Cor pulmonale (chronic); F41.9 Anxiety disorder, unspecified; I25.10 Atherosclerotic heart disease of native coronary artery without angina pectoris; I27.2 Other secondary pulmonary hypertension; I73.9 Peripheral vascular disease, unspecified; E78.5 Hyperlipidemia, unspecified; H91.90 Unspecified hearing loss, unspecified ear; H35.30 Unspecified macular degeneration; C61 Malignant neoplasm of prostate; C44.90 Unspecified malignant neoplasm of skin, unspecified; M19.91 Primary osteoarthritis, unspecified site; Z99.81 Dependence on supplemental oxygen; Z87.891 Personal history of nicotine dependence; Z95.1 Presence of aortocoronary bypass graft; Z95.5 Presence of coronary angioplasty implant and graft; Z79.01 Long term (current) use of anticoagulants; Z95.828 Presence of other vascular implants and grafts
CPT/HCPCS: 36415; 51702; 71010; 80048; 80053; 80202; 81000; 83605; 83735; 83880; 84100; 84484; 85007; 85025; 85027; 85610; 85730; 86141; 87040; 87804; 93005; 93041; 93306; 94640; 94760; 96365; 96367; 96375